=== PATIENT | male | born 1970 | race Caucasian/White ===

== ENCOUNTER 2017-06-22 08:59 | Outpatient (CLI) | payer OTHER ==
[2017-06-22 12:34] LABS: #Basophils 0.1 thou/uL (0.0-0.2); #Eosinphils 0.3 thou/uL (0.0-0.7); #Lymphocytes 1.6 thou/uL (1.20-3.40); #Monocytes 0.7 thou/uL (0.11-0.59); #Neutrophils 3.3 thou/uL (1.40-6.50); %Basophils 1.4 % (0.0-1.0); %Eosinophils 5.3 % (0.0-10.0); %Lymphocytes 26.8 % (21.0-51.0); %Monocytes 11.4 % (0.0-10.0); Hematocrit 47.1 % (42.0-52.0); Mean Platelet Volume 7.1 fL (7.4-10.4); Red Blood Cell (RBC) Count 4.67 mill/uL (4.70-6.10)
[2017-06-22 12:39] LABS: Hemoglobin A1c 5.2 % (4.0-6.0)
[2017-06-22 13:07] LABS: Anion Gap 16 mmol/L (10-20); BUN (Urea Nitrogen) 13 mg/dL (8.9-20.6); Calc. Creatinine Clearance 0 mL/min (70-130); Calcium 9.8 mg/dL (7.8-10.44); Carbon Dioxide 22 mmol/L (22-29); Chloride 103 mmol/L (98-107); Estimated GFR-MDRD 70
--- NOTE | 2017-06-23 09:06 | EKG ---
Test Reason : PREOP Blood Pressure : / mmHG Vent. Rate : 052 BPM Atrial Rate : 052 BPM P-R Int : 130 ms QRS Dur : 098 ms QT Int : 380 ms P-R-T Axes : 061 040 049 degrees QTc Int : 353 ms Sinus bradycardia Otherwise normal ECG When compared with ECG of 29-SEP-2016 12:19, QT has shortened Confirmed by MIMI IGLESIAS ([id number]) on 06/23/2017 9:05:55 AM Referred By: CARYN Confirmed By:MIMI IGLESIAS
== END 2017-06-22 09:00 | disposition home or self-care (01) ==
LOC: LABBT 08:59
PROVIDERS: ATTEND Surgery
DX: Z01.812 Encounter for preprocedural laboratory examination (principal); C18.9 Malignant neoplasm of colon, unspecified
CPT/HCPCS: 80048; 83036; 85025; 93005; 93010

== ENCOUNTER 2017-06-22 09:00 | Inpatient (IN) | payer OTHER, SELFPAY ==
[2017-06-22 09:25] VITALS: BMI 25.7
[2017-06-29] MEDS ORDERED: Sodium Chloride 0.9% 100 ML ONE (11:14)
[2017-06-29] MEDS ORDERED: Bupivacaine HCl 0.5%/Epinephrine 1:200,000/PF 30 ml Vial ONE (11:35)
[2017-06-29] MEDS ORDERED: Fentanyl 100 MCG/2 ML VIAL ONE (11:46)
[2017-07-04 14:36] LABS: Oxyhemoglobin 96.6 % (94.0-97.0); Sodium 136 mmol/L (135-148)
[2017-07-04 14:41] LABS: Vent YES
[2017-07-04 14:42] LABS: Mode OR ABG
== END 2017-06-29 13:00 | disposition home or self-care (01) | DRG 376 ==
LOC: SURG A 06-29 10:16
PROVIDERS: ADMIT Surgery; ATTEND Surgery
DX: C18.9 Malignant neoplasm of colon, unspecified (principal); I10 Essential (primary) hypertension; Z53.9 Procedure and treatment not carried out, unspecified reason
CPT/HCPCS: 82805; J0670; J0694; J3010; J7050

== ENCOUNTER 2017-07-13 11:21 | Outpatient (CLI) | payer OTHER ==
[2017-07-13 12:20] LABS: #Basophils 0.1 thou/uL (0.0-0.2); #Eosinphils 0.3 thou/uL (0.0-0.7); #Lymphocytes 2.1 thou/uL (1.20-3.40); #Monocytes 0.7 thou/uL (0.11-0.59); #Neutrophils 4.2 thou/uL (1.40-6.50); %Basophils 1.3 % (0.0-1.0); %Eosinophils 4.1 % (0.0-10.0); %Lymphocytes 27.9 % (21.0-51.0); %Monocytes 9.9 % (0.0-10.0); Hematocrit 45.7 % (42.0-52.0); Mean Platelet Volume 6.6 fL (7.4-10.4); Red Blood Cell (RBC) Count 4.56 mill/uL (4.70-6.10); White Blood Cell (WBC) Count 7.4 thou/uL (4.8-10.8)
[2017-07-13 12:40] LABS: Anion Gap 10 mmol/L (10-20); BUN (Urea Nitrogen) 13 mg/dL (8.9-20.6); Calc. Creatinine Clearance 0 mL/min (70-130); Carbon Dioxide 32 mmol/L (22-29); Chloride 103 mmol/L (98-107); Estimated GFR-MDRD 77
== END 2017-07-13 11:22 | disposition home or self-care (01) ==
LOC: LABBT 11:21
PROVIDERS: ATTEND Surgery
DX: Z01.812 Encounter for preprocedural laboratory examination (principal); C18.9 Malignant neoplasm of colon, unspecified
CPT/HCPCS: 80048; 83036; 85025

== ENCOUNTER 2017-07-14 08:36 | Inpatient (IN) | payer OTHER, SELFPAY ==
[2017-07-13 09:00] VITALS: BMI 25.7
[2017-07-14] MEDS ORDERED: Sodium Chloride 0.9% 100 ML ONE (09:32)
[2017-07-14] MEDS ORDERED: Fentanyl 250 MCG/5 ML VIAL ONE (09:41)
[2017-07-14] MEDS ORDERED: Fentanyl 100 MCG/2 ML VIAL ONE ×2 (09:41→14:09)
[2017-07-14] MEDS ORDERED: Midazolam HCl 2 mg/2 ml Vial ONE ×2 (09:41)
[2017-07-14] MEDS ORDERED: Dexamethasone 4 mg/ml Vial ONE (09:41)
[2017-07-14] MEDS ORDERED: Ketorolac Tromethamine 30 MG/ML VIAL ONE (10:22)
[2017-07-14] MEDS ORDERED: diphenhydrAMINE 50 MG/ML VIAL ONE (10:22)
[2017-07-14] MEDS ORDERED: PHENYLEPHRINE-NS 100 MCG/ML 10 ML SYRINGE ONE (10:22)
[2017-07-14] MEDS ORDERED: Labetalol HCl 100 MG/20 ML SYR ONE (10:22)
[2017-07-14] MEDS ORDERED: Lidocaine 1% PF 5 ML VIAL ONE (10:22)
[2017-07-14] MEDS ORDERED: Propofol 200 MG/20 ML VIAL ONE (10:22)
[2017-07-14] MEDS ORDERED: Glycopyrrolate 0.2 MG/ML 5 ML SYRINGE ONE (10:22)
[2017-07-14] MEDS ORDERED: Ondansetron HCl/PF 4 MG/2 ML Vial ONE (10:22)
[2017-07-14] MEDS ORDERED: Promethazine HCl 25 MG/ML VIAL SLOW IVP PRN (13:53)
[2017-07-14] MEDS ORDERED: HYDROmorphone 2 MG/ML VIAL SLOW IVP PRN (13:53)
[2017-07-14] MEDS ORDERED: Ondansetron HCl/PF 4 MG/2 ML Vial IVP PRN ×2 (13:53→14:34)
[2017-07-14] MEDS ORDERED: Promethazine HCl 25 MG/ML VIAL IM PRN ×2 (13:53→14:34)
[2017-07-14] MEDS ORDERED: Fentanyl 100 MCG/2 ML VIAL SLOW IVP PRN (14:34)
[2017-07-14] MEDS ORDERED: hydrALAZINE 20 MG/ML VIAL SLOW IVP PRN (14:34)
[2017-07-14] MEDS: Sodium Chloride 0.9% 1,000 ML IV SCH ×2 (16:11→21:22)
[2017-07-14] MEDS: Fentanyl 100 MCG/2 ML VIAL SLOW IVP PRN ×2 (16:15→21:14)
[2017-07-14] MEDS: Acetaminophen 1,000 MG in Premix Bag 1 BAG IVPB SCH (18:00)
[2017-07-14] MEDS: Enoxaparin Sodium 40 MG/0.4 ML SYRINGE SC SCH (21:13)
[2017-07-14] MEDS: Famotidine 20 MG TAB PO SCH (21:13)
[2017-07-14] MEDS: Famotidine/PF 20 mg/2ml Vial SLOW IVP SCH (21:14)
[2017-07-15] MEDS: Acetaminophen 1,000 MG in Premix Bag 1 BAG IVPB SCH ×3 (00:27→12:42)
[2017-07-15] MEDS: Fentanyl 100 MCG/2 ML VIAL SLOW IVP PRN ×3 (01:04→10:17)
[2017-07-15] MEDS: Ketorolac Tromethamine 30 MG/ML VIAL IVP PRN ×2 (02:30→09:32)
[2017-07-15 05:35] LABS: #Lymphocytes 0.7 thou/uL (1.20-3.40); #Monocytes 1.1 thou/uL (0.11-0.59); #Neutrophils 12.4 thou/uL (1.40-6.50); %Basophils 0.1 % (0.0-1.0); %Eosinophils 0.1 % (0.0-10.0); %Lymphocytes 4.9 % (21.0-51.0); %Monocytes 7.9 % (0.0-10.0); Hematocrit 38.5 % (42.0-52.0); Mean Platelet Volume 7.1 fL (7.4-10.4); Red Blood Cell (RBC) Count 3.86 mill/uL (4.70-6.10); White Blood Cell (WBC) Count 14.2 thou/uL (4.8-10.8)
[2017-07-15 05:47] LABS: Anion Gap 10 mmol/L (10-20); BUN (Urea Nitrogen) 17 mg/dL (8.9-20.6); Calc. Creatinine Clearance 87 mL/min (70-130); Calcium 9.1 mg/dL (7.8-10.44); Carbon Dioxide 26 mmol/L (22-29); Chloride 104 mmol/L (98-107); Estimated GFR-MDRD 62
[2017-07-15] MEDS: Sodium Chloride 0.9% 1,000 ML IV SCH ×2 (06:46→12:53)
[2017-07-15] MEDS: Famotidine 20 MG TAB PO SCH ×2 (10:17→22:12)
[2017-07-15] MEDS: Lisinopril 2.5 MG TAB PO SCH (10:17)
[2017-07-15] MEDS: Famotidine/PF 20 mg/2ml Vial SLOW IVP SCH ×2 (10:21→19:48)
[2017-07-15] MEDS ORDERED: HYDROcodone/Acetaminophen 10/325 mg Tablet PO PRN (12:32)
[2017-07-15] MEDS: HYDROcodone/Acetaminophen 10/325 mg Tablet PO PRN ×3 (13:10→21:05)
--- NOTE | 2017-07-15 14:35 | PRG ---
DATE OF SERVICE: 07/15/2017 SUBJECTIVE: Postop day 1 colostomy takedown and right partial colectomy. Mr. Goel is doing well today, tolerated the clear liquid diet. OBJECTIVE: VITAL SIGNS: He is afebrile. Vital signs are stable. ABDOMEN: Soft. He has already had some output into his bag. ASSESSMENT: Postop day #1 colostomy takedown and right colectomy with diverting loop ileostomy. PLAN: Full liquids and Almeida out tomorrow, start ostomy teaching, likely home Tuesday or Tuesday.
[2017-07-15] MEDS: Enoxaparin Sodium 40 MG/0.4 ML SYRINGE SC SCH (19:48)
[2017-07-16] MEDS: HYDROcodone/Acetaminophen 10/325 mg Tablet PO PRN ×6 (01:01→21:36)
[2017-07-16] MEDS: Sodium Chloride 0.9% 1,000 ML IV SCH ×2 (05:44→17:38)
[2017-07-16] MEDS: Famotidine 20 MG TAB PO SCH ×2 (09:09→21:36)
[2017-07-16] MEDS: Lisinopril 2.5 MG TAB PO SCH (09:09)
[2017-07-16] MEDS: Famotidine/PF 20 mg/2ml Vial SLOW IVP SCH ×2 (13:03→20:37)
--- NOTE | 2017-07-16 13:44 | PRG ---
DATE OF SERVICE: 07/16/2017 SUBJECTIVE: Mr. Goel is feeling good today. He has tolerated his clear liquid diet and is having liquid ileostomy output. He is not nauseated. His pain is controlled on oral medications. He has had some bloody drainage on his dressings somewhat this has not expanded since yesterday. OBJECTIVE: VITAL SIGNS: Afebrile with normal vital signs. ABDOMEN: Shows a healthy appearing loop ileostomy with liquid stool in the bag. His periumbilical incision is healing and clean. His old colostomy site has some bloody drainage on the gauze, which was changed. The [place] was left in place. ASSESSMENT AND PLAN: Status post ileocecectomy and low anterior resection and colostomy takedown wi th diverting ileostomy due to anastomosis and low rectal anastomosis. He has been advanced to full liquid diet and if he tolerates that, I will put him on a soft diet for dinner. He may be ready to discharge tomorrow.
[2017-07-16] MEDS: Enoxaparin Sodium 40 MG/0.4 ML SYRINGE SC SCH (21:36)
[2017-07-17] MEDS: HYDROcodone/Acetaminophen 10/325 mg Tablet PO PRN ×3 (01:56→10:47)
[2017-07-17] MEDS: Sodium Chloride 0.9% 1,000 ML IV SCH (03:13)
[2017-07-17] MEDS: Famotidine 20 MG TAB PO SCH (08:23)
[2017-07-17] MEDS: Lisinopril 2.5 MG TAB PO SCH (08:23)
[2017-07-17 08:25] VITALS: BP 147/83
[2017-07-17] MEDS: Famotidine/PF 20 mg/2ml Vial SLOW IVP SCH (09:55)
[2017-07-17 12:37] VITALS: TEMP 98.3
--- NOTE | 2017-07-18 13:38 | OP ---
DATE OF PROCEDURE: 07/14/2017 PREOPERATIVE DIAGNOSES: 1. History of neoplasm with uncertain behavior of right colon. 2. History of malignant sigmoid tumor, previously resected with Norris's procedure. POSTOPERATIVE DIAGNOSES: 1. History of neoplasm with uncertain behavior of right colon. 2. History of malignant sigmoid tumor, previously resected with Norris's procedure. PROCEDURES PERFORMED: 1. Colostomy takedown with low pelvic anastomosis. 2. Partial colectomy, right laparoscopic assisted. 3. Diverting loop ileostomy. SURGEON: Neeraj Mcknight M.D. ANESTHESIA: General. ESTIMATED BLOOD LOSS: 100 mL COMPLICATIONS: None. FINDINGS: The low pelvic colorectal anastomosis is in the mid rectum, so the decision was made to d ivert with loop ileostomy. The patient did require right colectomy as well. However, he had good m iddle colic blood vessel and so likely adequate blood supply to the residual colon. INDICATIONS: The patient is a 46-year-old male who previously presented with an obstructing rectosi gmoid junction colon cancer treated with resection and diversion. He has undergone chemotherapy on his screening. Preop colonoscopy was found to have unresectable mass in the right colon as well. R isks and benefits were discussed. He gave consent. He underwent mechanical and antibiotic bowel pr ep. TECHNIQUE: The patient was taken to the operating room and placed supine on the table. After gener al anesthetic was obtained, a Almeida was placed. He was placed in lithotomy position. Tap blocks we re done by Anesthesia in the preop holding area. Left subcostal 5-mm Optiview trocar was placed in the usual fashion and high-flow pneumoperitoneum was obtained. Two additional 5-mm ports were place d in the left abdomen in the suprapubic area. Hand-assist port was placed just around and above the umbilicus. The right colon was mobilized along the white line of Toldt. The ureter was found and excluded from the dissection. The blue area is in the cecum. The right colon was fully mobilized. The top of the hand-assist port was removed and was able to be brought up through the hand-assist p ort. A JUAN-75 stapler was fired across the terminal ileum. A reload was fired across the proximal transverse colon. The anastomosis was performed in an isoperistaltic fashion with a JUAN-75 stapler. The common enterotomy was closed in two layers using a 2-0 Vicryl. The mesenteric defect was clos ed using 2-0 Vicryl. There was no ischemia to the staple line. The specimen was opened on the back table to reveal the unresectable polyp to be in the specimen and sent to path for final diagnosis. The right anastomosis was dropped back into the abdomen. The patient did have a significant amount of colon left in terms of the transverse colon and the ascending colon. The hand-assist port was p laced back on top. The patient was then placed in Trendelenburg position. His rectal stump was lap aroscopically dissected out. Left ureter was found and excluded from the dissection. The previousl y mobilized splenic flexure was again, some of those adhesions were taken down. The colostomy mucos a was ellipsed out and dissected all the way down into the abdominal cavity. The small Abel wound retractor was placed in the opening and twisted in order to regain pneumoinsufflation. The top of the hand-assist port was removed and the proximal colostomy site was able to be brought up. The col otomy was made. The 31 EEA anvil was passed proximally in the colon through a distal colotomy. The end colostomy segment was then stapled off using a JUAN-75 stapler. The sharp pin of the anvil was then brought out through the end of the staple line and the sharp pin removed. The top of the hand- assist port was replaced. The Abel wound retractor was twisted to restore pneumoinsufflation. Th e patient was placed in Trendelenburg position. The base for the 31 EEA stapler was brought up thro ugh the anus and its sharp pin brought out on the antimesenteric surface of the mid rectum below. T his was connected to the anvil from above. The stapler was tightened down and fired. There were 2 good rings of tissue. The anastomosis was tested with air insufflation under saline without obvious leakage because the anastomosis is in the low rectum. The decision was made to divert with a proxi mal loop ileostomy. Ellipse of skin taken out in the right lower quadrant and a distal loop of inte mitch was brought out maintaining at some orientation. It is held in place with a red rubber cathet er to hold it up against the subcutaneous tissues. The abdomen was irrigated. All instrument count s, needle counts, and lap counts were correct. PDS was used to close the anterior and posterior fas sunshine at the former colostomy site. PDS was used to close the anterior and posterior fascia at the mi dline hand assist site. The wounds were irrigated and all closed using 3-0 Vicryl, 4-0 Monocryl, an d Dermabond. Next, the ostomy was matured in the typical fashion and a loop fashion using 3-0 Vicry l and ostomy devices placed. The patient was en route to recovery in stable condition. All instrum ent counts, needle counts, and lap counts were correct.
--- NOTE | 2017-07-18 13:38 | DIS ---
ADMISSION DIAGNOSES: 1. Right colon polyp. 2. History of sigmoid colon cancer, attention to colostomy. DISCHARGE DIAGNOSES: 1. Right colon polyp. 2. History of sigmoid colon cancer, attention to colostomy. PROCEDURES: Partial colectomy right and colostomy takedown left. CONDITION AT DISCHARGE: Improved. STAFF: Dr. Neeraj Mcknight. HOSPITAL COURSE: The patient had an uneventful postop course. His diet was slowly advanced. Drain was removed prior to discharge. Discharged home 07/17/2017 to follow up with me in my office in 2 weeks.
== END 2017-07-17 13:08 | disposition home or self-care (01) | DRG 331 ==
LOC: SURG A 08:36 → SURG B 14:27
PROVIDERS: ADMIT Surgery; ATTEND Surgery
PROC: 0DBP0ZZ Excision of Rectum, Open Approach (ICD-10-PCS; principal; 2017-07-14)
PROC: 0DBF0ZZ Excision of Right Large Intestine, Open Approach (ICD-10-PCS; 2017-07-14)
PROC: 0D1B0Z4 Bypass Ileum to Cutaneous, Open Approach (ICD-10-PCS; 2017-07-14)
PROC: 3E0T3BZ Introduction of Anesthetic Agent into Peripheral Nerves and Plexi, Percutaneous Approach (ICD-10-PCS; 2017-07-14)
DX: K63.5 Polyp of colon (principal); Z43.3 Encounter for attention to colostomy; I10 Essential (primary) hypertension; Z85.038 Personal history of other malignant neoplasm of large intestine
CPT/HCPCS: 36415; 36416; 80048; 85025; 88307; J0131; J0694; J1100; J1170; J1200; J1642; J1650; J1885; J2001; J2250; J2405; J2704; J3010; J7050; S0028

== ENCOUNTER 2017-08-22 08:57 | Outpatient (CLI) | payer SELFPAY | END 2017-08-22 08:58 | disposition home or self-care (01) | LOC: LABBT 08:57 | PROVIDERS: ATTEND Surgery | DX: Z01.818 Encounter for other preprocedural examination (principal); C18.9 Malignant neoplasm of colon, unspecified; K94.13 Enterostomy malfunction ==

== ENCOUNTER 2017-08-23 08:02 | Outpatient (CLI) | payer OTHER ==
[2017-08-23] MEDS ORDERED: MD-Gastroview 120 ML BOT ONE (08:04)
--- NOTE | 2017-08-23 09:49 | RAD ---
CONTRAST ENEMA: Date: 08-23-17 History: 46-year-old male status post partial colon resection and ileostomy. Evaluate for leakage at anastomos is site. Technique: Following placement of a rectal catheter, Gastrografin was introduced into the colon under fluoroscop y. FINDINGS: There is focal narrowing at the anastomotic site, which is at the rectum. During fluoroscopy, a small amount of extraluminal contrast, with a lace-like appearance, is visualized surrounding the anastomo sis, which is at the level of the tip of the catheter and balloon. However, this leaked contrast mate rial is not visible on the post evacuation overhead radiographic images. The rest of the contrast jamarcus ws through the shortened colon, into the ileostomy bag in the right lower quadrant. There is a single diverticulum at the site of the anastomosis. IMPRESSION: 1. Short segment of focal anastomotic stricture and minimal leakage at the anastomotic site. 2. Diverticulum at the anastomotic site. POS: [facility]
== END 2017-08-23 08:03 | disposition home or self-care (01) ==
LOC: RAD 08:02
PROVIDERS: ATTEND Surgery
DX: Z43.2 Encounter for attention to ileostomy (principal); C18.9 Malignant neoplasm of colon, unspecified; K57.30 Diverticulosis of large intestine without perforation or abscess without bleeding
CPT/HCPCS: 74280

== ENCOUNTER 2017-08-24 09:00 | Inpatient (IN) | payer OTHER, SELFPAY ==
[2017-08-22 09:20] VITALS: BMI 25.1
[2017-08-24] MEDS ORDERED: cefOXitin Sodium 2 GM, Syringe 1 ML in Sterile Water 10 ML SLOW IVP ONE (13:15)
[2017-08-24] MEDS ORDERED: Fentanyl 100 MCG/2 ML VIAL ONE ×4 (13:35→15:23)
[2017-08-24] MEDS ORDERED: Midazolam HCl 2 mg/2 ml Vial ONE (13:35)
[2017-08-24] MEDS ORDERED: Fentanyl 250 MCG/5 ML VIAL ONE (13:37)
[2017-08-24] MEDS ORDERED: Meperidine HCl/PF 25 MG/ML VIAL SLOW IVP PRN (14:51)
[2017-08-24] MEDS ORDERED: Promethazine HCl 25 MG/ML VIAL SLOW IVP PRN (14:51)
[2017-08-24] MEDS ORDERED: Esmolol 100 MG/10 ML VIAL ONE (15:12)
[2017-08-24] MEDS ORDERED: Lidocaine 1% PF 5 ML VIAL ONE (15:12)
[2017-08-24] MEDS ORDERED: Glycopyrrolate 0.2 MG/ML 5 ML SYRINGE ONE (15:12)
[2017-08-24] MEDS ORDERED: Succinylcholine Chloride 20 MG/ML 10 ml SYRINGE FS ONE (15:12)
[2017-08-24] MEDS ORDERED: Propofol 200 MG/20 ML VIAL ONE (15:12)
[2017-08-24] MEDS ORDERED: Ondansetron HCl/PF 4 MG/2 ML Vial ONE (15:19)
[2017-08-24] MEDS ORDERED: Fentanyl 5000 MCG/250 ML CADD IVPB PRN (15:26)
[2017-08-24] MEDS ORDERED: Naloxone HCl 0.4 mg/ml Vial IV PRN (15:26)
[2017-08-24] MEDS ORDERED: Zolpidem Tartrate 5 MG TAB PO PRN (15:26)
[2017-08-24] MEDS ORDERED: diphenhydrAMINE 25 MG CAP PO PRN (15:26)
[2017-08-24] MEDS ORDERED: Promethazine HCl 25 MG/ML VIAL IM PRN ×2 (15:26→17:36)
[2017-08-24] MEDS ORDERED: Ketorolac Tromethamine 30 MG/ML VIAL IVP PRN (15:26)
[2017-08-24] MEDS ORDERED: diphenhydrAMINE 50 MG/ML VIAL IM PRN (15:26)
[2017-08-24] MEDS ORDERED: diphenhydrAMINE 50 MG/ML VIAL IVP PRN (15:26)
[2017-08-24] MEDS ORDERED: Communication Order-Pharmacy FS SCH (15:30)
[2017-08-24] MEDS ORDERED: Ondansetron HCl/PF 4 MG/2 ML Vial IVP SCH (15:30)
[2017-08-24] MEDS ORDERED: Labetalol HCl 100 MG/20 ML VIAL ONE (15:33)
[2017-08-24] MEDS ORDERED: Fentanyl 20 MCG/ML 250 ML ONE (15:42)
[2017-08-24] MEDS ORDERED: hydrALAZINE 20 MG/ML VIAL ONE (15:58)
[2017-08-24] MEDS ORDERED: Ondansetron HCl/PF 4 MG/2 ML Vial IVP PRN (17:36)
[2017-08-24] MEDS ORDERED: hydrALAZINE 20 MG/ML VIAL SLOW IVP PRN (17:36)
[2017-08-24] MEDS: Acetaminophen 1,000 MG in Premix Bag 1 BAG IVPB SCH ×2 (18:07→23:51)
[2017-08-24] MEDS: D5 1/2 NS w/20 mEq KCL 1,000 ML IV SCH (19:28)
[2017-08-24] MEDS: Ondansetron HCl/PF 4 MG/2 ML Vial IVP PRN (21:52)
[2017-08-24] MEDS: Famotidine/PF 20 mg/2ml Vial SLOW IVP SCH (21:53)
[2017-08-24] MEDS: cefOXitin Sodium 2 GM, Syringe 1 ML in Sterile Water 10 ML SLOW IVP SCH (21:53)
[2017-08-24] MEDS: Famotidine 20 MG TAB PO SCH (21:54)
[2017-08-24] MEDS: Enoxaparin Sodium 40 MG/0.4 ML SYRINGE SC SCH (21:54)
[2017-08-25 05:24] LABS: #Eosinphils 0.1 thou/uL (0.0-0.7); #Lymphocytes 1.4 thou/uL (1.20-3.40); #Neutrophils 7.2 thou/uL (1.40-6.50); %Basophils 0.3 % (0.0-1.0); %Lymphocytes 14.7 % (21.0-51.0); %Monocytes 10.4 % (0.0-10.0); Hematocrit 42.6 % (42.0-52.0); Mean Platelet Volume 6.9 fL (7.4-10.4); Red Blood Cell (RBC) Count 4.23 mill/uL (4.70-6.10); White Blood Cell (WBC) Count 9.7 thou/uL (4.8-10.8)
[2017-08-25] MEDS: Acetaminophen 1,000 MG in Premix Bag 1 BAG IVPB SCH (05:29)
[2017-08-25] MEDS: cefOXitin Sodium 2 GM, Syringe 1 ML in Sterile Water 10 ML SLOW IVP SCH (05:30)
[2017-08-25 05:37] LABS: Anion Gap 10 mmol/L (10-20); BUN (Urea Nitrogen) 10 mg/dL (8.9-20.6); Calc. Creatinine Clearance 108 mL/min (70-130); Calcium 9.5 mg/dL (7.8-10.44); Carbon Dioxide 29 mmol/L (22-29); Chloride 101 mmol/L (98-107); Estimated GFR-MDRD 85
[2017-08-25] MEDS: Ondansetron HCl/PF 4 MG/2 ML Vial IVP PRN (05:39)
[2017-08-25] MEDS: Lisinopril 2.5 MG TAB PO SCH (08:37)
[2017-08-25] MEDS: Famotidine/PF 20 mg/2ml Vial SLOW IVP SCH ×2 (08:38→20:58)
[2017-08-25] MEDS: Famotidine 20 MG TAB PO SCH ×2 (08:38→20:57)
[2017-08-25] MEDS ORDERED: HYDROcodone/Acetaminophen 10/325 mg Tablet PO PRN (11:53)
--- NOTE | 2017-08-25 12:23 | PRG ---
DATE OF SERVICE: 08/25/2017 Postop day #1. Mr. Goel is doing well, tolerating the clear liquids without difficulty. He is ambulatory. PHYSICAL EXAMINATION: VITAL SIGNS: He is afebrile. Vital signs are stable. His wounds are dressed and clear. His abdomen is soft and nontender. ASSESSMENT: Postoperative day #1, ileostomy takedown. PLAN: Full liquid diet, switch to oral pain control. Likely home tomorrow if tolerates the liquids.
[2017-08-25] MEDS: HYDROcodone/Acetaminophen 10/325 mg Tablet PO PRN ×3 (13:43→20:56)
[2017-08-25] MEDS: D5 1/2 NS w/20 mEq KCL 1,000 ML IV SCH (14:25)
[2017-08-25] MEDS: Enoxaparin Sodium 40 MG/0.4 ML SYRINGE SC SCH (20:57)
[2017-08-26] MEDS: HYDROcodone/Acetaminophen 10/325 mg Tablet PO PRN ×3 (04:00→12:25)
[2017-08-26] MEDS: Ondansetron HCl/PF 4 MG/2 ML Vial IVP PRN (04:56)
[2017-08-26 08:31] VITALS: BP 123/85; TEMP 98.2
[2017-08-26] MEDS: Famotidine 20 MG TAB PO SCH (08:44)
[2017-08-26] MEDS: Lisinopril 2.5 MG TAB PO SCH (08:44)
[2017-08-26] MEDS: Famotidine/PF 20 mg/2ml Vial SLOW IVP SCH (08:47)
--- NOTE | 2017-08-26 14:06 | DIS ---
DATE OF ADMISSION: 08/24/2017 DATE OF DISCHARGE: 08/26/2017 ADMITTING DIAGNOSIS: History of left colon cancer, status post left colectomy with diverting ileosto my. POSTOPERATIVE DIAGNOSIS: History of left colon cancer, status post left colectomy with diverting ile ostomy. PROCEDURE: Ileostomy takedown by Dr. Mcknight without complication. CONDITION AT DISCHARGE: Improved. STAFF: Dr. Mcknight. HOSPITAL COURSE: On postop day 2, the patient is doing well. He is tolerating full liquids. His wo und is healing well. His Prerna was removed and the dressings were placed. He is discharged to [facility] on [place] and [place]. He will advance his diet slowly over the next few days. ACTIVITY: Activities as tolerated. FOLLOWUP: He will follow up with me in 2 weeks.
--- NOTE | 2017-08-29 13:56 | OP ---
DATE OF PROCEDURE: 08/24/2017 PREOPERATIVE DIAGNOSIS: History of left colon cancer, diverted with loop ileostomy on colostomy take down. POSTOPERATIVE DIAGNOSIS: History of left colon cancer, diverted with loop ileostomy on colostomy gia richards. PROCEDURE: Ileostomy takedown with smaller resection and anastomosis. SURGEON: Neeraj Mcknight M.D. ANESTHESIA: General. ESTIMATED BLOOD LOSS: Minimal. COMPLICATIONS: None. SPECIMEN: None. TECHNIQUE: The patient was taken to the operating room and placed supine on the table. After genera l anesthetic was obtained, the abdomen was shaved, prepped and draped in a sterile fashion. The osto my had been sewn shut using silk suture. An elliptical incision was used to ellipse out the mucosa o f the ostomy. Dissection was taken down the subcutaneous fat. Dissection was taken down on the ileo stomy all the way down to the fascia. The abdominal cavity was entered and there were no posterior w all adhesions. This allowed the loop ileostomy segment to be brought up further into the wound. JUAN -75 was fired proximal and distal to the area that was sewn to the skin and an enterotomy is made on the antimesenteric surface of the residual bowel and a [id number] anastomosis was obtained using GI A-75 stapler. The common enterotomy was closed using TA-60. The ileostomy skin segment mesentery wa s removed using the LigaSure. The anastomosis was oversewn at the crotches and in the corners using silk sutures, it was placed back into the abdominal cavity. Posterior and anterior fascia was closed using PDS. The wound was irrigated and the skin was closed using pursestring of Prolene, Prerna wa s left in the middle of the wound. The patient was en route to recovery in stable condition. All in strument counts, needle counts, and lap counts were correct.
== END 2017-08-26 12:32 | disposition home or self-care (01) | DRG 331 ==
LOC: SURG A 11:48 → SJJU 17:32
PROVIDERS: ADMIT Surgery; ATTEND Surgery
PROC: 0DBB0ZZ Excision of Ileum, Open Approach (ICD-10-PCS; principal; 2017-08-24)
DX: Z43.2 Encounter for attention to ileostomy (principal); Z85.038 Personal history of other malignant neoplasm of large intestine; Z90.49 Acquired absence of other specified parts of digestive tract
CPT/HCPCS: 36416; 80048; 85025; A4216; J0131; J0360; J0694; J1650; J1885; J2001; J2250; J2405; J2550; J2704; J3010; S0028

== ENCOUNTER 2017-11-18 18:17 | Inpatient (IN) | payer OTHER, SELFPAY ==
[~2017-11-18 18:17] MED LIST: ISOVUE-370 76%-LOCM 1 ML ONE
[2017-11-18] MEDS ORDERED: Fentanyl 100 MCG/2 ML VIAL ONE ×2 (18:34→20:12)
[2017-11-18] MEDS ORDERED: Ondansetron HCl/PF 4 MG/2 ML Vial ONE (18:34)
[2017-11-18 18:45] LABS: #Eosinphils 0.2 thou/uL (0.0-0.7); #Lymphocytes 2.2 thou/uL (1.20-3.40); #Monocytes 0.8 thou/uL (0.11-0.59); #Neutrophils 11.6 thou/uL (1.40-6.50); %Basophils 0.3 % (0.0-1.0); %Eosinophils 1.4 % (0.0-10.0); %Lymphocytes 14.7 % (21.0-51.0); %Monocytes 5.4 % (0.0-10.0); %Neutrophils 78.2 % (42.0-75.0); Hemoglobin 17.4 g/dL (14.0-18.0); Mean Corpuscular HGB CONC 31.8 g/dL (32.0-36.0); Mean Corpuscular Hemoglobin 29.7 pg (27.0-31.0); Mean Corpuscular Volume 93.4 fl (80.0-94.0); Mean Platelet Volume 6.6 fL (7.4-10.4); Platelet Count 349 thou/uL (130-400); RBC Distribution Width 14.6 % (11.5-14.5); Red Blood Cell (RBC) Count 5.87 mill/uL (4.70-6.10); White Blood Cell (WBC) Count 14.8 thou/uL (4.8-10.8)
[2017-11-18] MEDS ORDERED: Pantoprazole 40 MG VIAL ONE (18:54)
[2017-11-18 19:06] LABS: ALT (SGPT) 7 U/L (8-55); AST (SGOT) 13 U/L (5-34); Albumin 4.3 g/dL (3.5-5.0); Alkaline Phosphatase 99 U/L (40-150); Anion Gap 15 mmol/L (10-20); BUN (Urea Nitrogen) 15 mg/dL (8.9-20.6); Bilirubin, Total 1.7 mg/dL (0.2-1.2); Calc. Creatinine Clearance 0 mL/min (70-130); Calcium 10.9 mg/dL (7.8-10.44); Carbon Dioxide 30 mmol/L (22-29); Chloride 96 mmol/L (98-107); Estimated GFR-MDRD 65; Glucose 137 mg/dL (70-105); Lipase 20 U/L (8-78); Magnesium 2.2 mg/dL (1.6-2.6); Potassium 3.9 mmol/L (3.5-5.1); Protein, Total 8.3 g/dL (6.0-8.3); Sodium 137 mmol/L (136-145)
[2017-11-18 19:10] LABS: CKMB 1.3 ng/mL (0-6.6); Troponin I Less than 0.010 ng/mL (< 0.028)
--- NOTE | 2017-11-18 19:37 | RAD ---
PORTABLE CHEST: 11/18/17 HISTORY: Shortness of breath. History of colon cancer. Abdominal pain. The lungs are clear. No infiltrate seen. Heart and mediastinum unremarkable. IMPRESSION: No acute abnormality. POS: [facility]
--- NOTE | 2017-11-18 19:46 | CT ---
CT ABDOMEN AND PELVIS WITH IV CONTRAST 11/18/17 Multiple axial tomograms obtained through the abdomen and pelvis with IV enhancement. HISTORY: Abdominal pain. History of colon cancer. Partial colectomy three months ago. FINDINGS: The lung bases are clear. There is a tiny nodule in the right lung base measuring approximately 3 mm which appears calcified on the coronal projection. The liver, spleen and pancreas are unremarkable. Stomach and duodenum unremarkable. Adrenal glands unremarkable. There is left hydronephrosis. There is a 4.5 to 5.0 cm cystic mass which involves the anterior aspect of the left psoas muscle. This mass appears to be compressing the proximal left ureter and it appear s to be responsible for the left hydronephrosis. Right kidney is unremarkable. There are fluid filled dilated loops of small bowel. Patient is post partial colectomy. Ileocolonic anastomosis in the righ t upper abdomen appears patent. There is fluid filled dilatation of the colon down to the upper rectu m where there is an apparent anastomosis. There is wall thickening and luminal narrowing at this site and this appears to be producing obstruction. Aorta is normal caliber. No free fluid in the abdomen or pelvis. IMPRESSION: 1. Fluid filled dilated loops of small bowel and remaining colon to the level of the upper rectu m at an anastomotic site which demonstrates luminal narrowing and mural thickening. This appears to b e the site of obstruction. 2. There is left hydronephrosis. There is a fluid dense mass involving the anterior left psoas m uscle which appears to be the etiology of the left hydronephrosis. This could represent a left psoas hematoma although it is fluid dense on CT with Hounsfield units measured at 5. Other considerations i nclude lymphocele and seroma. POS: [facility]
[2017-11-18] MEDS ORDERED: Lidocaine 2% Jelly 5 ML TUBE ONE (20:07)
[2017-11-18] MEDS ORDERED: Benzocaine 20% Spray 60 ML CAN ONE (20:07)
[2017-11-18 20:23] LABS: Bilirubin Small (Negative); Blood, Urine Negative (Negative); Clarity CLEAR (Clear); Glucose, Urine (Dipstick) Negative (Negative); Leukocyte Negative (Negative); Nitrite Negative (Negative); Protein, Urine (Dipstick) Trace mg/dL (Neg-Trace)
[2017-11-18 20:26] LABS: Specific Gravity, Urine 1.058 (1.002-1.036)
[2017-11-18] MEDS ORDERED: hydrALAZINE 20 MG/ML VIAL SLOW IVP PRN (20:45)
[2017-11-18] MEDS ORDERED: Morphine 4 MG/ML Carpuject IVP PRN (20:45)
[2017-11-18] MEDS ORDERED: Dextrose 50% Abboject 50 ML SYRINGE SLOW IVP PRN (20:45)
[2017-11-18] MEDS ORDERED: Dextrose 5% in Water 1,000 ML IV PRN (20:45)
[2017-11-18] MEDS ORDERED: Piperacillin/Tazobactam 3.375 GM in Sodium Chloride 0.9% 100 ML IVPB SCH (20:45)
[2017-11-18] MEDS ORDERED: Ondansetron HCl/PF 4 MG/2 ML Vial IVP PRN (20:45)
[2017-11-18] MEDS ORDERED: Lactated Ringer's 1,000 ML IV SCH (21:00)
--- NOTE | 2017-11-18 21:01 | RAD ---
SUPINE ABDOMEN: 11/18/17 HISTORY: Assess NG tube placement. FINDINGS/IMPRESSION: Tip of NG tube overlies the epigastric region and appears adequately position. Gas filled dilated loo ps of small bowel. Contrast is seen in the right urinary tract collecting structures. There is delaye d function on the left consistent with hydronephrosis described on this CT performed earlier. Contras t filled bladder is noted. POS: [facility]
[2017-11-18] MEDS: Famotidine/PF 20 mg/2ml Vial SLOW IVP SCH (22:08)
[2017-11-18] MEDS: Enoxaparin Sodium 40 MG/0.4 ML SYRINGE SC SCH (22:09)
--- NOTE | 2017-11-18 22:26 | HP ---
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 This is a patient of Dr. Mcknight's on 08/11/2016, underwent l aparoscopic rectosigmoid resection for obstructing tumor with formation of a colostomy. He had a Med iPort placed on 09/07/2016 and on 07/26/2017, he underwent a colostomy takedown low pelvic anastomosi s, right laparoscopic assisted colectomy, and diverting loop ileostomy. On 09/08/2017, ileostomy was takedown with small bowel anastomosis. The patient last saw Dr. Mcknight a month ago. He has had lo ose stools and takes Lomotil 1-2 a day, last dose 2 days ago. He has been having problems with abdom inal bloating. This became excessive and has been experienced nausea and vomiting, presents to the e mergency room. In the emergency room, he was evaluated and CAT scan of abdomen and pelvis reveal christy nges consistent with colonic distention and possible colorectal anastomotic stricture. Small bowel w as also dilated. I was called from the emergency room Dr. Ellis at 2015 p.m. NG tube is in place and he has been admitted. White count 14, hemoglobin 17. Basic metabolic profile was unremarkable. Glucose 137. ALLERGIES: TRAMADOL. TOBACCO: None. ALCOHOL: Rarely. HOME MEDICATIONS: Lisinopril 2.5 a day. PAST SURGICAL HISTORY: As outlined above. PAST MEDICAL HISTORY: Hypertension. 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 He is accompanied by his mother. PHYSICAL EXAMINATION: VITAL SIGNS: 72 kilograms, 116/75, 90, 24, 98 degrees. HEAD, EYES, EARS, NOSE, AND THROAT: Unremarkable. LUNGS: Clear to auscultation. CARDIAC: Regular rate and rhythm without murmur or gallop. ABDOMEN: Soft, mildly distended, loud tympany. His surgical incisions well healed. EXTREMITIES: Unremarkable. ASSESSMENT AND PLAN: Nausea, vomiting, and abdominal distention. In CAT scans, he has a colorectal anastomotic stricture. We will place an NG tube to suction and check abdominal x-rays in the morning and will consult Gastroenterology for endoscopy to look at the anastomosis. The patient has been ta king Yamileth, which may be a compounding factor, have advised him not to do that.
[2017-11-18] MEDS: Acetaminophen 1,000 MG in Premix Bag 1 BAG IVPB PRN (22:37)
[2017-11-18] MEDS: Ketorolac Tromethamine 30 MG/ML VIAL IVP PRN (22:47)
[2017-11-18 22:49] LABS: Lactic Acid 0.9 mmol/L (0.5-2.2)
[2017-11-18 23:22] VITALS: BMI 24.5
[2017-11-19] MEDS: Lactated Ringer's 1,000 ML IV SCH ×5 (00:23→23:30)
[2017-11-19 05:02] LABS: #Eosinphils 0.2 thou/uL (0.0-0.7); #Lymphocytes 2.1 thou/uL (1.20-3.40); #Monocytes 0.7 thou/uL (0.11-0.59); #Neutrophils 5.1 thou/uL (1.40-6.50); %Basophils 0.3 % (0.0-1.0); %Lymphocytes 25.5 % (21.0-51.0); %Monocytes 8.3 % (0.0-10.0); %Neutrophils 63.8 % (42.0-75.0); Mean Corpuscular HGB CONC 32.5 g/dL (32.0-36.0); Mean Corpuscular Hemoglobin 30.6 pg (27.0-31.0); Mean Corpuscular Volume 94.2 fl (80.0-94.0); Mean Platelet Volume 6.7 fL (7.4-10.4); Platelet Count 247 thou/uL (130-400); RBC Distribution Width 14.3 % (11.5-14.5); Red Blood Cell (RBC) Count 4.24 mill/uL (4.70-6.10)
[2017-11-19 05:03] LABS: Anion Gap 10 mmol/L (10-20); BUN (Urea Nitrogen) 16 mg/dL (8.9-20.6); Calc. Creatinine Clearance 99 mL/min (70-130); Calcium 8.8 mg/dL (7.8-10.44); Carbon Dioxide 28 mmol/L (22-29); Chloride 104 mmol/L (98-107); Estimated GFR-MDRD 80; Glucose 100 mg/dL (70-105); Potassium 4.4 mmol/L (3.5-5.1); Sodium 138 mmol/L (136-145)
[2017-11-19] MEDS: Acetaminophen 1,000 MG in Premix Bag 1 BAG IVPB PRN ×2 (07:32→20:11)
[2017-11-19] MEDS: Ketorolac Tromethamine 30 MG/ML VIAL IVP PRN ×2 (07:32→20:09)
[2017-11-19] MEDS ORDERED: MD-Gastroview 120 ML BOT ONE (07:33)
[2017-11-19] MEDS: Famotidine/PF 20 mg/2ml Vial SLOW IVP SCH ×2 (08:44→20:22)
--- NOTE | 2017-11-19 11:30 | RAD ---
CHEST 1 VIEW AND ABDOMEN 2 VIEWS: Date: 11/19/17 HISTORY: Colon reconstruction/colorectal anastomotic stricture. FINDINGS: The heart size is normal. The lungs are well expanded without focal areas of consolidation, pneumotho rax, or pleural effusions. A nasogastric tube is present with tip in the projection of the GE junctio n. No free air or differential fluid levels are seen. There is air in loops of small and large bowel. Th ere is dilatation of small bowel loops. Contrast is seen in the urinary bladder. IMPRESSION: 1. Partial small bowel obstruction versus ileus. 2. Nasogastric tube in the projection of the GE junction. Advancement of the tube is recommended. CODE T. POS: [facility]
[2017-11-19] MEDS ORDERED: Lorazepam 2 MG/ML VIAL SLOW IVP PRN (14:47)
--- NOTE | 2017-11-19 16:09 | PRG ---
DATE OF SERVICE: 11/19/2017 SUBJECTIVE: Tomás Goel had probably a 12 [place] NG tube placed in the ER despite my recommendatio n that he have an 18 [place]ian. NG tube was placed to about 50 cm despite my orders to place it at 65 c m. Subsequently, x-rays this morning revealed NG tube tip to be at the GE junction. His output of h is NG tube has not been much, mostly saliva and ice chips it appears. I have asked his nurse to adva nce the tube to 65-70 cm. The patient has had bowel movements. His abdomen feels better. He has no t passed flatus because he states he is afraid that he will have a bowel movement. He has had liquid stools; however. OBJECTIVE: VITAL SIGNS: 98 degrees, 70, 14, 126/82. LUNGS: Clear to auscultation. CARDIAC: Regular rate and rhythm without murmur or gallop. ABDOMEN: Good bowel sounds, soft, nontender. EXTREMITIES: Unremarkable. LABORATORY DATA: White count 8, hemoglobin 13. Basic metabolic profile normal. CA level 1.57. ASSESSMENT AND PLAN: 1. History of T3N2 rectosigmoid colon cancer, status post resection. 2. History of right colectomy for nonresectable TVA. 3. History of ileostomy reversal. 4. History of chronic diarrhea. He has been taking Lomotil because of this. The patient's x-rays this morning demonstrate suggestion of possible radiologically ileus versus bowel obstruction, but more clinically probably resolv ing ileus, possible partial bowel obstruction as he has had bowel movements. With the suggestion of colorectal anastomotic stricture on his CAT scan on presentation. We are awaiting Gastroenterology i nput and proctoscopy to evaluate the colorectal status. Also with the patient having had a sigmoid a nd a right colon resection loose stools are not unexpected and may take a while to improve. I have t old him not to take Lomotil anymore. Once this episode resolves. Pending endoscopic findings, he pr obably should avoid Lomotil and take fiber and avoid stool softeners. At this point, we will await G astroenterology input. We will advance his NG tube. Check abdominal x-rays tomorrow and await Gastr oenterology input intake.
[2017-11-19] MEDS: Enoxaparin Sodium 40 MG/0.4 ML SYRINGE SC SCH (20:22)
--- NOTE | 2017-11-19 20:27 | RAD ---
SMALL BOWEL EXAM: 11/19/17 Patient was given gastrografin by NG tube. HISTORY: Small bowel obstruction. The immediate film shows contrast in stomach and duodenum. There are gas filled dilated loops of smal l bowel in the mid abdomen. 30 minute film shows No significant progression of contrast. At 2.5 hours, contrast does flow into proximal small bowel loops which are dilated. A 4.5 hour film shows no significant progression of contrast. There is contrast opacification of prox imal small bowel loops which are dilated. The patient is complaining of severe nausea and the exam was terminated in order for NG suction to be resumed. IMPRESSION: Evidence of high grade obstruction in the mid small bowel. POS: [facility]
--- NOTE | 2017-11-20 00:14 | CON ---
DATE OF CONSULTATION: 11/19/2017 REASON FOR CONSULTATION: Abnormal GI imaging, possible rectal stricture. CONSULTING PHYSICIAN: Dr. Tyrone Garcia. 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 Per review of his past surgical history, the patient unde rwent laparoscopic rectosigmoid resection for an obstructing tumor with the formation of colostomy an d MediPort placement in late 2015. Since then, he has had multiple other surgeries, but more recentl y had a colostomy takedown, low pelvic anastomosis with right laparoscopic-assisted colectomy and div erting loop ileostomy. On 09/08/2017, the ileostomy was taken down with a small bowel anastomosis. However, over the last 2-3 weeks, he has been having worsening abdominal distention and abdominal babar n characterized as a twisting type sensation, 8/10 in severity, generalized to the entire abdomen and worse with eating and better with the taking of ibuprofen as needed. Also, with associated loose/wa denise stools during this time period as well. He does admit that he is able to pass gas and he is sti ll passing these liquid/loose stools. However, he denies any nausea, vomiting, fevers, chills or GI bleeding. On admission to the ER, he was evaluated and had a CAT scan consistent with colonic distention and po ssible colorectal anastomotic stricture along with diffuse dilation of multiple loops of small bowel concerning for possible small bowel obstruction as well. He was ultimately admitted to the surgical service with an NG tube placed at that time. REVIEW OF SYSTEMS: Ten-category review of systems was obtained with all responses negative except fo r the pertinent positives as listed in the HPI. PAST MEDICAL HISTORY: As per HPI. PAST SURGICAL HISTORY: As per HPI. FAMILY HISTORY: No GI malignancies. SOCIAL HISTORY: Denies any tobacco, alcohol or illicit drug use. OUTPATIENT MEDICATIONS: Lisinopril 2.5 mg daily. ALLERGIES: TRAMADOL. PHYSICAL EXAMINATION: VITAL SIGNS: Temperature of 98.9, pulse 83, blood pressure 152/98, respiratory rate 20, satting 95% on room air. GENERAL: Patient is lying in bed comfortably in no acute distress, alert and oriented x4. NECK: Supple. No JVD noted. CARDIOVASCULAR: Regular rate and rhythm with no discernible murmurs, gallops or rubs. RESPIRATORY: Clear to auscultation bilaterally with no discernible wheezes or rales. ABDOMEN: Hypoactive bowel sounds with some high pitched tinkling sounds, soft, mildly distended. Te nderness to palpation in all abdominal quadrants. EXTREMITIES: No cyanosis, clubbing or edema. LABORATORY DATA: CBC with a white blood cell count of 8.0, hemoglobin 13, hematocrit 39.9, platelets 247. Chemistry with a sodium 138, potassium 4.4, chloride 104, CO2 is 28, BUN 16, creatinine 1.0, g lucose 100, AST 13, ALT 7, alkaline phosphatase 99, total bilirubin 1.7. CEA 1.57. IMAGING DATA: CT scan obtained on 11/18/2017 showed fluid-filled dilated loops of small bowel and re maining colon to the level of the upper rectum, had an anastomotic site which demonstrates luminal na rrowing and mural thickening which appeared to be the site of obstruction. However, he also had a all bowel follow-through obtained on 11/19/2017 which showed the lack of contrast opacification in th e proximal small bowel loops at 4.5 hours after the administration of oral contrast concerning for a high-grade obstruction within the mid small bowel. ASSESSMENT AND PLAN: The patient is a 47-year-old male with past medical history of hypertension and sigmoid adenocarcinoma status post resection, both ileostomy and colostomy placement as well as take downs for these particular procedures presenting with increased abdominal bloating and imaging concer brian for both small bowel and colonic obstruction. Intestinal obstruction: The patient is presenting with the progressive onset of increased nausea, vo miting, and abdominal bloating that has been progressively worsening over the last 2-3 weeks. Per re view of his labs today, they do not show any clear abnormalities, but his imaging shows findings that are consistent with both a high-grade obstruction within the mid small bowel as well as an obstructi on within the distal rectum concerning for anastomotic strictures in both sides. Currently, he does have an NG tube placed to low intermittent wall suction and his part of measure is to decompress the GI tract; however, if the sites of obstruction are not adequately treated, this will continue to gene rate symptoms. Given the site of the rectal anastomosis, endoscopic evaluation is indicated for eval uation of a possible stricture and dilation of the possible stricture to relieve colonic contents. RECOMMENDATIONS: 1. Please make patient n.p.o. at midnight in anticipation for procedure. 2. We will plan for a flexible sigmoidoscopy tomorrow morning with Fleet's enemas given prior to the procedure. 3. We would refrain from any oral bowel prep at this time given both a small bowel and colonic obstr uction/stricture. 4. We would continue to obtain serial imaging of the abdomen for evaluation of both colonic and smal l bowel distention. We will continue to follow. Please call with any questions.
[2017-11-20] MEDS: Lactated Ringer's 1,000 ML IV SCH ×4 (06:06→23:47)
[2017-11-20] MEDS: Famotidine/PF 20 mg/2ml Vial SLOW IVP SCH ×2 (08:03→20:08)
[2017-11-20] MEDS ORDERED: Fleet Enema 133 ML BOT PR SCH (08:30)
[2017-11-20] MEDS: Ketorolac Tromethamine 30 MG/ML VIAL IVP PRN ×2 (08:38→20:06)
--- NOTE | 2017-11-20 10:27 | RAD ---
UPRIGHT AND SUPINE FRONTAL IMAGING OF ABDOMEN: Date: 11/20/17 COMPARISON: 11/19/17. HISTORY: Reevaluate small bowel obstruction. FINDINGS: There is a nasogastric tube extending into the left upper quadrant, its side port near the gastroesop hageal junction. The location of the nasogastric tube is similar when compared to the prior exam. Rec ommend advancing the nasogastric tube. No free intraperitoneal air is noted. There are numerous gas-filled loops of small bowel with air fluid levels on upright imaging. The bernadette ent underwent a small bowel follow-through on 11/19/17. There is still significant residual contrast media within dilated loops of small bowel suggesting a high grade small bowel obstruction. There is a suture line in the pelvis inferiorly with associated postoperative clips. IMPRESSION: Distended small bowel seen throughout the abdomen/pelvis with air fluid levels and residual contrast medial from Gastrografin small bowel follow-through which was performed on 11/19/17. Findings are con sistent with a high grade small bowel obstruction. POS: [facility]
[2017-11-20] MEDS ORDERED: Midazolam HCl 2 mg/2 ml Vial ONE (10:37)
[2017-11-20] MEDS ORDERED: Famotidine/PF 20 mg/2ml Vial ONE (10:39)
[2017-11-20] MEDS ORDERED: Ondansetron HCl/PF 4 MG/2 ML Vial ONE ×2 (10:39→15:51)
[2017-11-20] MEDS ORDERED: Promethazine HCl 25 MG/ML VIAL IM PRN (10:56)
[2017-11-20] MEDS ORDERED: HYDROmorphone 2 MG/ML VIAL SLOW IVP PRN (10:56)
[2017-11-20] MEDS ORDERED: Promethazine HCl 25 MG/ML VIAL SLOW IVP PRN (10:56)
[2017-11-20] MEDS ORDERED: Ondansetron HCl/PF 4 MG/2 ML Vial IVP PRN (10:56)
[2017-11-20] MEDS ORDERED: Meperidine HCl/PF 25 MG/ML VIAL SLOW IVP PRN (10:56)
--- NOTE | 2017-11-20 11:52 | OP ---
DATE OF PROCEDURE: 11/20/2017 PROCEDURE: Flexible sigmoidoscopy. INDICATION FOR PROCEDURE: Rectal stricture noted on recent CT. DESCRIPTION OF PROCEDURE: After the risks and benefits of the procedure were explained to the patien t including risks of bleeding, infection, perforation, reaction to anesthesia and/or pain, informed c onsent was obtained. The patient was then taken to the endoscopy suite where deep sedation was admin istered via propofol and anesthesia support. The standard colonoscope was then introduced into the r ectum and advanced to approximately 8-10 cm past the anal verge with further progress limited due to a high grade rectal stricture. Initially, the colonoscope was not able to be passed, so the scope wa s changed over to a gastroscope. With the gastroscope, we were able to advance to approximately 10 c m past the anal verge, but then again accounted another high grade stricture preventing any further p rogress. The patient tolerated the procedure well with no immediate perioperative complications. FINDINGS: There was a high grade rectal anastomotic stricture noted at approximately 8 cm past the a nal verge. There was initially not amenable to being traversed by the standard colonoscope. Therefo re, a gastroscope was then swapped in with evaluation with the gastroscope. Also noted within the re ctal vault where retained sutures as well as retained clips emanating into the middle of the lumen. The gastroscope was then able to be traversed past the initial stricture with some difficulty and enc ountered a pouch beyond that stricture that was significantly erythematous, friable to passage of the scope and also had a pinhole stricture located along the 4 o'clock position of the lumen that was no t able to be traversed by the gastroscope. The area was flushed out as best as it could for adequate visualization of the pouch beyond the stricture with careful examination for any other sources of kitty men, but there were none. There is also a significant amount of scar tissue throughout this area as well as ulceration with the inability to pass the gastroscope through a pinhole stricture (approximat deborah 2-3 mm in diameter). All equipment was removed with the procedure terminated. IMPRESSION: Two high grade rectal strictures noted within the rectal vault at 8 cm and 10 cm past th e anal verge. The initial stricture was able to be traversed with the gastroscope, but the second st ricture was unable to be traversed due to its significantly small size. Two retained suture material and clips noted within the rectal vault itself. RECOMMENDATIONS: 1. Follow up with inpatient General Surgery Service for recommendations regarding high grade strictu re that is not amenable to endoscopic dilation. 2. Would continue the patient n.p.o. with NG tube placement to low intermittent wall suction for dec ompression of the upper gastrointestinal tract. 3. Would refrain from adding any laxatives or bowel prep to facilitate having a bowel movement due t o the presence of a high grade stricture.
--- NOTE | 2017-11-20 12:36 | RAD ---
KUB: Date: 11/20/17 Time: 1139 hours COMPARISON: 11/20/17 at 0951 hours. HISTORY: Evaluate nasogastric tube location. FINDINGS: Nasogastric tube is in a stable position, side port near the gastroesophageal junction and distal tip overlying the expected location of the gastric air bubble medially. Numerous dilated loops of small bowel are again seen, many of which continue to contain Gastrografin administered on 11/19/17, eviden ce of high grade small bowel obstruction. Supine imaging limits assessment for free intraperitoneal air. IMPRESSION: Evidence of high grade small bowel obstruction. Stable location of nasogastric tube. POS: [facility]
[2017-11-20] MEDS ORDERED: Lidocaine 1% PF 5 ML VIAL ONE (15:51)
[2017-11-20] MEDS ORDERED: PROPOFOL 200 MG/20 ML VIAL ONE (15:51)
--- NOTE | 2017-11-20 16:11 | PRG ---
DATE OF SERVICE: 11/20/2017 SUBJECTIVE: Tomás Goel had a small bowel follow-through yesterday. This revealed, after 4 hours, a high-grade obstruction, small bowel. NG tube output has been 1025 out of his 12-Telugu NG tube, p laced at 50 cm with the tip just beyond the GE junction. The patient has had some liquid stool, but no flatus. He still feels distended. Today, Dr. Russell performed a proctoscopy and he has a colorect al stricture at about 10-12 cm. The EGD scope could not be passed beyond this. Plain radiographs, t his morning, are consistent with small-bowel obstruction and colorectal stricture. OBJECTIVE: VITAL SIGNS: Temperature 98.2, pulse 74, blood pressure 125/80. LUNGS: Clear to auscultation. CARDIAC: Regular rate and rhythm without murmur, rub, or gallop. ABDOMEN: Soft, slightly distended, and tympanitic. EXTREMITIES: Unremarkable. LABORATORY DATA: Laboratories none this morning. ASSESSMENT AND PLAN: 1. 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 2. Small-bowel obstruction, probably secondary to adhesions from prior surgery. I have spent quite a bit of time explaining to the family and explained it on 3-4 different times, answering their quest ions and still they are having a hard time understanding. I believe after a thorough explanation the y understand the 2 different problems that he has. The patient's ET tube was replaced under during h is endoscopic procedure today and x-rays revealed the tip to be in the upper stomach and it was advan yoni 10 more cm and repeat x-ray obtained for placement revealing it to be in good position. Patient has 2 separate problems, colorectal stricture, anastomotic, 10-12 cm from the anal verge. Th is could be managed operatively, but operation will be difficult with a very low anterior resection a nd a reoperative field versus interventional Gastroenterology attempt at recannulating this and dilat ing this. Dr. Russell, local Gastroenterology, was not successful in doing this today and consideratio n could be given to referring him to an outside interventional Gastroenterology for an attempt. Second problem is a small-bowel obstruction. This could be addressed separately or simultaneously de pending Dr. Mcknight's decision. We will await his return tomorrow and guide the family for this prob radhames.
--- NOTE | 2017-11-20 16:45 | RAD ---
ABDOMEN 1 VIEW: Date: 11/20/17 HISTORY: Nasogastric tube repositioning. FINDINGS/IMPRESSION: Comparison made with earlier exam at 1139 hours. There has been interval advancement of a nasogastric tube in the stomach with tip to the right of mid line. Small bowel loops are abnormally dilated. There is contrast in the right colon. POS: [facility]
[2017-11-20] MEDS: Enoxaparin Sodium 40 MG/0.4 ML SYRINGE SC SCH (20:08)
[2017-11-21 05:46] LABS: #Eosinphils 0.2 thou/uL (0.0-0.7); #Lymphocytes 1.3 thou/uL (1.20-3.40); #Monocytes 0.6 thou/uL (0.11-0.59); #Neutrophils 4.2 thou/uL (1.40-6.50); %Basophils 0.8 % (0.0-1.0); %Eosinophils 2.5 % (0.0-10.0); %Lymphocytes 20.8 % (21.0-51.0); %Neutrophils 65.9 % (42.0-75.0); Hemoglobin 12.8 g/dL (14.0-18.0); Mean Corpuscular HGB CONC 32.8 g/dL (32.0-36.0); Mean Corpuscular Hemoglobin 30.6 pg (27.0-31.0); Mean Corpuscular Volume 93.5 fl (80.0-94.0); Mean Platelet Volume 6.4 fL (7.4-10.4); Platelet Count 208 thou/uL (130-400); RBC Distribution Width 14.3 % (11.5-14.5); Red Blood Cell (RBC) Count 4.18 mill/uL (4.70-6.10); White Blood Cell (WBC) Count 6.3 thou/uL (4.8-10.8)
[2017-11-21 06:03] LABS: Anion Gap 11 mmol/L (10-20); BUN (Urea Nitrogen) 10 mg/dL (8.9-20.6); Calc. Creatinine Clearance 114 mL/min (70-130); Carbon Dioxide 30 mmol/L (22-29); Chloride 102 mmol/L (98-107); Estimated GFR-MDRD Greater than 90; Glucose 81 mg/dL (70-105); Potassium 4.2 mmol/L (3.5-5.1); Sodium 139 mmol/L (136-145)
[2017-11-21] MEDS: Famotidine/PF 20 mg/2ml Vial SLOW IVP SCH ×2 (07:50→20:29)
[2017-11-21] MEDS: Ketorolac Tromethamine 30 MG/ML VIAL IVP PRN ×2 (07:53→18:44)
[2017-11-21] MEDS: Lactated Ringer's 1,000 ML IV SCH ×3 (10:34→20:28)
--- NOTE | 2017-11-21 10:42 | RAD ---
TWO VIEWS OF THE ABDOMEN: DATE: 11/21/17. HISTORY: Followup small bowel obstruction. COMPARISON: 11/20/17. FINDINGS: Nasogastric tube is again noted in place with the tip overlying the expected location of the body of the stomach. Multiple dilated loops of small bowel are again present and overall similar to the stud y on 11/20/17. There is contrast seen in loops of small bowel as well as the ascending colon. There is a paucity of bowel gas in the region of the rectum. Radiopaque suture material and surgical clips overlie the pelvis. Visualized lung bases are clear. No other interval change. IMPRESSION: Persistent dilated loops of small bowel with postsurgical changes of the abdomen with radiopaque sutu re material in the right lower quadrant and in the pelvis. The findings may be related to partial sm all bowel obstruction. POS: [facility]
--- NOTE | 2017-11-21 12:42 | PDOC.GSPN ---
Surgery Progress Note: Subj - Subjective Narrative: Findings on colonoscopy noted. He feels better and is having liquid stools Surgery Progress Note: Obj - Vital signs Vital signs: Vital Signs - Most Recent Temp Pulse Resp BP Pulse Ox 98.1 F 77 20 136/87 98 11/21/17 07:39 11/21/17 07:39 11/21/17 07:39 11/21/17 07:39 11/21/17 07:39 - Physical Exam General: no distress Cardiovascular: regular rate and rhythm Respiratory: clear to auscultation Abdomen: soft, nondistended, decreased bowel sounds Surgery Progress Note: Results - Labs Result Diagrams: 11/21/17 05:19 11/21/17 05:19 Lab results: Laboratory Results - last 24 hr 11/21/17 11/21/17 05:19 05:19 WBC 6.3 RBC 4.18 L Hgb 12.8 L Hct 39.1 L MCV 93.5 MCH 30.6 MCHC 32.8 RDW 14.3 Plt Count 208 MPV 6.4 L Neutrophils % 65.9 Lymphocytes % 20.8 L Monocytes % 10.0 Eosinophils % 2.5 Basophils % 0.8 Neutrophils # 4.2 Lymphocytes # 1.3 Monocytes # 0.6 H Eosinophils # 0.2 Basophils # 0.0 Sodium 139 Potassium 4.2 Chloride 102 Carbon Dioxide 30 H Anion Gap 11 BUN 10 Creatinine 0.87 Estimated GFR (MDRD) Greater than 90 Glucose 81 Calcium 9.0 Surgery Progress Note: A/P - Problem (1) Colon stricture Current Visit: Yes Code(s): K56.699 - OTHER INTESTNL OBST UNSP TO PARTIAL VERSUS COMPLETE OBST Status: Acute Assessment and Plan: Plan diverting colostomy tomorrow. He is not candidate for redo LAR given extent of scarring in his pelvis. (2) Small bowel obstruction Current Visit: Yes Code(s): K56.609 - UNSP INTESTNL OBST, UNSP TO PARTIAL VERSUS COMPLETE OBST Status: Acute Assessment and Plan: SURINDER at time of colostomy tomorrow
[2017-11-21] MEDS: Enoxaparin Sodium 40 MG/0.4 ML SYRINGE SC SCH (20:29)
[2017-11-22] MEDS: Lactated Ringer's 1,000 ML IV SCH ×2 (04:55→12:00)
[2017-11-22] MEDS: Ketorolac Tromethamine 30 MG/ML VIAL IVP PRN ×2 (04:55→17:17)
[2017-11-22] MEDS: Famotidine/PF 20 mg/2ml Vial SLOW IVP SCH ×2 (09:00→19:25)
[2017-11-22] MEDS ORDERED: Dexamethasone 4 mg/ml Vial ONE (09:17)
[2017-11-22] MEDS ORDERED: Morphine 10 MG/ML VIAL ONE (09:18)
[2017-11-22] MEDS ORDERED: Fentanyl 100 MCG/2 ML VIAL ONE ×4 (09:18→11:58)
[2017-11-22] MEDS ORDERED: Midazolam HCl 2 mg/2 ml Vial ONE ×2 (09:18)
[2017-11-22] MEDS ORDERED: D5 1/2 NS w/20 mEq KCL 1,000 ML ONE (11:54)
[2017-11-22] MEDS ORDERED: Promethazine HCl 25 MG/ML VIAL IM PRN (12:14)
[2017-11-22] MEDS ORDERED: Ondansetron HCl/PF 4 MG/2 ML Vial IVP PRN (12:14)
[2017-11-22] MEDS ORDERED: Promethazine HCl 25 MG/ML VIAL SLOW IVP PRN (12:14)
[2017-11-22] MEDS ORDERED: Bupivacaine HCl 0.5%/Epinephrine 1:200,000/PF 30 ml Vial ONE (15:28)
[2017-11-22] MEDS ORDERED: Ondansetron HCl/PF 4 MG/2 ML Vial ONE (15:39)
[2017-11-22] MEDS ORDERED: diphenhydrAMINE 50 MG/ML VIAL ONE (15:39)
[2017-11-22] MEDS ORDERED: Dexamethasone 20 MG/5 ML VIAL ONE (15:39)
[2017-11-22] MEDS ORDERED: Glycopyrrolate 0.2 MG/ML 5 ML SYRINGE ONE (15:39)
[2017-11-22] MEDS ORDERED: Ketorolac Tromethamine 30 MG/ML VIAL ONE (15:39)
[2017-11-22] MEDS ORDERED: PROPOFOL 200 MG/20 ML VIAL ONE (15:39)
[2017-11-22] MEDS ORDERED: Naloxone HCl 0.4 mg/ml Vial ONE (15:39)
[2017-11-22] MEDS ORDERED: Lidocaine 1% PF 5 ML VIAL ONE (15:39)
[2017-11-22] MEDS: D5 1/2 NS w/20 mEq KCL 1,000 ML IV SCH ×2 (17:21→21:07)
[2017-11-22] MEDS: Enoxaparin Sodium 40 MG/0.4 ML SYRINGE SC SCH (19:24)
[2017-11-22] MEDS: Acetaminophen 1,000 MG in Premix Bag 1 BAG IVPB PRN (21:53)
[2017-11-23] MEDS: D5 1/2 NS w/20 mEq KCL 1,000 ML IV SCH ×2 (02:18→22:57)
[2017-11-23] MEDS: Ketorolac Tromethamine 30 MG/ML VIAL IVP PRN (05:39)
[2017-11-23] MEDS: Acetaminophen 1,000 MG in Premix Bag 1 BAG IVPB PRN (07:12)
[2017-11-23] MEDS ORDERED: Ondansetron ORAL SOLN. 4 MG/5 ML UDCUP PO PRN (11:33)
[2017-11-23] MEDS ORDERED: HYDROcodone/Acetaminophen 10/325 mg Tablet PO PRN (11:33)
--- NOTE | 2017-11-23 11:35 | PDOC.GSPN ---
Surgery Progress Note: Subj - Subjective Patient reports: no new complaints, tolerating liquids well, voiding w/o difficulty Surgery Progress Note: Obj - Vital signs Vital signs: Vital Signs - Most Recent Temp Pulse Resp BP Pulse Ox 97.8 F 56 L 14 139/85 96 11/23/17 08:00 11/23/17 08:00 11/23/17 08:00 11/23/17 07:05 11/23/17 07:05 - Physical Exam General: no distress Respiratory: clear to auscultation Abdomen: soft, non tender, nondistended, other (colostomy with stool in bag) Wound: healing well Surgery Progress Note: Results - Labs Result Diagrams: 11/21/17 05:19 11/21/17 05:19 Surgery Progress Note: A/P - Problem (1) Colon stricture Current Visit: Yes Code(s): K56.699 - OTHER INTESTNL OBST UNSP TO PARTIAL VERSUS COMPLETE OBST Status: Acute Assessment and Plan: pod 1 doing well, diverting colostomy. likely home tomorrow, advance to fulls (2) Small bowel obstruction Current Visit: Yes Code(s): K56.609 - UNSP INTESTNL OBST, UNSP TO PARTIAL VERSUS COMPLETE OBST Status: Acute
[2017-11-23] MEDS: HYDROcodone/Acetaminophen 10/325 mg Tablet PO PRN ×3 (13:16→21:54)
[2017-11-23] MEDS: Famotidine/PF 20 mg/2ml Vial SLOW IVP SCH ×2 (13:24→20:22)
--- NOTE | 2017-11-23 14:15 | OP ---
DATE OF PROCEDURE: 11/22/2017 PREOPERATIVE DIAGNOSES: 1. Anastomotic stenosis and stricture from prior low anterior resection. 2. History of T3 N1 colon cancer, necessitating diverting colostomy and subsequent colostomy takedow n. 3. Small-bowel obstruction. POSTOPERATIVE DIAGNOSES: 1. Anastomotic stenosis and stricture from prior low anterior resection. 2. History of T3 N1 colon cancer, necessitating diverting colostomy and subsequent colostomy takedow n. 3. Small-bowel obstruction. PROCEDURES: 1. Exploratory laparotomy, lysis of small bowel adhesions. 2. Diverting loop colostomy. SURGEON: Neeraj Mcknight M.D. ANESTHESIA: General. ESTIMATED BLOOD LOSS: Minimal. COMPLICATIONS: None. TECHNIQUE: The patient was taken to the operating room and placed supine on the table. After genera l anesthetic is obtained, Almeida was placed. The abdomen was shaved, prepped and draped in a sterile fashion. Midline incision is made. Cautery used was dissected down into the abdomen. The small bow el is very dilated, it is ran distally to the terminal ileum, with her multiple adhesions causing a c omplete small-bowel obstruction. These adhesions were released, releasing the obstruction. Small carlos wel was run proximally to the ligament of Treitz and distally to the ileocecal valve without any furt her pathology. The colon is markedly distended going down into the pelvis in the area of previous an astomosis. Dissection in this area shows there to be a lot of scar tissue deep down in the pelvis an d prior anastomosis seems to be very deep and very difficult to get to it. Decision is made not to d issect this out and instead just perform diverting loop colostomy. Above the area of previous mesent shun takeoff in the left upper quadrant and the distal transverse colon, a place was found for the co lostomy. Ellipse of skin taken out in the left upper quadrant. Cruciate incision was made in the fa scia and muscle splitting incision is made and a loop of the distal transverse colon is brought up th rough this and held in place using the retention bar. All instrument counts, needle counts, lap coun ts were correct. PDS used to close the fascial defect from the top and the bottom and tied in the mi ddle. Subcutaneous tissues were irrigated using sterile solution. Skin was closed with 3-0 Vicryl, 4-0 Monocryl, and Dermabond. Loop colostomy is then performed. A red rubber is used as a retention bar, 3-0 Vicryl was used to mature the colostomy. Colostomy devices placed. The patient entered rec overy in stable condition. All instrument counts, needle counts, lap counts were correct.
[2017-11-23] MEDS: Enoxaparin Sodium 40 MG/0.4 ML SYRINGE SC SCH (20:21)
[2017-11-24 00:49] VITALS: TEMP 97.7
[2017-11-24 04:27] VITALS: BP 134/86
[2017-11-24] MEDS: HYDROcodone/Acetaminophen 10/325 mg Tablet PO PRN ×2 (04:36→09:08)
[2017-11-24] MEDS ORDERED: Lisinopril 2.5 MG TAB PO SCH (09:00)
[2017-11-24] MEDS: Famotidine/PF 20 mg/2ml Vial SLOW IVP SCH (09:04)
--- NOTE | 2017-11-24 13:16 | DIS ---
DATE OF ADMISSION: 11/18/2017 DATE OF DISCHARGE: 11/24/2017 ADMIT DIAGNOSES: 1. Anastomotic stenosis. 2. High grade small-bowel obstruction. 3. History of a locally invasive colon cancer. DISCHARGE DIAGNOSES: 1. Anastomotic stenosis. 2. High grade small-bowel obstruction. 3. History of a locally invasive colon cancer. PROCEDURES: Exploratory laparotomy, lysis of adhesions, diverting loop colostomy by Dr. Mcknight with out complication. CONDITION AT DISCHARGE: Improved. STAFF: Dr. Neeraj Mcknight. HOSPITAL COURSE: The patient was admitted by Dr. Garcia in my absence, Dr. Russell saw him for dilated colon. Flex sig showed almost complete obstruction at his previous anastomosis in the pelvis. A CE A level is normal. He also had a high grade small-bowel obstruction and high output on NG that was n ot getting better with nonoperative therapy. He underwent exploratory laparotomy, lysis of adhesions , release of the obstruction as well as diverting loop colostomy. Postoperative course uneventful. The NG tube without postop, he was immediately able to tolerate liquids. On postop day #2, he is vernon erating regular diet. He is discharged to home. Prescriptions of [place] and Zofran and Diflucan sent to his pharmacy. He will follow up with me in 2 weeks.
--- NOTE | 2017-12-03 15:13 | EKG ---
Test Reason : Blood Pressure : / mmHG Vent. Rate : 083 BPM Atrial Rate : 083 BPM P-R Int : 118 ms QRS Dur : 086 ms QT Int : 368 ms P-R-T Axes : 030 007 048 degrees QTc Int : 432 ms Normal sinus rhythm Normal ECG Confirmed by GUNJAN HALEY ([id number]), story editor JASON TREVINO ([id number]) on 12/03/2017 3:12:41 PM Referred By: Confirmed By:GUNJAN HALEY
== END 2017-11-24 11:02 | disposition home or self-care (01) | DRG 330 ==
LOC: ERS 18:17 → SJJU 21:56
PROVIDERS: ADMIT Specialist; ATTEND Specialist
PROC: 0DJD8ZZ Inspection of Lower Intestinal Tract, Via Natural or Artificial Opening Endoscopic (ICD-10-PCS; 2017-11-20)
PROC: 0DN80ZZ Release Small Intestine, Open Approach (ICD-10-PCS; principal; 2017-11-22)
PROC: 0D1L0Z4 Bypass Transverse Colon to Cutaneous, Open Approach (ICD-10-PCS; 2017-11-22)
DX: K91.89 Other postprocedural complications and disorders of digestive system (principal); K91.30 Postprocedural intestinal obstruction, unspecified as to partial versus complete; N13.30 Unspecified hydronephrosis; I10 Essential (primary) hypertension; Y83.2 Surgical operation with anastomosis, bypass or graft as the cause of abnormal reaction of the patient, or of later complication, without mention of misadventure at the time of the procedure; Y73.3 Surgical instruments, materials and gastroenterology and urology devices (including sutures) associated with adverse incidents; F17.220 Nicotine dependence, chewing tobacco, uncomplicated
CPT/HCPCS: 36415; 71045; 74018; 74019; 74022; 74177; 74250; 80048; 80053; 81003; 82274; 82378; 82553; 83605; 83690; 83735; 84484; 85025; 86850; 86900; 86901; 93005; 96361; 96374; 96375; 96376; C9113; J0131; J0670; J1100; J1200; J1650; J1885; J2001; J2060; J2250; J2270; J2310; J2405; J2543; J2704; J3010; J7050; S0028

== ENCOUNTER 2019-01-11 00:03 | Outpatient (CLI) | payer SELFPAY ==
[2019-01-11 11:29] LABS: #Basophils 0.1 thou/uL (0.0-0.2); #Eosinphils 0.4 thou/uL (0.0-0.7); #Lymphocytes 1.8 thou/uL (1.20-3.40); #Monocytes 0.5 thou/uL (0.11-0.59); %Basophils 1.1 % (0.0-1.0); %Eosinophils 7.7 % (0.0-10.0); %Lymphocytes 31.2 % (21.0-51.0); %Monocytes 8.7 % (0.0-10.0); %Neutrophils 51.3 % (42.0-75.0); Hemoglobin 16.2 g/dL (14.0-18.0); Mean Corpuscular HGB CONC 34.4 g/dL (32.0-36.0); Mean Corpuscular Hemoglobin 33.2 pg (27.0-31.0); Mean Corpuscular Volume 96.6 fL (78.0-98.0); Mean Platelet Volume 7.5 fL (7.4-10.4); Platelet Count 167 thou/uL (130-400); Red Blood Cell (RBC) Count 4.87 mill/uL (4.70-6.10); White Blood Cell (WBC) Count 5.7 thou/uL (4.8-10.8)
[2019-01-11 11:43] LABS: Anion Gap 14 mmol/L (10-20); BUN (Urea Nitrogen) 10 mg/dL (8.9-20.6); Calc. Creatinine Clearance 0 mL/min (70-130); Calcium 10.2 mg/dL (7.8-10.44); Carbon Dioxide 25 mmol/L (22-29); Chloride 105 mmol/L (98-107); Estimated GFR-MDRD 66; Glucose 83 mg/dL (70-105); Potassium 4.5 mmol/L (3.5-5.1); Sodium 139 mmol/L (136-145)
== END 2019-01-11 00:04 | disposition home or self-care (01) ==
LOC: LABBT 00:03
PROVIDERS: ATTEND Surgery
DX: Z01.818 Encounter for other preprocedural examination (principal); K94.19 Other complications of enterostomy
CPT/HCPCS: 80048; 85025; 93005; 93010

== ENCOUNTER 2019-01-15 09:46 | Day surgery (SDC) | payer OTHER, SELFPAY ==
[2019-01-11 10:05] VITALS: BMI 27.1
== END 2019-01-15 10:00 | disposition home or self-care (01) ==
LOC: SDC/OP 09:46 → SURG A 09:46 → UNDOADMIN 09:46 → UNDODISIN 10:00 → SDC/OP 10:00
PROVIDERS: ATTEND Surgery
DX: K94.19 Other complications of enterostomy (principal); Z79.899 Other long term (current) drug therapy; Z88.5 Allergy status to narcotic agent; Z53.9 Procedure and treatment not carried out, unspecified reason

== ENCOUNTER 2019-01-18 08:28 | Inpatient (IN) | payer SELFPAY ==
[2019-01-18] MEDS ORDERED: cefOXitin 2 GM VIAL ONE (09:00)
[2019-01-18] MEDS ORDERED: Sodium Chloride 0.9% 100 ML ONE (09:00)
[2019-01-18] MEDS ORDERED: Bupivacaine/Epinephrine 0.25% 30 ML VIAL ONE (10:14)
[2019-01-18] MEDS ORDERED: Midazolam HCl 2 mg/2 ml Vial ONE (10:18)
[2019-01-18] MEDS ORDERED: Fentanyl 250 MCG/5 ML VIAL ONE (10:18)
[2019-01-18] MEDS ORDERED: Fentanyl 100 MCG/2 ML VIAL ONE ×3 (11:58→12:43)
--- NOTE | 2019-01-18 21:02 | OP ---
DATE OF PROCEDURE: 01/18/2019 PREOPERATIVE DIAGNOSIS: Prolapse of colostomy. POSTOPERATIVE DIAGNOSIS: Prolapse of colostomy. PROCEDURE PERFORMED: Revision of colostomy with resection of colon. ANESTHESIA: General. ESTIMATED BLOOD LOSS: Minimal. COMPLICATIONS: None. SPECIMEN: Colon. TECHNIQUE: The patient was taken to the operating room and laid supine on the operating room table. After general anesthetic was obtained, the colostomy device was removed and the abdomen was shaved, prepped, and draped in a sterile fashion. The colostomy was ellipsed out from the surrounding skin. Dissection was performed into the subcutaneous tissues. There were minimal adhesions. The colostomy was able to be dissected all the way back into the abdomen. The loop colostomy was pulled up into the wound until the location for transection is found about 2 cm above the fascial edge. Here, a JUAN 75 was fired across the colon proximal. The distal segment was pulled up and all redundancy taken out and the stapler was fired across it as well. Resultant mesentery was taken using the Impact LigaSure. There was no significant colostomy site hernia. The colostomy was then matured in usual fashion using 3-0 Vicryl on the proximal side. This was then converted into an end colostomy. The distal segment staple line was reopened and it was sewn to the edge of the colostomy site as a mucous fistula and colostomy device was placed. The patient was sent to Recovery in stable condition. Job ID: [id number]
== END 2019-01-18 13:50 | disposition home or self-care (01) | DRG 331 ==
LOC: SURG A 08:40 → EDSTATUS 14:05
PROVIDERS: ADMIT Surgery; ATTEND Surgery
PROC: 0DBE0ZZ Excision of Large Intestine, Open Approach (ICD-10-PCS; principal; 2019-01-18)
DX: K94.09 Other complications of colostomy (principal); Z88.8 Allergy status to other drugs, medicaments and biological substances
CPT/HCPCS: 88304; J0694; J2250; J3010; J3490

== ENCOUNTER 2019-03-05 05:15 | Outpatient (CLI) | payer SELFPAY ==
[2019-03-05 09:56] LABS: #Basophils 0.1 thou/uL (0.0-0.2); #Eosinphils 0.5 thou/uL (0.0-0.7); #Lymphocytes 1.7 thou/uL (1.20-3.40); #Monocytes 0.6 thou/uL (0.11-0.59); #Neutrophils 3.7 thou/uL (1.40-6.50); %Basophils 0.9 % (0.0-1.0); %Eosinophils 7.9 % (0.0-10.0); %Lymphocytes 25.6 % (21.0-51.0); %Monocytes 8.6 % (0.0-10.0); %Neutrophils 57.1 % (42.0-75.0); Hemoglobin 15.5 g/dL (14.0-18.0); Mean Corpuscular HGB CONC 33.7 g/dL (32.0-36.0); Mean Corpuscular Volume 97.7 fL (78.0-98.0); Mean Platelet Volume 7.2 fL (7.4-10.4); Platelet Count 191 thou/uL (130-400); RBC Distribution Width 12.5 % (11.5-14.5); Red Blood Cell (RBC) Count 4.71 mill/uL (4.70-6.10); White Blood Cell (WBC) Count 6.5 thou/uL (4.8-10.8)
[2019-03-05 10:03] LABS: Hemoglobin A1c 5.2 % (4.0-6.0)
[2019-03-05 10:15] LABS: Anion Gap 12 mmol/L (10-20); BUN (Urea Nitrogen) 15 mg/dL (8.9-20.6); Calc. Creatinine Clearance 0 mL/min (70-130); Calcium 9.9 mg/dL (7.8-10.44); Carbon Dioxide 28 mmol/L (22-29); Chloride 104 mmol/L (98-107); Estimated GFR-MDRD 61; Glucose 101 mg/dL (70-105); Potassium 4.7 mmol/L (3.5-5.1); Sodium 139 mmol/L (136-145)
== END 2019-03-05 05:16 | disposition home or self-care (01) ==
LOC: LABBT 05:15
PROVIDERS: ATTEND Surgery
DX: Z01.812 Encounter for preprocedural laboratory examination (principal); K94.03 Colostomy malfunction
CPT/HCPCS: 80048; 83036; 85025

== ENCOUNTER 2019-03-08 08:22 | Inpatient (IN) | payer SELFPAY ==
[2019-03-05 08:56] VITALS: BMI 26.0
[2019-03-08] MEDS ORDERED: Fentanyl 100 MCG/2 ML VIAL ONE ×4 (12:29→16:19)
[2019-03-08] MEDS ORDERED: Midazolam HCl 2 mg/2 ml Vial ONE ×3 (12:29→13:16)
[2019-03-08] MEDS ORDERED: Dexamethasone 4 mg/ml Vial ONE (12:30)
[2019-03-08] MEDS ORDERED: cefOXitin 2 GM VIAL ONE (12:34)
[2019-03-08] MEDS ORDERED: Sodium Chloride 0.9% 100 ML ONE (12:34)
[2019-03-08] MEDS ORDERED: Promethazine HCl 25 MG/ML VIAL IM PRN ×2 (14:51→17:14)
[2019-03-08] MEDS ORDERED: Promethazine HCl 25 MG/ML VIAL SLOW IVP PRN (14:51)
[2019-03-08] MEDS ORDERED: Morphine Sulfate 2 MG/ML SYRINGE SLOW IVP PRN (14:51)
[2019-03-08] MEDS ORDERED: Ondansetron HCl/PF 4 MG/2 ML Vial IVP PRN (14:51)
[2019-03-08] MEDS ORDERED: Bupivacaine HCl 0.5%/Epinephrine 1:200,000/PF 30 ml Vial ONE (16:09)
[2019-03-08] MEDS ORDERED: Labetalol HCl 100 MG/20 ML VIAL ONE (16:29)
[2019-03-08] MEDS ORDERED: Ketorolac Tromethamine 30 MG/ML VIAL ONE (16:38)
[2019-03-08] MEDS ORDERED: Glycopyrrolate 0.2 MG/ML 5 ML SYRINGE ONE (16:38)
[2019-03-08] MEDS ORDERED: Dexamethasone 20 MG/5 ML VIAL ONE (16:38)
[2019-03-08] MEDS ORDERED: PROPOFOL 200 MG/20 ML VIAL ONE (16:38)
[2019-03-08] MEDS ORDERED: Rocuronium Bromide 10 MG/ML (10ML VIAL) ONE (16:38)
[2019-03-08] MEDS ORDERED: Lidocaine 1% PF 5 ML VIAL ONE (16:38)
[2019-03-08] MEDS ORDERED: Ondansetron PF 4 MG/2 ML Vial ONE (16:38)
[2019-03-08] MEDS ORDERED: hydrALAZINE 20 MG/ML VIAL SLOW IVP PRN (17:14)
[2019-03-08] MEDS ORDERED: Ketorolac Tromethamine 30 MG/ML VIAL IVP PRN (17:14)
[2019-03-08] MEDS ORDERED: Fentanyl 100 MCG/2 ML VIAL SLOW IVP PRN (17:14)
[2019-03-08] MEDS ORDERED: Ondansetron PF 4 MG/2 ML Vial IVP PRN (17:14)
[2019-03-08] MEDS ORDERED: Acetaminophen 1,000 MG in Premix Bag 1 BAG IVPB SCH (18:00)
[2019-03-08] MEDS: Fentanyl 100 MCG/2 ML VIAL SLOW IVP PRN ×2 (18:25→20:36)
[2019-03-08] MEDS: D5 1/2 NS w/20 mEq KCL 1,000 ML IV SCH ×2 (18:31→19:42)
[2019-03-08] MEDS: Famotidine/PF 20 mg/2ml Vial SLOW IVP SCH (19:43)
[2019-03-08] MEDS: cefOXitin Sodium/Dextrose,Iso 2 GM in Premix Bag 1 BAG IVPB SCH (19:43)
[2019-03-08] MEDS: Famotidine 20 MG TAB PO SCH (19:50)
[2019-03-08] MEDS ORDERED: Enoxaparin Sodium 40 MG/0.4 ML SYRINGE SC SCH (21:00)
[2019-03-08] MEDS ORDERED: HYDROcodone/Acetaminophen 7.5/325 mg Tablet PO PRN (21:11)
[2019-03-08] MEDS: HYDROcodone/Acetaminophen 7.5/325 mg Tablet PO PRN (21:50)
[2019-03-09] MEDS: cefOXitin Sodium/Dextrose,Iso 2 GM in Premix Bag 1 BAG IVPB SCH (04:04)
[2019-03-09] MEDS: HYDROcodone/Acetaminophen 7.5/325 mg Tablet PO PRN ×2 (04:04→10:05)
[2019-03-09 04:11] VITALS: TEMP 98.1
[2019-03-09 05:46] LABS: #Lymphocytes 0.8 thou/uL (1.20-3.40); #Monocytes 0.7 thou/uL (0.11-0.59); #Neutrophils 15.6 thou/uL (1.40-6.50); %Basophils 0.1 % (0.0-1.0); %Eosinophils 0.1 % (0.0-10.0); %Lymphocytes 4.5 % (21.0-51.0); %Monocytes 3.9 % (0.0-10.0); %Neutrophils 91.5 % (42.0-75.0); Hemoglobin 14.1 g/dL (14.0-18.0); Mean Corpuscular HGB CONC 33.2 g/dL (32.0-36.0); Mean Corpuscular Hemoglobin 32.8 pg (27.0-31.0); Mean Corpuscular Volume 98.7 fL (78.0-98.0); Mean Platelet Volume 7.8 fL (7.4-10.4); Platelet Count 164 thou/uL (130-400); RBC Distribution Width 12.8 % (11.5-14.5); Red Blood Cell (RBC) Count 4.31 mill/uL (4.70-6.10); White Blood Cell (WBC) Count 17.1 thou/uL (4.8-10.8)
[2019-03-09 06:00] LABS: Anion Gap 17 mmol/L (10-20); BUN (Urea Nitrogen) 14 mg/dL (8.9-20.6); Calc. Creatinine Clearance 58 mL/min (70-130); Calcium 9.1 mg/dL (7.8-10.44); Carbon Dioxide 19 mmol/L (22-29); Chloride 102 mmol/L (98-107); Estimated GFR-MDRD 39; Glucose 166 mg/dL (70-105); Potassium 4.9 mmol/L (3.5-5.1); Sodium 133 mmol/L (136-145)
[2019-03-09] MEDS: Famotidine/PF 20 mg/2ml Vial SLOW IVP SCH (08:01)
[2019-03-09] MEDS: Famotidine 20 MG TAB PO SCH (08:01)
[2019-03-09 08:10] VITALS: BP 147/90
[2019-03-09] MEDS ORDERED: Lisinopril 2.5 MG TAB PO SCH (09:00)
--- NOTE | 2019-03-10 03:02 | DIS ---
DATE OF ADMISSION: 03/08/2019 DATE OF DISCHARGE: 03/09/2019 ADMIT DIAGNOSIS: Colostomy dysfunction. DISCHARGE DIAGNOSIS: Colostomy dysfunction. PROCEDURE: Colostomy revision with conversion of loop colostomy to end colostomy mucous fistula by Dr. Mcknight without complication. CONDITION ON DISCHARGE: Improved. HOSPITAL COURSE: On postop day 1, the patient is doing well. He is tolerating the clear liquid diet. He is ambulatory. He is voiding without difficulty and his pain is well controlled. He will be discharged home. He is going to remove the Prerna from his left upper quadrant wound tomorrow. He is going to keep that wound and his mucous fistula covered and he is already very well educated in colostomy care. He will follow up with me in 2 weeks. Prescriptions for [place] and Zofran sent over to [facility] [place]. Job ID: [id number]
--- NOTE | 2019-03-12 08:47 | OP ---
DATE OF PROCEDURE: 03/08/2019 PREOPERATIVE DIAGNOSES: Severe colostomy prolapse recurrence and history of loop colostomy. POSTOPERATIVE DIAGNOSES: Severe colostomy prolapse recurrence and history of loop colostomy. PROCEDURE PERFORMED: Exploratory laparotomy with conversion of loop colostomy to end right-sided colostomy (new site) and mucous fistula (new site). ANESTHESIA: General. ESTIMATED BLOOD LOSS: Minimal. COMPLICATIONS: None. SPECIMEN: None. TECHNIQUE: The patient was taken to the operating room and laid supine on the operating room table. After general anesthetic was obtained, his previous midline incision was opened after the abdomen was prepped and draped in a sterile fashion. A Almeida catheter had been placed. There were a few adhesions in the abdomen that were taken down. The loop colostomy was taken down from the skin and all intraabdominal adhesions brought back into the abdominal cavity. Just proximal to the loop colostomy, the proximal limb was stapled across using JUAN 75. Stapler was fired distal to the colostomy segment as well. The colostomy segment was sent to [facility] for final diagnosis. Ellipse of skin was taken down the left lower quadrant and a small incision was made and a muscle-splitting incision was made to bring up the distal end as a mucous fistula. The ellipse of skin was taken down in the right abdomen in a location previously chosen before surgery and this would be the location for the end colostomy. The posterior colostomy defect is closed using PDS suture. Midline fascia was closed using PDS suture from the top and the bottom and tied in the middle. The anterior fascia was closed at the colostomy site as well. The wounds were irrigated and closed using 3-0 Vicryl, 4-0 Monocryl, and Dermabond. The colostomy and mucous fistula were both matured in the usual fashion using 3-0 Vicryl. Dressing was placed over the mucous fistula and a colostomy bag was placed over the new end colostomy site. The patient was sent to Recovery in stable condition. All instrument counts, needle counts and lap counts are correct. Job ID: [id number]
== END 2019-03-09 10:25 | disposition home or self-care (01) | DRG 331 ==
LOC: SURG A 11:52
PROVIDERS: ADMIT Surgery; ATTEND Surgery
PROC: 0DBE0ZZ Excision of Large Intestine, Open Approach (ICD-10-PCS; principal; 2019-03-08)
DX: K94.09 Other complications of colostomy (principal); I10 Essential (primary) hypertension; I25.10 Atherosclerotic heart disease of native coronary artery without angina pectoris; E11.9 Type 2 diabetes mellitus without complications; Z79.899 Other long term (current) drug therapy
CPT/HCPCS: 36415; 80048; 85025; J0131; J0670; J0694; J1100; J1650; J1885; J2001; J2250; J2405; J2704; J3010; J3490; S0028

== ENCOUNTER 2020-02-03 09:53 | Inpatient (IN) | payer SELFPAY ==
[2020-02-03] MEDS ORDERED: Fentanyl 100 MCG/2 ML VIAL ONE ×2 (10:08→10:23)
[2020-02-03] MEDS ORDERED: Ondansetron PF 4 MG/2 ML Vial ONE (10:08)
[2020-02-03 10:30] LABS: #Basophils 0.1 thou/uL (0.0-0.2); #Eosinphils 0.6 thou/uL (0.0-0.7); #Lymphocytes 4.1 thou/uL (1.20-3.40); #Monocytes 0.8 thou/uL (0.11-0.59); #Neutrophils 4.1 thou/uL (1.40-6.50); %Basophils 1.3 % (0.0-1.0); %Eosinophils 5.7 % (0.0-10.0); %Lymphocytes 42.8 % (21.0-51.0); %Monocytes 7.8 % (0.0-10.0); %Neutrophils 42.4 % (42.0-75.0); Hemoglobin 17.5 g/dL (14.0-18.0); Mean Corpuscular HGB CONC 33.8 g/dL (32.0-36.0); Mean Corpuscular Hemoglobin 33.4 pg (27.0-31.0); Mean Corpuscular Volume 98.9 fL (78.0-98.0); Mean Platelet Volume 7.7 fL (7.4-10.4); Platelet Count 253 thou/uL (130-400); RBC Distribution Width 12.3 % (11.5-14.5); Red Blood Cell (RBC) Count 5.23 mill/uL (4.70-6.10); White Blood Cell (WBC) Count 9.7 thou/uL (4.8-10.8)
[2020-02-03 10:44] LABS: ALT (SGPT) 91 U/L (8-55); AST (SGOT) 68 U/L (5-34); Albumin 4.7 g/dL (3.5-5.0); Alkaline Phosphatase 78 U/L (40-110); Anion Gap 18 mmol/L (10-20); BUN (Urea Nitrogen) 8 mg/dL (8.9-20.6); Bilirubin, Total 0.7 mg/dL (0.2-1.2); Calc. Creatinine Clearance 0 mL/min (70-130); Calcium 10.2 mg/dL (7.8-10.44); Carbon Dioxide 21 mmol/L (22-29); Chloride 105 mmol/L (98-107); Estimated GFR-MDRD 60; Globulin 3.2 g/dL (2.4-3.5); Glucose 119 mg/dL (70-105); Potassium 3.8 mmol/L (3.5-5.1); Protein, Total 7.9 g/dL (6.0-8.3); Sodium 140 mmol/L (136-145)
--- NOTE | 2020-02-03 11:10 | CT ---
CT ANGIOGRAM CHEST AND ABDOMEN: DATE: 02/03/2020. PROVIDED CLINICAL HISTORY: Vomiting and severe epigastric pain. FINDINGS: Comparison is made with the CT examination of the abdomen and pelvis dated 11/18/2017. The heart, pericardium, and great vessels demonstrate an unremarkable CT appearance with the exceptio n of vascular calcification including coronary calcium. There is no evidence for thoracic lymph node enlargement. There is no evidence for thoracic aortic aneurysm or dissection. No large central pul monary embolus is evident. The airway appears patent and of normal caliber. There is a 1.2 cm lingu lar pulmonary nodule which is noncalcified. No prior chest CT is available for evaluation for [facility]. Lungs appear otherwise free of significant opacity. There is no pleural fluid or pneumothorax apparent. There is conspicuous peripancreatic inflammatory fat stranding and noncircumscribed fluid density. T here is no evidence for pancreatic necrosis or a focal rim-enhancing peripancreatic fluid collection. There is a stable fluid collection anterior to the left psoas muscle and stable severe left hydrone phrosis with left renal parenchymal volume loss redemonstrated. There is a right anterior abdominal wall colostomy with associated parastomal hernia of the colon. There is a left anterior abdominal wa ll musculature and fascial defect with herniation of small bowel. This may also represent an ostomy site, though this is not completely certain. There are loops of small bowel within the hernia/stoma. There is no evidence for bowel obstruction. Diffuse fatty infiltration of the liver is seen. The sp teresa, right kidney, and adrenal glands appear unremarkable. The abdominal aorta and its branches demonstrate a nonaneurysmal appearance, without high-grade focal stenosis or dissection. The osseous structures demonstrate no concerning lytic or blastic lesions. IMPRESSION: 1. Findings compatible with acute pancreatitis, without evidence for pancreatic necrosis. 2. 1.2 cm lingular pulmonary nodule, which could reflect neoplasm such as metastatic disease. 3. Abdominal wall findings as described above. 4. Other chronic findings as described above. 5. No evidence for aortic dissection. POS: ZULEYMA
[2020-02-03 11:20] LABS: Lipase Greater than 16000 U/L (8-78)
[2020-02-03] MEDS ORDERED: Morphine 4 MG/ML VIAL ONE ×2 (11:51→12:55)
--- NOTE | 2020-02-03 12:19 | ULT ---
EXAM: Right upper quadrant ultrasound PROVIDED CLINICAL HISTORY: Abdominal pain COMPARISON: CT performed earlier same date FINDINGS: There is an inhomogeneous and enlarged appearance to the pancreas compatible with changes of pancreat itis seen on recent CT. Liver demonstrates no mass or intrahepatic biliary ductal dilatation. Fatty liver is noted. Trace flu id adjacent to the right hepatic margin. Common duct is nondilated. Gallbladder demonstrates no stones, wall thickening or pericholecystic flu id. Right kidney demonstrates no hydronephrosis or mass. IMPRESSION: Changes of pancreatitis are redemonstrated.
[2020-02-03 13:19] LABS: Lactic Acid 2.8 mmol/L (0.5-2.2)
[2020-02-03] MEDS ORDERED: Ondansetron ODT 4 MG TAB SL PRN (14:34)
[2020-02-03] MEDS ORDERED: Acetaminophen 325 MG TAB PO PRN (14:34)
[2020-02-03] MEDS ORDERED: Ondansetron PF 4 MG/2 ML Vial IVP PRN (14:34)
[2020-02-03] MEDS ORDERED: Morphine 4 MG/ML VIAL SLOW IVP PRN (15:44)
[2020-02-03] MEDS: Sodium Chloride 0.9% 1,000 ML IV SCH ×2 (15:45→23:02)
[2020-02-03] MEDS ORDERED: Ondansetron ODT 4 MG TAB PO PRN (17:03)
[2020-02-03] MEDS ORDERED: Acetaminophen 500 MG TAB PO PRN (17:03)
[2020-02-03] MEDS ORDERED: hydrALAZINE 20 MG/ML VIAL SLOW IVP PRN (17:03)
[2020-02-03] MEDS: Morphine 10 MG/ML VIAL SLOW IVP PRN ×3 (17:59→23:00)
[2020-02-03] MEDS: Lorazepam 2 MG/ML VIAL SLOW IVP PRN (18:04)
[2020-02-03] MEDS: Famotidine/PF 20 mg/2ml Vial SLOW IVP SCH (20:12)
--- NOTE | 2020-02-03 20:31 | HP ---
PRIMARY CARE PROVIDER: Dr. Mix. CHIEF COMPLAINT: Abdominal pain. HISTORY OF PRESENT ILLNESS: This is a 49-year-old male, who presents to [facility] Emergency Department complaining of less than 1-day history of severe epigastric abdominal pain with associated shortness of breath, nausea, and vomiting. 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 The patient denied any direct trauma or injury, recent travel history or family members with similar symptoms. The patient with a significant history of colon adenocarcinoma, status post resection and chronic colostomy. States his output has been appropriate without evidence of blood or diarrhea. The patient did not take any alleviating medications and was unable to hold down any water or food. The patient does admit to drinking up to 8 to 10 beers daily and chews tobacco products. The patient denied any change to his chronic medication regimen, recent surgical intervention, hematuria or dysuria or documented fever. In the emergency room, the patient underwent general evaluation including metabolic screening with lipase noted greater than 16,000. CT of the abdomen showed evidence of peripancreatic inflammatory process without evidence of pancreatic necrosis, but confirming acute pancreatitis. Abdominal ultrasound also performed in the emergency room showed no evidence for common bile duct obstruction. The patient received intravenous normal saline in addition to morphine sulfate, fentanyl, and Zofran. PAST MEDICAL HISTORY: 1. Colon adenocarcinoma, status post resection. 2. Prolapse of the ileostomy with subsequent revision. 3. Hypertension. 4. Alcohol abuse. 5. Smokeless tobacco use. PAST SURGICAL HISTORY: 1. Status post left colectomy with colostomy for obstruction due to colon carcinoma. 2. Status post laparoscopic cholecystectomy. 3. Status post colostomy revision. CURRENT MEDICATIONS: Lisinopril 20 mg p.o. daily. ALLERGIES: TRAMADOL. FAMILY HISTORY: Father after diagnosis of coronary artery disease. SOCIAL HISTORY: Resides in [place], [place]. Unemployed. Uses smokeless tobacco products daily. Drinks 8 to 10 beers daily. No illicit drug use. REVIEW OF SYSTEMS: CONSTITUTIONAL: Negative for weight loss or gain, ability to conduct usual activities. SKIN: Negative for rash, itching. EYES: Negative for double vision, pain. ENT/MOUTH: Negative for nose bleeding, neck stiffness, pain, tenderness. CARDIOVASCULAR: Negative for palpitations, dyspnea on exertion, orthopnea. RESPIRATORY: Negative for shortness of breath, wheezing, cough, hemoptysis, fever or night sweats. GASTROINTESTINAL: Negative for poor appetite, abdominal pain, heartburn, nausea , vomiting, constipation, or diarrhea. GENITOURINARY: Negative for urgency, frequency, dysuria, nocturia. MUSCULOSKELETAL: Negative for pain, swelling. NEUROLOGIC/PSYCHIATRIC: Negative for anxiety, depression. ALLERGY/IMMUNOLOGIC: Negative for skin rash, bleeding tendency. Otherwise negative except as stated per HPI. PHYSICAL EXAMINATION: VITAL SIGNS: On admission, blood pressure 148/96, pulse 77, respiratory rate 20 , temperature 97.8 degrees Fahrenheit, and O2 saturation 96% on room air. GENERAL APPEARANCE: This is a 49-year-old male, alert and oriented x3 , agitated, in moderate distress. HEENT: Pupils are equal, round, reactive to light and accommodation. Extraocular muscles are intact. Bilateral conjunctival injection noted. Nares patent. OP is clear. Oral mucosa dry. NECK: Supple. No cervical adenopathy. No thyromegaly. No carotid bruits. No JVD appreciated. Cervical spine with full active and passive range of motion. No meningeal signs noted. CHEST: Lungs are clear to auscultation bilaterally. CARDIOVASCULAR EXAM: S1, S2 without noted murmur, rub, or gallop. ABDOMEN: Rounded. Bowel sounds diminished in all 4 quadrants. Right lower quadrant colostomy without stool noted in bag. Left lower quadrant with small mucosal defect from previous ostomy. Tenderness to palpation in the mid epigastric and right upper quadrant. Positive guarding. EXTREMITIES: Warm and dry with fair turgor. No clubbing, cyanosis, or asymmetric edema appreciated. Pulses palpable distally at the dorsalis pedis, posterior tibial, and popliteal arteries bilaterally. Capillary refill less than 2 seconds. NEUROLOGIC: Cranial nerves 2 through 12 are grossly intact. No focal or lateralizing signs appreciated. PERTINENT LABORATORY AND X-RAY FINDINGS: Sodium 140, potassium 3.8, chloride 105, CO2 of 21, BUN 8, creatinine 1.27, estimated GFR 60, glucose 119. Lactic acid level ranged between 2.8 to 4.1, calcium 10.2, total bilirubin 0.7, AST 68, ALT of 91, alkaline phosphatase 78. Troponin I of 0.010. Lipase greater than 16,000. CBC showed a white blood cell count of 9.7, hemoglobin 17.5, hematocrit 52, MCV 99, platelet count 253 with 42% neutrophils. CT of the abdomen with dissection protocol showed no evidence for aortic dissection. Acute pancreatitis noted without evidence for pancreatic necrosis. 1.2 cm lingular pulmonary nodule. Abdominal ultrasound dated 02/03/2020, showed acute pancreatitis. Fatty liver noted. Common bile duct nondilated. Gallbladder demonstrates no evidence for stone, wall thickening or pericholecystic fluid. EKG dated 02/03/2020 by my interpretation shows sinus mechanism with heart rates in the 70s. Attenuated R-waves noted in the precordial leads. Normal axis. No acute ST-T wave changes appreciated. ASSESSMENT AND PLAN: 1. Acute pancreatitis. Suspect alcohol induced given patient's alcohol history. We will continue n.p.o. status except ice chips and sips of water. Morphine sulfate 6 mg IV q.2 hours p.r.n. pain. Serial lipase monitoring. Consult GI Service for any further recommendations. Check lipid profile in the a.m. Continue intravenous normal saline at 125 mL/h. 2. Mid epigastric abdominal pain secondarily to #1. See #1 above. Pain control with morphine sulfate 6 mg IV q.2 hours p.r.n. 3. Lactic acidosis secondarily to #1. Continue management as outlined in #1. No focal infectious process identified. 4. Alcohol abuse. We will initiate ASE protocol. Ativan 1 mg IV q.4 hours p.r.n. withdrawal symptoms. Check B12 and folate level in the a.m. 5. Hypertension. Confirm home blood pressure regimen and monitor clinical response p.r.n. hydralazine. 6. History of colon carcinoma, status post colostomy. Continue routine colostomy care. Consult Wound Care Service for evaluation and dressing changes. 7. Prophylaxis. SCDs while in bed. Pepcid 20 mg IV q.12 hours. 8. Code status is full. Surrogate medical decision maker is the patient's spouse. Job ID: [id number] MTDD
[2020-02-03] MEDS: Ondansetron PF 4 MG/2 ML Vial IVP PRN (23:01)
[2020-02-04] MEDS: Morphine 10 MG/ML VIAL SLOW IVP PRN ×5 (02:03→14:36)
[2020-02-04] MEDS: Sodium Chloride 0.9% 1,000 ML IV SCH ×3 (05:31→21:14)
[2020-02-04 06:52] LABS: Hemoglobin A1c 5.1 % (4.0-6.0)
[2020-02-04 07:11] LABS: Hemoglobin 16.9 g/dL (14.0-18.0); Mean Corpuscular HGB CONC 31.9 g/dL (32.0-36.0); Mean Corpuscular Hemoglobin 32.5 pg (27.0-31.0); Mean Platelet Volume 8.2 fL (7.4-10.4); Platelet Count 153 thou/uL (130-400); RBC Distribution Width 12.6 % (11.5-14.5); White Blood Cell (WBC) Count 13.3 thou/uL (4.8-10.8)
[2020-02-04 07:18] LABS: Lipase 3268 U/L (8-78)
[2020-02-04 07:29] LABS: ALT (SGPT) 53 U/L (8-55); AST (SGOT) 51 U/L (5-34); Albumin 3.7 g/dL (3.5-5.0); Alkaline Phosphatase 39 U/L (40-110); Anion Gap 17 mmol/L (10-20); BUN (Urea Nitrogen) 17 mg/dL (8.9-20.6); Bilirubin, Total 1.8 mg/dL (0.2-1.2); Calc. Creatinine Clearance 0 mL/min (70-130); Calcium 7.4 mg/dL (7.8-10.44); Carbon Dioxide 18 mmol/L (22-29); Cardiac Risk 2.6 (Less than 4.5); Chloride 109 mmol/L (98-107); Cholesterol 153 mg/dl (< 200 Desired); Estimated GFR-MDRD 50; Globulin 2.7 g/dL (2.4-3.5); Glucose 229 mg/dL (70-105); HDL Cholesterol 58 mg/dL (>60 Neg Risk); LDL Cholesterol, Calculated 78 mg/dL; Potassium 5.4 mmol/L (3.5-5.1); Protein, Total 6.4 g/dL (6.0-8.3); Sodium 139 mmol/L (136-145); Triglycerides 84 mg/dL (Less than 150)
[2020-02-04 07:38] LABS: Band 30 % (5-11); Lymphocytes 3 % (21-51); MDiff Complete? YES; Macrocytosis SLIGHT = 6-15 cells (100X) (0-5/hpf); Monocytes 1 % (0-10); Neutrophil 62 % (42-75); Reactive Lymphocytes 4 % (0-10)
[2020-02-04] MEDS: Famotidine/PF 20 mg/2ml Vial SLOW IVP SCH ×2 (08:25→21:14)
[2020-02-04] MEDS ORDERED: Diabetic Tussin 200 MG/10 ML UDCUP PO PRN (08:37)
[2020-02-04] MEDS ORDERED: Loperamide HCl 2 MG CAP PO PRN (08:37)
[2020-02-04] MEDS ORDERED: Cepastat Lozenges 1 LOZ PO PRN (08:37)
[2020-02-04] MEDS ORDERED: Loratadine 10 MG TAB PO PRN (08:37)
[2020-02-04] MEDS ORDERED: Artificial Tears 18 DROP/0.9 ML EA EYE PRN (08:37)
[2020-02-04] MEDS ORDERED: Calcium Carbonate 500 MG ChewTAB PO PRN (08:37)
[2020-02-04] MEDS ORDERED: Senokot S 8.6-50 MG TAB PO PRN (08:37)
[2020-02-04] MEDS ORDERED: Bisacodyl 5 MG TAB PO PRN (08:37)
[2020-02-04] MEDS ORDERED: Sodium Chloride 0.65% Nasal 44 ML BOT EA NARE PRN (08:37)
[2020-02-04] MEDS ORDERED: Multivit, Adult Inj 10 ML VIAL IV SCH (08:45)
[2020-02-04] MEDS ORDERED: Multivitamins, Adult 10 ML in Sodium Chloride 0.9% 500 ML IV SCH (09:00)
--- NOTE | 2020-02-04 10:59 | PDOC.HOSPP ---
- Subjective Encounter Date: 02/04/20 Encounter Time: 07:30 Subjective: Patient seen and examined. No overnight events, pt has abdominal pain - Objective Vital Signs & Weight: Vital Signs (12 hours) Temp Pulse Resp BP BP Pulse Ox 02/04/20 08:30 118 H 02/04/20 08:16 119/89 95 02/04/20 08:00 98.2 F 119 H 20 119/89 95 02/04/20 03:40 99.0 F 115 H 20 130/83 96 02/04/20 00:26 98.2 F 110 H 18 136/98 H 96 Weight Weight 7.266 oz I&O: 02/03/20 02/04/20 02/05/20 06:59 06:59 06:59 Intake Total 1857 Output Total 550 Balance 1307 Result Diagrams: 02/04/20 06:06 02/04/20 06:06 Radiology Reviewed by me: Yes EKG Reviewed by me: Yes Hospitalist ROS - Review of Systems Eyes: denies: pain, vision change, conjunctivae inflammation, eyelid inflammation, redness, other ENT: denies: ear pain, ear discharge, nose pain, nose discharge, nose congestion , mouth pain, mouth swelling, throat pain, throat swelling, other Respiratory: denies: cough, dry, shortness of breath, hemoptysis, SOB with excertion, pleuritic pain, sputum, wheezing, other Cardiovascular: denies: chest pain, palpitations, orthopnea, paroxysmal noc. dyspnea, edema, light headedness, other Gastrointestinal: reports: abdominal pain. denies: nausea, vomiting, diarrhea, constipation, melena, hematochezia, other Genitourinary: denies: dysuria, frequency, incontinence, hematuria, retention, other Musculoskeletal: denies: neck pain, shoulder pain, arm pain, back pain, hand pain, leg pain, foot pain, other Skin: denies: rash, lesions, guido, bruising, other - Medication Medications: Active Medications Generic Name Dose Route Start Last Admin Trade Name Freq PRN Reason Stop Dose Admin Famotidine 20 mg 02/03/20 21:00 02/04/20 08:25 Pepcid SLOW IVP 20 mg Q12HR ARMANDO Administration Hydralazine HCl 10 mg 02/03/20 17:03 02/03/20 20:18 Apresoline SLOW IVP 10 mg Q4H PRN Administration SBP > 180 and HR < 70 Sodium Chloride 1,000 mls @ 125 mls/hr 02/03/20 17:03 02/04/20 05:31 Normal Saline 0.9% IV 1,000 mls .Q8H ARMANDO Administration Multivitamins 10 ml/ Sodium 510 mls @ 85 mls/hr 02/04/20 09:00 02/04/20 10:46 Chloride IV 02/04/20 14:59 510 mls 0900 ARMANDO Administration Lorazepam 1 mg 02/03/20 17:12 02/03/20 18:04 Ativan SLOW IVP 1 mg Q4H PRN Administration Anxiety/Agitation Morphine Sulfate 6 mg 02/03/20 17:11 02/04/20 08:21 Morphine SLOW IVP 6 mg Q2H PRN Administration Pain>3 Ondansetron HCl 4 mg 02/03/20 17:03 02/03/20 23:01 Zofran IVP 4 mg Q6H PRN Administration Nausea/Vomiting - Exam General Appearance: NAD, awake alert Eye: PERRL, anicteric sclera ENT: normocephalic atraumatic, no oropharyngeal lesions Neck: supple, symmetric, no JVD, no thyromegaly Heart: RRR, no murmur, no gallops, no rubs Respiratory: CTAB, no wheezes, no rales, no ronchi Gastrointestinal: soft, normal bowel sounds, tender to palpation Gastrointestinal - other findings: colostomy on right side Extremities: no cyanosis, no clubbing Skin: normal turgor, no lesions Neurological: no focal deficits Musculoskeletal: normal tone, normal strength Hosp A/P (1) Acute alcoholic pancreatitis Code(s): K85.20 - ALCOHOL INDUCED ACUTE PANCREATITIS WITHOUT NECROSIS OR INFCT Status: Acute Qualifiers: Acute pancreatitis complication: unspecified Qualified Code(s): K85.20 - Alcohol induced acute pancreatitis without necrosis or infection (2) Lactic acidosis Code(s): E87.2 - ACIDOSIS Status: Acute (3) SIRS due to non-infectious process without acute organ dysfunction Code(s): R65.10 - SIRS OF NON-INFECTIOUS ORIGIN W/O ACUTE ORGAN DYSFUNCTION Status: Acute (4) HARRY (acute kidney injury) Code(s): N17.9 - ACUTE KIDNEY FAILURE, UNSPECIFIED Status: Acute (5) H/O malignant neoplasm of colon Code(s): Z85.038 - PERSONAL HISTORY OF MALIGNANT NEOPLASM OF LARGE INTESTINE Status: Chronic (6) Colostomy in place Code(s): Z93.3 - COLOSTOMY STATUS Status: Chronic (7) HTN (hypertension) Code(s): I10 - ESSENTIAL (PRIMARY) HYPERTENSION Status: Chronic Qualifiers: (8) Alcohol abuse Code(s): F10.10 - ALCOHOL ABUSE, UNCOMPLICATED Status: Chronic - Plan old records reviewed/req continue IVF ( increased amount) continue pain control NPO GI consulted will repeat labs medication reviewed and continue symptomatic treatment incentive spirometer advised add multivitamin
[2020-02-04] MEDS: Ondansetron PF 4 MG/2 ML Vial IVP PRN (14:43)
[2020-02-04] MEDS: Lorazepam 2 MG/ML VIAL SLOW IVP PRN (18:18)
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
[2020-02-05] MEDS: Morphine 10 MG/ML VIAL SLOW IVP PRN ×3 (05:16→17:00)
[2020-02-05] MEDS: Sodium Chloride 0.9% 1,000 ML IV SCH (06:18)
[2020-02-05 06:30] LABS: ALT (SGPT) 38 U/L (8-55); AST (SGOT) 100 U/L (5-34); Albumin 3.1 g/dL (3.5-5.0); Alkaline Phosphatase 34 U/L (40-110); Anion Gap 16 mmol/L (10-20); BUN (Urea Nitrogen) 38 mg/dL (8.9-20.6); Bilirubin, Total 3.2 mg/dL (0.2-1.2); Calc. Creatinine Clearance 0 mL/min (70-130); Carbon Dioxide 19 mmol/L (22-29); Chloride 109 mmol/L (98-107); Estimated GFR-MDRD 34; Globulin 2.5 g/dL (2.4-3.5); Glucose 334 mg/dL (70-105); Potassium 5.5 mmol/L (3.5-5.1); Protein, Total 5.6 g/dL (6.0-8.3); Sodium 138 mmol/L (136-145)
[2020-02-05 06:38] LABS: Lipase 3501 U/L (8-78)
[2020-02-05] MEDS ORDERED: Sodium Chloride 0.9% (PF) 10 ML VIAL FS PRN (07:57)
[2020-02-05 08:16] LABS: Band 42 % (5-11); Hemoglobin 13.2 g/dL (14.0-18.0); Lymphocytes 5 % (21-51); MDiff Complete? YES; Macrocytosis SLIGHT = 6-15 cells (100X) (0-5/hpf); Mean Corpuscular Hemoglobin 33.1 pg (27.0-31.0); Mean Platelet Volume 8.6 fL (7.4-10.4); Monocytes 9 % (0-10); Neutrophil 44 % (42-75); Platelet Count 95 thou/uL (130-400); Platelet Morphology Comment Appears Decreased; Polychromasia SLIGHT = 2-3 cells (100X) (0-2/hpf); RBC Distribution Width 12.6 % (11.5-14.5); Red Blood Cell (RBC) Count 3.99 mill/uL (4.70-6.10)
[2020-02-05] MEDS: Pantoprazole 40 MG VIAL IVP SCH (08:51)
--- NOTE | 2020-02-05 10:04 | PDOC.HOSPP ---
- Subjective Encounter Date: 02/05/20 Encounter Time: 09:15 Subjective: Patient seen and examined. No new complaints. No overnight events, pt feels thirsty, pain is controlled with meds - Objective Vital Signs & Weight: Vital Signs (12 hours) Temp Pulse Resp BP BP BP Pulse Ox 02/05/20 07:57 98.4 F 106 H 95 H 148/106 H 18 L 02/05/20 04:00 98.1 F 105 H 20 173/82 H 173/83 H 95 02/05/20 00:30 98.6 F 113 H 20 148/96 H 94 L 02/05/20 00:00 148/96 H Weight Weight 7.266 oz I&O: 02/04/20 02/05/20 02/06/20 06:59 06:59 06:59 Intake Total 1857 1455 Output Total 550 900 Balance 1307 555 Result Diagrams: 02/05/20 05:52 02/05/20 05:52 Hospitalist ROS - Review of Systems Constitutional: denies: fever, chills, sweats, weakness, malaise, other Eyes: denies: pain, vision change, conjunctivae inflammation, eyelid inflammation, redness, other ENT: denies: ear pain, ear discharge, nose pain, nose discharge, nose congestion , mouth pain, mouth swelling, throat pain, throat swelling, other Respiratory: denies: cough, dry, shortness of breath, hemoptysis, SOB with excertion, pleuritic pain, sputum, wheezing, other Cardiovascular: denies: chest pain, palpitations, orthopnea, paroxysmal noc. dyspnea, edema, light headedness, other Gastrointestinal: reports: abdominal pain. denies: nausea, vomiting, diarrhea, constipation, melena, hematochezia, other Genitourinary: denies: dysuria, frequency, incontinence, hematuria, retention, other Musculoskeletal: denies: neck pain, shoulder pain, arm pain, back pain, hand pain, leg pain, foot pain, other Skin: denies: rash, lesions, guido, bruising, other - Medication Medications: Active Medications Generic Name Dose Route Start Last Admin Trade Name Freq PRN Reason Stop Dose Admin Hydralazine HCl 10 mg 02/03/20 17:03 02/03/20 20:18 Apresoline SLOW IVP 10 mg Q4H PRN Administration SBP > 180 and HR < 70 Lorazepam 1 mg 02/03/20 17:12 02/04/20 18:18 Ativan SLOW IVP 1 mg Q4H PRN Administration Anxiety/Agitation Morphine Sulfate 6 mg 02/03/20 17:11 02/05/20 08:50 Morphine SLOW IVP 6 mg Q2H PRN Administration Pain>3 Ondansetron HCl 4 mg 02/03/20 17:03 02/04/20 14:43 Zofran IVP 4 mg Q6H PRN Administration Nausea/Vomiting Pantoprazole Sodium 40 mg 02/05/20 09:00 02/05/20 08:51 Protonix IVP 40 mg DAILY ARMANDO Administration - Exam General Appearance: NAD, awake alert Eye: PERRL, anicteric sclera ENT: normocephalic atraumatic, no oropharyngeal lesions Neck: supple, symmetric, no JVD, no thyromegaly Heart: RRR, no murmur, no gallops, no rubs Respiratory: CTAB, no wheezes, no rales, no ronchi Gastrointestinal: tender to palpation, distended Gastrointestinal - other findings: colostomy in place Extremities: no cyanosis, no clubbing Skin: normal turgor, no lesions Neurological: no focal deficits Musculoskeletal: normal tone, normal strength Psychiatric: normal affect, normal behavior Hosp A/P (1) Acute alcoholic pancreatitis Code(s): K85.20 - ALCOHOL INDUCED ACUTE PANCREATITIS WITHOUT NECROSIS OR INFCT Status: Acute Qualifiers: Acute pancreatitis complication: unspecified Qualified Code(s): K85.20 - Alcohol induced acute pancreatitis without necrosis or infection (2) Lactic acidosis Code(s): E87.2 - ACIDOSIS Status: Acute (3) SIRS due to non-infectious process without acute organ dysfunction Code(s): R65.10 - SIRS OF NON-INFECTIOUS ORIGIN W/O ACUTE ORGAN DYSFUNCTION Status: Acute (4) HARRY (acute kidney injury) Code(s): N17.9 - ACUTE KIDNEY FAILURE, UNSPECIFIED Status: Acute (5) H/O malignant neoplasm of colon Code(s): Z85.038 - PERSONAL HISTORY OF MALIGNANT NEOPLASM OF LARGE INTESTINE Status: Chronic (6) Colostomy in place Code(s): Z93.3 - COLOSTOMY STATUS Status: Chronic (7) HTN (hypertension) Code(s): I10 - ESSENTIAL (PRIMARY) HYPERTENSION Status: Chronic Qualifiers: (8) Alcohol abuse Code(s): F10.10 - ALCOHOL ABUSE, UNCOMPLICATED Status: Chronic - Plan old records reviewed/req continue IVF ( increased amount) continue pain control NPO GI consulted will repeat labs medication reviewed and continue symptomatic treatment incentive spirometer advised add multivitamin 02/05/20 renal function is getting worse, likely due to contrast, will consult nephro check urine sodium and creatinine change IVF dext water 1/2 NS with sodium bicarbonate diet will defer to GI, he has bandemia worse pain control repeat labs tomorrow
--- NOTE | 2020-02-05 12:45 | PRG ---
DATE OF SERVICE: 02/05/2020 SUBJECTIVE: Mr. Goel has had improvement in his nausea, no further vomiting. He had a loose bowel movement earlier today. His abdominal pain persists and is significant still in the epigastric area. He continues to have a mild tachycardia. OBJECTIVE: VITAL SIGNS: Temperature 98.2, pulse 116, blood pressure 139/97, 94% oxygen saturation on room air. GENERAL: No acute distress, sitting up in the chair. HEART: Regular tachycardia. LUNGS: Clear to auscultation bilaterally. ABDOMEN: Mild distention, tympanitic. Bowel sounds are hypoactive. Soft. Tender to palpation in the epigastrium. No guarding or rebound tenderness. His colostomy site has some mild prolapse. EXTREMITIES: No peripheral edema. LABORATORY STUDIES: WBC 10.0, hemoglobin 13.2, platelets 95. Sodium 138, potassium 5.5, BUN 38, and creatinine jumped up to 2.09, from 1.48 yesterday, and 1.27 on admission. Glucose is 334. Lactic acid 3.0, calcium 6.0. Total bilirubin up to 3.2 from 1.8 yesterday and 0.7 on admission. Alkaline phosphatase remains low at 34, AST 100, ALT 38. CRP is elevated to 29.56, albumin 3.1. Lipase is down to 3501, from greater than 16,000 on admission. CEA is normal at 3.78. Vitamin B12 is 551. Hemoglobin A1c is 5.1. IMAGING STUDIES: Abdominal ultrasound from admission demonstrated normal gallbladder. No gallbladder wall thickening. No cholelithiasis. No biliary dilation. CT from admission showed conspicuous peripancreatic inflammatory fat stranding. No evidence for necrosis or fluid collection in the peripancreatic area. He has diffuse fatty liver and some herniation of the small bowel through left anterior abdominal wall musculature and fascial defect representing his ostomy site. There is a 1.2 cm lingular pulmonary nodule. ASSESSMENT/PLAN: 1. Acute alcoholic pancreatitis, with some mild clinical improvement. 2. Hyperbilirubinemia, worsening since admission. Note that his biliary imaging was normal with no cholelithiasis, normal common bile duct. This may represent a component of acute alcoholic hepatitis versus reactive changes due to the severity of the pancreatitis. Continue to trend LFTs daily. If the LFTs were to continue to significantly increase, consideration could be given to MRCP imaging for further evaluation of the bile duct. 3. Acute kidney injury. Creatinine is worsening despite aggressive and appropriate fluid resuscitation. Agree this maybe secondary not only the pancreatitis, but also possibly contrast nephropathy. Nephrology has been consulted. Overall, presentation does seem consistent with acute alcoholic pancreatitis. The worsening renal function and continued elevation in CRP is somewhat of a poor prognostic sign, but the patient has remained hemodynamically stable and has clinically improved a bit. I would continue him on n.p.o. status for now. Continue analgesics and antiemetics as needed. Follow up Nephrology opinion. I advised the patient that he needs to completely quit all alcohol going forward. 4. History of sigmoid colon cancer. History well outlined by Dr. Ambriz in his note from yesterday. Following resolution of this episode, the patient may benefit from genetic testing for Duke syndrome. Job ID: [id number]
[2020-02-05 14:45] LABS: Bacteria/HPF None Seen HPF (None Seen); Bilirubin Negative (Negative); Blood, Urine 2+ (Negative); Clarity Clear (Clear); Glucose, Urine (Dipstick) Greater than 1000 mg/dL (Negative); Leukocyte Negative Leu/uL (Negative); Nitrite Negative (Negative); Protein, Urine (Dipstick) 50 mg/dL (Neg-Trace); RBC/HPF 0-3 HPF (0-3); Squamous Epithelial None Seen HPF (0-3); Urobilinogen Normal mg/dL (Less than 2); WBC/HPF 0-3 HPF (0-3)
[2020-02-05 15:03] LABS: Creatinine, Urine 86.78 mg/dL (63-166); Sodium, Urine Less than 20 mmol/L (Not Available)
[2020-02-05 18:44] LABS: Anion Gap 14 mmol/L (10-20); BUN (Urea Nitrogen) 33 mg/dL (8.9-20.6); Calc. Creatinine Clearance 0 mL/min (70-130); Carbon Dioxide 24 mmol/L (22-29); Chloride 104 mmol/L (98-107); Estimated GFR-MDRD 44; Glucose 411 mg/dL (70-105); Potassium 4.6 mmol/L (3.5-5.1); Sodium 137 mmol/L (136-145)
[2020-02-05 18:54] LABS: Calcium 5.5 mg/dL (7.8-10.44)
[2020-02-05] MEDS ORDERED: Calcium Gluconate 4.6 MEQ in Sodium Chloride 0.9% 100 ML IVPB SCH (19:15)
--- NOTE | 2020-02-05 19:34 | CON ---
DATE OF CONSULTATION: 02/05/2020 CONSULTING PHYSICIAN: Dr. Ambriz. REASON FOR CONSULTATION: Acute kidney injury. REASON FOR ADMISSION: Abdominal pain. HISTORY OF PRESENT ILLNESS: A 49-year-old male with history of colon cancer and hypertension, came to the hospital with abdominal pain and found elevated creatinine. Nephrology is consulted. The patient has been not eating well and is on n.p.o. too as well as pancreatitis. No chest pain or palpitations. PAST MEDICAL HISTORY: Positive for colon cancer, hypertension, alcohol abuse, and tobacco use. PAST SURGICAL HISTORY: Left colectomy, cholecystectomy, and colostomy reversal. HOME MEDICATIONS: Reviewed. ALLERGIES: TO TRAMADOL. SOCIAL HISTORY: History of smoking and alcohol use present. No illicit drug. FAMILY HISTORY: Positive for heart disease. REVIEW OF SYSTEMS: CONSTITUTIONAL: Negative for weight loss or gain, ability to conduct usual activities. SKIN: Negative for rash, itching. EYES: Negative for double vision, pain. ENT/MOUTH: Negative for nose bleeding, neck stiffness, pain, tenderness. CARDIOVASCULAR: Negative for palpitations, dyspnea on exertion, orthopnea. RESPIRATORY: Negative for shortness of breath, wheezing, cough, hemoptysis, fever or night sweats. GASTROINTESTINAL: Negative for poor appetite, abdominal pain, heartburn, nausea, vomiting, constipation, or diarrhea. GENITOURINARY: Negative for urgency, frequency, dysuria, nocturia. MUSCULOSKELETAL: Negative for pain, swelling. NEUROLOGIC/PSYCHIATRIC: Negative for anxiety, depression. ALLERGY/IMMUNOLOGIC: Negative for skin rash, bleeding tendency. PHYSICAL EXAMINATION: GENERAL: This is a well-built male, in no apparent distress. VITAL SIGNS: Temperature 98.2, pulse 116, respiratory rate 18, blood pressure 139/97. HEENT: Atraumatic and normocephalic. Oral mucosa dry. NECK: Supple. CV: S1 and S2. Rate and rhythm regular. RESPIRATORY: Clear. GI: Soft. MUSCULOSKELETAL: 1+ edema. DERMATOLOGIC: No skin rash. NEUROLOGIC: Alert and awake. PSYCHIATRIC: Normal mood and affect LABORATORY DATA: Hemoglobin is 13.2. Potassium 5.5, BUN is 39, and creatinine is 2.1. ASSESSMENT AND PLAN: 1. Acute kidney injury on chronic kidney disease stage 3. Continue hydration and avoid nephrotoxins. 2. Hyperkalemia. Agree with bicarb. 3. Acidosis. We will have bicarb drip. 4. Elevated liver enzymes. 5. Hypoalbuminemia. We will continue on hydration. Avoid nephrotoxins and will monitor. Thank you for the consult. Job ID: [id number]
[2020-02-05] MEDS: Lorazepam 2 MG/ML VIAL SLOW IVP PRN (19:42)
[2020-02-06] MEDS: Morphine 10 MG/ML VIAL SLOW IVP PRN ×5 (00:39→22:05)
[2020-02-06 06:20] LABS: ALT (SGPT) 33 U/L (8-55); AST (SGOT) 82 U/L (5-34); Albumin 2.9 g/dL (3.5-5.0); Alkaline Phosphatase 33 U/L (40-110); Anion Gap 17 mmol/L (10-20); BUN (Urea Nitrogen) 29 mg/dL (8.9-20.6); Bilirubin, Total 3.3 mg/dL (0.2-1.2); Calc. Creatinine Clearance 0 mL/min (70-130); Carbon Dioxide 22 mmol/L (22-29); Chloride 101 mmol/L (98-107); Estimated GFR-MDRD 50; Globulin 2.7 g/dL (2.4-3.5); Glucose 416 mg/dL (70-105); Potassium 3.7 mmol/L (3.5-5.1); Protein, Total 5.6 g/dL (6.0-8.3); Sodium 136 mmol/L (136-145)
[2020-02-06 06:28] LABS: Calcium 5.2 mg/dL (7.8-10.44)
[2020-02-06 06:33] LABS: Lipase 1602 U/L (8-78)
[2020-02-06] MEDS ORDERED: Calcium Gluconate 4.6 MEQ in Sodium Chloride 0.9% 100 ML IVPB SCH (07:00)
[2020-02-06] MEDS: Pantoprazole 40 MG VIAL IVP SCH (07:44)
--- NOTE | 2020-02-06 10:59 | PRG ---
DATE OF SERVICE: 02/06/2020 SUBJECTIVE: Patient was seen and examined at bedside and overnight events noted. Patient denies any shortness of breath or chest pain or palpitation. No history of nausea or vomiting or diarrhea or fever or chills or cramps. OBJECTIVE: General: This is a well-built male, in no apparent distress. Vital Signs: Temperature 97.8. Heart Rate 108. Respiratory rate 18. Blood pressure 147/95. HEENT: Atraumatic, normocephalic. Oral mucosa is moist. Neck: Supple. Cardiovascular: S1, S2 heard. Rate and rhythm regular. Respiratory: Clear to auscultation. Gastrointestinal: Abdomen is soft. Musculoskeletal: No tenderness. No edema. Dermatologic: No skin rash. Neurologic: Alert and awake and oriented x3. No focal neurologic deficits. Moving all the extremities. Psychiatric: Mood and affect normal. LABORATORY DATA: Potassium is , BUN is 29, and creatinine is 1.4. Calcium is 5.2. ASSESSMENT AND PLAN: 1. Acute kidney injury on chronic kidney disease stage 3, much better. Continue hydration. 2. Hyperkalemia. 3. Acidosis. 4. Hypocalcemia. Continue calcium supplements. Recommend cautions given pancreatitis. We will follow. Job ID: [id number]
--- NOTE | 2020-02-06 14:51 | PDOC.HOSPP ---
- Subjective Subjective: Seen and examined on the medical unit. Patient appears tremulous, states he has had problems with alcohol withdrawal in the past. I'm starting an alcohol withdrawal protocol, IV Ativan added. He is NPO for pancreatitis, on IV fluids. His ostomy has output. Time was given for questions, all answered in detail. - Objective Vital Signs & Weight: Vital Signs (12 hours) Temp Pulse Resp BP BP Pulse Ox 02/06/20 11:45 98.5 F 102 H 18 161/105 H 93 L 02/06/20 08:00 94 L 02/06/20 07:33 97.8 F 108 H 17 147/95 H 94 L 02/06/20 04:00 99.0 F 106 H 20 135/92 H 93 L Weight Weight 7.266 oz I&O: 02/05/20 02/06/20 02/07/20 06:59 06:59 06:59 Intake Total 1455 Output Total 900 Balance 555 Result Diagrams: 02/05/20 05:52 02/06/20 05:48 Radiology Reviewed by me: Yes Hospitalist ROS - Review of Systems All other systems reviewed; all pertinent +/- noted in HPI/Subj - Medication Medications: Active Medications Generic Name Dose Route Start Last Admin Trade Name Freq PRN Reason Stop Dose Admin Hydralazine HCl 10 mg 02/03/20 17:03 02/03/20 20:18 Apresoline SLOW IVP 10 mg Q4H PRN Administration SBP > 180 and HR < 70 Sodium Bicarbonate 100 meq/ 1,100 mls @ 125 mls/hr 02/05/20 09:30 02/06/20 05 :54 Dextrose/Sodium Chloride IV 1,100 mls .Q8H48M ARMANDO Administration Lorazepam 1 mg 02/03/20 17:12 02/05/20 19:42 Ativan SLOW IVP 1 mg Q4H PRN Administration Anxiety/Agitation Morphine Sulfate 6 mg 02/03/20 17:11 02/06/20 07:52 Morphine SLOW IVP 6 mg Q2H PRN Administration Pain>3 Ondansetron HCl 4 mg 02/03/20 17:03 02/04/20 14:43 Zofran IVP 4 mg Q6H PRN Administration Nausea/Vomiting Pantoprazole Sodium 40 mg 02/05/20 09:00 02/06/20 07:44 Protonix IVP 40 mg DAILY ARMANDO Administration - Exam General Appearance: awake alert General - other findings: tremulous Eye: PERRL ENT: normocephalic atraumatic, moist mucosa Neck: supple, symmetric Heart: no murmur, no gallops, no rubs Respiratory: CTAB, no wheezes, no rales, no ronchi, normal chest expansion, no tachypnea Gastrointestinal: soft, non-tender, no guarding, no rigidity Gastrointestinal - other findings: Ostomy Extremities: 1+ LE edema Skin: no lesions, no rashes Neurological: cranial nerve grossly intact, no focal deficits Musculoskeletal: no muscle wasting Psychiatric: A&O x 3 Hosp A/P (1) HARRY (acute kidney injury) Code(s): N17.9 - ACUTE KIDNEY FAILURE, UNSPECIFIED Status: Acute (2) Acute alcoholic pancreatitis Code(s): K85.20 - ALCOHOL INDUCED ACUTE PANCREATITIS WITHOUT NECROSIS OR INFCT Status: Acute Qualifiers: Acute pancreatitis complication: unspecified Qualified Code(s): K85.20 - Alcohol induced acute pancreatitis without necrosis or infection (3) Lactic acidosis Code(s): E87.2 - ACIDOSIS Status: Acute (4) Alcohol abuse Code(s): F10.10 - ALCOHOL ABUSE, UNCOMPLICATED Status: Chronic (5) Colostomy in place Code(s): Z93.3 - COLOSTOMY STATUS Status: Chronic (6) H/O malignant neoplasm of colon Code(s): Z85.038 - PERSONAL HISTORY OF MALIGNANT NEOPLASM OF LARGE INTESTINE Status: Chronic (7) Adenocarcinoma, colon Code(s): C18.9 - MALIGNANT NEOPLASM OF COLON, UNSPECIFIED Status: Acute (8) HTN (hypertension) Code(s): I10 - ESSENTIAL (PRIMARY) HYPERTENSION Status: Chronic Qualifiers: - Plan Plan: medical unit gastroenterology consultation, recommendations appreciated nephrology consultation, recommendations appreciated NPO IV fluid replacement kidney injury has improved mildly elevated liver function tests consistent with alcohol abuse, no signs of biliary obstruction alcohol withdrawal protocol Ativan IV as needed for alcohol withdrawal symptoms patient will need alcohol abstinence to avoid future complications blood pressure control blood sugar control G.I. prophylaxis DVT prophylaxis ostomy in place and functioning
[2020-02-06] MEDS ORDERED: Diazepam 5 MG TAB PO PRN (15:10)
[2020-02-06] MEDS ORDERED: Thiamine HCl 200 MG/2 ML VIAL IM SCH (15:15)
[2020-02-06] MEDS ORDERED: Diazepam 5 MG TAB PO SCH (15:15)
[2020-02-06] MEDS: Ondansetron PF 4 MG/2 ML Vial IVP PRN (19:52)
--- NOTE | 2020-02-06 21:45 | PRG ---
DATE OF SERVICE: 02/06/2020 REASON FOR CONSULTATION: Acute alcoholic pancreatitis. SUBJECTIVE: Today, the patient states that his abdominal pain continues to improve, although he does continue to have mild generalized abdominal tenderness as well as mildly increased abdominal distention since being admitted to the hospital. He denies any further episodes of nausea or vomiting and denies any episodes of hematemesis, melena, hematochezia, dysphagia, or odynophagia. OBJECTIVE: VITAL SIGNS: Temperature 98.5, pulse 108, blood pressure 144/93, respiratory rate 18, saturating 92% on room air. GENERAL: The patient was lying in bed, in no acute distress. Alert and oriented x4. CARDIOVASCULAR: Tachycardic rate, but regular rhythm. RESPIRATORY: Clear to auscultation bilaterally. ABDOMEN: Normoactive bowel sounds, soft. Mild abdominal distention with tenderness to palpation in all abdominal quadrants, but no rebound or guarding. EXTREMITIES: No cyanosis, clubbing, or edema. LABORATORY DATA: Chemistry with a sodium of 136, potassium 3.7, chloride 101, CO2 of 22, BUN 29, creatinine 1.48, glucose 416, calcium 5.2. Lipase 1602, AST 82, ALT 33, alkaline phosphatase 33, total bilirubin 3.3. IMAGING DATA: No current GI imaging is available for review. ASSESSMENT AND PLAN: 1. Acute alcoholic pancreatitis. The patient is showing improved clinical improvement while on IV fluids and n.p.o. status. Pain is currently moderately controlled per the current regimen, but would defer to primary team for pain medication management. 2. Hyperbilirubinemia. The patient continues to have significant hyperbilirubinemia, but it has stabilized during the course of this hospitalization. Imaging during the course of hospitalization did not reveal any evidence of cholelithiasis or evidence of choledocholithiasis. At this time, it may be related to inflammatory changes to the liver in relation to the severity of the pancreatitis. Would continue to trend his LFTs daily. 3. Acute kidney injury, improving. With increased fluid resuscitation, the patient's renal function seems to be improving. Per Nephrology consultation, it seems to be acute kidney injury on top of chronic kidney disease stage 3 with recommendations to continue hydration and add bicarbonate drip for his acidosis. 4. Chronic alcohol abuse. Would strongly encourage cessation of all alcohol given the pancreatitis observed during this admission. I agree with placing the patient on withdrawal protocol. 5. History of sigmoid colon cancer. The patient is now status post colon resection in 2016 in addition to right hemicolectomy due to a high-grade polyp with dysplasia on recent colonoscopy. Would continue to maintain his ostomy at this time and would benefit from genetic testing as an outpatient. We will continue to follow. Please call with any questions. Job ID: [id number]
[2020-02-07] MEDS: Magnesium Oxide 400 MG TAB PO SCH (08:34)
[2020-02-07] MEDS: Thiamine 100 MG TAB PO SCH (08:34)
[2020-02-07] MEDS: Pantoprazole 40 MG VIAL IVP SCH (08:34)
[2020-02-07] MEDS: Folic Acid 1 MG TAB PO SCH (08:34)
[2020-02-07] MEDS: Multivitamin W/ Minerals 1 TAB PO SCH (08:34)
[2020-02-07] MEDS: Lorazepam 2 MG/ML VIAL SLOW IVP PRN (10:30)
--- NOTE | 2020-02-07 10:33 | PRG ---
DATE OF SERVICE: 02/07/2020 SUBJECTIVE: Patient was seen and examined at bedside and overnight events noted. Patient denies any shortness of breath or chest pain or palpitation. No history of nausea or vomiting or diarrhea or fever or chills or cramps. OBJECTIVE: GENERAL: This is a well-built male, in no apparent distress. VITAL SIGNS: Temperature 99.4. Heart Rate 106. Respiratory rate 20. Blood pressure 144/92. HEENT: Atraumatic, normocephalic. Oral mucosa is moist. NECK: Supple. CARDIOVASCULAR: S1, S2 heard. Rate and rhythm regular. RESPIRATORY: Clear to auscultation. GASTROINTESTINAL: Abdomen is soft. MUSCULOSKELETAL: No tenderness. No edema. DERMATOLOGIC: No skin rash. NEUROLOGIC: Alert and awake and oriented x3. No focal neurologic deficits. Moving all the extremities. PSYCHIATRIC: Mood and affect normal. LABORATORY DATA: Initial labs; potassium 3.7, BUN is 29, and creatinine is 1.4. No labs done today. ASSESSMENT AND PLAN: 1. Acute kidney injury. Recheck labs. 2. Hyperkalemia. 3. Acidosis. 4. Hypocalcemia. Monitor labs. Job ID: [id number]
[2020-02-07] MEDS: Morphine 10 MG/ML VIAL SLOW IVP PRN ×2 (13:29→20:35)
--- NOTE | 2020-02-07 13:49 | PDOC.HOSPP ---
- Subjective Encounter Date: 02/07/20 Encounter Time: 08:30 Subjective: no abd pain or nausea, wants to have oral diet is ambulating in room - Objective Vital Signs & Weight: Vital Signs (12 hours) Temp Pulse Resp BP BP Pulse Ox 02/07/20 13:30 98.3 F 103 H 20 140/82 94 L 02/07/20 13:00 140/82 02/07/20 12:00 99.0 F 101 H 20 151/83 H 91 L 02/07/20 08:58 92 L 02/07/20 08:00 144/92 H 93 L 02/07/20 07:45 99.4 F 106 H 20 144/92 H 91 L Weight Weight 7.266 oz Result Diagrams: 02/05/20 05:52 02/06/20 05:48 Hospitalist ROS - Medication Medications: Active Medications Generic Name Dose Route Start Last Admin Trade Name Freq PRN Reason Stop Dose Admin Folic Acid 1 mg 02/07/20 09:00 02/07/20 08:34 Folvite PO 1 mg DAILY ARMANDO Administration Hydralazine HCl 10 mg 02/03/20 17:03 02/03/20 20:18 Apresoline SLOW IVP 10 mg Q4H PRN Administration SBP > 180 and HR < 70 Sodium Bicarbonate 100 meq/ 1,100 mls @ 125 mls/hr 02/05/20 09:30 02/07/20 10 :52 Dextrose/Sodium Chloride IV 1,100 mls .Q8H48M ARMANDO Administration Iron/Minerals/Multivitamins 1 tab 02/07/20 09:00 02/07/20 08:34 Theragran M PO 1 tab DAILY ARMANDO Administration Lorazepam 1 mg 02/03/20 17:12 02/07/20 10:30 Ativan SLOW IVP 1 mg Q4H PRN Administration Anxiety/Agitation Magnesium Oxide 400 mg 02/07/20 09:00 02/07/20 08:34 Magnesium Oxide PO 400 mg DAILY ARMANDO Administration Morphine Sulfate 6 mg 02/03/20 17:11 02/07/20 13:29 Morphine SLOW IVP 6 mg Q2H PRN Administration Pain>3 Ondansetron HCl 4 mg 02/03/20 17:03 02/06/20 19:52 Zofran IVP 4 mg Q6H PRN Administration Nausea/Vomiting Thiamine HCl 100 mg 02/07/20 09:00 02/07/20 08:34 Thiamine PO 100 mg DAILY ARMANDO Administration - Exam General Appearance: awake alert Eye: PERRL, anicteric sclera ENT: no oropharyngeal lesions, dry oral mucosa Neck: supple, no JVD Heart: RRR, no murmur Respiratory: no wheezes, no rales Gastrointestinal: soft, non-distended, normal bowel sounds Gastrointestinal - other findings: colostomy+ Extremities: no cyanosis, no edema Neurological: cranial nerve grossly intact, no focal deficits Psychiatric: normal affect, A&O x 3 Hosp A/P (1) Acute alcoholic pancreatitis Code(s): K85.20 - ALCOHOL INDUCED ACUTE PANCREATITIS WITHOUT NECROSIS OR INFCT Status: Acute Qualifiers: Acute pancreatitis complication: no infection or necrosis Qualified Code(s) : K85.20 - Alcohol induced acute pancreatitis without necrosis or infection (2) Metabolic acidosis Code(s): E87.2 - ACIDOSIS Status: Acute (3) HARRY (acute kidney injury) Code(s): N17.9 - ACUTE KIDNEY FAILURE, UNSPECIFIED Status: Acute (4) Alcohol abuse Code(s): F10.10 - ALCOHOL ABUSE, UNCOMPLICATED Status: Chronic (5) Adenocarcinoma, colon Code(s): C18.9 - MALIGNANT NEOPLASM OF COLON, UNSPECIFIED Status: Chronic (6) HTN (hypertension) Code(s): I10 - ESSENTIAL (PRIMARY) HYPERTENSION Status: Chronic Qualifiers: (7) Alcoholic hepatitis Code(s): K70.10 - ALCOHOLIC HEPATITIS WITHOUT ASCITES Status: Acute Qualifiers: Ascites presence: without ascites Qualified Code(s): K70.10 - Alcoholic hepatitis without ascites - Plan is on iv fluids, morphine prn renal function is slowing trending towards baseline continue ASE protocol for alc abuse, drinks around 8 beers/day hemostable start full liq diet and will advance as tolerated
[2020-02-07 14:58] VITALS: BMI 27.6
--- NOTE | 2020-02-07 17:25 | PRG ---
DATE OF SERVICE: 02/07/2020 SUBJECTIVE: Mr. Goel feels much better today. He has tolerated clear liquids without any problem for lunch. No nausea or vomiting. He did have some pain medicine earlier today, but is feeling much better overall now. PHYSICAL EXAMINATION: VITAL SIGNS: Temperature 98.4, pulse 107, blood pressure 148/83. GENERAL: He is in no acute distress. Alert and oriented x3. LUNGS: Clear to auscultation bilaterally. HEART: Regular rate and rhythm without murmur. ABDOMEN: Soft, nontender, and nondistended. Bowel sounds are present. He has a colostomy in place. EXTREMITIES: No lower extremity edema. LABORATORY DATA: White blood cell count 10.0, hemoglobin 13.2, platelets 95. Calcium 5.2, creatinine 1.48, glucose 416, bilirubin 3.3, AST 82, ALT 33, alkaline phosphatase 33. IMPRESSION: 1. Alcoholic pancreatitis. 2. Alcoholic hepatitis. 3. Acute renal failure, improving. 4. Alcohol abuse. 5. While the acute renal failure and hypocalcemia could be signs of more severe pancreatitis, he is clinically improving and tolerating clear liquids well. There is no obvious necrosis based on the admitting CT scan. RECOMMENDATIONS: 1. Advance to a low-fat diet tomorrow morning. 2. He should be ready to discharge home once he is tolerating a low-fat diet well. Job ID: [id number]
[2020-02-07] MEDS: Zolpidem Tartrate 5 MG TAB PO PRN (20:31)
[2020-02-08] MEDS: Morphine 10 MG/ML VIAL SLOW IVP PRN ×3 (03:23→15:01)
[2020-02-08 05:59] LABS: ALT (SGPT) 23 U/L (8-55); AST (SGOT) 37 U/L (5-34); Albumin 2.7 g/dL (3.5-5.0); Alkaline Phosphatase 53 U/L (40-110); Anion Gap 17 mmol/L (10-20); BUN (Urea Nitrogen) 18 mg/dL (8.9-20.6); Bilirubin, Total 3.6 mg/dL (0.2-1.2); Calc. Creatinine Clearance 118 mL/min (70-130); Carbon Dioxide 28 mmol/L (22-29); Chloride 89 mmol/L (98-107); Estimated GFR-MDRD 84; Globulin 2.6 g/dL (2.4-3.5); Glucose 374 mg/dL (70-105); Lipase 177 U/L (8-78); Protein, Total 5.3 g/dL (6.0-8.3); Sodium 131 mmol/L (136-145)
[2020-02-08 06:02] LABS: Calcium 5.1 mg/dL (7.8-10.44)
[2020-02-08 06:13] LABS: Band 15 % (5-11); Hemoglobin 11.4 g/dL (14.0-18.0); Hypochromia SLIGHT = 6-15 cells (100X) (0-5/hpf); Lymphocytes 6 % (21-51); MDiff Complete? YES; Mean Corpuscular HGB CONC 33.9 g/dL (32.0-36.0); Mean Corpuscular Hemoglobin 34.4 pg (27.0-31.0); Mean Platelet Volume 8.7 fL (7.4-10.4); Metamyelocyte 1 % (0-0); Monocytes 12 % (0-10); Neutrophil 66 % (42-75); Platelet Count 110 thou/uL (130-400); Platelet Morphology Comment Appears Adequate; RBC Distribution Width 12.3 % (11.5-14.5); Red Blood Cell (RBC) Count 3.31 mill/uL (4.70-6.10); White Blood Cell (WBC) Count 9.2 thou/uL (4.8-10.8)
[2020-02-08] MEDS ORDERED: Calcium Gluconate 9.2 MEQ in Sodium Chloride 0.9% 100 ML IVPB ONE (06:34)
[2020-02-08] MEDS: Magnesium Oxide 400 MG TAB PO SCH (08:39)
[2020-02-08] MEDS: Calcium Carbonate 500 MG ChewTAB PO SCH ×3 (08:39→20:19)
[2020-02-08] MEDS: Folic Acid 1 MG TAB PO SCH (08:40)
[2020-02-08] MEDS: Multivitamin W/ Minerals 1 TAB PO SCH (08:40)
[2020-02-08] MEDS: Acetaminophen 500 MG TAB PO PRN ×2 (08:41→20:19)
[2020-02-08] MEDS: Thiamine 100 MG TAB PO SCH (08:41)
[2020-02-08] MEDS ORDERED: Potassium Chloride 20 MEQ TAB PO SCH (09:45)
--- NOTE | 2020-02-08 10:49 | PRG ---
DATE OF SERVICE: 02/08/2020 SUBJECTIVE: Patient was seen and examined at bedside and overnight events noted. Patient denies any shortness of breath or chest pain or palpitation. No history of nausea or vomiting or diarrhea or fever or chills or cramps. OBJECTIVE: General: This is a well-built male, in no apparent distress. Vital Signs: Temperature 98.0. Heart rate 103. Respiratory rate 18. Blood pressure 138/89. HEENT: Atraumatic, normocephalic. Oral mucosa is moist. NECK: Supple. CARDIOVASCULAR: S1, S2 heard. Rate and rhythm regular. RESPIRATORY: Clear to auscultation. GASTROINTESTINAL: Abdomen is soft. MUSCULOSKELETAL: No tenderness. No edema. DERMATOLOGIC: No skin rash. NEUROLOGIC: Alert and awake and oriented x3. No focal neurologic deficits. Moving all the extremities. PSYCHIATRIC: Mood and affect normal. LABORATORY DATA: Potassium is 3.0, BUN is 18, and creatinine is 0.9. ASSESSMENT AND PLAN: 1. Acute kidney injury - resolved 2. Hypokalemia, replace. 3. Acidosis. 4. Hypocalcemia. Follow with GI. 5. Acute pancreatitis. Renal function is much better. Job ID: [id number] MTDD
--- NOTE | 2020-02-08 15:50 | PDOC.HOSPP ---
- Subjective Encounter Date: 02/08/20 Encounter Time: 08:30 Subjective: no abd pain, wants reg diet not fat restricted has ambulated in room - Objective Vital Signs & Weight: Vital Signs (12 hours) Temp Pulse Resp BP BP Pulse Ox 02/08/20 11:16 98.2 F 104 H 18 130/75 92 L 02/08/20 08:00 99.0 F 103 H 17 152/76 H 138/89 94 L Weight Admit Weight 198 lb Weight 198 lb I&O: 02/07/20 02/08/20 02/09/20 06:59 06:59 06:59 Intake Total 3500 240 Output Total 500 Balance 3000 240 Result Diagrams: 02/08/20 05:07 02/08/20 05:07 Hospitalist ROS - Medication Medications: Active Medications Generic Name Dose Route Start Last Admin Trade Name Freq PRN Reason Stop Dose Admin Acetaminophen 500 mg 02/04/20 08:38 02/08/20 08:41 Tylenol PO 500 mg Q6H PRN Administration Mild Pain (1-3) Calcium Carbonate 1,000 mg 02/08/20 09:00 02/08/20 15:03 Tums PO 1,000 mg TID ARMANDO Administration Folic Acid 1 mg 02/07/20 09:00 02/08/20 08:40 Folvite PO 1 mg DAILY ARMANDO Administration Hydralazine HCl 10 mg 02/03/20 17:03 02/03/20 20:18 Apresoline SLOW IVP 10 mg Q4H PRN Administration SBP > 180 and HR < 70 Iron/Minerals/Multivitamins 1 tab 02/07/20 09:00 02/08/20 08:40 Theragran M PO 1 tab DAILY ARMANDO Administration Lorazepam 1 mg 02/03/20 17:12 02/07/20 10:30 Ativan SLOW IVP 1 mg Q4H PRN Administration Anxiety/Agitation Magnesium Oxide 400 mg 02/07/20 09:00 02/08/20 08:39 Magnesium Oxide PO 400 mg DAILY ARMANDO Administration Morphine Sulfate 6 mg 02/03/20 17:11 02/08/20 15:01 Morphine SLOW IVP 6 mg Q2H PRN Administration Pain>3 Ondansetron HCl 4 mg 02/03/20 17:03 02/06/20 19:52 Zofran IVP 4 mg Q6H PRN Administration Nausea/Vomiting Pantoprazole Sodium 40 mg 02/08/20 09:00 02/08/20 08:40 Protonix PO 40 mg DAILY ARMANDO Administration Thiamine HCl 100 mg 02/07/20 09:00 02/08/20 08:41 Thiamine PO 100 mg DAILY ARMANDO Administration Zolpidem Tartrate 5 mg 02/04/20 08:37 02/07/20 20:31 Ambien PO 5 mg HSPRN PRN Administration Insomnia - Exam General Appearance: awake alert Eye: PERRL, anicteric sclera ENT: no oropharyngeal lesions, moist mucosa Neck: supple, no JVD Heart: RRR, no murmur Respiratory: no wheezes, no rales Gastrointestinal: soft, non-tender, non-distended, normal bowel sounds Gastrointestinal - other findings: colostomy has stool and gas Extremities: no cyanosis, no edema Neurological: cranial nerve grossly intact, no focal deficits Psychiatric: normal affect, A&O x 3 Hosp A/P (1) Acute alcoholic pancreatitis Code(s): K85.20 - ALCOHOL INDUCED ACUTE PANCREATITIS WITHOUT NECROSIS OR INFCT Status: Acute Qualifiers: Acute pancreatitis complication: no infection or necrosis Qualified Code(s) : K85.20 - Alcohol induced acute pancreatitis without necrosis or infection (2) Metabolic acidosis Code(s): E87.2 - ACIDOSIS Status: Acute (3) HARRY (acute kidney injury) Code(s): N17.9 - ACUTE KIDNEY FAILURE, UNSPECIFIED Status: Resolved (4) Alcohol abuse Code(s): F10.10 - ALCOHOL ABUSE, UNCOMPLICATED Status: Chronic (5) Adenocarcinoma, colon Code(s): C18.9 - MALIGNANT NEOPLASM OF COLON, UNSPECIFIED Status: Chronic (6) HTN (hypertension) Code(s): I10 - ESSENTIAL (PRIMARY) HYPERTENSION Status: Chronic Qualifiers: (7) Alcoholic hepatitis Code(s): K70.10 - ALCOHOLIC HEPATITIS WITHOUT ASCITES Status: Acute Qualifiers: Ascites presence: without ascites Qualified Code(s): K70.10 - Alcoholic hepatitis without ascites - Plan dc iv fluids, on morphine prn renal function is at baseline, corrected audelia around 6.1, low potassium will correct electrolytes, vandana bid, kdur continue ASE protocol for alc abuse, drinks around 8 beers/day hemostable tolerating solid diet dc plan in am
--- NOTE | 2020-02-08 17:42 | PRG ---
DATE OF SERVICE: 02/08/2020 SUBJECTIVE: Mr. Goel tolerated a low-fat solid diet today without problems. He has been up and ambulating. Still, he has been asking for morphine every couple of hours. He states that he had no abdominal pain. OBJECTIVE: VITAL SIGNS: Temperature is 98.2, pulse 104, and blood pressure 130/75. GENERAL: He is in no acute distress. Awake and alert. LUNGS: Clear to auscultation bilaterally. HEART: Regular rate and rhythm without murmur. ABDOMEN: Soft, minimal tenderness. Bowel sounds are present. EXTREMITIES: No lower extremity edema. LABORATORY DATA: White blood cell count 9.2, hemoglobin 11.4, and platelets 110. Creatinine 0.95, calcium 5.1, bilirubin 3.6, AST 37, ALT 23, alkaline phosphatase 53, albumin 2.7, and lipase 177. IMPRESSION: 1. Pancreatitis, complicated by acute renal failure. His kidney function has improved. His blood sugars have been elevated. The hypocalcemia can be a sign of more severe pancreatitis and negative prognostic sign, however, otherwise he seems to be doing fine. He is actually tolerating a low-fat diet well. 2. Acute renal failure, improved. 3. Hypocalcemia. 4. Alcoholic hepatitis. RECOMMENDATIONS: 1. Alcohol cessation. 2. Calcium supplementation per primary service. 3. Cut down the morphine, it sounds like he is taking this more because it is available than due to actual pain. 4. Possible discharge tomorrow. Job ID: [id number]
[2020-02-08] MEDS: Zolpidem Tartrate 5 MG TAB PO PRN (22:02)
[2020-02-09] MEDS: Morphine 10 MG/ML VIAL SLOW IVP PRN ×3 (04:11→21:48)
[2020-02-09 06:03] LABS: #Lymphocytes 0.6 thou/uL (1.20-3.40); #Monocytes 1.2 thou/uL (0.11-0.59); #Neutrophils 8.8 thou/uL (1.40-6.50); %Basophils 0.1 % (0.0-1.0); %Eosinophils 0.2 % (0.0-10.0); %Lymphocytes 5.4 % (21.0-51.0); %Monocytes 11.4 % (0.0-10.0); %Neutrophils 82.9 % (42.0-75.0); Hemoglobin 11.6 g/dL (14.0-18.0); Mean Corpuscular HGB CONC 31.5 g/dL (32.0-36.0); Mean Corpuscular Hemoglobin 32.3 pg (27.0-31.0); Mean Platelet Volume 9.4 fL (7.4-10.4); Platelet Count 163 thou/uL (130-400); RBC Distribution Width 12.5 % (11.5-14.5); Red Blood Cell (RBC) Count 3.59 mill/uL (4.70-6.10); White Blood Cell (WBC) Count 10.5 thou/uL (4.8-10.8)
[2020-02-09 06:27] LABS: ALT (SGPT) 23 U/L (8-55); AST (SGOT) 24 U/L (5-34); Albumin 2.7 g/dL (3.5-5.0); Alkaline Phosphatase 62 U/L (40-110); Anion Gap 16 mmol/L (10-20); BUN (Urea Nitrogen) 15 mg/dL (8.9-20.6); Bilirubin, Total 5.2 mg/dL (0.2-1.2); Calc. Creatinine Clearance 112 mL/min (70-130); Calcium 7.3 mg/dL (7.8-10.44); Carbon Dioxide 26 mmol/L (22-29); Chloride 90 mmol/L (98-107); Estimated GFR-MDRD 79; Globulin 2.7 g/dL (2.4-3.5); Glucose 540 mg/dL (70-105); Lipase 75 U/L (8-78); Potassium 3.3 mmol/L (3.5-5.1); Protein, Total 5.4 g/dL (6.0-8.3); Sodium 129 mmol/L (136-145)
[2020-02-09] MEDS ORDERED: Dextrose 5% in Water 1,000 ML IV PRN (07:35)
[2020-02-09] MEDS ORDERED: Dextrose 50% Abboject 50 ML SYRINGE SLOW IVP PRN (07:35)
[2020-02-09 08:03] LABS: Hemoglobin A1c 6.1 % (4.0-6.0)
[2020-02-09] MEDS: Insulin Glargine 25 UNITS in Pre-Filled Syringe 1 EACH SC SCH ×2 (08:04→20:30)
[2020-02-09] MEDS: Calcium Carbonate 500 MG ChewTAB PO SCH ×3 (08:04→20:30)
[2020-02-09] MEDS: Folic Acid 1 MG TAB PO SCH (08:07)
[2020-02-09] MEDS: Magnesium Oxide 400 MG TAB PO SCH (08:07)
[2020-02-09] MEDS: Thiamine 100 MG TAB PO SCH (08:07)
[2020-02-09] MEDS: Multivitamin W/ Minerals 1 TAB PO SCH (08:07)
[2020-02-09] MEDS: Lorazepam 2 MG/ML VIAL SLOW IVP PRN (10:12)
[2020-02-09] MEDS: HumaLOG 300 UNITS/3 ML VIAL SC PRN ×2 (10:59→16:18)
[2020-02-09] MEDS ORDERED: Potassium Chloride 20 MEQ TAB PO SCH (12:00)
[2020-02-09] MEDS ORDERED: Sodium Chloride 0.9% 1,000 ML IV SCH (12:00)
--- NOTE | 2020-02-09 12:09 | PDOC.HOSPP ---
- Subjective Encounter Date: 02/09/20 Encounter Time: 10:30 Subjective: no abd pain or sob tolerating oral diet - Objective Vital Signs & Weight: Vital Signs (12 hours) Temp Pulse Resp BP BP BP Pulse Ox 02/09/20 10:48 100.7 F H 110 H 18 160/89 H 92 L 02/09/20 08:00 163/102 H 02/09/20 07:42 98.8 F 114 H 20 163/102 H 94 L Weight Admit Weight 198 lb Weight 198 lb I&O: 02/08/20 02/09/20 02/10/20 06:59 06:59 06:59 Intake Total 3500 1080 Output Total 500 Balance 3000 1080 Result Diagrams: 02/09/20 05:42 02/09/20 05:42 Additional Labs: Accuchecks 02/09/20 10:55 POC Glucose 426 H Hospitalist ROS - Medication Medications: Active Medications Generic Name Dose Route Start Last Admin Trade Name Freq PRN Reason Stop Dose Admin Acetaminophen 500 mg 02/04/20 08:38 02/08/20 20:19 Tylenol PO 500 mg Q6H PRN Administration Mild Pain (1-3) Calcium Carbonate 1,000 mg 02/08/20 09:00 02/09/20 08:04 Tums PO 1,000 mg TID ARMANDO Administration Folic Acid 1 mg 02/07/20 09:00 02/09/20 08:07 Folvite PO 1 mg DAILY ARMANDO Administration Hydralazine HCl 10 mg 02/03/20 17:03 02/03/20 20:18 Apresoline SLOW IVP 10 mg Q4H PRN Administration SBP > 180 and HR < 70 Insulin Glargine 25 units/ 0.25 mls @ 0 mls/hr 02/09/20 09:00 02/09/20 08:04 Miscellaneous Medication SC 0.25 mls BID ARMANDO Administration Insulin Human Lispro 0 units 02/09/20 07:35 02/09/20 10:59 Humalog SC 13 unit .AGGRESSIVE SLIDING PRN Administration Aggressive [employer] Scale Iron/Minerals/Multivitamins 1 tab 02/07/20 09:00 02/09/20 08:07 Theragran M PO 1 tab DAILY ARMANDO Administration Lorazepam 1 mg 02/03/20 17:12 02/09/20 10:12 Ativan SLOW IVP 1 mg Q4H PRN Administration Anxiety/Agitation Magnesium Oxide 400 mg 02/07/20 09:00 02/09/20 08:07 Magnesium Oxide PO 400 mg DAILY ARMANDO Administration Morphine Sulfate 6 mg 02/08/20 16:44 02/09/20 04:11 Morphine SLOW IVP 6 mg Q8H PRN Administration Pain>3 Ondansetron HCl 4 mg 02/03/20 17:03 02/06/20 19:52 Zofran IVP 4 mg Q6H PRN Administration Nausea/Vomiting Pantoprazole Sodium 40 mg 02/08/20 09:00 02/09/20 08:05 Protonix PO 40 mg DAILY ARMANDO Administration Thiamine HCl 100 mg 02/07/20 09:00 02/09/20 08:07 Thiamine PO 100 mg DAILY ARMANDO Administration Zolpidem Tartrate 5 mg 02/04/20 08:37 02/08/20 22:02 Ambien PO 5 mg HSPRN PRN Administration Insomnia - Exam General Appearance: awake alert Eye: PERRL, anicteric sclera ENT: no oropharyngeal lesions, moist mucosa Neck: supple, no JVD Heart: RRR, no murmur Respiratory: no wheezes, no rales Gastrointestinal: soft, non-tender, non-distended, normal bowel sounds Extremities: no cyanosis, no edema Neurological: cranial nerve grossly intact, no focal deficits Hosp A/P (1) Acute alcoholic pancreatitis Code(s): K85.20 - ALCOHOL INDUCED ACUTE PANCREATITIS WITHOUT NECROSIS OR INFCT Status: Acute Qualifiers: Acute pancreatitis complication: no infection or necrosis Qualified Code(s) : K85.20 - Alcohol induced acute pancreatitis without necrosis or infection (2) Metabolic acidosis Code(s): E87.2 - ACIDOSIS Status: Acute (3) HARRY (acute kidney injury) Code(s): N17.9 - ACUTE KIDNEY FAILURE, UNSPECIFIED Status: Resolved (4) Alcohol abuse Code(s): F10.10 - ALCOHOL ABUSE, UNCOMPLICATED Status: Chronic (5) Adenocarcinoma, colon Code(s): C18.9 - MALIGNANT NEOPLASM OF COLON, UNSPECIFIED Status: Chronic (6) HTN (hypertension) Code(s): I10 - ESSENTIAL (PRIMARY) HYPERTENSION Status: Chronic Qualifiers: (7) Alcoholic hepatitis Code(s): K70.10 - ALCOHOLIC HEPATITIS WITHOUT ASCITES Status: Acute Qualifiers: Ascites presence: without ascites Qualified Code(s): K70.10 - Alcoholic hepatitis without ascites (8) Diabetes Code(s): E11.9 - TYPE 2 DIABETES MELLITUS WITHOUT COMPLICATIONS Status: Acute Qualifiers: Diabetes mellitus type: due to underlying condition Diabetes mellitus [facility] insulin use: without exterminator helper use Diabetes mellitus complication status : with hyperglycemia Qualified Code(s): E08.65 - Diabetes mellitus due to underlying condition with hyperglycemia - Plan dc iv fluids, start lantus bid, has uncontrolled dm due to pancreatitis, on morphine prn renal function is at baseline, has low calcium will correct electrolytes, vandana bid, kdur continue ASE protocol for alc abuse, drinks around 8 beers/day hemostable tolerating solid diet dc plan when dm is slightly better controlled dm is new onset likely from pancreatitis, diabetic and dietary education
--- NOTE | 2020-02-09 12:46 | PRG ---
DATE OF SERVICE: 02/09/2020 SUBJECTIVE: The patient was seen and examined at bedside and overnight events noted. The patient denies any shortness of breath or chest pain or palpitation. No history of nausea or vomiting or diarrhea or fever or chills or cramps. OBJECTIVE: GENERAL: This is a well-built male, in no apparent distress. VITAL SIGNS: Temperature 98.8. Heart rate 114. Respiratory rate 20. Blood pressure 163/102. HEENT: Atraumatic, normocephalic. Oral mucosa is moist. NECK: Supple. CARDIOVASCULAR: S1, S2 heard. Rate and rhythm regular. RESPIRATORY: Clear to auscultation. GASTROINTESTINAL: Abdomen is soft. MUSCULOSKELETAL: No tenderness. No edema. DERMATOLOGIC: No skin rash. NEUROLOGIC: Alert and awake and oriented x3. No focal neurologic deficits. Moving all the extremities. PSYCHIATRIC: Mood and affect normal. LABORATORY DATA: Potassium 3.3, BUN is 15, creatinine is 1.0. ASSESSMENT AND PLAN: 1. Acute kidney injury, better. 2. Hypokalemia, replaced. 3. Hyponatremia. Start IV fluids. 4. Hypocalcemia. 5. Acute pancreatitis. We will continue to follow. Start NS. Job ID: [id number]
[2020-02-09] MEDS: Acetaminophen 500 MG TAB PO PRN (16:17)
--- NOTE | 2020-02-09 17:06 | PRG ---
DATE OF SERVICE: 02/09/2020 SUBJECTIVE: Mr. Goel was tolerating a solid diet, but not taking full amounts. He did spike a fever this afternoon. He has had some pain in his back. OBJECTIVE: VITAL SIGNS: Temperature is 102.3, pulse 115, blood pressure 138/ 81. GENERAL: He is in no acute distress. Awake and alert. LUNGS: Clear to auscultation bilaterally. HEART: Tachycardic. S1, S2. ABDOMEN: Soft, nontender, and nondistended. Bowel sounds are present. EXTREMITIES: No lower extremity edema. LABORATORY DATA: Sodium 129, creatinine 1.0, hemoglobin A1c 6.1, bilirubin 5.2, albumin 2.7, lipase 75. White blood cell count 10.5, hemoglobin 11.6, platelets 163. IMPRESSION: 1. Acute alcoholic pancreatitis. No pancreatic necrosis by contrast-enhanced CT. On presentation, however, the hypocalcemia and acute renal failure indicate a more severe pancreatitis. He is having back pain today and seems a less comfortable , but he has been tolerating a solid diet. 2. Alcoholic hepatitis. 3. Hypocalcemia, improving. 4. Acute renal failure, improving. 5. Fever and tachycardia this afternoon. This could be related to his pancreatitis or atelectasis or secondary infectious process. RECOMMENDATIONS: 1. IV fluids. 2. Blood cultures. 3. Urinalysis. 4. Chest x-ray. Job ID: [id number] MTDD
--- NOTE | 2020-02-09 17:17 | RAD ---
TWO VIEWS CHEST: 02/09/20 HISTORY: Fever, back pain, pancreatitis. COMPARISON: 11/19/17. FINDINGS: There is a small left pleural effusion and associated atelectasis. Atelectasis is also present at the right lung base. Left cardiac border is obscured due to left pleural effusion and volume loss. Pulmo nary vasculature is within normal limits. Osseous structures have a normal appearance. IMPRESSION: 1. Small left pleural effusion and associated atelectasis. 2. Atelectasis right lung base. Questionable tiny right pleural effusion. POS: CRYS
[2020-02-09] MEDS: cefTRIAXone\\ROCEPHIN 2 GM in Sodium Chloride 0.9% 100 ML IVPB SCH (17:38)
[2020-02-09] MEDS: Zolpidem Tartrate 5 MG TAB PO PRN (21:48)
[2020-02-10 01:54] LABS: Bacteria/HPF None Seen HPF (None Seen); Bilirubin Negative (Negative); Blood, Urine Trace (Negative); Clarity Clear (Clear); Glucose, Urine (Dipstick) 500 mg/dL (Negative); Leukocyte Negative Leu/uL (Negative); Nitrite Negative (Negative); Protein, Urine (Dipstick) 20 mg/dL (Neg-Trace); RBC/HPF 0-3 HPF (0-3); Squamous Epithelial None Seen HPF (0-3); Urobilinogen Normal mg/dL (Less than 2); WBC/HPF 0-3 HPF (0-3)
[2020-02-10 01:55] LABS: Urine Culture Reflex No No
[2020-02-10] MEDS: Diazepam 5 MG TAB PO PRN (04:26)
[2020-02-10] MEDS: Acetaminophen 500 MG TAB PO PRN ×2 (04:26→22:36)
[2020-02-10] MEDS: Morphine 10 MG/ML VIAL SLOW IVP PRN ×3 (06:18→22:35)
[2020-02-10 06:54] LABS: Band 22 % (5-11); Eosinophils 1 % (0-10); Hemoglobin 11.6 g/dL (14.0-18.0); Hypochromia SLIGHT = 6-15 cells (100X) (0-5/hpf); Lymphocytes 5 % (21-51); MDiff Complete? YES; Mean Corpuscular HGB CONC 32.8 g/dL (32.0-36.0); Mean Corpuscular Hemoglobin 33.4 pg (27.0-31.0); Mean Platelet Volume 9.3 fL (7.4-10.4); Monocytes 5 % (0-10); Neutrophil 67 % (42-75); Platelet Count 205 thou/uL (130-400); Platelet Morphology Comment Appears Adequate; RBC Distribution Width 12.5 % (11.5-14.5); Red Blood Cell (RBC) Count 3.48 mill/uL (4.70-6.10); White Blood Cell (WBC) Count 20.6 thou/uL (4.8-10.8)
[2020-02-10 07:03] LABS: ALT (SGPT) 21 U/L (8-55); AST (SGOT) 30 U/L (5-34); Albumin 2.7 g/dL (3.5-5.0); Alkaline Phosphatase 86 U/L (40-110); Anion Gap 14 mmol/L (10-20); BUN (Urea Nitrogen) 12 mg/dL (8.9-20.6); Bilirubin, Total 5.5 mg/dL (0.2-1.2); Calc. Creatinine Clearance 122 mL/min (70-130); Calcium 7.7 mg/dL (7.8-10.44); Carbon Dioxide 26 mmol/L (22-29); Chloride 91 mmol/L (98-107); Estimated GFR-MDRD 87; Globulin 2.7 g/dL (2.4-3.5); Glucose 320 mg/dL (70-105); Potassium 3.5 mmol/L (3.5-5.1); Protein, Total 5.4 g/dL (6.0-8.3); Sodium 127 mmol/L (136-145)
[2020-02-10] MEDS: Calcium Carbonate 500 MG ChewTAB PO SCH ×3 (07:57→19:48)
[2020-02-10] MEDS: Thiamine 100 MG TAB PO SCH (07:57)
[2020-02-10] MEDS: Magnesium Oxide 400 MG TAB PO SCH (07:57)
[2020-02-10] MEDS: Insulin Glargine 25 UNITS in Pre-Filled Syringe 1 EACH SC SCH ×2 (07:57→19:49)
[2020-02-10] MEDS: Folic Acid 1 MG TAB PO SCH (07:57)
[2020-02-10] MEDS: Multivitamin W/ Minerals 1 TAB PO SCH (07:58)
[2020-02-10] MEDS: HumaLOG 300 UNITS/3 ML VIAL SC PRN ×2 (12:11→19:50)
[2020-02-10] MEDS: Lorazepam 2 MG/ML VIAL SLOW IVP PRN ×2 (12:19→20:49)
--- NOTE | 2020-02-10 14:18 | PRG ---
DATE OF SERVICE: 02/10/2020 SUBJECTIVE: Mr. Goel is tolerating a solid diet, but his appetite is not great. He has no abdominal pain today. No nausea or vomiting. OBJECTIVE: VITAL SIGNS: Temperature 98.1, pulse 116, oxygen saturation 94%, and blood pressure 138/83. GENERAL: He is in no acute distress. He is awake and alert. LUNGS: Clear to auscultation bilaterally. HEART: Tachycardic. S1 and S2. ABDOMEN: Soft, nontender, and nondistended. Bowel sounds are present. EXTREMITIES: No lower extremity edema. LABORATORY DATA: White blood cell count 20.6, hemoglobin 11.6, and platelets 205. Creatinine 0.92, bilirubin 5.5, AST 30, ALT 21, alkaline phosphatase 86, and albumin 2.7. IMPRESSION: 1. Acute alcoholic pancreatitis. It was not necrosis by contrast-enhanced CT on presentation; however, the hypocalcemia and acute renal failure may indicate a more severe pancreatitis. His calcium has since improved, and his renal function has returned to normal. 2. Elevated white blood cell count and tachycardia. He did have fever last night. Chest x-ray shows atelectasis. Blood cultures are negative. Urinalysis is negative. 3. New onset diabetes mellitus secondary to pancreatitis. 4. Alcoholic hepatitis. RECOMMENDATIONS: 1. He has been started on ceftriaxone empirically. 2. Encourage incentive spirometer. 3. He is being treated for diabetes with insulin. Job ID: [id number]
[2020-02-10] MEDS: cefTRIAXone\\ROCEPHIN 2 GM in Sodium Chloride 0.9% 100 ML IVPB SCH (17:02)
--- NOTE | 2020-02-10 17:08 | PRG ---
DATE OF SERVICE: 02/10/2020 SUBJECTIVE: Patient was seen and examined at bedside and overnight events noted. Patient denies any shortness of breath or chest pain or palpitation. No history of nausea or vomiting or diarrhea or fever or chills or cramps. OBJECTIVE: GENERAL: This is a well-built male, in no apparent distress. VITAL SIGNS: Temperature 98.1. Pulse 116. Respiratory rate 20. Blood pressure 138/83. HEENT: Atraumatic, normocephalic. Oral mucosa is moist NECK: Supple. CARDIOVASCULAR: S1, S2 heard. Rate and rhythm regular. RESPIRATORY: Clear to auscultation. GASTROINTESTINAL: Abdomen is soft. MUSCULOSKELETAL: No tenderness. No edema. DERMATOLOGIC: No skin rash. NEUROLOGIC: Alert and awake and oriented X3. No focal neurologic deficits. Moving all the extremities. PSYCHIATRIC: Mood and affect normal. LABORATORY DATA: Potassium is 3.5, BUN is 12, creatinine is 0.9, and sodium is . ASSESSMENT AND PLAN: 1. Acute kidney injury, stable. 2. Hypokalemia, better. 3. . 4. Hypocalcemia. 5. Acute pancreatitis. Renal function is stable. Job ID: [id number]
[2020-02-11 05:13] LABS: #Basophils 0.1 thou/uL (0.0-0.2); #Eosinphils 0.2 thou/uL (0.0-0.7); #Monocytes 1.4 thou/uL (0.11-0.59); #Neutrophils 16.2 thou/uL (1.40-6.50); %Basophils 0.6 % (0.0-1.0); %Eosinophils 1.2 % (0.0-10.0); %Lymphocytes 5.1 % (21.0-51.0); %Monocytes 7.4 % (0.0-10.0); %Neutrophils 85.7 % (42.0-75.0); Hemoglobin 11.5 g/dL (14.0-18.0); Mean Corpuscular HGB CONC 30.7 g/dL (32.0-36.0); Mean Corpuscular Hemoglobin 32.9 pg (27.0-31.0); Mean Platelet Volume 8.6 fL (7.4-10.4); Platelet Count 207 thou/uL (130-400); RBC Distribution Width 12.9 % (11.5-14.5); White Blood Cell (WBC) Count 18.9 thou/uL (4.8-10.8)
[2020-02-11 05:32] LABS: ALT (SGPT) 21 U/L (8-55); AST (SGOT) 29 U/L (5-34); Albumin 2.4 g/dL (3.5-5.0); Alkaline Phosphatase 88 U/L (40-110); Anion Gap 14 mmol/L (10-20); BUN (Urea Nitrogen) 12 mg/dL (8.9-20.6); Bilirubin, Total 4.2 mg/dL (0.2-1.2); Calc. Creatinine Clearance 129 mL/min (70-130); Calcium 7.7 mg/dL (7.8-10.44); Carbon Dioxide 25 mmol/L (22-29); Chloride 95 mmol/L (98-107); Estimated GFR-MDRD Greater than 90; Globulin 2.8 g/dL (2.4-3.5); Glucose 186 mg/dL (70-105); Potassium 3.1 mmol/L (3.5-5.1); Protein, Total 5.2 g/dL (6.0-8.3); Sodium 131 mmol/L (136-145)
[2020-02-11] MEDS: Morphine 10 MG/ML VIAL SLOW IVP PRN ×3 (06:22→18:18)
[2020-02-11] MEDS: HumaLOG 300 UNITS/3 ML VIAL SC PRN ×3 (06:30→20:44)
[2020-02-11] MEDS: Thiamine 100 MG TAB PO SCH (08:22)
[2020-02-11] MEDS: Multivitamin W/ Minerals 1 TAB PO SCH (08:22)
[2020-02-11] MEDS: Calcium Carbonate 500 MG ChewTAB PO SCH ×3 (08:22→20:40)
[2020-02-11] MEDS: Folic Acid 1 MG TAB PO SCH (08:23)
[2020-02-11] MEDS: Insulin Glargine 25 UNITS in Pre-Filled Syringe 1 EACH SC SCH ×2 (08:23→20:41)
[2020-02-11] MEDS: Magnesium Oxide 400 MG TAB PO SCH (08:23)
[2020-02-11] MEDS ORDERED: Iopamidol-370 76% 500 ML 1 ML ONE (10:02)
[2020-02-11] MEDS ORDERED: Iopamidol 370 76% 50 ML VIAL FS ONE (10:02)
[2020-02-11] MEDS: Acetaminophen 500 MG TAB PO PRN ×2 (12:21→20:40)
--- NOTE | 2020-02-11 13:54 | PRG ---
DATE OF SERVICE: 02/11/2020 SUBJECTIVE: Mr. Goel is tolerating a solid diet. He is sitting up in a wheelchair, but does not walking around yet. He has upper abdominal tightness, but no pain. No nausea or vomiting. OBJECTIVE: VITAL SIGNS: Temperature 99.8, pulse 105, blood pressure 150/91. GENERAL: He is in no acute distress. Alert and oriented x3. LUNGS: Clear to auscultation bilaterally, however, decreased breath sounds in the bases. HEART: Tachycardic. S1 and S2. ABDOMEN: Soft, nontender, and nondistended. Bowel sounds are present. EXTREMITIES: No lower extremity edema. LABORATORY DATA: White blood cell count 18.9, hemoglobin 11.5, platelets 207. Creatinine 0.87, bilirubin 4.2, AST 29, ALT 21, alkaline phosphatase 88. IMPRESSION AND PLAN: 1. Acute alcoholic pancreatitis. Contrasted CT did not show pancreatic necrosis; however, he does have signs of severe pancreatitis given the hypocalcemia and acute renal failure on admission. His hypocalcemia has improved. His renal function has returned to normal. He did have an extremely elevated lipase on presentation, which has returned to normal. 2. New onset diabetes mellitus, likely secondary to the acute pancreatitis. 3. Alcoholic hepatitis. His bilirubin is persistently elevated, but has peaked and appears to be trending down. 4. Elevated white blood cell count and fever to 101.8 last night and tachycardia. He still is taking shallow breaths and has atelectasis noted by x-ray and some pleural effusions around that. His oxygen saturation remains in the low 90s. These findings might be related to his pancreatitis or atelectasis or there could be a secondary infectious process; however, chest x-ray, blood cultures, and urine culture have been negative so far. If he fails to progress over the next few days, then followup CT with contrast of the pancreas and abdomen can be considered. Job ID: [id number]
--- NOTE | 2020-02-11 14:46 | PRG ---
DATE OF SERVICE: 02/11/2020 SUBJECTIVE: A 49-year-old gentleman being seen for hyponatremia. The patient denied nausea, vomiting, or chest pain. OBJECTIVE: GENERAL: On exam, the patient is awake and alert. VITAL SIGNS: Afebrile, pulse 75, breathing 16, and blood pressure 150/91. HEENT: Head normocephalic and atraumatic. Eyes intact, no ulcers. Nose intact, no ulcers. Ears intact, no ulcers. NECK: Supple. No JVD. CHEST: Symmetrical and clear. CARDIOVASCULAR: Shows S1 and S2, no rub, no murmur. GASTROINTESTINAL: Abdomen is soft, bowel sounds positive. EXTREMITIES: Show no edema or ulcers. SKIN: Shows no rash or petechiae. MUSCULOSKELETAL: Shows no joint swelling or stiffness. GENITOURINARY: Shows no [place] or CVA tenderness. NEUROLOGIC: Motor intact. Cranial nerves intact. LABORATORY DATA: Reviewed. ASSESSMENT AND PLAN: Hyponatremia, improves. Syndrome of inappropriate antidiuretic hormone secretion, stable. Recommend fluid restriction. I will sign off. Please reconsult as needed. Job ID: [id number]
[2020-02-11] MEDS: cefTRIAXone\\ROCEPHIN 2 GM in Sodium Chloride 0.9% 100 ML IVPB SCH (18:19)
--- NOTE | 2020-02-11 18:49 | PDOC.HOSPP ---
- Subjective Encounter Date: 02/11/20 - Objective Vital Signs & Weight: Vital Signs (12 hours) Temp Pulse Resp BP BP BP Pulse Ox 02/11/20 16:00 98.0 F 98 17 152/92 H 152/92 H 94 L 02/11/20 12:00 150/91 H 02/11/20 11:00 99.8 F H 105 H 17 150/91 H 93 L 02/11/20 08:00 137/93 H 02/11/20 07:33 98.5 F 105 H 18 137/93 H 92 L Weight Admit Weight 198 lb Weight 198 lb I&O: 02/10/20 02/11/20 02/12/20 06:59 06:59 06:59 Intake Total 2350 2150 900 Output Total 500 Balance 2350 1650 900 Result Diagrams: 02/11/20 05:00 02/11/20 05:00 Additional Labs: Accuchecks 02/11/20 02/11/20 02/11/20 16:22 11:53 04:29 POC Glucose 161 H 231 H 233 H 02/10/20 19:31 POC Glucose 243 H Hospitalist ROS - Medication Medications: Active Medications Generic Name Dose Route Start Last Admin Trade Name Freq PRN Reason Stop Dose Admin Acetaminophen 500 mg 02/04/20 08:38 02/11/20 12:21 Tylenol PO 500 mg Q6H PRN Administration Mild Pain (1-3) Calcium Carbonate 1,000 mg 02/08/20 09:00 02/11/20 15:53 Tums PO 1,000 mg TID ARMANDO Administration Diazepam 5 mg 02/07/20 04:00 02/10/20 04:26 Valium PO 5 mg Q4H PRN Administration FOR ASE 10 OR GREATER Folic Acid 1 mg 02/07/20 09:00 02/11/20 08:23 Folvite PO 1 mg DAILY ARMANDO Administration Hydralazine HCl 10 mg 02/03/20 17:03 02/03/20 20:18 Apresoline SLOW IVP 10 mg Q4H PRN Administration SBP > 180 and HR < 70 Insulin Glargine 25 units/ 0.25 mls @ 0 mls/hr 02/09/20 09:00 02/11/20 08:23 Miscellaneous Medication SC 0.25 mls BID ARMANDO Administration Ceftriaxone Sodium 2 gm/ 100 mls @ 200 mls/hr 02/09/20 18:00 02/11/20 18:19 Sodium Chloride IVPB 100 mls Q24HR ARMANDO Administration Insulin Human Lispro 0 units 02/09/20 07:35 02/11/20 12:21 Humalog SC 6 unit .AGGRESSIVE SLIDING PRN Administration Aggressive Correctional Scale Insulin Human Lispro 0 units 02/09/20 07:35 02/10/20 19:50 Humalog SC 2 unit/kg .BEDTIME SLIDING SC PRN Administration Bedtime Correctional Scale Iron/Minerals/Multivitamins 1 tab 02/07/20 09:00 02/11/20 08:22 Theragran M PO 1 tab DAILY ARMANDO Administration Lorazepam 1 mg 02/03/20 17:12 02/10/20 20:49 Ativan SLOW IVP 1 mg Q4H PRN Administration Anxiety/Agitation Magnesium Oxide 400 mg 02/07/20 09:00 02/11/20 08:23 Magnesium Oxide PO 400 mg DAILY ARMANDO Administration Morphine Sulfate 6 mg 02/08/20 16:44 02/11/20 18:18 Morphine SLOW IVP 6 mg Q8H PRN Administration Pain>3 Ondansetron HCl 4 mg 02/03/20 17:03 02/06/20 19:52 Zofran IVP 4 mg Q6H PRN Administration Nausea/Vomiting Pantoprazole Sodium 40 mg 02/08/20 09:00 02/11/20 08:22 Protonix PO 40 mg DAILY ARMANDO Administration Thiamine HCl 100 mg 02/07/20 09:00 02/11/20 08:22 Thiamine PO 100 mg DAILY ARMANDO Administration Zolpidem Tartrate 5 mg 02/04/20 08:37 02/09/20 21:48 Ambien PO 5 mg HSPRN PRN Administration Insomnia - Exam General Appearance: awake alert ENT: normocephalic atraumatic Neck: supple Respiratory: normal chest expansion, no tachypnea Gastrointestinal: soft, tender to palpation Extremities: no cyanosis, no clubbing Neurological: cranial nerve grossly intact Hosp A/P - Plan Hosp A/P (1) Acute alcoholic pancreatitis Code(s): K85.20 - ALCOHOL INDUCED ACUTE PANCREATITIS WITHOUT NECROSIS OR INFCT Status: Acute Qualifiers: Acute pancreatitis complication: no infection or necrosis Qualified Code(s) : K85.20 - Alcohol induced acute pancreatitis without necrosis or infection (2) Metabolic acidosis Code(s): E87.2 - ACIDOSIS Status: Acute (3) HARRY (acute kidney injury) Code(s): N17.9 - ACUTE KIDNEY FAILURE, UNSPECIFIED Status: Resolved (4) Alcohol abuse Code(s): F10.10 - ALCOHOL ABUSE, UNCOMPLICATED Status: Chronic (5) Adenocarcinoma, colon Code(s): C18.9 - MALIGNANT NEOPLASM OF COLON, UNSPECIFIED Status: Chronic (6) HTN (hypertension) Code(s): I10 - ESSENTIAL (PRIMARY) HYPERTENSION Status: Chronic Qualifiers: (7) Alcoholic hepatitis Code(s): K70.10 - ALCOHOLIC HEPATITIS WITHOUT ASCITES Status: Acute Qualifiers: Ascites presence: without ascites Qualified Code(s): K70.10 - Alcoholic hepatitis without ascites (8) Diabetes Code(s): E11.9 - TYPE 2 DIABETES MELLITUS WITHOUT COMPLICATIONS Status: Acute Qualifiers: Diabetes mellitus type: due to underlying condition Diabetes mellitus snf insulin use: without snf use Diabetes mellitus complication status : with hyperglycemia Qualified Code(s): E08.65 - Diabetes mellitus due to underlying condition with hyperglycemia - Plan dc iv fluids, start lantus bid, has uncontrolled dm due to pancreatitis, on morphine prn renal function is at baseline, has low calcium will correct electrolytes, vandana bid, kdur continue ASE protocol for alc abuse, drinks around 8 beers/day hemostable tolerating solid diet dc plan when dm is slightly better controlled dm is new onset likely from pancreatitis, diabetic and dietary education 02/09: The patient developed fevers and increased leukocytosis over the past 24 hours. IV ceftriaxone has been initiated. We will monitor his progress over the next 24 hours. If his symptoms do not improve, will we will consider CT scan of the abdomen. 02/10: Fever reported yesterday. Leukocytosis slightly improved with antibiotics. Continue IV hydration. I will go ahead with a CT scan of the abdomen and pelvis with IV contrast since his creatinine has improved and the patient still exhibiting signs of sepsis with no clear source.
--- NOTE | 2020-02-11 18:50 | PDOC.HOSPP ---
- Subjective Encounter Date: 02/10/20 - Objective Vital Signs & Weight: Vital Signs (12 hours) Temp Pulse Resp BP BP BP Pulse Ox 02/11/20 16:00 98.0 F 98 17 152/92 H 152/92 H 94 L 02/11/20 12:00 150/91 H 02/11/20 11:00 99.8 F H 105 H 17 150/91 H 93 L 02/11/20 08:00 137/93 H 02/11/20 07:33 98.5 F 105 H 18 137/93 H 92 L Weight Admit Weight 198 lb Weight 198 lb I&O: 02/10/20 02/11/20 02/12/20 06:59 06:59 06:59 Intake Total 2350 2150 900 Output Total 500 Balance 2350 1650 900 Result Diagrams: 02/11/20 05:00 02/11/20 05:00 Additional Labs: Accuchecks 02/11/20 02/11/20 02/11/20 16:22 11:53 04:29 POC Glucose 161 H 231 H 233 H 02/10/20 19:31 POC Glucose 243 H Hospitalist ROS - Medication Medications: Active Medications Generic Name Dose Route Start Last Admin Trade Name Freq PRN Reason Stop Dose Admin Acetaminophen 500 mg 02/04/20 08:38 02/11/20 12:21 Tylenol PO 500 mg Q6H PRN Administration Mild Pain (1-3) Calcium Carbonate 1,000 mg 02/08/20 09:00 02/11/20 15:53 Tums PO 1,000 mg TID ARMANDO Administration Diazepam 5 mg 02/07/20 04:00 02/10/20 04:26 Valium PO 5 mg Q4H PRN Administration FOR ASE 10 OR GREATER Folic Acid 1 mg 02/07/20 09:00 02/11/20 08:23 Folvite PO 1 mg DAILY ARMANDO Administration Hydralazine HCl 10 mg 02/03/20 17:03 02/03/20 20:18 Apresoline SLOW IVP 10 mg Q4H PRN Administration SBP > 180 and HR < 70 Insulin Glargine 25 units/ 0.25 mls @ 0 mls/hr 02/09/20 09:00 02/11/20 08:23 Miscellaneous Medication SC 0.25 mls BID ARMANDO Administration Ceftriaxone Sodium 2 gm/ 100 mls @ 200 mls/hr 02/09/20 18:00 02/11/20 18:19 Sodium Chloride IVPB 100 mls Q24HR ARMANDO Administration Insulin Human Lispro 0 units 02/09/20 07:35 02/11/20 12:21 Humalog SC 6 unit .AGGRESSIVE SLIDING PRN Administration Aggressive Correctional Scale Insulin Human Lispro 0 units 02/09/20 07:35 02/10/20 19:50 Humalog SC 2 unit/kg .BEDTIME SLIDING SC PRN Administration Bedtime Correctional Scale Iron/Minerals/Multivitamins 1 tab 02/07/20 09:00 02/11/20 08:22 Theragran M PO 1 tab DAILY ARMANDO Administration Lorazepam 1 mg 02/03/20 17:12 02/10/20 20:49 Ativan SLOW IVP 1 mg Q4H PRN Administration Anxiety/Agitation Magnesium Oxide 400 mg 02/07/20 09:00 02/11/20 08:23 Magnesium Oxide PO 400 mg DAILY ARMANDO Administration Morphine Sulfate 6 mg 02/08/20 16:44 02/11/20 18:18 Morphine SLOW IVP 6 mg Q8H PRN Administration Pain>3 Ondansetron HCl 4 mg 02/03/20 17:03 02/06/20 19:52 Zofran IVP 4 mg Q6H PRN Administration Nausea/Vomiting Pantoprazole Sodium 40 mg 02/08/20 09:00 02/11/20 08:22 Protonix PO 40 mg DAILY ARMANDO Administration Thiamine HCl 100 mg 02/07/20 09:00 02/11/20 08:22 Thiamine PO 100 mg DAILY ARMANDO Administration Zolpidem Tartrate 5 mg 02/04/20 08:37 02/09/20 21:48 Ambien PO 5 mg HSPRN PRN Administration Insomnia - Exam General Appearance: awake alert ENT: normocephalic atraumatic Neck: supple, no JVD Heart: RRR Respiratory: normal chest expansion, no tachypnea Gastrointestinal: soft, tender to palpation Extremities: no cyanosis Neurological: cranial nerve grossly intact Hosp A/P - Plan Hosp A/P (1) Acute alcoholic pancreatitis Code(s): K85.20 - ALCOHOL INDUCED ACUTE PANCREATITIS WITHOUT NECROSIS OR INFCT Status: Acute Qualifiers: Acute pancreatitis complication: no infection or necrosis Qualified Code(s) : K85.20 - Alcohol induced acute pancreatitis without necrosis or infection (2) Metabolic acidosis Code(s): E87.2 - ACIDOSIS Status: Acute (3) HARRY (acute kidney injury) Code(s): N17.9 - ACUTE KIDNEY FAILURE, UNSPECIFIED Status: Resolved (4) Alcohol abuse Code(s): F10.10 - ALCOHOL ABUSE, UNCOMPLICATED Status: Chronic (5) Adenocarcinoma, colon Code(s): C18.9 - MALIGNANT NEOPLASM OF COLON, UNSPECIFIED Status: Chronic (6) HTN (hypertension) Code(s): I10 - ESSENTIAL (PRIMARY) HYPERTENSION Status: Chronic Qualifiers: (7) Alcoholic hepatitis Code(s): K70.10 - ALCOHOLIC HEPATITIS WITHOUT ASCITES Status: Acute Qualifiers: Ascites presence: without ascites Qualified Code(s): K70.10 - Alcoholic hepatitis without ascites (8) Diabetes Code(s): E11.9 - TYPE 2 DIABETES MELLITUS WITHOUT COMPLICATIONS Status: Acute Qualifiers: Diabetes mellitus type: due to underlying condition Diabetes mellitus skilled nursing insulin use: without salvage determiner use Diabetes mellitus complication status : with hyperglycemia Qualified Code(s): E08.65 - Diabetes mellitus due to underlying condition with hyperglycemia - Plan dc iv fluids, start lantus bid, has uncontrolled dm due to pancreatitis, on morphine prn renal function is at baseline, has low calcium will correct electrolytes, vandana bid, kdur continue ASE protocol for alc abuse, drinks around 8 beers/day hemostable tolerating solid diet dc plan when dm is slightly better controlled dm is new onset likely from pancreatitis, diabetic and dietary education 02/09: The patient developed fevers and increased leukocytosis over the past 24 hours. IV ceftriaxone has been initiated. We will monitor his progress over the next 24 hours. If his symptoms do not improve, will we will consider CT scan of the abdomen.
--- NOTE | 2020-02-11 21:13 | CT ---
EXAM: CT ABDOMEN AND PELVIS HISTORY: Sepsis. Abdominal pain. COMPARISON: 11/18/2017 Correlation: Dissection protocol CT 02/03/2020 Procedure: Multiple contiguous axial images were obtained and a CT of the abdomen and pelvis with IV contrast. C oronal reformats were performed. FINDINGS: Lower Chest: Interval development of a small right-sided and moderate left-sided pleural effusion. Bi basilar consolidation may represent atelectasis, pneumonia or aspiration Vessels: Normal caliber aorta. Heart: Normal heart size. Abdomen: Portal vein:Patent Gallbladder: No calcified gallstones. Normal caliber wall. Liver: within normal limits. Pancreas: Extensive edematous change and fluid in the expected region of the pancreas. Normal appeari ng pancreatic parenchyma is difficult to appreciate. There is evidence of progression of pancreatitis with resultant pancreatic necrosis. Spleen: within normal limits. Adrenals: within normal limits. Kidneys: Stable dilatation of the left intrarenal and extrarenal collecting system with a stable cyst ic type collection superior to the left psoas muscle. No evidence of right-sided obstructive uropathy. Peritoneum: Interval development of extensive complex free fluid in the abdomen. Bowel: Gastric mucosa is grossly unremarkable. There is edematous change and mucosal thickening invol ving the second, third and fourth portion of the duodenum. There small pockets of air which appear to be in the lumen of the duodenum and are presumed to be due to inflammatory change in the adjacent pancreas and mesentery. Definite extraluminal air is not appreciated. Multiple contrast filled loops of bowel are identified. There is multifocal bowel wall thickening, likely reactive. Redemonstr ation of a left abdominal hernia containing mesenteric fat and bowel loops. No evidence of associated incarceration or obstruction. Right lower quadrant ileostomy is identified. The majority t he colon is removed. Small Polanco's pouch is identified. Mesentery and Retroperitoneum: No enlarged mesenteric or retroperitoneal lymph nodes. Abdominal Wall: Postsurgical changes and hernia as described above Pelvis: Reproductive Organs: Reproductive organs are unremarkable. Pelvis: No mass, lymphadenopathy or free air. There is free fluid in the pelvis. Bladder: within normal limits. Bones: within normal limits. IMPRESSION: 1. Worsening pancreatitis. Extensive necrosis, edema and inflammatory change involving the pancreas. Small amount of residual pancreatic parenchyma is noted at the uncinate process of the pancreas. 2. Interval ascites and bilateral pleural effusions. Bibasilar consolidation may represent atelectasi s, pneumonia or aspiration. 3. Pneumatosis involving the third and fourth portion of the duodenum, likely reactive to adjacent in flammatory change. No evidence of portal venous gas at this time.
[2020-02-11] MEDS: Ondansetron PF 4 MG/2 ML Vial IVP PRN (23:04)
[2020-02-11] MEDS ORDERED: Morphine 2 MG/ML SYRINGE SLOW IVP SCH (23:30)
[2020-02-12] MEDS: Lorazepam 2 MG/ML VIAL SLOW IVP PRN (03:50)
[2020-02-12 07:15] LABS: Hemoglobin 11.4 g/dL (14.0-18.0); Mean Corpuscular HGB CONC 33.1 g/dL (32.0-36.0); Mean Corpuscular Hemoglobin 33.7 pg (27.0-31.0); Mean Platelet Volume 8.8 fL (7.4-10.4); Platelet Count 271 thou/uL (130-400); RBC Distribution Width 12.9 % (11.5-14.5); Red Blood Cell (RBC) Count 3.39 mill/uL (4.70-6.10); White Blood Cell (WBC) Count 20.6 thou/uL (4.8-10.8)
[2020-02-12 07:32] LABS: ALT (SGPT) 21 U/L (8-55); AST (SGOT) 30 U/L (5-34); Albumin 2.7 g/dL (3.5-5.0); Alkaline Phosphatase 106 U/L (40-110); Anion Gap 15 mmol/L (10-20); BUN (Urea Nitrogen) 8 mg/dL (8.9-20.6); Bilirubin, Total 3.6 mg/dL (0.2-1.2); Calc. Creatinine Clearance 131 mL/min (70-130); Carbon Dioxide 29 mmol/L (22-29); Chloride 91 mmol/L (98-107); Estimated GFR-MDRD Greater than 90; Globulin 3.1 g/dL (2.4-3.5); Glucose 125 mg/dL (70-105); Potassium 3.2 mmol/L (3.5-5.1); Protein, Total 5.8 g/dL (6.0-8.3); Sodium 132 mmol/L (136-145)
--- NOTE | 2020-02-12 07:44 | PDOC.HOSPP ---
- Subjective Encounter Date: 02/12/20 Subjective: Abdomial pain - Objective Vital Signs & Weight: Vital Signs (12 hours) Temp Pulse Resp BP BP BP Pulse Ox 02/12/20 07:17 99 F 105 H 20 151/91 H 92 L 02/12/20 04:20 99.2 F 89 17 123/74 90 L 02/12/20 04:00 123/74 02/12/20 00:14 98.9 F 106 H 18 124/79 02/12/20 00:00 124/79 02/11/20 23:18 99.7 F H 02/11/20 20:00 92 L Weight Admit Weight 198 lb Weight 198 lb I&O: 02/11/20 02/12/20 02/13/20 06:59 06:59 06:59 Intake Total 2149 1939 Output Total 500 Balance 1649 1939 Result Diagrams: 02/12/20 06:32 02/12/20 06:32 Additional Labs: Accuchecks 02/12/20 02/11/20 02/11/20 04:23 19:21 16:22 POC Glucose 123 H 212 H 161 H 02/11/20 11:53 POC Glucose 231 H Hospitalist ROS - Medication Medications: Active Medications Generic Name Dose Route Start Last Admin Trade Name Freq PRN Reason Stop Dose Admin Acetaminophen 500 mg 02/04/20 08:38 02/11/20 20:40 Tylenol PO 500 mg Q6H PRN Administration Mild Pain (1-3) Calcium Carbonate 1,000 mg 02/08/20 09:00 02/11/20 20:40 Tums PO 1,000 mg TID ARMANDO Administration Diazepam 5 mg 02/07/20 04:00 02/10/20 04:26 Valium PO 5 mg Q4H PRN Administration FOR ASE 10 OR GREATER Folic Acid 1 mg 02/07/20 09:00 02/11/20 08:23 Folvite PO 1 mg DAILY ARMANDO Administration Hydralazine HCl 10 mg 02/03/20 17:03 02/03/20 20:18 Apresoline SLOW IVP 10 mg Q4H PRN Administration SBP > 180 and HR < 70 Insulin Glargine 25 units/ 0.25 mls @ 0 mls/hr 02/09/20 09:00 02/11/20 20:41 Miscellaneous Medication SC 0.25 mls BID ARMANDO Administration Insulin Human Lispro 0 units 02/09/20 07:35 02/11/20 12:21 Humalog SC 6 unit .AGGRESSIVE SLIDING PRN Administration Aggressive Correctional Scale Insulin Human Lispro 0 units 02/09/20 07:35 02/11/20 20:44 Humalog SC 2 unit .BEDTIME SLIDING SC PRN Administration Bedtime Correctional Scale Iron/Minerals/Multivitamins 1 tab 02/07/20 09:00 02/11/20 08:22 Theragran M PO 1 tab DAILY ARMANDO Administration Lorazepam 1 mg 02/03/20 17:12 02/12/20 03:50 Ativan SLOW IVP 1 mg Q4H PRN Administration Anxiety/Agitation Magnesium Oxide 400 mg 02/07/20 09:00 02/11/20 08:23 Magnesium Oxide PO 400 mg DAILY ARMANDO Administration Morphine Sulfate 6 mg 02/08/20 16:44 02/11/20 18:18 Morphine SLOW IVP 6 mg Q8H PRN Administration Pain>3 Ondansetron HCl 4 mg 02/03/20 17:03 02/11/20 23:04 Zofran IVP 4 mg Q6H PRN Administration Nausea/Vomiting Pantoprazole Sodium 40 mg 02/08/20 09:00 02/11/20 08:22 Protonix PO 40 mg DAILY ARMANDO Administration Thiamine HCl 100 mg 02/07/20 09:00 02/11/20 08:22 Thiamine PO 100 mg DAILY ARMANDO Administration Zolpidem Tartrate 5 mg 02/04/20 08:37 02/09/20 21:48 Ambien PO 5 mg HSPRN PRN Administration Insomnia - Exam General Appearance: awake alert ENT: normocephalic atraumatic Neck: supple Respiratory: normal chest expansion, no tachypnea, rhonchi Gastrointestinal: soft, normal bowel sounds, tender to palpation Neurological: cranial nerve grossly intact Hosp A/P - Plan Hosp A/P (1) Acute alcoholic pancreatitis Code(s): K85.20 - ALCOHOL INDUCED ACUTE PANCREATITIS WITHOUT NECROSIS OR INFCT Status: Acute Qualifiers: Acute pancreatitis complication: no infection or necrosis Qualified Code(s) : K85.20 - Alcohol induced acute pancreatitis without necrosis or infection (2) Metabolic acidosis Code(s): E87.2 - ACIDOSIS Status: Acute (3) HARRY (acute kidney injury) Code(s): N17.9 - ACUTE KIDNEY FAILURE, UNSPECIFIED Status: Resolved (4) Alcohol abuse Code(s): F10.10 - ALCOHOL ABUSE, UNCOMPLICATED Status: Chronic (5) Adenocarcinoma, colon Code(s): C18.9 - MALIGNANT NEOPLASM OF COLON, UNSPECIFIED Status: Chronic (6) HTN (hypertension) Code(s): I10 - ESSENTIAL (PRIMARY) HYPERTENSION Status: Chronic Qualifiers: (7) Alcoholic hepatitis Code(s): K70.10 - ALCOHOLIC HEPATITIS WITHOUT ASCITES Status: Acute Qualifiers: Ascites presence: without ascites Qualified Code(s): K70.10 - Alcoholic hepatitis without ascites (8) Diabetes Code(s): E11.9 - TYPE 2 DIABETES MELLITUS WITHOUT COMPLICATIONS Status: Acute Qualifiers: Diabetes mellitus type: due to underlying condition Diabetes mellitus usp insulin use: without termite control servicer use Diabetes mellitus complication status : with hyperglycemia Qualified Code(s): E08.65 - Diabetes mellitus due to underlying condition with hyperglycemia - Plan dc iv fluids, start lantus bid, has uncontrolled dm due to pancreatitis, on morphine prn renal function is at baseline, has low calcium will correct electrolytes, vandana bid, kdur continue ASE protocol for alc abuse, drinks around 8 beers/day hemostable tolerating solid diet dc plan when dm is slightly better controlled dm is new onset likely from pancreatitis, diabetic and dietary education 02/09: The patient developed fevers and increased leukocytosis over the past 24 hours. IV ceftriaxone has been initiated. We will monitor his progress over the next 24 hours. If his symptoms do not improve, will we will consider CT scan of the abdomen. 02/10: Fever reported yesterday. Leukocytosis slightly improved with antibiotics. Continue IV hydration. I will go ahead with a CT scan of the abdomen and pelvis with IV contrast since his creatinine has improved and the patient still exhibiting signs of sepsis with no clear source. 02/11: Patient sepsis is worsening. CT scan of the abdomen pelvis with contrast revealed severe necrotizing pancreatitis with intra-abdominal ascites and pleural effusions with some infiltrates in the lung bases suggestive of possible pneumonia. We will expand antibiotic coverage to vancomycin, cefepime, and metronidazole. Continue IV fluids. Appreciate further recommendations by GI.
[2020-02-12 08:08] LABS: Band 18 % (5-11); Eosinophils 1 % (0-10); Lymphocytes 3 % (21-51); MDiff Complete? YES; Macrocytosis SLIGHT = 6-15 cells (100X) (0-5/hpf); Monocytes 6 % (0-10); Neutrophil 71 % (42-75); Platelet Morphology Comment Appears Adequate; Promyelocytes 1 % (0-0)
[2020-02-12] MEDS: Morphine 10 MG/ML VIAL SLOW IVP PRN (08:28)
[2020-02-12] MEDS: Sodium Chloride 0.9% 1,000 ML IV SCH ×2 (08:35→21:03)
[2020-02-12] MEDS: Cefepime 1 GM in Sodium Chloride 0.9% 100 ML IVPB SCH ×2 (08:36→20:07)
[2020-02-12] MEDS: Magnesium Oxide 400 MG TAB PO SCH (08:44)
[2020-02-12] MEDS: Insulin Glargine 25 UNITS in Pre-Filled Syringe 1 EACH SC SCH ×2 (08:45→20:09)
[2020-02-12] MEDS: Calcium Carbonate 500 MG ChewTAB PO SCH ×3 (08:45→20:08)
[2020-02-12] MEDS: Multivitamin W/ Minerals 1 TAB PO SCH (08:45)
[2020-02-12] MEDS: Thiamine 100 MG TAB PO SCH (08:46)
[2020-02-12] MEDS: Folic Acid 1 MG TAB PO SCH (08:46)
[2020-02-12] MEDS: Vancomycin 1.5 GRAM/300 ML BAG 1.5 GM in Premix Bag 1 BAG IVPB SCH ×2 (10:44→20:09)
--- NOTE | 2020-02-12 12:55 | PRG ---
DATE OF SERVICE: 02/12/2020 SUBJECTIVE: Mr. Goel states his stomach feels bloated and his vented area of his chest on the left is bothering him some. He wants to eat, but the crackers he had been given are sharp and hurt his gums. The family member is at the bedside. He has had a CAT scan today and just come back from that. MEDICATIONS: Reviewed. Ceftriaxone was discontinued today. The patient is on: 1. Insulin sliding scale. 2. Flagyl. 3. Vancomycin. 4. Thiamine. 5. Normal saline at 120. 6. Folic acid. 7. Multivitamin. OBJECTIVE: VITAL SIGNS: Pulse 105, it is where he has been for last several days; temperature is 99; T-max of 101.2 on the ; O2 saturation 90%; respirations 17 to 20; blood pressure 151/91. GENERAL: He is sitting in bed. He looks chronically ill, mildly icteric. LUNGS: Clear. HEART: Regular. No murmurs. ABDOMEN: Soft, protuberant. There is no shifting dullness. There is slight fluid wave. EXTREMITIES: No clubbing, cyanosis, or edema. LABORATORY DATA: Sodium 132, potassium 3.2, BUN and creatinine are 8 and 0.8, glucose 125, calcium 8, bilirubin 3.6, AST 30, ALT 21, alkaline phosphatase 106, protein 5.8, albumin 2.7. White count 20,000, hemoglobin 11.4, platelet count 270, 18% bands. Blood cultures negative at 48 hours since 02/08. IMAGING: He had a chest x-ray on the , small left effusion, atelectasis of right lung base, otherwise normal. CAT scan yesterday, small right-sided and moderate left-sided pleural effusions. There is pancreatic necrosis seen on his CAT scan, complex free fluid in the abdomen. ASSESSMENT: 1. Necrotic pancreatitis, likely reason for leukocytosis. He will be at risk going forward of infected pancreatic necrosis and remains on Flagyl and vancomycin, probably reasonable to change him over to imipenem if we are going to treat for his pancreas. 2. Renal function, stable. 3. Alcoholic hepatitis, slightly better. 4. Imaging reveals several severe pockets of inflammation and fluid in the abdomen. He is high risk of developing cirrhosis over time. He is high risk of getting infected with pancreatic necrosis. If he runs fever again, he will need to be evaluated for possible aspiration of pancreatic necrosis or culture by Interventional Radiology. Job ID: [id number]
[2020-02-12] MEDS: metroNIDAZOLE 500 MG in Premix Bag 1 BAG IVPB SCH ×2 (15:08→21:00)
[2020-02-12] MEDS: Morphine 2 MG/ML SYRINGE SLOW IVP PRN ×2 (16:41→20:56)
[2020-02-12] MEDS: Acetaminophen 500 MG TAB PO PRN (18:08)
[2020-02-13] MEDS: Morphine 2 MG/ML SYRINGE SLOW IVP PRN ×4 (02:08→22:44)
[2020-02-13] MEDS: metroNIDAZOLE 500 MG in Premix Bag 1 BAG IVPB SCH ×3 (06:06→22:45)
[2020-02-13 06:50] LABS: Band 30 % (5-11); Lymphocytes 6 % (21-51); MDiff Complete? YES; Mean Corpuscular HGB CONC 31.8 g/dL (32.0-36.0); Mean Corpuscular Hemoglobin 32.8 pg (27.0-31.0); Mean Platelet Volume 8.8 fL (7.4-10.4); Monocytes 8 % (0-10); Neutrophil 56 % (42-75); Platelet Count 293 thou/uL (130-400); Platelet Morphology Comment Appears Adequate; RBC Distribution Width 12.9 % (11.5-14.5); Red Blood Cell (RBC) Count 3.35 mill/uL (4.70-6.10); White Blood Cell (WBC) Count 17.1 thou/uL (4.8-10.8)
[2020-02-13 06:53] LABS: Phosphorus 3.2 mg/dL (2.3-4.7)
[2020-02-13 07:01] LABS: ALT (SGPT) 17 U/L (8-55); AST (SGOT) 25 U/L (5-34); Albumin 2.6 g/dL (3.5-5.0); Alkaline Phosphatase 121 U/L (40-110); Anion Gap 14 mmol/L (10-20); BUN (Urea Nitrogen) 8 mg/dL (8.9-20.6); Bilirubin, Total 3.6 mg/dL (0.2-1.2); Calc. Creatinine Clearance 125 mL/min (70-130); Calcium 7.9 mg/dL (7.8-10.44); Carbon Dioxide 27 mmol/L (22-29); Chloride 94 mmol/L (98-107); Estimated GFR-MDRD 89; Globulin 3.1 g/dL (2.4-3.5); Glucose 195 mg/dL (70-105); Lipase 37 U/L (8-78); Potassium 3.1 mmol/L (3.5-5.1); Protein, Total 5.7 g/dL (6.0-8.3); Sodium 132 mmol/L (136-145)
[2020-02-13] MEDS: Thiamine 100 MG TAB PO SCH (07:47)
[2020-02-13] MEDS: Calcium Carbonate 500 MG ChewTAB PO SCH ×3 (07:47→20:24)
[2020-02-13] MEDS: Magnesium Oxide 400 MG TAB PO SCH (07:47)
[2020-02-13] MEDS: Folic Acid 1 MG TAB PO SCH (07:48)
[2020-02-13] MEDS: Multivitamin W/ Minerals 1 TAB PO SCH (07:48)
[2020-02-13] MEDS: Sodium Chloride 0.9% 1,000 ML IV SCH ×3 (07:51→23:11)
[2020-02-13] MEDS: Cefepime 1 GM in Sodium Chloride 0.9% 100 ML IVPB SCH ×2 (08:43→20:25)
[2020-02-13] MEDS: Vancomycin 1.5 GRAM/300 ML BAG 1.5 GM in Premix Bag 1 BAG IVPB SCH ×2 (08:50→20:59)
[2020-02-13] MEDS: Insulin Glargine 25 UNITS in Pre-Filled Syringe 1 EACH SC SCH ×2 (08:52→20:25)
[2020-02-13] MEDS ORDERED: Potassium Chloride 20 MEQ TAB PO SCH (13:15)
--- NOTE | 2020-02-13 13:25 | PDOC.HOSPP ---
- Subjective Encounter Date: 02/13/20 Subjective: The patient stated that his abdominal pain is better than yesterday. He is tolerating his diet. - Objective Vital Signs & Weight: Vital Signs (12 hours) Temp Pulse Resp BP Pulse Ox 02/13/20 07:13 99.2 F 104 H 20 133/83 92 L 02/13/20 03:47 99.3 F 98 18 145/80 H 90 L Weight Admit Weight 198 lb Weight 198 lb I&O: 02/12/20 02/13/20 02/14/20 06:59 06:59 06:59 Intake Total 1939 Balance 1939 Result Diagrams: 02/13/20 05:42 02/13/20 05:42 Additional Labs: Accuchecks 02/13/20 02/13/20 02/12/20 11:39 05:37 19:30 POC Glucose 209 H 241 H 143 H 02/12/20 16:35 POC Glucose 163 H Hospitalist ROS - Medication Medications: Active Medications Generic Name Dose Route Start Last Admin Trade Name Freq PRN Reason Stop Dose Admin Acetaminophen 500 mg 02/04/20 08:38 02/12/20 18:08 Tylenol PO 500 mg Q6H PRN Administration Mild Pain (1-3) Calcium Carbonate 1,000 mg 02/08/20 09:00 02/13/20 07:47 Tums PO 1,000 mg TID ARMANDO Administration Diazepam 5 mg 02/07/20 04:00 02/10/20 04:26 Valium PO 5 mg Q4H PRN Administration FOR ASE 10 OR GREATER Folic Acid 1 mg 02/07/20 09:00 02/13/20 07:48 Folvite PO 1 mg DAILY ARMANDO Administration Hydralazine HCl 10 mg 02/03/20 17:03 02/03/20 20:18 Apresoline SLOW IVP 10 mg Q4H PRN Administration SBP > 180 and HR < 70 Insulin Glargine 25 units/ 0.25 mls @ 0 mls/hr 02/09/20 09:00 02/13/20 08:52 Miscellaneous Medication SC 0.25 mls BID ARMANDO Administration Metronidazole 500 mg/ Device 100 mls @ 100 mls/hr 02/12/20 14:00 02/13/20 06: 06 IVPB 100 mls Q8HR ARMANDO Administration Cefepime HCl 1 gm/ Sodium 100 mls @ 200 mls/hr 02/12/20 09:00 02/13/20 08:43 Chloride IVPB 100 mls Q12HR ARMANDO Administration Vancomycin HCl 1.5 gm/ Device 300 mls @ 200 mls/hr 02/12/20 09:00 02/13/20 08 :50 IVPB 300 mls Q12HR ARMANDO Administration Sodium Chloride 1,000 mls @ 120 mls/hr 02/12/20 08:00 02/13/20 07:51 Normal Saline 0.9% IV Not Given .Q8H20M ARMANDO Insulin Human Lispro 0 units 02/09/20 07:35 02/11/20 12:21 Humalog SC 6 unit .AGGRESSIVE SLIDING PRN Administration Aggressive Correctional Scale Insulin Human Lispro 0 units 02/09/20 07:35 02/11/20 20:44 Humalog SC 2 unit .BEDTIME SLIDING SC PRN Administration Bedtime Correctional Scale Iron/Minerals/Multivitamins 1 tab 02/07/20 09:00 02/13/20 07:48 Theragran M PO 1 tab DAILY ARMANDO Administration Lorazepam 1 mg 02/03/20 17:12 02/12/20 03:50 Ativan SLOW IVP 1 mg Q4H PRN Administration Anxiety/Agitation Magnesium Oxide 400 mg 02/07/20 09:00 02/13/20 07:47 Magnesium Oxide PO 400 mg DAILY ARMANDO Administration Morphine Sulfate 2 mg 02/12/20 11:36 02/13/20 07:45 Morphine SLOW IVP 2 mg Q4H PRN Administration Pain Ondansetron HCl 4 mg 02/03/20 17:03 02/11/20 23:04 Zofran IVP 4 mg Q6H PRN Administration Nausea/Vomiting Pantoprazole Sodium 40 mg 02/08/20 09:00 02/13/20 07:48 Protonix PO 40 mg DAILY ARMANDO Administration Thiamine HCl 100 mg 02/07/20 09:00 02/13/20 07:47 Thiamine PO 100 mg DAILY ARMANDO Administration Zolpidem Tartrate 5 mg 02/04/20 08:37 02/09/20 21:48 Ambien PO 5 mg HSPRN PRN Administration Insomnia - Exam General Appearance: NAD, awake alert ENT: normocephalic atraumatic Neck: supple Respiratory: normal chest expansion, normal percussion Gastrointestinal: distended Gastrointestinal - other findings: His ostomy appears to be pink with greenish output. Neurological: cranial nerve grossly intact Hosp A/P - Plan Hosp A/P (1) Acute alcoholic pancreatitis Code(s): K85.20 - ALCOHOL INDUCED ACUTE PANCREATITIS WITHOUT NECROSIS OR INFCT Status: Acute Qualifiers: Acute pancreatitis complication: no infection or necrosis Qualified Code(s) : K85.20 - Alcohol induced acute pancreatitis without necrosis or infection (2) Metabolic acidosis Code(s): E87.2 - ACIDOSIS Status: Acute (3) HARRY (acute kidney injury) Code(s): N17.9 - ACUTE KIDNEY FAILURE, UNSPECIFIED Status: Resolved (4) Alcohol abuse Code(s): F10.10 - ALCOHOL ABUSE, UNCOMPLICATED Status: Chronic (5) Adenocarcinoma, colon Code(s): C18.9 - MALIGNANT NEOPLASM OF COLON, UNSPECIFIED Status: Chronic (6) HTN (hypertension) Code(s): I10 - ESSENTIAL (PRIMARY) HYPERTENSION Status: Chronic Qualifiers: (7) Alcoholic hepatitis Code(s): K70.10 - ALCOHOLIC HEPATITIS WITHOUT ASCITES Status: Acute Qualifiers: Ascites presence: without ascites Qualified Code(s): K70.10 - Alcoholic hepatitis without ascites (8) Diabetes Code(s): E11.9 - TYPE 2 DIABETES MELLITUS WITHOUT COMPLICATIONS Status: Acute Qualifiers: Diabetes mellitus type: due to underlying condition Diabetes mellitus lobsterman insulin use: without intermediate use Diabetes mellitus complication status : with hyperglycemia Qualified Code(s): E08.65 - Diabetes mellitus due to underlying condition with hyperglycemia - Plan dc iv fluids, start lantus bid, has uncontrolled dm due to pancreatitis, on morphine prn renal function is at baseline, has low calcium will correct electrolytes, vandana bid, kdur continue ASE protocol for alc abuse, drinks around 8 beers/day hemostable tolerating solid diet dc plan when dm is slightly better controlled dm is new onset likely from pancreatitis, diabetic and dietary education 02/09: The patient developed fevers and increased leukocytosis over the past 24 hours. IV ceftriaxone has been initiated. We will monitor his progress over the next 24 hours. If his symptoms do not improve, will we will consider CT scan of the abdomen. 02/10: Fever reported yesterday. Leukocytosis slightly improved with antibiotics. Continue IV hydration. I will go ahead with a CT scan of the abdomen and pelvis with IV contrast since his creatinine has improved and the patient still exhibiting signs of sepsis with no clear source. 02/11: Patient sepsis is worsening. CT scan of the abdomen pelvis with contrast revealed severe necrotizing pancreatitis with intra-abdominal ascites and pleural effusions with some infiltrates in the lung bases suggestive of possible pneumonia. We will expand antibiotic coverage to vancomycin, cefepime, and metronidazole. Continue IV fluids. Appreciate further recommendations by GI. 02/12: The patient sepsis is improving on broad-spectrum antibiotics as noted above. Continue IV hydration. Patient is tolerating his diet. We will continue to follow him closely. Appreciate GI.
--- NOTE | 2020-02-13 13:53 | PRG ---
DATE OF SERVICE: 02/13/2020 REASON FOR CONSULTATION: Severe alcoholic pancreatitis. SUBJECTIVE: Today, the patient states that his abdominal bloating has improved somewhat, but he continues to have generalized abdominal pain throughout the entire abdomen, especially upon increased movement/physical activity. He has been able to dump his ostomy multiple times over the last 24 hours, but has not noticed any blood within the ostomy output. Per nursing staff, the patient did have an elevated temperature of 100.1 overnight, but not necessarily meeting criteria for fever. He has been able to tolerate some liquid/soft diet, but has not been able to tolerate a full low-fat diet at this time. OBJECTIVE: VITAL SIGNS: Temperature 99.2, pulse 104, blood pressure 133/83, respiratory rate 20, and saturating 92% on room air. GENERAL: The patient was lying in bed, in no acute distress. Alert and oriented x4. CARDIOVASCULAR: Regular rate and rhythm with no discernible murmurs, gallops, or rubs. RESPIRATORY: Clear to auscultation bilaterally. ABDOMEN: Normoactive bowel sounds. Soft. Mild abdominal distention with tenderness to palpation in all abdominal quadrants. Upon inspection of his ostomy site, it does appear to be prolapsing into the ostomy bag. EXTREMITIES: No cyanosis, clubbing, or edema. LABORATORY DATA: CBC with a white blood cell count of 17.1, hemoglobin 11, hematocrit 34.6, platelets 293. Chemistry with a sodium of 132, potassium 3.1, chloride 94, CO2 of 27, BUN 8, creatinine 0.9, glucose 195, AST 25, ALT 17, alkaline phosphatase 121, and total bilirubin 3.6. IMAGING DATA: The patient underwent CT scan of the abdomen and pelvis on February 11, 2020, which showed interval development of a small right-sided and moderate left-sided pleural effusion. Bibasilar consolidation was seen, but could represent atelectasis, pneumonia, or aspiration. There was extensive edematous change and fluid in the expected region of the pancreas. Normal-appearing pancreatic parenchyma was difficult to appreciate with evidence of progression to resultant pancreatic necrosis. Interval development of an extensive complex free fluid was also seen in the abdomen. Edematous change and mucosal thickening were seen involving the second, third, and fourth portions of the duodenum with small pockets of air, which appeared to be in the lumen of the duodenum with no definite evidence of extraluminal air. Re-demonstration of the left abdominal hernia containing mesenteric fat and bowel loops was seen, but no evidence of incarceration or obstruction. Surgical change consistent with the majority of the colon resected was also seen, but there were no enlarged mesenteric or retroperitoneal lymph nodes. ASSESSMENT AND PLAN: 1. Acute alcoholic pancreatitis, resulting in necrotic pancreatitis. At this point, the patient has a CT scan showing progression to pancreatic necrosis with an indeterminate amount of the pancreas involved at this time. Given the higher likelihood of infection with his recent fevers, I would recommend continuation of antibiotics including meropenem as part of treatment for this condition. We will defer to Primary Team for pain management. 2. Hyperbilirubinemia. The patient does continue to have a hyperbilirubinemia as noted on labs, but has been downtrending during the course of this hospitalization. At this time, it seems to be related more to the inflammatory changes around the liver in relation to the severity of his pancreatitis. I would continue to trend his LFTs daily. 3. Acute kidney injury, improving/resolved. 4. Chronic alcohol abuse, again strongly encouraged alcohol cessation given the severity of the pancreatitis observed during this admission. 5. History of sigmoid colon cancer, status post resection. The patient recently underwent a right hemicolectomy due to a high-grade polyp with dysplasia seen on colonoscopy. However, at this time, his ostomy appears to be prolapsing into the ostomy bag itself. Upon conferring with the patient, this has happened in the past, that possibly required revision by General Surgery (Dr. Mcknight). We would consider bringing General Surgery on board for evaluation of his ostomy. We will continue to follow. Please call with any questions. Job ID: [id number]
[2020-02-13] MEDS: Acetaminophen 500 MG TAB PO PRN (17:23)
[2020-02-13 20:22] LABS: Vancomycin, Trough 15.2 ug/mL
[2020-02-14] MEDS: Morphine 2 MG/ML SYRINGE SLOW IVP PRN ×5 (04:56→23:43)
[2020-02-14] MEDS: metroNIDAZOLE 500 MG in Premix Bag 1 BAG IVPB SCH ×3 (05:00→22:50)
[2020-02-14] MEDS: Sodium Chloride 0.9% 1,000 ML IV SCH ×3 (05:00→21:22)
[2020-02-14] MEDS: HumaLOG 300 UNITS/3 ML VIAL SC PRN ×2 (06:10→17:14)
[2020-02-14 06:51] LABS: Band 9 % (5-11); Hemoglobin 10.3 g/dL (14.0-18.0); Hypochromia SLIGHT = 6-15 cells (100X) (0-5/hpf); Lymphocytes 6 % (21-51); MDiff Complete? YES; Macrocytosis SLIGHT = 6-15 cells (100X) (0-5/hpf); Mean Corpuscular HGB CONC 32.6 g/dL (32.0-36.0); Mean Corpuscular Hemoglobin 33.6 pg (27.0-31.0); Mean Platelet Volume 8.5 fL (7.4-10.4); Monocytes 5 % (0-10); Neutrophil 80 % (42-75); Platelet Count 339 thou/uL (130-400); Platelet Morphology Comment Appears Adequate; RBC Distribution Width 12.9 % (11.5-14.5); Red Blood Cell (RBC) Count 3.06 mill/uL (4.70-6.10)
[2020-02-14 07:03] LABS: ALT (SGPT) 12 U/L (8-55); AST (SGOT) 23 U/L (5-34); Albumin 2.4 g/dL (3.5-5.0); Alkaline Phosphatase 91 U/L (40-110); Anion Gap 12 mmol/L (10-20); BUN (Urea Nitrogen) 8 mg/dL (8.9-20.6); Bilirubin, Total 2.4 mg/dL (0.2-1.2); Calc. Creatinine Clearance 121 mL/min (70-130); Calcium 7.8 mg/dL (7.8-10.44); Carbon Dioxide 25 mmol/L (22-29); Chloride 97 mmol/L (98-107); Estimated GFR-MDRD 86; Glucose 201 mg/dL (70-105); Potassium 3.5 mmol/L (3.5-5.1); Protein, Total 5.4 g/dL (6.0-8.3); Sodium 130 mmol/L (136-145)
[2020-02-14] MEDS: Insulin Glargine 25 UNITS in Pre-Filled Syringe 1 EACH SC SCH ×2 (08:50→20:21)
[2020-02-14] MEDS: Magnesium Oxide 400 MG TAB PO SCH (08:52)
[2020-02-14] MEDS: Folic Acid 1 MG TAB PO SCH (08:52)
[2020-02-14] MEDS: Calcium Carbonate 500 MG ChewTAB PO SCH ×3 (08:52→20:18)
[2020-02-14] MEDS: Thiamine 100 MG TAB PO SCH (08:52)
[2020-02-14] MEDS: Cefepime 1 GM in Sodium Chloride 0.9% 100 ML IVPB SCH ×2 (08:52→20:23)
[2020-02-14] MEDS: Multivitamin W/ Minerals 1 TAB PO SCH (08:52)
--- NOTE | 2020-02-14 09:55 | PDOC.HOSPP ---
- Subjective Encounter Date: 02/14/20 Subjective: The patient stated that he is feeling better. Complains of abdominal distention that gets worse when he is eating. - Objective Vital Signs & Weight: Vital Signs (12 hours) Temp Pulse Resp BP BP Pulse Ox 02/14/20 07:43 99.0 F 100 18 118/74 94 L 02/14/20 04:00 98.1 F 97 20 118/74 95 02/14/20 00:22 98.8 F 86 17 136/84 91 L Weight Admit Weight 198 lb Weight 198 lb I&O: 02/13/20 02/14/20 02/15/20 06:59 06:59 06:59 Intake Total 2140 Output Total 1075 Balance 1065 Result Diagrams: 02/14/20 06:22 02/14/20 06:22 Additional Labs: Accuchecks 02/14/20 02/13/20 02/13/20 04:49 19:58 17:02 POC Glucose 196 H 150 H 178 H 02/13/20 11:39 POC Glucose 209 H Hospitalist ROS - Medication Medications: Active Medications Generic Name Dose Route Start Last Admin Trade Name Freq PRN Reason Stop Dose Admin Acetaminophen 500 mg 02/04/20 08:38 02/13/20 17:23 Tylenol PO 500 mg Q6H PRN Administration Mild Pain (1-3) Calcium Carbonate 1,000 mg 02/08/20 09:00 02/14/20 08:52 Tums PO 1,000 mg TID ARMANDO Administration Diazepam 5 mg 02/07/20 04:00 02/10/20 04:26 Valium PO 5 mg Q4H PRN Administration FOR ASE 10 OR GREATER Folic Acid 1 mg 02/07/20 09:00 02/14/20 08:52 Folvite PO 1 mg DAILY ARMANDO Administration Hydralazine HCl 10 mg 02/03/20 17:03 02/03/20 20:18 Apresoline SLOW IVP 10 mg Q4H PRN Administration SBP > 180 and HR < 70 Insulin Glargine 25 units/ 0.25 mls @ 0 mls/hr 02/09/20 09:00 02/14/20 08:50 Miscellaneous Medication SC 0.25 mls BID ARMANDO Administration Metronidazole 500 mg/ Device 100 mls @ 100 mls/hr 02/12/20 14:00 02/14/20 05: 00 IVPB 100 mls Q8HR ARMANDO Administration Cefepime HCl 1 gm/ Sodium 100 mls @ 200 mls/hr 02/12/20 09:00 02/14/20 08:52 Chloride IVPB 100 mls Q12HR ARMANDO Administration Vancomycin HCl 1.5 gm/ Device 300 mls @ 200 mls/hr 02/12/20 09:00 02/13/20 20 :59 IVPB 300 mls Q12HR ARMANDO Administration Insulin Human Lispro 0 units 02/09/20 07:35 02/14/20 06:10 Humalog SC 3 unit .AGGRESSIVE SLIDING PRN Administration Aggressive Correctional Scale Insulin Human Lispro 0 units 02/09/20 07:35 02/11/20 20:44 Humalog SC 2 unit .BEDTIME SLIDING SC PRN Administration Bedtime Correctional Scale Iron/Minerals/Multivitamins 1 tab 02/07/20 09:00 02/14/20 08:52 Theragran M PO 1 tab DAILY ARMANDO Administration Magnesium Oxide 400 mg 02/07/20 09:00 02/14/20 08:52 Magnesium Oxide PO 400 mg DAILY ARMANDO Administration Morphine Sulfate 2 mg 02/12/20 11:36 02/14/20 08:46 Morphine SLOW IVP 2 mg Q4H PRN Administration Pain Ondansetron HCl 4 mg 02/03/20 17:03 02/11/20 23:04 Zofran IVP 4 mg Q6H PRN Administration Nausea/Vomiting Pantoprazole Sodium 40 mg 02/08/20 09:00 02/14/20 08:52 Protonix PO 40 mg DAILY ARMANDO Administration Thiamine HCl 100 mg 02/07/20 09:00 02/14/20 08:52 Thiamine PO 100 mg DAILY ARMANDO Administration Zolpidem Tartrate 5 mg 02/04/20 08:37 02/09/20 21:48 Ambien PO 5 mg HSPRN PRN Administration Insomnia - Exam General Appearance: NAD, awake alert Neck: supple Respiratory: normal chest expansion, no tachypnea Gastrointestinal: distended Gastrointestinal - other findings: Ostomy prolapse Extremities: no cyanosis, no clubbing, no edema Neurological: cranial nerve grossly intact Hosp A/P - Plan Hosp A/P (1) Acute alcoholic pancreatitis Code(s): K85.20 - ALCOHOL INDUCED ACUTE PANCREATITIS WITHOUT NECROSIS OR INFCT Status: Acute Qualifiers: Acute pancreatitis complication: no infection or necrosis Qualified Code(s) : K85.20 - Alcohol induced acute pancreatitis without necrosis or infection (2) Metabolic acidosis Code(s): E87.2 - ACIDOSIS Status: Acute (3) HARRY (acute kidney injury) Code(s): N17.9 - ACUTE KIDNEY FAILURE, UNSPECIFIED Status: Resolved (4) Alcohol abuse Code(s): F10.10 - ALCOHOL ABUSE, UNCOMPLICATED Status: Chronic (5) Adenocarcinoma, colon Code(s): C18.9 - MALIGNANT NEOPLASM OF COLON, UNSPECIFIED Status: Chronic (6) HTN (hypertension) Code(s): I10 - ESSENTIAL (PRIMARY) HYPERTENSION Status: Chronic Qualifiers: (7) Alcoholic hepatitis Code(s): K70.10 - ALCOHOLIC HEPATITIS WITHOUT ASCITES Status: Acute Qualifiers: Ascites presence: without ascites Qualified Code(s): K70.10 - Alcoholic hepatitis without ascites (8) Diabetes Code(s): E11.9 - TYPE 2 DIABETES MELLITUS WITHOUT COMPLICATIONS Status: Acute Qualifiers: Diabetes mellitus type: due to underlying condition Diabetes mellitus detention insulin use: without detention use Diabetes mellitus complication status : with hyperglycemia Qualified Code(s): E08.65 - Diabetes mellitus due to underlying condition with hyperglycemia - Plan dc iv fluids, start lantus bid, has uncontrolled dm due to pancreatitis, on morphine prn renal function is at baseline, has low calcium will correct electrolytes, vandana bid, kdur continue ASE protocol for alc abuse, drinks around 8 beers/day hemostable tolerating solid diet dc plan when dm is slightly better controlled dm is new onset likely from pancreatitis, diabetic and dietary education 02/09: The patient developed fevers and increased leukocytosis over the past 24 hours. IV ceftriaxone has been initiated. We will monitor his progress over the next 24 hours. If his symptoms do not improve, will we will consider CT scan of the abdomen. 02/10: Fever reported yesterday. Leukocytosis slightly improved with antibiotics. Continue IV hydration. I will go ahead with a CT scan of the abdomen and pelvis with IV contrast since his creatinine has improved and the patient still exhibiting signs of sepsis with no clear source. 02/11: Patient sepsis is worsening. CT scan of the abdomen pelvis with contrast revealed severe necrotizing pancreatitis with intra-abdominal ascites and pleural effusions with some infiltrates in the lung bases suggestive of possible pneumonia. We will expand antibiotic coverage to vancomycin, cefepime, and metronidazole. Continue IV fluids. Appreciate further recommendations by GI. 02/12: The patient sepsis is improving on broad-spectrum antibiotics as noted above. Continue IV hydration. Patient is tolerating his diet. We will continue to follow him closely. Appreciate GI. 02/12: The patient sepsis is improving. Leukocytosis trending down. Decrease IV fluid rate to 75 cc/h. His lipase level is down to normal. We will continue broad-spectrum antibiotics for necrotizing pancreatitis. Consult general surgery for ostomy prolapse.
--- NOTE | 2020-02-14 10:54 | PRG ---
DATE OF SERVICE: 02/14/2020 SUBJECTIVE: Mr. Goel is overall feeling a little better. He continues to have abdominal bloating discomfort, particularly in the lower abdomen. He is tolerating his fat restricted diet okay. Ostomy output is liquid and frequent, nonbloody. White count is trending down the past couple of days. OBJECTIVE: VITAL SIGNS: Temperature 99, blood pressure 118/74, pulse is 100, and 94% oxygen saturation on room air. GENERAL: Lying in bed comfortably, in no acute distress. HEART: Regular rate and rhythm. LUNGS: Clear to auscultation bilaterally. ABDOMEN: Mild distention. Right lower quadrant ostomy has prolapsed several centimeters, not easily reducible. EXTREMITIES: No peripheral edema. LABORATORY STUDIES: WBC is down to 14.0, hemoglobin 10.3, and platelets 339. Sodium 130, potassium 3.5, BUN 8, creatinine 0.93, glucose 201, total bilirubin down to 2.4, alkaline phosphatase 91, AST 23, ALT 12, and albumin 2.4. Lipase is down to 37 yesterday. CEA normal at 3.78. ASSESSMENT AND PLAN: 1. Severe acute alcoholic pancreatitis, now resulting in necrotizing pancreatitis. 2. Acute kidney injury, improved. 3. Chronic alcohol abuse. 4. Hyperbilirubinemia, improving. 5. Leukocytosis, slowly improving. The patient has developed necrotizing pancreatitis unfortunately and will be at high risk for exocrine pancreatic insufficiency going forward as well as pseudocyst formation. Intermittent low-grade fever spikes could be secondary to just the pancreatic necrosis, but agree with current broad-spectrum antibiotic coverage due to risk of infected pancreatic necrosis. He is currently on vancomycin, cefepime, and Flagyl. If the patient's white count were to spike or if he were to redevelop high fevers, then we would need to consult Interventional Radiology for FNA aspiration of this peripancreatic fluid collections, with fluid cultures, and consider adjusting antibiotics, perhaps adding meropenem. For now, continue current antibiotics. 6. History of sigmoid colon cancer, status post resection. 7. Ostomy prolapse. His right lower quadrant ostomy is chronically prolapsed, but a bit worse recently, likely secondary to increased intraabdominal pressure with the severity of his pancreatitis. General Surgery has been consulted for evaluation. 8. GI will continue to follow. Please call anytime with questions or concerns. Job ID: [id number]
[2020-02-14] MEDS: Aluminum & Magnesium Hydroxide 60 ML, Lidocaine 2% Viscous Solution 30 ML, diphenhydrAM... SSW PRN (11:47)
[2020-02-14] MEDS: Vancomycin 1.5 GRAM/300 ML BAG 1.5 GM in Premix Bag 1 BAG IVPB SCH ×2 (11:47→21:20)
[2020-02-15] MEDS: Morphine 2 MG/ML SYRINGE SLOW IVP PRN ×3 (06:14→19:59)
[2020-02-15] MEDS: metroNIDAZOLE 500 MG in Premix Bag 1 BAG IVPB SCH ×3 (06:14→20:59)
[2020-02-15 06:40] LABS: ALT (SGPT) 13 U/L (8-55); AST (SGOT) 25 U/L (5-34); Albumin 2.8 g/dL (3.5-5.0); Alkaline Phosphatase 112 U/L (40-110); Anion Gap 15 mmol/L (10-20); BUN (Urea Nitrogen) 6 mg/dL (8.9-20.6); Bilirubin, Total 2.3 mg/dL (0.2-1.2); Calc. Creatinine Clearance 132 mL/min (70-130); Calcium 8.4 mg/dL (7.8-10.44); Carbon Dioxide 24 mmol/L (22-29); Chloride 98 mmol/L (98-107); Estimated GFR-MDRD Greater than 90; Globulin 3.6 g/dL (2.4-3.5); Glucose 105 mg/dL (70-105); Potassium 3.6 mmol/L (3.5-5.1); Protein, Total 6.4 g/dL (6.0-8.3); Sodium 133 mmol/L (136-145)
--- NOTE | 2020-02-15 07:14 | PDOC.GSPN ---
Surgery Progress Note: Subj - Subjective Narrative: Pt well known to me. Has history of previous loop colostomy revised to end colostomy and mucous fistula. Surgery Progress Note: Obj - Vital signs Vital signs: Vital Signs - Most Recent Temp Pulse Resp BP Pulse Ox 98.4 F 85 18 133/87 93 L 02/15/20 05:09 02/15/20 05:09 02/15/20 05:09 02/15/20 05:09 02/15/20 05:09 - Physical Exam General: no distress Respiratory: clear to auscultation Abdomen: soft, non tender, nondistended, other (There is mild ostomy prolapse without obvious obstruction) Surgery Progress Note: Results - Labs Result Diagrams: 02/14/20 06:22 02/15/20 06:05 Lab results: Laboratory Results - last 24 hr 02/14/20 02/15/20 02/15/20 19:45 05:04 06:05 Sodium 133 L Potassium 3.6 Chloride 98 Carbon Dioxide 24 Anion Gap 15 BUN 6 L Creatinine 0.85 Estimated GFR (MDRD) Greater than 90 Glucose 105 POC Glucose 88 116 H Calcium 8.4 Total Bilirubin 2.3 H AST 25 ALT 13 Alkaline Phosphatase 112 H Serum Total Protein 6.4 Albumin 2.8 L Globulin 3.6 H Albumin/Globulin Ratio 0.8 L Surgery Progress Note: A/P - Problem (1) Colostomy in place Current Visit: Yes Code(s): Z93.3 - COLOSTOMY STATUS Status: Chronic - Plan Plan: His prolapse is secondary to significant intra-abd fluid, inflammation and increased pressure. I suspect his prolapse will improve somewhat as the inflammation improves.
[2020-02-15 08:46] LABS: Vancomycin, Trough 16.1 ug/mL
[2020-02-15] MEDS: Calcium Carbonate 500 MG ChewTAB PO SCH ×3 (08:52→20:00)
[2020-02-15] MEDS: Multivitamin W/ Minerals 1 TAB PO SCH (08:52)
[2020-02-15] MEDS: Insulin Glargine 25 UNITS in Pre-Filled Syringe 1 EACH SC SCH ×2 (08:52→20:01)
[2020-02-15] MEDS: Thiamine 100 MG TAB PO SCH (08:52)
[2020-02-15] MEDS: Folic Acid 1 MG TAB PO SCH (08:52)
[2020-02-15] MEDS: Magnesium Oxide 400 MG TAB PO SCH (08:52)
[2020-02-15] MEDS: Cefepime 1 GM in Sodium Chloride 0.9% 100 ML IVPB SCH ×2 (08:53→20:01)
[2020-02-15] MEDS: Vancomycin 1.5 GRAM/300 ML BAG 1.5 GM in Premix Bag 1 BAG IVPB SCH ×2 (08:54→20:04)
[2020-02-15] MEDS: Diazepam 5 MG TAB PO PRN (08:56)
[2020-02-15 09:01] LABS: Band 19 % (5-11); Eosinophils 1 % (0-10); Hypochromia SLIGHT = 6-15 cells (100X) (0-5/hpf); Lymphocytes 5 % (21-51); MDiff Complete? YES; Macrocytosis SLIGHT = 6-15 cells (100X) (0-5/hpf); Mean Corpuscular HGB CONC 30.9 g/dL (32.0-36.0); Mean Corpuscular Hemoglobin 32.1 pg (27.0-31.0); Metamyelocyte 1 % (0-0); Monocytes 6 % (0-10); Neutrophil 68 % (42-75); Platelet Count 425 thou/uL (130-400); Platelet Morphology Comment Appears Increased; RBC Distribution Width 13.1 % (11.5-14.5); Red Blood Cell (RBC) Count 3.11 mill/uL (4.70-6.10); White Blood Cell (WBC) Count 13.6 thou/uL (4.8-10.8)
[2020-02-15] MEDS: Lorazepam 2 MG/ML VIAL SLOW IVP PRN ×2 (10:39→20:57)
[2020-02-15] MEDS: Sodium Chloride 0.9% 1,000 ML IV SCH (14:56)
--- NOTE | 2020-02-15 16:42 | PRG ---
DATE OF SERVICE: 02/15/2020 SUBJECTIVE: Mr. Goel is doing okay today. He has been tired and sleeping a lot. He has been afebrile now for almost hours. He is tolerating his diet, but appetite remains poor. Ostomy output remains liquidy, nonbloody. Abdominal discomfort is minimal. He is not nauseated. PHYSICAL EXAMINATION: VITAL SIGNS: Temperature 98.6, pulse 94, blood pressure 147/89, and 94% oxygen saturation on room air. GENERAL: No acute distress. HEART: Regular rate and rhythm. LUNGS: Clear to auscultation bilaterally. ABDOMEN: Mild distention. Bowel sounds are present. Soft. Some diffuse tenderness to palpation. No guarding or rebound tenderness. Right lower quadrant ostomy has prolapsed with liquid stool in the bag. EXTREMITIES: No peripheral edema. LABORATORY STUDIES: WBC is down to 13.6, hemoglobin 10.0, and platelets 425. Sodium 133, potassium 3.6, BUN 6, and creatinine 0.85. Total bilirubin is 2.3, alkaline phosphatase 112, AST 25, ALT 13, and lipase down to 37. ASSESSMENT AND PLAN: 1. Severe acute alcoholic pancreatitis, now resulting in necrotizing pancreatitis. 2. Acute kidney injury, improved. 3. Chronic alcohol abuse. 4. Hyperbilirubinemia, improving. 5. Leukocytosis, slowly improving. The patient has now been afebrile for almost hours. He continues on broad-spectrum antibiotics, which is appropriate. He is going to be at high risk of infection of his pancreatic necrosis. If he were to start spiking fevers again or have a spike in his leukocytosis, we would need to consult Interventional Radiology for FNA aspiration of the peripancreatic fluid collection with fluid culture. Continue advancing diet. Discussed that a major goal will be his ability to meet his nutritional needs orally adequately going forward. Job ID: [id number]
--- NOTE | 2020-02-15 18:04 | PDOC.HOSPP ---
- Subjective Encounter Date: 02/15/20 Subjective: The patient is reporting improvement in his abdominal pain. - Objective Vital Signs & Weight: Vital Signs (12 hours) Temp Pulse Resp BP Pulse Ox 02/15/20 16:19 98.3 F 95 18 136/85 94 L 02/15/20 11:38 98.6 F 94 18 147/89 H 94 L 02/15/20 08:00 93 L 02/15/20 07:37 98.5 F 88 16 130/79 93 L Weight Admit Weight 198 lb Weight 198 lb I&O: 02/14/20 02/15/20 02/16/20 06:59 06:59 06:59 Intake Total 2140 1460 800 Output Total 1075 2200 Balance 1065 -740 800 Result Diagrams: 02/15/20 08:04 02/15/20 06:05 Additional Labs: Accuchecks 02/15/20 02/15/20 02/14/20 16:53 05:04 19:45 POC Glucose 167 H 116 H 88 Hospitalist ROS - Medication Medications: Active Medications Generic Name Dose Route Start Last Admin Trade Name Freq PRN Reason Stop Dose Admin Acetaminophen 500 mg 02/04/20 08:38 02/13/20 17:23 Tylenol PO 500 mg Q6H PRN Administration Mild Pain (1-3) Calcium Carbonate 1,000 mg 02/08/20 09:00 02/15/20 14:56 Tums PO 1,000 mg TID ARMANDO Administration Al Hydroxide/Mg Hydroxide 60 0 ml 02/13/20 13:21 02/14/20 11:47 ml/ Lidocaine HCl 30 ml/ SSW 10 ml Diphenhydramine HCl 75 mg PRN PRN Administration Mouth Irritation Diazepam 5 mg 02/07/20 04:00 02/15/20 08:56 Valium PO 5 mg Q4H PRN Administration FOR ASE 10 OR GREATER Folic Acid 1 mg 02/07/20 09:00 02/15/20 08:52 Folvite PO 1 mg DAILY ARMANDO Administration Hydralazine HCl 10 mg 02/03/20 17:03 02/03/20 20:18 Apresoline SLOW IVP 10 mg Q4H PRN Administration SBP > 180 and HR < 70 Insulin Glargine 25 units/ 0.25 mls @ 0 mls/hr 02/09/20 09:00 02/15/20 08:52 Miscellaneous Medication SC 0.25 mls BID ARMANDO Administration Metronidazole 500 mg/ Device 100 mls @ 100 mls/hr 02/12/20 14:00 02/15/20 14: 55 IVPB 100 mls Q8HR ARMANDO Administration Cefepime HCl 1 gm/ Sodium 100 mls @ 200 mls/hr 02/12/20 09:00 02/15/20 08:53 Chloride IVPB 100 mls Q12HR ARMANDO Administration Vancomycin HCl 1.5 gm/ Device 300 mls @ 200 mls/hr 02/12/20 09:00 02/15/20 08 :54 IVPB 300 mls Q12HR ARMANDO Administration Sodium Chloride 1,000 mls @ 75 mls/hr 02/14/20 09:52 02/15/20 14:56 Normal Saline 0.9% IV 1,000 mls .[id number] ARMANDO Administration Insulin Human Lispro 0 units 02/09/20 07:35 02/14/20 17:14 Humalog SC 6 unit .AGGRESSIVE SLIDING PRN Administration Aggressive Correctional Scale Insulin Human Lispro 0 units 02/09/20 07:35 02/11/20 20:44 Humalog SC 2 unit .BEDTIME SLIDING SC PRN Administration Bedtime Correctional Scale Iron/Minerals/Multivitamins 1 tab 02/07/20 09:00 02/15/20 08:52 Theragran M PO 1 tab DAILY ARMANDO Administration Lorazepam 0.5 mg 02/06/20 12:54 02/15/20 10:39 Ativan SLOW IVP 0.5 mg Q4H PRN Administration Alcohol Withdrawal Magnesium Oxide 400 mg 02/07/20 09:00 02/15/20 08:52 Magnesium Oxide PO 400 mg DAILY ARMANDO Administration Morphine Sulfate 2 mg 02/12/20 11:36 02/15/20 10:39 Morphine SLOW IVP 2 mg Q4H PRN Administration Pain Ondansetron HCl 4 mg 02/03/20 17:03 02/11/20 23:04 Zofran IVP 4 mg Q6H PRN Administration Nausea/Vomiting Pantoprazole Sodium 40 mg 02/08/20 09:00 02/15/20 08:52 Protonix PO 40 mg DAILY ARMANDO Administration Thiamine HCl 100 mg 02/07/20 09:00 02/15/20 08:52 Thiamine PO 100 mg DAILY ARMANDO Administration Zolpidem Tartrate 5 mg 02/04/20 08:37 02/09/20 21:48 Ambien PO 5 mg HSPRN PRN Administration Insomnia - Exam General Appearance: awake alert ENT: normocephalic atraumatic Neck: supple, no JVD Heart: RRR Respiratory: normal chest expansion, no tachypnea Gastrointestinal: soft, distended Gastrointestinal - other findings: Slightly prolapsed ostomy site. Neurological: cranial nerve grossly intact Hosp A/P - Plan Hosp A/P (1) Acute alcoholic pancreatitis Code(s): K85.20 - ALCOHOL INDUCED ACUTE PANCREATITIS WITHOUT NECROSIS OR INFCT Status: Acute Qualifiers: Acute pancreatitis complication: no infection or necrosis Qualified Code(s) : K85.20 - Alcohol induced acute pancreatitis without necrosis or infection (2) Metabolic acidosis Code(s): E87.2 - ACIDOSIS Status: Acute (3) HARRY (acute kidney injury) Code(s): N17.9 - ACUTE KIDNEY FAILURE, UNSPECIFIED Status: Resolved (4) Alcohol abuse Code(s): F10.10 - ALCOHOL ABUSE, UNCOMPLICATED Status: Chronic (5) Adenocarcinoma, colon Code(s): C18.9 - MALIGNANT NEOPLASM OF COLON, UNSPECIFIED Status: Chronic (6) HTN (hypertension) Code(s): I10 - ESSENTIAL (PRIMARY) HYPERTENSION Status: Chronic Qualifiers: (7) Alcoholic hepatitis Code(s): K70.10 - ALCOHOLIC HEPATITIS WITHOUT ASCITES Status: Acute Qualifiers: Ascites presence: without ascites Qualified Code(s): K70.10 - Alcoholic hepatitis without ascites (8) Diabetes Code(s): E11.9 - TYPE 2 DIABETES MELLITUS WITHOUT COMPLICATIONS Status: Acute Qualifiers: Diabetes mellitus type: due to underlying condition Diabetes mellitus jail insulin use: without long chain quiller tender use Diabetes mellitus complication status : with hyperglycemia Qualified Code(s): E08.65 - Diabetes mellitus due to underlying condition with hyperglycemia - Plan dc iv fluids, start lantus bid, has uncontrolled dm due to pancreatitis, on morphine prn renal function is at baseline, has low calcium will correct electrolytes, vandana bid, kdur continue ASE protocol for alc abuse, drinks around 8 beers/day hemostable tolerating solid diet dc plan when dm is slightly better controlled dm is new onset likely from pancreatitis, diabetic and dietary education 02/09: The patient developed fevers and increased leukocytosis over the past 24 hours. IV ceftriaxone has been initiated. We will monitor his progress over the next 24 hours. If his symptoms do not improve, will we will consider CT scan of the abdomen. 02/10: Fever reported yesterday. Leukocytosis slightly improved with antibiotics. Continue IV hydration. I will go ahead with a CT scan of the abdomen and pelvis with IV contrast since his creatinine has improved and the patient still exhibiting signs of sepsis with no clear source. 02/11: Patient sepsis is worsening. CT scan of the abdomen pelvis with contrast revealed severe necrotizing pancreatitis with intra-abdominal ascites and pleural effusions with some infiltrates in the lung bases suggestive of possible pneumonia. We will expand antibiotic coverage to vancomycin, cefepime, and metronidazole. Continue IV fluids. Appreciate further recommendations by GI. 02/12: The patient sepsis is improving on broad-spectrum antibiotics as noted above. Continue IV hydration. Patient is tolerating his diet. We will continue to follow him closely. Appreciate GI. 02/13: The patient sepsis is improving. Leukocytosis trending down. Decrease IV fluid rate to 75 cc/h. His lipase level is down to normal. We will continue broad-spectrum antibiotics for necrotizing pancreatitis. Consult general surgery for ostomy prolapse. 02/14: Sepsis complicating severe necrotizing pancreatitis continues to improve. We will continue broad coverage with antibiotics until his sepsis has resolved. The patient is tolerating oral intake. No indication for surgical intervention for the prolapsed ostomy per surgical team.
[2020-02-15] MEDS: HumaLOG 300 UNITS/3 ML VIAL SC PRN (20:02)
[2020-02-15] MEDS: Aluminum & Magnesium Hydroxide 60 ML, Lidocaine 2% Viscous Solution 30 ML, diphenhydrAM... SSW PRN (22:30)
[2020-02-16] MEDS: Sodium Chloride 0.9% 1,000 ML IV SCH ×2 (01:10→05:28)
[2020-02-16] MEDS: Morphine 2 MG/ML SYRINGE SLOW IVP PRN ×2 (02:13→06:50)
[2020-02-16] MEDS: Lorazepam 2 MG/ML VIAL SLOW IVP PRN (02:34)
[2020-02-16] MEDS: metroNIDAZOLE 500 MG in Premix Bag 1 BAG IVPB SCH (05:28)
[2020-02-16 06:30] LABS: ALT (SGPT) 12 U/L (8-55); AST (SGOT) 24 U/L (5-34); Albumin 2.6 g/dL (3.5-5.0); Alkaline Phosphatase 105 U/L (40-110); Anion Gap 15 mmol/L (10-20); BUN (Urea Nitrogen) 7 mg/dL (8.9-20.6); Bilirubin, Total 1.8 mg/dL (0.2-1.2); Calc. Creatinine Clearance 137 mL/min (70-130); Calcium 8.4 mg/dL (7.8-10.44); Carbon Dioxide 23 mmol/L (22-29); Chloride 101 mmol/L (98-107); Estimated GFR-MDRD Greater than 90; Globulin 3.3 g/dL (2.4-3.5); Glucose 187 mg/dL (70-105); Protein, Total 5.9 g/dL (6.0-8.3); Sodium 135 mmol/L (136-145)
[2020-02-16] MEDS: Calcium Carbonate 500 MG ChewTAB PO SCH (08:23)
[2020-02-16] MEDS: Cefepime 1 GM in Sodium Chloride 0.9% 100 ML IVPB SCH (08:23)
[2020-02-16] MEDS: Multivitamin W/ Minerals 1 TAB PO SCH (08:27)
[2020-02-16] MEDS: Thiamine 100 MG TAB PO SCH (08:28)
[2020-02-16] MEDS: Folic Acid 1 MG TAB PO SCH (08:28)
[2020-02-16] MEDS: Magnesium Oxide 400 MG TAB PO SCH (08:28)
[2020-02-16] MEDS: Insulin Glargine 25 UNITS in Pre-Filled Syringe 1 EACH SC SCH (08:28)
[2020-02-16] MEDS: Vancomycin 1.5 GRAM/300 ML BAG 1.5 GM in Premix Bag 1 BAG IVPB SCH (08:29)
[2020-02-16 09:29] LABS: Band 10 % (5-11); Eosinophils 2 % (0-10); Hemoglobin 10.5 g/dL (14.0-18.0); Lymphocytes 11 % (21-51); MDiff Complete? YES; Mean Corpuscular HGB CONC 30.1 g/dL (32.0-36.0); Mean Corpuscular Hemoglobin 31.4 pg (27.0-31.0); Monocytes 5 % (0-10); Neutrophil 71 % (42-75); Platelet Count 517 thou/uL (130-400); RBC Distribution Width 13.2 % (11.5-14.5); Red Blood Cell (RBC) Count 3.35 mill/uL (4.70-6.10); White Blood Cell (WBC) Count 13.2 thou/uL (4.8-10.8)
--- NOTE | 2020-02-16 12:24 | PDOC.HOSPP ---
- Subjective Encounter Date: 02/16/20 Encounter Time: 12:20 Subjective: f/u for severe necrotizing pancreatitis conservatively managed on Vancomycin/ Flagyl. No surgical intervention currently but potential IR-guided FNA. - Objective Vital Signs & Weight: Vital Signs (12 hours) Temp Pulse Resp BP Pulse Ox 02/16/20 08:00 98.4 F 94 L 02/16/20 07:23 98.4 F 97 20 135/89 94 L 02/16/20 04:05 98.7 F Weight Admit Weight 198 lb Weight 198 lb I&O: 02/15/20 02/16/20 02/17/20 06:59 06:59 06:59 Intake Total 1460 1040 240 Output Total 2200 Balance -740 1040 240 Result Diagrams: 02/16/20 05:37 02/16/20 05:37 Additional Labs: Accuchecks 02/16/20 02/16/20 02/15/20 11:30 05:08 19:07 POC Glucose 172 H 164 H 236 H 02/15/20 16:53 POC Glucose 167 H Hospitalist ROS - Medication Medications: Active Medications Generic Name Dose Route Start Last Admin Trade Name Freq PRN Reason Stop Dose Admin Acetaminophen 500 mg 02/04/20 08:38 02/13/20 17:23 Tylenol PO 500 mg Q6H PRN Administration Mild Pain (1-3) Calcium Carbonate 1,000 mg 02/08/20 09:00 02/16/20 08:23 Tums PO 1,000 mg TID ARMANDO Administration Al Hydroxide/Mg Hydroxide 60 0 ml 02/13/20 13:21 02/15/20 22:30 ml/ Lidocaine HCl 30 ml/ SSW 10 ml Diphenhydramine HCl 75 mg PRN PRN Administration Mouth Irritation Diazepam 5 mg 02/07/20 04:00 02/15/20 08:56 Valium PO 5 mg Q4H PRN Administration FOR ASE 10 OR GREATER Folic Acid 1 mg 02/07/20 09:00 02/16/20 08:28 Folvite PO 1 mg DAILY ARMANDO Administration Hydralazine HCl 10 mg 02/03/20 17:03 02/03/20 20:18 Apresoline SLOW IVP 10 mg Q4H PRN Administration SBP > 180 and HR < 70 Insulin Glargine 25 units/ 0.25 mls @ 0 mls/hr 02/09/20 09:00 02/16/20 08:28 Miscellaneous Medication SC 0.25 mls BID ARMANDO Administration Metronidazole 500 mg/ Device 100 mls @ 100 mls/hr 02/12/20 14:00 02/16/20 05: 28 IVPB 100 mls Q8HR ARMANDO Administration Cefepime HCl 1 gm/ Sodium 100 mls @ 200 mls/hr 02/12/20 09:00 02/16/20 08:23 Chloride IVPB 100 mls Q12HR ARMANDO Administration Vancomycin HCl 1.5 gm/ Device 300 mls @ 200 mls/hr 02/12/20 09:00 02/16/20 08 :29 IVPB 300 mls Q12HR ARMANDO Administration Sodium Chloride 1,000 mls @ 75 mls/hr 02/14/20 09:52 02/16/20 05:28 Normal Saline 0.9% IV 1,000 mls .[id number] ARMANDO Administration Insulin Human Lispro 0 units 02/09/20 07:35 02/14/20 17:14 Humalog SC 6 unit .AGGRESSIVE SLIDING PRN Administration Aggressive Correctional Scale Insulin Human Lispro 0 units 02/09/20 07:35 02/15/20 20:02 Humalog SC 2 unit .BEDTIME SLIDING SC PRN Administration Bedtime Correctional Scale Iron/Minerals/Multivitamins 1 tab 02/07/20 09:00 02/16/20 08:27 Theragran M PO 1 tab DAILY ARMANDO Administration Lorazepam 0.5 mg 02/06/20 12:54 02/16/20 02:34 Ativan SLOW IVP 0.5 mg Q4H PRN Administration Alcohol Withdrawal Magnesium Oxide 400 mg 02/07/20 09:00 02/16/20 08:28 Magnesium Oxide PO 400 mg DAILY ARMANDO Administration Morphine Sulfate 2 mg 02/12/20 11:36 02/16/20 06:50 Morphine SLOW IVP 2 mg Q4H PRN Administration Pain Ondansetron HCl 4 mg 02/03/20 17:03 02/11/20 23:04 Zofran IVP 4 mg Q6H PRN Administration Nausea/Vomiting Pantoprazole Sodium 40 mg 02/08/20 09:00 02/16/20 08:27 Protonix PO 40 mg DAILY ARMANDO Administration Thiamine HCl 100 mg 02/07/20 09:00 02/16/20 08:28 Thiamine PO 100 mg DAILY ARMANDO Administration Zolpidem Tartrate 5 mg 02/04/20 08:37 02/09/20 21:48 Ambien PO 5 mg HSPRN PRN Administration Insomnia
[2020-02-16 16:31] VITALS: BP 150/90; TEMP 99.7
--- NOTE | 2020-02-16 21:37 | DIS ---
DATE OF ADMISSION: 02/03/2020 DATE OF DISCHARGE: 02/16/2020 DISCHARGE DIAGNOSES: 1. Acute alcoholic induced pancreatitis. 2. Necrotizing pancreatitis. 3. Acute kidney injury, resolved. 4. Chronic alcohol abuse. 5. Colon adenocarcinoma, status post colostomy. 6. Diabetes mellitus, type 2, secondary to pancreatitis. CONSULTATIONS: Dr. Castorena, Dr. Ambriz, Dr. Russell, and Dr. Meneses with GI Service, Dr. Mcknight with General Surgery Service, Dr. Alvarez with Nephrology Service. PERTINENT LABORATORY AND X-RAY FINDINGS: Sodium ranged between 127 to 140, creatinine ranged between 0.82 to 2.09. Estimated GFR ranged between 34 to greater than 90. Hemoglobin A1c ranged between 5.1 to 6.1. Total bilirubin ranged between 0.7 to 5.5, AST ranged between 24 to 100, ALT ranged between 12 to 91, triglycerides 84. B12 level 551. Folate level 10.8. CBC showed a white blood cell count ranging between 9.2 to 20.6. Blood cultures x2 dated 02/03/2020, showed no growth at 5 days. Blood cultures x2 dated 02/09/2020, showed no growth at [address] angiogram of the chest and abdomen with aortic dissection protocol showed no evidence for dissection. Findings compatible with acute pancreatitis without pancreatic necrosis. CT of the abdomen and pelvis dated 02/11/2020, showed worsening pancreatitis with extensive necrosis and edema. HOSPITAL COURSE: The patient was initially admitted after presenting with increasing abdominal pain with associated nausea and vomiting. The patient underwent general evaluation in the context of chronic alcohol abuse, showing evidence of pancreatitis with a lipase greater than 16,000 on presentation. The patient was treated for acute pancreatitis and placed on n.p.o. status and given IV fluids with IV morphine sulfate for pain control. The patient was evaluated by the General Surgery and Gastroenterology Service with recommendations for conservative management given the patient's presentation. The patient received ongoing proton pump inhibitors in addition to morphine sulfate with repeat CT imaging showing evidence of pancreatic necrosis. The patient was initiated on broad-spectrum IV antibiotic therapy to include cefepime, Flagyl, and vancomycin. The patient was not recommended for any acute surgical intervention and was evaluated due to mild ostomy prolapse by the General Surgery Service. No specific intervention was recommended, and the patient was monitored with serial abdominal exams and monitored for appropriateness of ostomy output. The patient was slow to clinically improve and had a prolonged hospital course up to 13 days. The patient was also noted with hyperglycemia in the context of acute pancreatitis, likely due to insufficient insulin production. The patient was initiated on Lantus, however, we will transition to metformin and glipizide for oral administration after discharge. The patient was given diabetic education and teaching regarding the glucometer use, and likely will need additional titration and monitoring on an ongoing basis after discharge. The patient was slowly advanced from clear liquids, tolerating a current fat restricted diet without difficulty. I have examined the patient at the time of discharge and discussed followup instructions. The patient verbalizes understanding and agreement and ready for discharge on 02/16/2020. DISCHARGE MEDICATIONS: 1. Glipizide XL 2.5 mg p.o. daily. 2. Metformin 500 mg p.o. b.i.d. FOLLOWUP: The patient may follow up with Dr. Yolanda Mix within 7 days of discharge. The patient may follow up with Dr. Ramo Russell with GI Service and to call his office for appointment time and date. CONDITION ON DISCHARGE: Fair. ACTIVITY: Ad-lulu. DIET: ADA and fat restricted. SPECIAL INSTRUCTIONS: Avoid all alcohol. CODE STATUS: Full. DISPOSITION: Home on 02/16/2020. TIME SPENT: Total time preparing and coordinating discharge is 38 minutes. Job ID: [id number]
--- NOTE | 2020-02-19 06:14 | PQF ---
Tomás Goel CHARLES DO [id number] CLINICAL DOCUMENTATION CLARIFICATION FORM: POST DISCHARGE Addendum to original discharge summary date: ____ Late entry note date: __ DATE: 02/19/2020 ATTN: Kendall Benito Please exercise your independent, professional judgment in responding to the clarification form. Clinical indicators are provided on the bottom of this form for your review Please check appropriate box(es): [ ] Sepsis due to Alcohol induced acute pancreatitis with infected necrosis [ ] Sepsis due to Alcohol induced acute pancreatitis with uninfected necrosis [ x ] Other diagnosis _Acute pancreatitis [ ] Unable to determine In addition, please specify: Present on Admission (POA): [ x ] Yes [ ] No [ ] Unable to determine For continuity of documentation, please document condition throughout progress notes and discharge summary. Thank You. CLINICAL INDICATORS - SIGNS / SYMPTOMS / LABS Laboratory 02/03 WBC 9.7, Plt count 253, Band 30, Neutrophils 62, Lactic acid 4.1 Laboratory 02/09 WBC 20.6, Plt count 205, Band 22, Neutrophils 67 Vital signs 02/02 BP 113/53, ppulse 86, Resp 30, temp 97.8 Vital signs 02/09- BP 138/83, temp 98.1, [id number], Resp 24 Blood culture 02/02 No growth in 5 days ED notes p2 02/02 - SIRS scoring: Yes pt did meet at least 1 criteria H&P p3 02/02 Acute Pancteatitis suspect alchol induced given pt history Hospitalist PN p4 02/03 SIRS due to non-infectious without acute organ dysfunction Hospitalist PN p4 02/03 Acute kidney injury Hospitalist Pn p6 02/10 02/09 pt developed fevers and increased leukocytoses over the past 24hrs Hospitalist Pn p7 02/10 Pt still exhibiting signs of sepsis with no clear source Pn p1 02/13 Pt develop necrotizing pancreatitis and risk for infected pancreatic necrosis Hospitalist PN p9 02/14 Sepsis complicating severe necrotizing pancreatitis H&P p3 02/02 Lactic acidosis RISK FACTORS H&P p1 02/02 49 year-ols Male H&P p1 02/02 Hx of Colon adenocarcinoma s/p resection H&P p1 02/02 Hypertension H&P p1 02/02 Alcohol abuse H&P p1 02/02 Smokeless tob use H&P 02/02 Acute Pancreatitis Consult p2 02/04 CKD3 DS 02/15 DM TREATMENTS: NOV 28 IVF NS 1L NOV 28 IV Zofran 4mg NOV 28 IV Morphine 4mg NOV 28 IV Cefepime 1gm NOV 28 IV Vancomycin 1.5gm Blood culture 02/02 Abdomen ultrasound 02/02 (This form is maintained as a part of the permanent medical record) 2014 [employer]. All Rights Reserved [email or web address]
--- NOTE | 2020-02-19 06:15 | PQF ---
Tomás Goel CHARLES DO [id number] CLINICAL DOCUMENTATION CLARIFICATION FORM: POST DISCHARGE Addendum to original discharge summary date: ____ Late entry note date: __ DATE: 02/19/2020 ATTN: Kendall Benito Please exercise your independent, professional judgment in responding to the clarification form. Clinical indicators are provided on the bottom of this form for your review Please check appropriate box(s) to clarify if the following diagnosis has been ruled in or ruled out: Pneumonia [ ] Ruled in diagnosis [ ] Continue to treat [ ] Resolved [ xx ] Ruled out diagnosis [ ] Cannot rule out diagnosis [ ] Other diagnosis [ ] Unable to determine In addition, please specify: Present on Admission (POA): [ ] Yes [ x ] No [ ] Unable to determine For continuity of documentation, please document condition throughout progress notes and discharge summary. Thank You. CLINICAL INDICATORS - SIGNS / SYMPTOMS / LABS Vital signs 02/09- BP 138/83, temp 98.1, [id number], Resp 24 Chest X-ray 02/08 Small left pleural effusion and associated atelectases CT Abdomen and Pelvis 02/10 Interval ascites and bilateral effusions. Basilar consolidation may represent atelectasis, pneumonia or aspiration Hospitalist Pn p6 18 02/09 pt developed fevers and increased leukocytoses over the past 24hrs Hospitalist Pn p8 02/12 Some infiltrates in lung bases suggestive of possible pneumonia RISK FACTORS H&P p1 02/02 49 year-ols Male H&P p1 02/02 Hx of Colon adenocarcinoma s/p resection H&P p1 02/02 Hypertension H&P p1 02/02 Alcohol abuse H&P p1 02/02 Smokeless tob use H&P p3 02/02 Acute Pancreatitis Consult p2 02/04 HARRY with CKD3 DS p1 02/15 - DM PN p9 02/14 - Sepsis TREATMENTS: MAR 5/10 IVF NS 1L NOV 28 IV Zofran 4mg NOV 28 IV Morphine 4mg NOV 28 IV Cefepime 1gm NOV 28 IV Vancomycin 1.5gm Chest X-ray 02/08 CT Abdomen and Pelvis 02/10 (This form is maintained as a part of the permanent medical record) 2014 [employer]. All Rights Reserved [email or web address]
--- NOTE | 2020-02-20 07:21 | PQF ---
Tomás Goel CHARLES DO [id number] CLINICAL DOCUMENTATION CLARIFICATION FORM: POST DISCHARGE Addendum to original discharge summary date: ____ Late entry note date: __ DATE: 02/20/2020 ATTN: Kendall Benito Please exercise your independent, professional judgment in responding to the clarification form. Clinical indicators are provided on the bottom of this form for your review Please check appropriate box(s) to clarify if the following diagnosis has been ruled in or ruled out: Sepsis [ ] Ruled in diagnosis [ ] Continue to treat [ ] Resolved [ x ] Ruled out diagnosis [ ] Cannot rule out diagnosis [ ] Other diagnosis [ ] Unable to determine In addition, please specify: Present on Admission (POA): [ ] Yes [ x ] No [ ] Unable to determine For continuity of documentation, please document condition throughout progress notes and discharge summary. Thank You. CLINICAL INDICATORS - SIGNS / SYMPTOMS / LABS Laboratory 02/03 WBC 9.7, Plt count 253, Band 30, Neutrophils 62, Lactic acid 4.1 Laboratory 02/09 WBC 20.6, Plt count 205, Band 22, Neutrophils 67 Vital signs 02/02 BP 113/53, ppulse 86, Resp 30, temp 97.8 Vital signs 02/09- BP 138/83, temp 98.1, [id number], Resp 24 Blood culture 02/02 No growth in 5 days ED notes p2 02/02 - SIRS scoring: Yes pt did meet at least 1 criteria H&P p3 02/02 Acute Pancteatitis suspect alchol induced given pt history Hospitalist PN p4 02/03 SIRS due to non-infectious without acute organ dysfunction Hospitalist PN p4 02/03 Acute kidney injury Hospitalist Pn p6 02/10 02/09 pt developed fevers and increased leukocytoses over the past 24hrs Hospitalist Pn p7 02/10 Pt still exhibing signs of sepsis with no clear source Pn p1 02/13 Pt develop necrotizing pancreatitis and risk for infected pancreatic necrosis Hospitalist PN p9 02/14 Sepsis complicating severe necrotizing pancreatitis H&P p3 02/02 Lactic acidosis RISK FACTORS H&P p1 02/02 49 year-ols Male H&P p1 02/02 Hx of Colon adenocarcinoma s/p resection H&P p1 02/02 Hypertension H&P p1 02/02 Alcohol abuse H&P p1 02/02 Smokeless tob use H&P p3 02/02 Acute Panceatitis Consult p2 02/04 CKD3 DS 02/15 DM TREATMENTS: NOV 28 IVF NS 1L NOV 28 IV Zofran 4mg NOV 28 IV Morphine 4mg NOV 28 IV Cefepime 1gm NOV 28 IV Vancomycin 1.5gm Blood culture 02/02 Abdomen ultrasound 02/02 CLINICAL INDICATORS - SIGNS / SYMPTOMS / LABS To support the diagnosis To support resolution of diagnosis (This form is maintained as a part of the permanent medical record) 2014 [employer], [employer]. All Rights Reserved [email or web address]
== END 2020-02-16 14:04 | disposition home or self-care (01) | DRG 439 ==
LOC: ERS 09:53 → T4-A 14:52
PROVIDERS: ADMIT Family Medicine; ATTEND Internal Medicine
DX: K85.21 Alcohol induced acute pancreatitis with uninfected necrosis (principal); N17.9 Acute kidney failure, unspecified; E87.2 Acidosis; J98.11 Atelectasis; E22.2 Syndrome of inappropriate secretion of antidiuretic hormone; K94.09 Other complications of colostomy; F10.10 Alcohol abuse, uncomplicated; E08.65 Diabetes mellitus due to underlying condition with hyperglycemia; F17.290 Nicotine dependence, other tobacco product, uncomplicated; N18.3 Chronic kidney disease, stage 3 (moderate); E88.09 Other disorders of plasma-protein metabolism, not elsewhere classified; Y83.3 Surgical operation with formation of external stoma as the cause of abnormal reaction of the patient, or of later complication, without mention of misadventure at the time of the procedure; I12.9 Hypertensive chronic kidney disease with stage 1 through stage 4 chronic kidney disease, or unspecified chronic kidney disease; E86.0 Dehydration; K70.11 Alcoholic hepatitis with ascites; E87.5 Hyperkalemia; E83.51 Hypocalcemia; Z86.010 Personal history of colon polyps; Z90.49 Acquired absence of other specified parts of digestive tract; Z85.828 Personal history of other malignant neoplasm of skin; Z79.899 Other long term (current) drug therapy; Z88.8 Allergy status to other drugs, medicaments and biological substances; Z85.038 Personal history of other malignant neoplasm of large intestine
CPT/HCPCS: 36415; 36416; 71046; 71275; 72191; 74175; 74177; 76705; 80053; 80061; 80202; 81001; 81003; 81015; 82378; 82570; 82607; 82746; 83036; 83605; 83690; 83735; 84100; 84300; 84484; 85007; 85025; 85027; 86140; 86850; 86900; 86901; 87040; 93005; 93010; 94760; 96361; 96374; 96375; 96376; C9113; J0360; J0692; J0696; J1815; J2060; J2270; J2405; J3010; J3370; J3411; J3475; J3490; J7030; J7042; Q0163; Q9967; S0028

== ENCOUNTER 2020-02-18 21:45 | Inpatient (IN) | payer SELFPAY ==
[~2020-02-18 21:45] MED LIST changes: -ISOVUE-370 76%-LOCM 1 ML ONE; +Iopamidol-370 76% 500 ML 1 ML ONE
[2020-02-18] MEDS ORDERED: Ondansetron PF 4 MG/2 ML Vial ONE (22:20)
[2020-02-18] MEDS ORDERED: Morphine 4 MG/ML VIAL ONE (22:20)
[2020-02-18 22:29] LABS: #Basophils 0.1 thou/uL (0.0-0.2); #Eosinphils 0.2 thou/uL (0.0-0.7); #Lymphocytes 1.7 thou/uL (1.20-3.40); #Neutrophils 12.5 thou/uL (1.40-6.50); %Basophils 0.5 % (0.0-1.0); %Eosinophils 1.2 % (0.0-10.0); %Lymphocytes 11.1 % (21.0-51.0); %Monocytes 6.4 % (0.0-10.0); %Neutrophils 80.8 % (42.0-75.0); Hemoglobin 11.6 g/dL (14.0-18.0); Mean Corpuscular Hemoglobin 32.8 pg (27.0-31.0); Mean Platelet Volume 7.3 fL (7.4-10.4); Platelet Count 668 thou/uL (130-400); RBC Distribution Width 13.1 % (11.5-14.5); Red Blood Cell (RBC) Count 3.53 mill/uL (4.70-6.10); White Blood Cell (WBC) Count 15.5 thou/uL (4.8-10.8)
[2020-02-18 22:50] LABS: ALT (SGPT) 21 U/L (8-55); AST (SGOT) 30 U/L (5-34); Albumin 3.1 g/dL (3.5-5.0); Alkaline Phosphatase 129 U/L (40-110); Anion Gap 17 mmol/L (10-20); BUN (Urea Nitrogen) 11 mg/dL (8.9-20.6); Bilirubin, Total 1.7 mg/dL (0.2-1.2); Calc. Creatinine Clearance 0 mL/min (70-130); Calcium 9.1 mg/dL (7.8-10.44); Carbon Dioxide 24 mmol/L (22-29); Chloride 91 mmol/L (98-107); Estimated GFR-MDRD 82; Glucose 370 mg/dL (70-105); Lipase 74 U/L (8-78); Potassium 4.7 mmol/L (3.5-5.1); Protein, Total 7.1 g/dL (6.0-8.3); Sodium 127 mmol/L (136-145)
[2020-02-18] MEDS ORDERED: metroNIDAZOLE 500 MG/100 ML BAG ONE (23:50)
[2020-02-18] MEDS ORDERED: Cefepime 2 GM VIAL ONE (23:50)
[2020-02-19] MEDS ORDERED: Morphine 4 MG/ML VIAL ONE (00:06)
[2020-02-19 00:22] LABS: Bilirubin Negative (Negative); Blood, Urine Negative (Negative); Clarity Clear (Clear); Glucose, Urine (Dipstick) Greater than 1000 mg/dL (Negative); Leukocyte Negative Leu/uL (Negative); Nitrite Negative (Negative); Protein, Urine (Dipstick) Negative (Neg-Trace); Urobilinogen Normal mg/dL (Less than 2)
[2020-02-19] MEDS ORDERED: Acetaminophen 325 MG TAB PO PRN (00:35)
[2020-02-19] MEDS ORDERED: Dextrose 5% in Water 1,000 ML IV PRN (00:52)
[2020-02-19] MEDS ORDERED: Dextrose 50% Abboject 50 ML SYRINGE SLOW IVP PRN (00:52)
[2020-02-19 02:40] VITALS: BMI 25.4
[2020-02-19] MEDS ORDERED: Morphine 2 MG/ML SYRINGE SLOW IVP SCH (03:00)
[2020-02-19] MEDS: Sodium Chloride 0.9% 1,000 ML IV SCH ×2 (03:16→16:00)
[2020-02-19] MEDS: Piperacillin/Tazobactam 3.375 GM in Sodium Chloride 0.9% 100 ML IVPB SCH ×4 (03:16→20:51)
--- NOTE | 2020-02-19 03:46 | HP ---
CHIEF COMPLAINT: Elevated blood glucose and abdominal pain. HISTORY OF PRESENT ILLNESS: The patient is a 49-year-old male, who was just recently discharged from the hospital on the with after having necrotizing pancreatitis and new onset diabetes. The patient states that for the past few days he has noticed his blood sugars were steadily increasing. Today, his blood sugars were around 400s. The patient states that yesterday late in the afternoon to evening, he started having lower abdominal pain, which has continued until today, so he came into the ER for further evaluation. He denies any fevers; however, stated that he felt cold at times. Denies any diarrhea. Has a good appetite. No nausea or vomiting. PAST MEDICAL HISTORY: As of the following; 1. Recent diagnosis of necrotizing pancreatitis. 2. He has a history of recent diagnosis of acute alcohol-induced pancreatitis. 3. Chronic alcohol abuse. 4. Adenocarcinoma status post colostomy. 5. Diabetes secondary to pancreatitis. 6. Hypertension. 7. 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 PAST SURGICAL HISTORY: He has had a laparoscopic cholecystectomy, status post colostomy reversion from the left to the right, status post left colectomy with colostomy for obstruction due to colon cancer. MEDICATIONS: As of the following; 1. He is on Glucotrol XL 2.5 q.a.m. 2. Lisinopril 20 mg daily. 3. Metformin 500 mg twice a day. ALLERGIES: HE IS ALLERGIC TO TRAMADOL. REVIEW OF SYSTEMS: All negative except for the ones mentioned above in the HPI. FAMILY HISTORY: Father with a diagnosis of CAD. SOCIAL HISTORY: The patient uses smokeless tobacco products daily. Initially, he used to drink 8 to 10 beers a day. He denies drinking any alcohol. No drug use. He is a full code. PHYSICAL EXAMINATION: VITAL SIGNS: As of the following; temperature of 98.4, pulse 88, respiration 16, 98% on room air, and blood pressure of 126/86. GENERAL: He is awake, alert, and oriented x3. He does not appear in any distress. CV: S1, S2 present. No murmurs, rubs, or gallops. ABDOMEN: Soft. Bowel sounds present x2. Mild pain upon palpation to the right lower quadrant and left lower quadrant. He does have a colostomy to his right lower quadrant. He does have a previous site to his left lower quadrant. He has a mid abdominal incision also. NEUROVASCULAR: No focal deficits noted. SKIN: No cuts, lesions, or bruises noted. LABORATORY RESULTS: As of the following; WBCs of 15.5, hemoglobin of 11.6, hematocrit of 36.2, platelets of 668. Chemistry; sodium of 127, potassium of 4.7, BUN of 11, creatinine of 0.97, sugar of 370, bilirubin of 1.7. Troponin x1 is negative. His lipase was 74. The patient did have a repeat CT of abdomen and pelvis and I did speak with the ER physician, who stated that it appeared to be more worse on his current CAT scan compared to his prior; however, he did also have inflammatory changes in his prior CAT scan. ASSESSMENT AND PLAN: The patient is a 49-year-old male, who presents to the hospital with elevated sugars and abdominal pain. 1. Abdominal pain. The CAT scan appeared to have significant inflammatory changes. At this time, given his extensive history, Surgical Services was consulted for possible intervention. We will start him on some broad-spectrum antibiotics. This could be possibly secondary to complication of his recent necrotizing pancreatitis. We will continue to monitor. 2. A pseudocyst, which appears to be hemorrhagic. Again, we will check his H and H. The patient has no fever. His white count appears to be just mildly elevated; however, given his prior history, I will start him on Zosyn and we will continue the vancomycin; however, there is a low suspicion for possible infection. We will continue to monitor. 3. Elevated blood sugar, new diagnosis of diabetes. We will start him on insulin. I believe this patient will require insulin for better diabetic control. I do not think metformin and glyburide is going to be enough for this patient given the extensive pancreatitis that he recently has. 4. Hyponatremia. This is most likely secondary to his elevated sugars. We will continue to monitor. We will also start him on some gentle hydration. 5. Deep venous thrombosis prophylaxis. We will put the patient on sequential compression devices and subcu Lovenox. Job ID: [id number]
[2020-02-19 06:00] LABS: #Basophils 0.1 thou/uL (0.0-0.2); #Eosinphils 0.4 thou/uL (0.0-0.7); #Lymphocytes 1.3 thou/uL (1.20-3.40); #Neutrophils 10.5 thou/uL (1.40-6.50); %Basophils 0.5 % (0.0-1.0); %Eosinophils 2.7 % (0.0-10.0); %Lymphocytes 10.1 % (21.0-51.0); %Monocytes 7.4 % (0.0-10.0); %Neutrophils 79.3 % (42.0-75.0); Hemoglobin 10.5 g/dL (14.0-18.0); Mean Corpuscular HGB CONC 32.3 g/dL (32.0-36.0); Mean Corpuscular Hemoglobin 33.1 pg (27.0-31.0); Mean Platelet Volume 7.2 fL (7.4-10.4); Platelet Count 549 thou/uL (130-400); Red Blood Cell (RBC) Count 3.16 mill/uL (4.70-6.10); White Blood Cell (WBC) Count 13.2 thou/uL (4.8-10.8)
[2020-02-19 06:14] LABS: Anion Gap 11 mmol/L (10-20); BUN (Urea Nitrogen) 9 mg/dL (8.9-20.6); Calc. Creatinine Clearance 123 mL/min (70-130); Calcium 8.5 mg/dL (7.8-10.44); Carbon Dioxide 27 mmol/L (22-29); Chloride 98 mmol/L (98-107); Estimated GFR-MDRD Greater than 90; Glucose 261 mg/dL (70-105); Potassium 4.4 mmol/L (3.5-5.1); Sodium 132 mmol/L (136-145)
--- NOTE | 2020-02-19 08:04 | RAD ---
CHEST 1 VIEW: HISTORY: Nausea and vomiting. COMPARISON: Radiograph of 02/09/2020. FINDINGS: Small to moderate left pleural effusion. No confluent airspace consolidation, pneumothorax, or effus ion. IMPRESSION: Moderate left-sided layering pleural effusion. POS: HOME
[2020-02-19] MEDS: Enoxaparin Sodium 40 MG/0.4 ML SYRINGE SC SCH (08:11)
[2020-02-19] MEDS: Insulin Glargine 6 UNITS in Pre-Filled Syringe 1 EACH SC SCH (08:11)
--- NOTE | 2020-02-19 08:16 | CT ---
CT ABDOMEN AND PELVIS WITH CONTRAST: HISTORY: Abdominal pain. COMPARISON: CT abdomen and pelvis 02/11/2020. FINDINGS: There are moderate bilateral layering pleural effusions with compressive atelectasis in the lung base s. No significant pericardial fluid. There is a very large acute peripancreatic fluid collection. This collection measures a transverse d imension of 18.5 cm and AP dimension of 7.5 cm with a craniocaudal dimension of at least 20 cm. Ther e is peripheral enhancement of this collection. There is extensive necrosis with minimal pancreatic parenchyma remaining. The splenic artery is patent. The splenic vein is likely occluded as there is no contrast nor splenic vein appreciated. In the gastric duodenal artery just after the takeoff of the superduodenal artery, there is what appears to be a blush of contrast versus retained parenchyma within the pancreatic head/uncinate process. It is very hard to ascertain if this is a pseudoaneurys m or retained piece of internal parenchyma. There appears to be hemorrhage within the pancreatic fluid collection. There is slight interval size decrease of the free intraperitoneal fluid. Continued severe left-side d hydroureteral nephrosis. There is abnormal wall thickening of the small bowel likely from peritonitis. The portal vein is pat ent. IMPRESSION: 1. Peripheral enhancement of the enlarging acute necrotic collection in the pancreas with necrosis o f the majority of the body and the pancreatic tail. There is an internal hemorrhage and either a pse udoaneurysm versus a retained piece of parenchyma within the pancreatic head/uncinate process of the gastroduodenal artery just after the takeoff of the supraduodenal artery axial image 45. Recommend c orrelation with patient's hemoglobin and hematocrit levels. 2. Absent contrast in the splenic vein indicating thrombosis. 3. 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 4. Peritonitis with inflamed loops of small bowel. 5. Right lower quadrant ileostomy with small parastomal fat hernia. 6. Similar appearance of the fluid-containing left-sided paracentral supraumbilical hernia through t he semilunar line. 7. Similar appearance of the small bowel containing left lower quadrant ostomy. POS: HOME
[2020-02-19] MEDS: HumaLOG 300 UNITS/3 ML VIAL SC PRN ×3 (12:29→20:57)
--- NOTE | 2020-02-19 15:16 | PRG ---
DATE OF SERVICE: 02/19/2020 SUBJECTIVE: Mr. Goel is complaining of diffuse bloating. No significant pain. He states that he came back in because his sugar was so high. OBJECTIVE: VITAL SIGNS: He is afebrile and his vital signs are stable. He has voided multiple times. ABDOMEN: Distended. It is diffuse mildly tender without guarding or rebound. He has a small parastomal hernia that is easily reducible. ASSESSMENT: 1. Necrotizing pancreatitis, now with developing pseudocyst (not mature). 2. Parastomal hernia, stable. PLAN: Certainly, I do not think this is an infectious sepsis. I think he has significant systemic inflammatory response syndrome with persistent severe retroperitoneal edema on a CT scan. In cases of severe pancreatitis like this, if not able to tolerate a full diet, he may need to have PICC line and TPN. There is no need for any sort of operative procedure as pseudocyst is not amenable to operative internal drainage yet. We will follow along with you. We will allow clear liquids and see how he does. May want to get GI involved again for their opinion on this acute on chronic pancreatitis. Job ID: [id number]
[2020-02-19] MEDS: Fentanyl 100 MCG/2 ML VIAL SLOW IVP PRN ×4 (15:53→23:54)
[2020-02-20] MEDS ORDERED: Morphine 2 MG/ML SYRINGE SLOW IVP SCH (01:00)
[2020-02-20] MEDS: Piperacillin/Tazobactam 3.375 GM in Sodium Chloride 0.9% 100 ML IVPB SCH ×4 (02:16→19:53)
[2020-02-20] MEDS: Fentanyl 100 MCG/2 ML VIAL SLOW IVP PRN (06:23)
[2020-02-20] MEDS: Sodium Chloride 0.9% 1,000 ML IV SCH ×2 (06:47→17:05)
[2020-02-20] MEDS: HumaLOG 300 UNITS/3 ML VIAL SC PRN ×4 (07:04→20:00)
[2020-02-20] MEDS: Enoxaparin Sodium 40 MG/0.4 ML SYRINGE SC SCH (08:27)
[2020-02-20] MEDS: Insulin Glargine 6 UNITS in Pre-Filled Syringe 1 EACH SC SCH (08:28)
[2020-02-20] MEDS: HYDROcodone/Acetaminophen 5/325 mg Tablet PO PRN ×4 (09:41→21:21)
--- NOTE | 2020-02-20 16:19 | PDOC.HOSPP ---
- Subjective Encounter Date: 02/20/20 Encounter Time: 09:40 Subjective: Pt seen for followup re: necrotizing pancreatitis. c/o abdo discomfort - Objective Vital Signs & Weight: Vital Signs (12 hours) Temp Pulse Resp BP Pulse Ox 02/20/20 15:47 98.7 F 86 16 137/88 94 L 02/20/20 11:27 98.6 F 84 16 135/76 95 02/20/20 07:35 98.3 F 93 18 146/92 H 95 Weight Admit Weight 182 lb Weight 182 lb 9.6 oz I&O: 02/19/20 02/20/20 02/21/20 06:59 06:59 06:59 Intake Total 250 500 925 Output Total 590 Balance 250 500 335 Result Diagrams: 02/19/20 05:30 02/19/20 05:30 Additional Labs: Accuchecks 02/20/20 02/20/20 02/19/20 11:35 04:49 20:22 POC Glucose 289 H 262 H 255 H 02/19/20 17:13 POC Glucose 213 H labs and MARs reviewed by ut Hospitalist ROS - Review of Systems Constitutional: denies: fever, chills, sweats, weakness, malaise Cardiovascular: denies: chest pain, palpitations, orthopnea, paroxysmal noc. dyspnea, edema, light headedness Gastrointestinal: reports: nausea, abdominal pain. denies: vomiting, diarrhea, constipation, melena, hematochezia Genitourinary: denies: dysuria, frequency, incontinence, hematuria, retention Skin: denies: rash, lesions, guido, bruising - Medication Medications: Active Medications Generic Name Dose Route Start Last Admin Trade Name Freq PRN Reason Stop Dose Admin Acetaminophen 650 mg 02/19/20 00:35 02/20/20 08:31 Tylenol PO 650 mg Q4H PRN Administration Headache/Fever/Mild Pain (1-3) Hydrocodone Bitart/Acetaminophen 1 tab 02/20/20 08:55 02/20/20 13:17 [place] 5/325 PO 1 tab Q4H PRN Administration Moderate Pain (4-6) Enoxaparin Sodium 40 mg 02/19/20 09:00 02/20/20 08:27 Lovenox SC 40 mg 0900 ARMANDO Administration Fentanyl 25 mcg 02/19/20 15:02 02/20/20 06:23 Sublimaze SLOW IVP 25 mcg Q2H PRN Administration Mild Pain (1-3) Sodium Chloride 1,000 mls @ 75 mls/hr 02/19/20 00:45 02/20/20 06:47 Normal Saline 0.9% IV Not Given .[id number] ARMANDO Piperacillin Sod/Tazobactam 100 mls @ 200 mls/hr 02/19/20 02:00 02/20/20 13: 16 Sod 3.375 gm/ Sodium Chloride IVPB 100 mls 0200,0800,1400,2000 ARMANDO Administration Insulin Glargine 6 units/ 0.06 mls @ 0 mls/hr 02/19/20 09:00 02/20/20 08:28 Miscellaneous Medication SC 0.06 mls QAM ARMANDO Administration Insulin Human Lispro 0 units 02/19/20 00:52 02/20/20 12:00 Humalog SC 4 unit .MILD SLIDING SCALE PRN Administration Mild Correctional Scale - Exam General Appearance: awake alert Eye: anicteric sclera ENT: normocephalic atraumatic Neck: supple, symmetric, no thyromegaly, no lymphadenopathy Heart: RRR, no gallops, no rubs, normal peripheral pulses Respiratory: CTAB, no wheezes, no ronchi, normal chest expansion Gastrointestinal: soft, no guarding, no rigidity, tender to palpation Psychiatric: normal affect, normal behavior, oriented to person, oriented to place Hosp A/P (1) Abdominal pain Code(s): R10.9 - UNSPECIFIED ABDOMINAL PAIN Status: Acute Qualifiers: Abdominal location: generalized Qualified Code(s): R10.84 - Generalized abdominal pain (2) Splenic vein thrombosis Code(s): I82.890 - ACUTE EMBOLISM AND THROMBOSIS OF OTHER SPECIFIED VEINS Status: Acute (3) H/O malignant neoplasm of colon Code(s): Z85.038 - PERSONAL HISTORY OF MALIGNANT NEOPLASM OF LARGE INTESTINE Status: Chronic (4) HTN (hypertension) Code(s): I10 - ESSENTIAL (PRIMARY) HYPERTENSION Status: Chronic Qualifiers: - Plan continue antibiotics, out of bed/ambulate Continue pain medications. Continue IV NS. Continue IV Zosyn. HbA1c 6.0 Preliminary blood cultures negative.
--- NOTE | 2020-02-20 23:48 | CON ---
DATE OF CONSULTATION: CHIEF COMPLAINT: Blood sugar is high. HISTORY OF PRESENT ILLNESS: Mr. Goel is a 49-year-old man, who was recently admitted with necrotizing pancreatitis secondary to alcohol use and complicated by new onset diabetes mellitus. His blood sugar was noted to be over 400 yesterday, so he came onto the emergency room to get that checked out. He has had still aching, vague abdominal pain across his anterior abdomen and epigastric region pretty constantly since hospital discharge over the last week. He feels tightness throughout his abdomen after oral intake and he feels full after that, but he has not had nausea or vomiting. He has had no diarrhea, constipation, or blood in the stool. Had a CT scan when he was admitted on 02/18/2020, which showed an enlarging peripancreatic fluid collection measuring 18.5 cm in transverse dimension and 7.5 cm anterior-posterior dimension with craniocaudal dimension of 20 cm. This is not yet organized and not appropriate for drainage. He has also had some inflammatory changes around the pancreas and peritoneum associated with the recent pancreatitis. PAST MEDICAL HISTORY: 1. Alcoholic pancreatitis, severe necrotizing. 2. Hypertension. 3. Alcohol abuse. 4. Adenocarcinoma of the sigmoid colon, status post resection, followed by a right colon resection due to a polyp in the right colon with high-grade dysplasia. He received chemotherapy following his original colon cancer. PAST SURGICAL HISTORY: Sigmoid resection, followed by right colon resection later with colostomy takedown and then complications of a stricture at the sigmoid-rectal colonic anastomosis, followed by a couple of surgeries for prolapse of the colostomy and now with end right-sided colostomy and mucous fistula and rectal stump. FAMILY HISTORY: His mother had colon cancer. uncle had colon cancer. Given his personal history of colon cancer at young age, multiple generations with colon cancer, and three members of the family with colon cancer, he fits criteria for Duke syndrome. Genetic testing can be considered in the future as an outpatient. SOCIAL HISTORY: He had been drinking 12-pack a day prior to his hospitalization earlier this month with acute severe pancreatitis. He uses smokeless tobacco. No drugs. ALLERGIES: TRAMADOL. CURRENT INPATIENT MEDICATIONS: Include, 1. Enoxaparin. 2. Zosyn. 3. Insulin. REVIEW OF SYSTEMS: Negative x10 systems reviewed except as stated in the history of present illness. PHYSICAL EXAMINATION: VITAL SIGNS: Temperature is 98.8, pulse 89, and blood pressure 153/89. GENERAL: He is in no acute distress. Alert and oriented x3. HEENT: Eyes have no scleral icterus. Oropharynx is clear without lesions. NECK: No cervical or supraclavicular lymphadenopathy. LUNGS: Clear to auscultation bilaterally. HEART: Regular rate and rhythm without murmur. ABDOMEN: Soft, not distended. His bowel sounds are present. EXTREMITIES: No lower extremity edema. LABORATORY DATA: White blood cell count 13.2, hemoglobin 10.5, and platelets 549. Creatinine 0.84, albumin 3.1, alkaline phosphatase 129, ALT 21, AST 30, and bilirubin 1.7. IMAGING DATA: 1. Large peripancreatic fluid collection as described above. This is not yet organized. 2. Splenic vein thrombosis. 3. Inflammatory changes around the pancreas and areas of the small bowel. IMPRESSION: 1. Severe necrotizing pancreatitis secondary to alcohol and complicated by new onset diabetes mellitus. It is also now complicated by a large peripancreatic fluid collection, which is not yet organized and will not be drainable for sometime. This certainly could cause mechanical compression of the stomach and intestines, which might worsen his abdominal tightness and interfere with advancing his diet. We will just have to try to advance his diet and see if he tolerates this and if not, then next step would either be Dobhoff tube to see if more distal placement will get to an area that is not as compressed by the fluid collection versus TPN. 2. Large peripancreatic fluid collection. 3. Splenic vein thrombosis. This has been asymptomatic, but does put him at risk to develop gastric varices. There is also a question of a pseudoaneurysm noted on the CT scan from 02/17. There is no evidence of bleeding from this. 4. New onset diabetes mellitus secondary to acute on chronic pancreatitis. 5. Alcohol abuse. 6. The SMA and portal veins appear to be patent. He is on prophylactic Lovenox dose now, which he is tolerating. RECOMMENDATIONS: 1. We will try to advance to full liquid diet. He might not tolerate this well simply due to mechanical compression from the large peripancreatic fluid collection; however, the pancreatic inflammation itself might also be contributing to his symptoms. If he ultimately is unable to advance his diet orally, then options include placement of a Dobhoff tube more distally to see if he could tolerate feeding in this way, and if not, then TPN. 2. We will continue the prophylactic dose enoxaparin for now. Endoscopy to evaluate for varices could be considered, followed by anticoagulation; however, this will have to be weighed with question of a pseudoaneurysm and possible varices. 3. He is on insulin as recommended by the primary service. His primary complaint when he came to the hospital was the elevated blood sugar. Job ID: [id number]
[2020-02-21] MEDS: HYDROcodone/Acetaminophen 5/325 mg Tablet PO PRN ×6 (01:29→22:24)
[2020-02-21] MEDS: Piperacillin/Tazobactam 3.375 GM in Sodium Chloride 0.9% 100 ML IVPB SCH ×4 (01:30→19:47)
[2020-02-21] MEDS: HumaLOG 300 UNITS/3 ML VIAL SC PRN ×3 (05:26→16:20)
[2020-02-21] MEDS: Sodium Chloride 0.9% 1,000 ML IV SCH ×2 (05:32→16:21)
[2020-02-21 05:56] LABS: #Basophils 0.1 thou/uL (0.0-0.2); #Eosinphils 0.2 thou/uL (0.0-0.7); #Monocytes 0.9 thou/uL (0.11-0.59); #Neutrophils 10.5 thou/uL (1.40-6.50); %Basophils 0.4 % (0.0-1.0); %Eosinophils 1.4 % (0.0-10.0); %Lymphocytes 7.8 % (21.0-51.0); %Monocytes 7.1 % (0.0-10.0); %Neutrophils 83.4 % (42.0-75.0); Hemoglobin 10.8 g/dL (14.0-18.0); Mean Corpuscular HGB CONC 30.1 g/dL (32.0-36.0); Mean Corpuscular Hemoglobin 31.7 pg (27.0-31.0); Mean Platelet Volume 7.1 fL (7.4-10.4); Platelet Count 479 thou/uL (130-400); RBC Distribution Width 12.9 % (11.5-14.5); Red Blood Cell (RBC) Count 3.39 mill/uL (4.70-6.10); White Blood Cell (WBC) Count 12.6 thou/uL (4.8-10.8)
[2020-02-21 06:15] LABS: ALT (SGPT) 26 U/L (8-55); AST (SGOT) 44 U/L (5-34); Albumin 2.6 g/dL (3.5-5.0); Alkaline Phosphatase 170 U/L (40-110); Anion Gap 12 mmol/L (10-20); BUN (Urea Nitrogen) 5 mg/dL (8.9-20.6); Bilirubin, Total 2.2 mg/dL (0.2-1.2); Calc. Creatinine Clearance 129 mL/min (70-130); Calcium 8.5 mg/dL (7.8-10.44); Carbon Dioxide 24 mmol/L (22-29); Chloride 96 mmol/L (98-107); Estimated GFR-MDRD Greater than 90; Globulin 3.5 g/dL (2.4-3.5); Glucose 231 mg/dL (70-105); Potassium 4.1 mmol/L (3.5-5.1); Protein, Total 6.1 g/dL (6.0-8.3); Sodium 128 mmol/L (136-145)
[2020-02-21] MEDS: Enoxaparin Sodium 40 MG/0.4 ML SYRINGE SC SCH (08:25)
[2020-02-21] MEDS: Insulin Glargine 6 UNITS in Pre-Filled Syringe 1 EACH SC SCH (08:25)
--- NOTE | 2020-02-21 15:07 | PRG ---
DATE OF SERVICE: 02/21/2020 REASON FOR CONSULTATION: Necrotizing pancreatitis, midepigastric abdominal pain, hyperglycemia. SUBJECTIVE: The patient states that his abdominal pain continues, albeit in a much milder form when compared to his previous hospitalization. He also states that he has been having some increased abdominal bloating associated with ingestion of any foods including the full liquid diet that he was placed on here during this admission. Otherwise, he states that he has been doing well with no acute events or problems overnight. He currently denies any nausea, vomiting, fevers, chills, hematemesis, melena, or hematochezia. OBJECTIVE: VITAL SIGNS: Temperature 97.9, pulse 97, blood pressure 162/97, respiratory rate 20, and saturating 96% on room air. GENERAL: The patient was lying in bed, in no acute distress. Alert and oriented x4. CARDIOVASCULAR: Regular rate and rhythm. RESPIRATORY: Clear to auscultation bilaterally. ABDOMEN: Normoactive bowel sounds. Soft. Mild abdominal distention. Tenderness to palpation in the midepigastric and periumbilical regions. EXTREMITIES: No cyanosis, clubbing, or edema. LABORATORY DATA: CBC with a white blood cell count of 12.6, hemoglobin 10.8, hematocrit 35.8, and platelets 479. Chemistry with a sodium of 128, potassium 4.1, chloride 96, CO2 of 24, BUN 5, creatinine 0.8, glucose 231. AST 44, ALT 26, alkaline phosphatase 170, total bilirubin 2.2. IMAGING DATA: No current GI imaging is available for review. However, during his last CT of the abdomen and pelvis on February 17, there was a large peripancreatic fluid collection, measuring approximately 18.5 x 20 cm. There were also residual inflammatory changes around the pancreas and peritoneum, associated with recent pancreatitis. ASSESSMENT AND PLAN: The patient is a 49-year-old male with past medical history of hypertension, alcohol abuse, adenocarcinoma of the sigmoid colon status post resection as well as a right-sided colonic polyp with high-grade dysplasia, status post resection as well, presenting with recent alcoholic necrotizing pancreatitis with abdominal pain and now with hyperglycemia. Acute necrotizing pancreatitis: The patient was recently admitted to the hospital for multiple weeks for increased abdominal pain associated with acute pancreatitis. During the course of the last admission, he had multiple CT scans that showed progression of pancreatic necrosis and possible infected pancreatic necrosis, for which the patient was placed on appropriate antibiotic therapy and he responded well. However, since being discharged to home, the patient continued to have increased midepigastric/periumbilical abdominal pain, but also noticed that his blood sugars were certainly much much higher than usual, prompting readmission and re-evaluation. With the institution of meals both inside and outside the hospital, he has been experiencing increased abdominal bloating and discomfort, and while he has been able to ambulate effectively around the mayo, he will only be able to walk approximately 100 yards before he needs to sit down due to shortness of breath and/or increased abdominal pain. He continues to have primarily liquid output from his ileostomy, which is relatively unchanged from previous. However, when coupled with the significant hyperglycemia and acute necrotizing pancreatitis, it is strongly concerning for pancreatic exocrine insufficiency. Recommendations: 1. We would place the patient on pancreatic enzymes due to probable pancreatic insufficiency to assist with breakdown of associated food stuffs. 2. If the pancreas is associated with significant dysfunction, he may not be able to produce enough as much insulin, in which case oral antihyperglycemics may not be as efficacious as subcutaneous insulin. I agree with placing the patient on an insulin regimen while inpatient and may need to be continued as an outpatient. 3. Pain control per primary team. 4. We will continue the patient on a full liquid diet for now and reassess with the introduction of pancreatic enzymes with advancing the patient's diet as tolerated. Splenic vein thrombosis: The patient is also presenting back to the hospital with recent CT imaging showing likely splenic vein occlusion as indicated because there was no contrast nor splenic vein appreciated. There was also a blush of contrast seen in the gastroduodenal artery just after the takeoff of the supraduodenal artery, concerning for pseudoaneurysm. With the orthodoxy of his severe acute necrotizing pancreatitis, this can be associated with thrombosis of the splenic vein related to the amount of inflammation in the surrounding regions. On review of the literature, the patient had been placed on anticoagulation in the past, which shows resolution of the clot itself, but places the patient at an increased risk of bleeding and an increased risk of 90-day mortality (15% of patients being anticoagulated versus 5% of non-anticoagulated patients). At this time, the risks of anticoagulating this patient seem to outweigh the benefits, given the increased risk of bleeding (especially in light of a possible pseudoaneurysm) as well as increase in mortality. Recommendations: 1. We would hold any anticoagulation for now, given the increased risk of bleeding and/or mortality. 2. We would continue to monitor the patient for signs of active GI bleeding or indicative of possible gastric varix formation. 3. We would continue to trend his hemoglobin and hematocrit and transfuse as necessary to maintain hemoglobin and hematocrit of 7/21. 4. Continue to monitor clinically for signs of active GI bleeding. We will continue to follow. Please call with any questions. Job ID: [id number]
[2020-02-21] MEDS: Pancrelipase DR 12000 1 CAP PO SCH (16:20)
--- NOTE | 2020-02-21 17:48 | PDOC.HOSPP ---
- Subjective Encounter Date: 02/21/20 Encounter Time: 10:00 Subjective: Pt seen for followup re: abdominal pain. c/o ongoing abdo discomfort. - Objective Vital Signs & Weight: Vital Signs (12 hours) Temp Pulse Resp BP Pulse Ox 02/21/20 08:00 97.9 F 97 20 162/97 H 96 Weight Admit Weight 182 lb Weight 182 lb 9.6 oz I&O: 02/20/20 02/21/20 02/22/20 06:59 06:59 06:59 Intake Total 500 925 Output Total 590 Balance 500 335 Result Diagrams: 02/21/20 05:37 02/21/20 05:37 Additional Labs: Accuchecks 02/21/20 02/21/20 02/21/20 16:05 11:00 04:17 POC Glucose 245 H 266 H 241 H 02/20/20 19:41 POC Glucose 275 H Labs and MARs reviewed by vt Hospitalist ROS - Review of Systems Constitutional: denies: fever, chills, sweats, weakness, malaise Respiratory: denies: cough, shortness of breath, SOB with excertion, pleuritic pain, wheezing Cardiovascular: denies: chest pain, palpitations, orthopnea, paroxysmal noc. dyspnea, edema, light headedness Gastrointestinal: reports: nausea, abdominal pain. denies: vomiting, diarrhea, constipation, melena, hematochezia Genitourinary: denies: dysuria, frequency, incontinence, hematuria, retention Musculoskeletal: denies: neck pain, shoulder pain, arm pain, back pain, hand pain, leg pain, foot pain - Medication Medications: Active Medications Generic Name Dose Route Start Last Admin Trade Name [place] PRN Reason Stop Dose Admin Acetaminophen 650 mg 02/19/20 00:35 02/20/20 08:31 Tylenol PO 650 mg Q4H PRN Administration Headache/Fever/Mild Pain (1-3) Hydrocodone Bitart/Acetaminophen 1 tab 02/20/20 08:55 02/21/20 13:20 [place] 5/325 PO 1 tab Q4H PRN Administration Moderate Pain (4-6) Lipase/Protease/Amylase 2 cap 02/21/20 17:00 02/21/20 16:[address] [id number] PO 2 cap TID-WM ARMANDO Administration Enoxaparin Sodium 40 mg 02/19/20 09:00 02/21/20 08:25 Lovenox SC 40 mg 0900 ARMANDO Administration Fentanyl 25 mcg 02/19/20 15:02 02/20/20 06:23 Sublimaze SLOW IVP 25 mcg Q2H PRN Administration Mild Pain (1-3) Sodium Chloride 1,000 mls @ 75 mls/hr 02/19/20 00:45 02/21/20 16:21 Normal Saline 0.9% IV 1,000 mls .[id number] ARMANDO Administration Piperacillin Sod/Tazobactam 100 mls @ 200 mls/hr 02/19/20 02:00 02/21/20 13: 19 Sod 3.375 gm/ Sodium Chloride IVPB 100 mls 0200,0800,1400,2000 ARMANDO Administration Insulin Glargine 6 units/ 0.06 mls @ 0 mls/hr 02/19/20 09:00 02/21/20 08:25 Miscellaneous Medication SC 0.06 mls QAM ARMANDO Administration Insulin Human Lispro 0 units 02/19/20 00:52 02/21/20 16:20 Humalog SC 3 unit .MILD SLIDING SCALE PRN Administration Mild Correctional Scale - Exam General Appearance: awake alert Eye: anicteric sclera ENT: moist mucosa Neck: supple, symmetric, no thyromegaly, no lymphadenopathy, no carotid bruit Heart: RRR, no gallops, no rubs, normal peripheral pulses Gastrointestinal: soft, normal bowel sounds, no bruit, no guarding, tender to palpation Psychiatric: normal affect, normal behavior, oriented to person, oriented to place Hosp A/P (1) Abdominal pain Code(s): R10.9 - UNSPECIFIED ABDOMINAL PAIN Status: Acute Qualifiers: Abdominal location: generalized Qualified Code(s): R10.84 - Generalized abdominal pain (2) Splenic vein thrombosis Code(s): I82.890 - ACUTE EMBOLISM AND THROMBOSIS OF OTHER SPECIFIED VEINS Status: Acute (3) H/O malignant neoplasm of colon Code(s): Z85.038 - PERSONAL HISTORY OF MALIGNANT NEOPLASM OF LARGE INTESTINE Status: Chronic (4) HTN (hypertension) Code(s): I10 - ESSENTIAL (PRIMARY) HYPERTENSION Status: Chronic Qualifiers: - Plan continue antibiotics, out of bed/ambulate Risks of anticoagulation outweigh benefits, per GI service. Will hold off on full anticoagulation. DVT prophylaxis with LMWH. Continue pain medications. Continue IV NS. Will continue IV Zosyn. HbA1c 6.0 Preliminary blood cultures negative, follow cultures
[2020-02-22] MEDS: Piperacillin/Tazobactam 3.375 GM in Sodium Chloride 0.9% 100 ML IVPB SCH ×4 (02:17→19:57)
[2020-02-22] MEDS: HYDROcodone/Acetaminophen 5/325 mg Tablet PO PRN ×4 (02:18→20:50)
[2020-02-22] MEDS: HumaLOG 300 UNITS/3 ML VIAL SC PRN ×3 (05:20→16:52)
[2020-02-22 05:49] LABS: #Eosinphils 0.2 thou/uL (0.0-0.7); #Lymphocytes 1.1 thou/uL (1.20-3.40); #Monocytes 0.9 thou/uL (0.11-0.59); #Neutrophils 10.1 thou/uL (1.40-6.50); %Basophils 0.4 % (0.0-1.0); %Eosinophils 1.6 % (0.0-10.0); %Monocytes 7.2 % (0.0-10.0); %Neutrophils 81.8 % (42.0-75.0); Hemoglobin 10.9 g/dL (14.0-18.0); Mean Corpuscular HGB CONC 30.8 g/dL (32.0-36.0); Mean Corpuscular Hemoglobin 31.9 pg (27.0-31.0); Mean Platelet Volume 7.2 fL (7.4-10.4); Platelet Count 475 thou/uL (130-400); RBC Distribution Width 12.8 % (11.5-14.5); Red Blood Cell (RBC) Count 3.41 mill/uL (4.70-6.10); White Blood Cell (WBC) Count 12.4 thou/uL (4.8-10.8)
[2020-02-22 06:10] LABS: ALT (SGPT) 43 U/L (8-55); AST (SGOT) 55 U/L (5-34); Albumin 2.8 g/dL (3.5-5.0); Alkaline Phosphatase 213 U/L (40-110); Anion Gap 11 mmol/L (10-20); BUN (Urea Nitrogen) 4 mg/dL (8.9-20.6); Bilirubin, Total 2.7 mg/dL (0.2-1.2); Calc. Creatinine Clearance 128 mL/min (70-130); Calcium 8.9 mg/dL (7.8-10.44); Carbon Dioxide 29 mmol/L (22-29); Chloride 96 mmol/L (98-107); Estimated GFR-MDRD Greater than 90; Globulin 3.6 g/dL (2.4-3.5); Glucose 200 mg/dL (70-105); Protein, Total 6.4 g/dL (6.0-8.3); Sodium 132 mmol/L (136-145)
[2020-02-22] MEDS: Pancrelipase DR 12000 1 CAP PO SCH ×3 (08:15→16:52)
[2020-02-22] MEDS: Simethicone Chewable 80 MG TAB PO PRN ×2 (08:16→20:50)
[2020-02-22] MEDS: Enoxaparin Sodium 40 MG/0.4 ML SYRINGE SC SCH (08:16)
[2020-02-22] MEDS: Insulin Glargine 6 UNITS in Pre-Filled Syringe 1 EACH SC SCH (08:16)
[2020-02-22] MEDS: Sodium Chloride 0.9% 1,000 ML IV SCH ×2 (08:16→20:13)
--- NOTE | 2020-02-22 11:58 | PRG ---
DATE OF SERVICE: 02/22/2020 REASON FOR CONSULTATION: Necrotizing pancreatitis, midepigastric abdominal pain, hyperglycemia, and possible pancreatic exocrine insufficiency. SUBJECTIVE: The patient states that he continues to have abdominal tightness and bloating this morning despite receiving only one dose of the pancreatic enzymes last night. Currently, he has been able to tolerate the full liquid diet without any difficulty and is actually asking for more substantial today. Otherwise, he has been able to ambulate around the unit without difficulty, however, this morning he did experience some acid reflux type symptoms after consuming tomato bisque and then lying down flat afterwards. Otherwise, he denies any nausea, vomiting, fevers, chills, or GI bleeding. OBJECTIVE: VITAL SIGNS: Temperature 98.6, pulse 94, blood pressure 159/97, respiratory rate 18, saturating 96% on room air. GENERAL: The patient was lying in bed, in no acute distress. Alert and oriented x4. CARDIOVASCULAR: Regular rate and rhythm. RESPIRATORY: Clear to auscultation bilaterally. ABDOMEN: Normoactive bowel sounds. Soft. Mild abdominal distention. Mild tenderness to palpation in the midepigastric and periumbilical regions. EXTREMITIES: No cyanosis, clubbing, or edema. LABORATORY DATA: CBC with a white blood cell count of 12.4, hemoglobin 10.9, hematocrit 35.3, platelets 475. Chemistry with a sodium of 132, potassium 4, chloride 96, CO2 of 29, BUN 4, creatinine 0.81, glucose 200. AST 55, ALT 43, alkaline phosphatase 213, total bilirubin 2.7. IMAGING DATA: No current GI imaging is available for review. ASSESSMENT AND PLAN: The patient is a 49-year-old male with past medical history of hypertension, alcohol abuse, adenocarcinoma of the sigmoid colon, status post resection, as well as a right-sided colonic poly with high-grade dysplasia, also status post resection. Presenting with recent alcoholic necrotizing pancreatitis, now with hyperglycemia and continued liquid output from his ostomy concerning for pancreatic insufficiency. Acute necrotizing pancreatitis: The patient was admitted to the hospital in January of 2020, for multiple weeks secondary to increased abdominal pain associated with acute pancreatitis. However, during the course of the hospital admission, multiple CT scans were performed and showed progression to pancreatic necrosis and with fevers exhibited during that time. It was strongly concerning for infected pancreatic necrosis. Per most recent imaging, the patient has an approximate 18 x 20 cm fluid collection in the peripancreatic region without any rind or features consistent with walled off necrosis. After the last hospitalization, he was ultimately sent home, and as an outpatient began having increased abdominal discomfort and bloating as well as hyperglycemia that brought him back into the hospital for further evaluation. At the current point in time, his blood sugars are under much better control, but he continues to have mild abdominal bloating and gas formation that is associated with mild abdominal discomfort/pain. At this time, his symptoms seem more consistent with pancreatic exocrine insufficiency as well as consumption of foods that may generate increased intraluminal gas. Recommendations: 1. We will continue the patient on pancreatic enzyme supplementation due to probable pancreatic insufficiency. 2. Agree with insulin regimen and stricter control of blood sugars. 3. Pain control per primary team. 4. Would advance the patient's diet, given minimal abdominal pain and to assess for efficacy with pancreatic enzyme supplements. 5. The patient is not currently a candidate for drainage of the large fluid collection due to lack of walled off necrosis. Splenic vein thrombosis: During the course of this hospitalization, the patient had a CT scan showing likely splenic vein occlusion as well as a blush of contrast in the gastroduodenal artery concerning for pseudoaneurysm. At this time, the more likely explanation for splenic vein thrombosis would be the increased inflammation from the pancreas/necrotizing pancreatitis generating a thrombotic event within the splenic vein that usually runs along the dorsal side of the pancreas. On review of the available literature with patients who had been placed on anticoagulation for splenic vein and/or portal vein thrombosis in light of severe acute pancreatitis, they are at increased risk of bleeding and an increased risk of 90-day mortality. At this time, the risks of anticoagulation seem to outweigh the benefits and would hold on this for now. Recommendations: 1. Would continue to hold any anticoagulation other than prophylactic doses for DVT. 2. Would continue to monitor the patient for signs of active GI bleeding that may be indicative of gastric varix formation and/or rupture. We will continue to follow. Please call with any questions. Job ID: [id number]
--- NOTE | 2020-02-22 18:13 | PDOC.HOSPP ---
- Subjective Encounter Date: 02/22/20 Encounter Time: 10:00 Subjective: Pt seen for followup re: abdo pain. Has ongoing pain. Did not sleep well. - Objective Vital Signs & Weight: Vital Signs (12 hours) Temp Pulse Resp BP Pulse Ox 02/22/20 08:00 98.6 F 94 18 159/97 H 96 Weight Admit Weight 182 lb Weight 182 lb 9.6 oz I&O: 02/21/20 02/22/20 02/23/20 06:59 06:59 06:59 Intake Total 925 850 Output Total 590 Balance 335 850 Result Diagrams: 02/22/20 05:22 02/22/20 05:22 Additional Labs: Accuchecks 02/22/20 02/22/20 02/22/20 16:18 10:57 04:53 POC Glucose 253 H 235 H 208 H 02/21/20 19:49 POC Glucose 221 H Labs and MARs reviewed by me Hospitalist ROS - Review of Systems Constitutional: reports: other (insomnia). denies: fever, chills, sweats, weakness, malaise Cardiovascular: denies: chest pain, palpitations, orthopnea, paroxysmal noc. dyspnea, edema, light headedness Gastrointestinal: reports: abdominal pain. denies: nausea, vomiting, diarrhea, constipation, melena, hematochezia Skin: denies: rash, lesions, guido, bruising Neurological: denies: weakness, numbness, incoordination, change in speech, confusion, seizures - Medication Medications: Active Medications Generic Name Dose Route Start Last Admin Trade Name Freq PRN Reason Stop Dose Admin Acetaminophen 650 mg 02/19/20 00:35 02/20/20 08:31 Tylenol PO 650 mg Q4H PRN Administration Headache/Fever/Mild Pain (1-3) Hydrocodone Bitart/Acetaminophen 1 tab 02/20/20 08:55 02/22/20 16:56 [place] 5/325 PO 1 tab Q4H PRN Administration Moderate Pain (4-6) Lipase/Protease/Amylase 2 cap 02/21/20 17:00 02/22/20 16:[address] [id number] PO 2 cap TID-WM ARMANDO Administration Enoxaparin Sodium 40 mg 02/19/20 09:00 02/22/20 08:16 Lovenox SC 40 mg 0900 ARMANDO Administration Fentanyl 25 mcg 02/19/20 15:02 02/20/20 06:23 Sublimaze SLOW IVP 25 mcg Q2H PRN Administration Mild Pain (1-3) Sodium Chloride 1,000 mls @ 75 mls/hr 02/19/20 00:45 02/22/20 08:16 Normal Saline 0.9% IV 1,000 mls .[id number] ARMANDO Administration Piperacillin Sod/Tazobactam 100 mls @ 200 mls/hr 02/19/20 02:00 02/22/20 16: 52 Sod 3.375 gm/ Sodium Chloride IVPB 100 mls 0200,0800,1400,2000 ARMANDO Administration Insulin Glargine 6 units/ 0.06 mls @ 0 mls/hr 02/19/20 09:00 02/22/20 08:16 Miscellaneous Medication SC 0.06 mls QAM ARMANDO Administration Insulin Human Lispro 0 units 02/19/20 00:52 02/22/20 16:52 Humalog SC 3 unit .MILD SLIDING SCALE PRN Administration Mild Correctional Scale Simethicone 80 mg 02/22/20 06:12 02/22/20 08:16 Mylicon Chewable PO 80 mg Q6H PRN Administration Gas Pain Sodium Chloride 10 ml 02/22/20 09:00 02/22/20 08:16 Flush - Normal Saline IVF 10 ml Q12HR ARMANDO Administration - Exam General Appearance: awake alert Eye: scleral icterus ENT: moist mucosa Neck: supple, no thyromegaly Heart: RRR Respiratory: CTAB Gastrointestinal: soft, normal bowel sounds, no guarding, no rigidity, tender to palpation Psychiatric: normal affect, normal behavior Hosp A/P (1) Necrotizing pancreatitis Code(s): K85.91 - ACUTE PANCREATITIS WITH UNINFECTED NECROSIS, UNSPECIFIED Status: Acute (2) Splenic vein thrombosis Code(s): I82.890 - ACUTE EMBOLISM AND THROMBOSIS OF OTHER SPECIFIED VEINS Status: Acute (3) H/O malignant neoplasm of colon Code(s): Z85.038 - PERSONAL HISTORY OF MALIGNANT NEOPLASM OF LARGE INTESTINE Status: Chronic (4) HTN (hypertension) Code(s): I10 - ESSENTIAL (PRIMARY) HYPERTENSION Status: Chronic Qualifiers: - Plan continue antibiotics, out of bed/ambulate Continue Pancrelipase. Trial melatonin. DVT prophylaxis with LMWH. Continue pain medications. Continue IV NS. Continue IV Zosyn. Increase Lantus to 10 units qAM. Resume glipizide and metformin. Preliminary blood cultures negative, follow cultures HbA1c 6.0
[2020-02-22] MEDS ORDERED: Insulin Glargine 4 UNITS in Pre-Filled Syringe SC SCH (18:30)
[2020-02-22] MEDS: Melatonin 3 MG TAB PO PRN (20:50)
[2020-02-23] MEDS: HYDROcodone/Acetaminophen 5/325 mg Tablet PO PRN ×5 (01:28→21:07)
[2020-02-23] MEDS: Piperacillin/Tazobactam 3.375 GM in Sodium Chloride 0.9% 100 ML IVPB SCH ×4 (01:29→21:08)
[2020-02-23] MEDS: HumaLOG 300 UNITS/3 ML VIAL SC PRN ×3 (05:32→17:07)
[2020-02-23 06:35] LABS: #Basophils 0.1 thou/uL (0.0-0.2); #Eosinphils 0.1 thou/uL (0.0-0.7); #Lymphocytes 0.9 thou/uL (1.20-3.40); #Monocytes 0.7 thou/uL (0.11-0.59); #Neutrophils 8.1 thou/uL (1.40-6.50); %Basophils 0.5 % (0.0-1.0); %Eosinophils 1.4 % (0.0-10.0); %Lymphocytes 9.4 % (21.0-51.0); %Monocytes 7.2 % (0.0-10.0); %Neutrophils 81.5 % (42.0-75.0); Hemoglobin 11.1 g/dL (14.0-18.0); Mean Corpuscular HGB CONC 32.7 g/dL (32.0-36.0); Mean Corpuscular Hemoglobin 33.7 pg (27.0-31.0); Mean Platelet Volume 7.1 fL (7.4-10.4); Platelet Count 436 thou/uL (130-400); RBC Distribution Width 12.9 % (11.5-14.5); Red Blood Cell (RBC) Count 3.31 mill/uL (4.70-6.10); White Blood Cell (WBC) Count 9.9 thou/uL (4.8-10.8)
[2020-02-23 06:55] LABS: ALT (SGPT) 42 U/L (8-55); AST (SGOT) 46 U/L (5-34); Albumin 2.7 g/dL (3.5-5.0); Alkaline Phosphatase 238 U/L (40-110); Anion Gap 11 mmol/L (10-20); BUN (Urea Nitrogen) 4 mg/dL (8.9-20.6); Bilirubin, Total 2.3 mg/dL (0.2-1.2); Calc. Creatinine Clearance 122 mL/min (70-130); Calcium 8.8 mg/dL (7.8-10.44); Carbon Dioxide 30 mmol/L (22-29); Chloride 96 mmol/L (98-107); Estimated GFR-MDRD Greater than 90; Globulin 3.6 g/dL (2.4-3.5); Glucose 206 mg/dL (70-105); Potassium 4.1 mmol/L (3.5-5.1); Protein, Total 6.3 g/dL (6.0-8.3); Sodium 133 mmol/L (136-145)
[2020-02-23] MEDS: metFORMIN 500 MG TAB PO SCH ×2 (09:05→17:06)
[2020-02-23] MEDS: Enoxaparin Sodium 40 MG/0.4 ML SYRINGE SC SCH (09:05)
[2020-02-23] MEDS: Insulin Glargine 10 UNITS in Pre-Filled Syringe SC SCH (09:05)
[2020-02-23] MEDS: Lisinopril 20 MG TAB PO SCH (09:05)
[2020-02-23] MEDS: Pancrelipase DR 12000 1 CAP PO SCH ×3 (09:06→17:07)
[2020-02-23] MEDS: Sodium Chloride 0.9% 1,000 ML IV SCH (09:59)
--- NOTE | 2020-02-23 10:46 | PRG ---
DATE OF SERVICE: 02/23/2020 SUBJECTIVE: Mr. Goel has no complaints. He notes that he feels full fast when he eats, but he is eating more regular type foods now. No significant abdominal pain. PHYSICAL EXAMINATION: VITAL SIGNS: He is afebrile. Vital signs are stable. ABDOMEN: Distended, but soft and minimally tender diffusely. Mild parastomal hernia. Mild ostomy prolapse, but air and stool in the bag. ASSESSMENT: Necrotizing pancreatitis with persistent significant intraabdominal edema associated with splenic vein thrombosis. PLAN: He seems to be tolerating diet, likely can be transitioned back to outpatient in a few more days if continues to do well. We will need followup scan at some point to further evaluate whether he will develop a mature pseudocyst. Job ID: [id number]
[2020-02-23] MEDS: Simethicone Chewable 80 MG TAB PO PRN ×2 (10:48→21:13)
--- NOTE | 2020-02-23 17:05 | PRG ---
DATE OF SERVICE: 02/23/2020 REASON FOR CONSULTATION: Necrotizing pancreatitis, midepigastric abdominal pain, hyperglycemia, and possible pancreatic exocrine insufficiency. SUBJECTIVE: The patient states that with the addition of the pancreatic enzymes, he has had some improvement in his abdominal bloating, but continues to experience this symptom despite this measure. He did state that this morning he "cleared his plate" and did experience increased bloating and mild abdominal pain afterwards, but otherwise has been able to tolerate a more solid diet without difficulty. He adds that he has been able to ambulate around the unit without difficulty as well. However, he does experience some increased abdominal pain with extended bouts of walking. Otherwise, he is doing well without any episodes of nausea, vomiting, fevers, chills, or GI bleeding. OBJECTIVE: VITAL SIGNS: Temperature 98.3, pulse rate 87, blood pressure 139/90, respiratory rate 18, and saturating 96% on room air. GENERAL: The patient was sitting in a chair at bedside, in no acute distress. Alert and oriented x4. CARDIOVASCULAR: Regular rate and rhythm. RESPIRATORY: Clear to auscultation bilaterally. ABDOMEN: Normoactive bowel sounds. Soft. Mild abdominal distention. Mild tenderness to palpation in the midepigastric and periumbilical regions. Ileostomy noted in the right lower quadrant with dark brown stool. EXTREMITIES: No cyanosis, clubbing, or edema. LABORATORY DATA: CBC with a white blood cell count of 9.9, hemoglobin 11.1, hematocrit 34, and platelets are 436. Chemistry with a sodium of 133, potassium 4.1, chloride 96, CO2 of 30, BUN 4, creatinine 0.85, glucose 206. AST 46, ALT 42, alkaline phosphatase 238, and total bilirubin 2.3. IMAGING DATA: No current GI imaging is available for review. ASSESSMENT AND PLAN: The patient is a 49-year-old male with past medical history of hypertension, alcohol abuse; adenocarcinoma of the sigmoid colon, status post resection as well as a right-sided dysplastic polyp, now also status post resection; now presenting with alcoholic necrotizing pancreatitis with fluid collections, hyperglycemia, and liquid output from his ostomy concerning for pancreatic insufficiency secondary to his pancreatic necrosis. Acute necrotizing pancreatitis. The patient was initially admitted to the hospital in January 2020 due to increased abdominal pain after consuming an increased amount of alcohol. He was subsequently diagnosed with acute pancreatitis and over the course of the hospitalization, imaging showed progression of his pancreatitis to necrotic pancreatitis as well as infected necrosis given the fevers exhibited at that time. Per most recent imaging, the patient has had the interval development of large fluid collections within the abdomen, but have not matured enough to be considered for drainage. He now has increased symptoms of abdominal discomfort and bloating, but it is unclear if this is related to the enlargement of these fluid collections or is it related to possible pancreatic insufficiency (as evidenced by hyperglycemia when before he had been well controlled with oral medications). Recommendations: 1. I would increase the pancreatic enzymes to 36,000 lipase units three times daily with meals. 2. Continue with insulin regimen and stricter control of blood sugars, likely he will need to be placed on insulin as an outpatient if his pancreatic function is significantly compromised. 3. Pain control per primary team, but would attempt to minimize any narcotics as it can potentially create constipation and abdominal bloating. 4. Continue patient on a low-fat diet. 5. The patient will ultimately need a repeat CT scan of the abdomen for re-evaluation of these fluid collections and if exhibiting walled-off necrosis could be considered for percutaneous drainage at that time. Splenic vein thrombosis. During the course of this hospitalization, the patient has had a CT scan showing likely splenic vein occlusion in light of recent severe pancreatitis. This is a known complication of pancreatitis, but given the patient's presence of a possible pseudoaneurysm of the gastric duodenal artery, the increased risk of bleeding on anticoagulation, and an increased risk of 90-day mortality, anticoagulation in this patient is ill-advised. Recommendations: 1. Continue to hold anticoagulation other than prophylactic doses for deep vein thrombosis. 2. Continue to monitor patient for signs of active GI bleeding. We will continue to follow. Please call with any questions. Job ID: [id number]
--- NOTE | 2020-02-23 18:55 | PDOC.HOSPP ---
- Subjective Encounter Date: 02/23/20 Encounter Time: 10:00 Subjective: Pt seen for followup re: necrotizing pancreatitis. Feels slightly better today. - Objective Vital Signs & Weight: Vital Signs (12 hours) Temp Pulse Resp BP BP Pulse Ox 02/23/20 09:05 139/90 02/23/20 08:00 96 02/23/20 07:20 98.3 F 87 18 139/90 96 Weight Admit Weight 182 lb Weight 182 lb 9.6 oz I&O: 02/22/20 02/23/20 02/24/20 06:59 06:59 06:59 Intake Total 850 3555 Output Total 600 Balance 850 2955 Result Diagrams: 02/23/20 06:08 02/23/20 06:08 Additional Labs: Accuchecks 02/23/20 02/23/20 02/23/20 17:10 11:51 04:19 POC Glucose 198 H 228 H 194 H 02/22/20 19:16 POC Glucose 224 H Labs and MARs reviewed by ia Hospitalist ROS - Review of Systems Cardiovascular: denies: chest pain, palpitations, orthopnea, paroxysmal noc. dyspnea, edema, light headedness Gastrointestinal: reports: abdominal pain. denies: nausea, vomiting, diarrhea, constipation, melena, hematochezia - Medication Medications: Active Medications Generic Name Dose Route Start Last Admin Trade Name Freq PRN Reason Stop Dose Admin Acetaminophen 650 mg 02/19/20 00:35 02/20/20 08:31 Tylenol PO 650 mg Q4H PRN Administration Headache/Fever/Mild Pain (1-3) Hydrocodone Bitart/Acetaminophen 1 tab 02/20/20 08:55 02/23/20 17:06 [place] 5/325 PO 1 tab Q4H PRN Administration Moderate Pain (4-6) Lipase/Protease/Amylase 3 cap 02/23/20 17:00 02/23/20 17:[address] [id number] PO 3 cap TID-WM ARMANDO Administration Enoxaparin Sodium 40 mg 02/19/20 09:00 02/23/20 09:05 Lovenox SC 40 mg 0900 ARMANDO Administration Fentanyl 25 mcg 02/19/20 15:02 02/20/20 06:23 Sublimaze SLOW IVP 25 mcg Q2H PRN Administration Mild Pain (1-3) Glipizide 2.5 mg 02/23/20 07:30 02/23/20 09:06 Glucotrol Xl PO 2.5 mg DAILY-AC ARMANDO Administration Sodium Chloride 1,000 mls @ 75 mls/hr 02/19/20 00:45 02/23/20 09:59 Normal Saline 0.9% IV Not Given .[id number] ARMANDO Piperacillin Sod/Tazobactam 100 mls @ 200 mls/hr 02/19/20 02:00 02/23/20 13: 15 Sod 3.375 gm/ Sodium Chloride IVPB 100 mls 0200,0800,1400,2000 ARMANDO Administration Insulin Glargine 10 units/ 0.1 mls @ 0 mls/hr 02/23/20 09:00 02/23/20 09:05 Miscellaneous Medication SC 0.1 mls QAM ARMANDO Administration Insulin Human Lispro 0 units 02/19/20 00:52 02/23/20 17:07 Humalog SC 2 unit .MILD SLIDING SCALE PRN Administration Mild Correctional Scale Lisinopril 20 mg 02/23/20 09:00 02/23/20 09:05 Zestril PO 20 mg DAILY ARMANDO Administration Melatonin 3 mg 02/22/20 18:10 02/22/20 20:50 Melatonin PO 3 mg HS PRN Administration Insomnia Metformin HCl 500 mg 02/23/20 08:00 02/23/20 17:06 Glucophage PO 500 mg BID-WM ARMANDO Administration Simethicone 80 mg 02/22/20 06:12 02/22/20 08:16 Mylicon Chewable PO 80 mg Q6H PRN Administration Gas Pain Simethicone 160 mg 02/22/20 06:13 02/23/20 10:48 Mylicon Chewable PO 160 mg Q6H PRN Administration Gas Pain Sodium Chloride 10 ml 02/22/20 09:00 02/23/20 09:06 Flush - Normal Saline IVF 10 ml Q12HR ARMANDO Administration - Exam General Appearance: awake alert Eye: anicteric sclera ENT: moist mucosa Neck: supple Heart: RRR, no rubs Respiratory: CTAB Gastrointestinal: soft, non-tender, normal bowel sounds Musculoskeletal: no muscle wasting Psychiatric: normal affect, normal behavior Hosp A/P (1) Necrotizing pancreatitis Code(s): K85.91 - ACUTE PANCREATITIS WITH UNINFECTED NECROSIS, UNSPECIFIED Status: Acute (2) Splenic vein thrombosis Code(s): I82.890 - ACUTE EMBOLISM AND THROMBOSIS OF OTHER SPECIFIED VEINS Status: Acute (3) HTN (hypertension) Code(s): I10 - ESSENTIAL (PRIMARY) HYPERTENSION Status: Chronic Qualifiers: (4) H/O malignant neoplasm of colon Code(s): Z85.038 - PERSONAL HISTORY OF MALIGNANT NEOPLASM OF LARGE INTESTINE Status: Chronic - Plan continue antibiotics Clinically improving. DVT prophylaxis with LMWH. Continue pain medications. Continue IV Zosyn. Switch to moderate insulin sliding scale. Preliminary blood cultures negative, follow cultures
[2020-02-23] MEDS: Melatonin 3 MG TAB PO PRN (21:13)
[2020-02-24] MEDS: Piperacillin/Tazobactam 3.375 GM in Sodium Chloride 0.9% 100 ML IVPB SCH ×4 (02:07→20:20)
[2020-02-24] MEDS: Sodium Chloride 0.9% 1,000 ML IV SCH ×3 (02:07→22:04)
[2020-02-24] MEDS: HYDROcodone/Acetaminophen 5/325 mg Tablet PO PRN ×5 (02:11→22:02)
[2020-02-24] MEDS ORDERED: diphenhydrAMINE 25 MG CAP PO SCH (02:30)
[2020-02-24] MEDS: HumaLOG 300 UNITS/3 ML VIAL SC PRN ×2 (05:48→12:18)
[2020-02-24] MEDS: Pancrelipase DR 12000 1 CAP PO SCH ×3 (08:04→16:11)
[2020-02-24] MEDS: metFORMIN 500 MG TAB PO SCH ×2 (08:04→16:11)
[2020-02-24] MEDS: Enoxaparin Sodium 40 MG/0.4 ML SYRINGE SC SCH (08:05)
[2020-02-24] MEDS: Lisinopril 20 MG TAB PO SCH (08:05)
[2020-02-24] MEDS: Insulin Glargine 10 UNITS in Pre-Filled Syringe SC SCH (08:06)
[2020-02-24] MEDS: Simethicone Chewable 80 MG TAB PO PRN (08:15)
[2020-02-24 08:41] LABS: #Basophils 0.1 thou/uL (0.0-0.2); #Eosinphils 0.2 thou/uL (0.0-0.7); #Lymphocytes 0.9 thou/uL (1.20-3.40); #Monocytes 0.9 thou/uL (0.11-0.59); #Neutrophils 9.5 thou/uL (1.40-6.50); %Basophils 0.7 % (0.0-1.0); %Eosinophils 1.5 % (0.0-10.0); %Lymphocytes 7.9 % (21.0-51.0); %Monocytes 7.5 % (0.0-10.0); %Neutrophils 82.5 % (42.0-75.0); Mean Corpuscular HGB CONC 31.6 g/dL (32.0-36.0); Mean Corpuscular Hemoglobin 32.7 pg (27.0-31.0); Mean Platelet Volume 7.2 fL (7.4-10.4); Platelet Count 455 thou/uL (130-400); RBC Distribution Width 13.1 % (11.5-14.5); Red Blood Cell (RBC) Count 3.36 mill/uL (4.70-6.10); White Blood Cell (WBC) Count 11.5 thou/uL (4.8-10.8)
[2020-02-24 09:03] LABS: ALT (SGPT) 81 U/L (8-55); AST (SGOT) 100 U/L (5-34); Albumin 2.9 g/dL (3.5-5.0); Alkaline Phosphatase 388 U/L (40-110); Anion Gap 13 mmol/L (10-20); BUN (Urea Nitrogen) 5 mg/dL (8.9-20.6); Bilirubin, Total 3.3 mg/dL (0.2-1.2); Calc. Creatinine Clearance 125 mL/min (70-130); Calcium 9.3 mg/dL (7.8-10.44); Carbon Dioxide 30 mmol/L (22-29); Chloride 95 mmol/L (98-107); Estimated GFR-MDRD Greater than 90; Globulin 3.8 g/dL (2.4-3.5); Glucose 202 mg/dL (70-105); Protein, Total 6.7 g/dL (6.0-8.3); Sodium 134 mmol/L (136-145)
[2020-02-24] MEDS: Fentanyl 100 MCG/2 ML VIAL SLOW IVP PRN ×3 (10:47→20:24)
--- NOTE | 2020-02-24 16:53 | PDOC.HOSPP ---
- Subjective Encounter Date: 02/24/20 Encounter Time: 09:20 Subjective: Pt seen for followup re: necrotizing pancreatitis. Abdo pain better, still has bloating. - Objective Vital Signs & Weight: Vital Signs (12 hours) Temp Pulse Resp BP BP Pulse Ox 02/24/20 08:25 95 02/24/20 08:05 146/95 H 02/24/20 07:55 98.2 F 96 16 146/95 H 95 Weight Admit Weight 182 lb Weight 182 lb 9.6 oz I&O: 02/23/20 02/24/20 02/25/20 06:59 06:59 06:59 Intake Total 3555 1550 Output Total 600 Balance 2955 1550 Result Diagrams: 02/24/20 08:30 02/24/20 08:30 Additional Labs: Accuchecks 02/24/20 02/24/20 02/24/20 16:36 16:18 12:03 POC Glucose 152 H 168 H 216 H 02/24/20 02/23/20 02/23/20 03:56 20:06 17:10 POC Glucose 183 H 170 H 198 H Labs and MARs reviewed by dc Hospitalist ROS - Review of Systems Cardiovascular: denies: chest pain, palpitations, orthopnea, paroxysmal noc. dyspnea, edema, light headedness Gastrointestinal: reports: abdominal pain. denies: nausea, vomiting, diarrhea, constipation, melena, hematochezia - Medication Medications: Active Medications Generic Name Dose Route Start Last Admin Trade Name Freq PRN Reason Stop Dose Admin Acetaminophen 650 mg 02/19/20 00:35 02/20/20 08:31 Tylenol PO 650 mg Q4H PRN Administration Headache/Fever/Mild Pain (1-3) Hydrocodone Bitart/Acetaminophen 1 tab 02/20/20 08:55 02/24/20 11:23 Iselin 5/325 PO 1 tab Q4H PRN Administration Moderate Pain (4-6) Lipase/Protease/Amylase 3 cap 02/23/20 17:00 02/24/20 16:[address] [place] [address] PO 3 cap TID-WM ARMANDO Administration Enoxaparin Sodium 40 mg 02/19/20 09:00 02/24/20 08:05 Lovenox SC 40 mg 0900 ARMANDO Administration Fentanyl 25 mcg 02/19/20 15:02 05/31/20 16:05 Sublimaze SLOW IVP 25 mcg Q2H PRN Administration Mild Pain (1-3) Glipizide 2.5 mg 02/23/20 07:30 02/24/20 08:04 Glucotrol Xl PO 2.5 mg DAILY-AC ARMANDO Administration Sodium Chloride 1,000 mls @ 75 mls/hr 02/19/20 00:45 02/24/20 14:36 Normal Saline 0.9% IV Not Given .[id number] ARMANDO Piperacillin Sod/Tazobactam 100 mls @ 200 mls/hr 02/19/20 02:00 02/24/20 14: 35 Sod 3.375 gm/ Sodium Chloride IVPB 100 mls 0200,0800,1400,2000 ARMANDO Administration Insulin Glargine 10 units/ 0.1 mls @ 0 mls/hr 02/23/20 09:00 02/24/20 08:06 Miscellaneous Medication SC 0.1 mls QAM ARMANDO Administration Insulin Human Lispro 0 units 02/23/20 18:56 02/24/20 12:18 Humalog SC 4 unit .MODERATE SLIDING SC PRN Administration Moderate Correctional Scale Lisinopril 20 mg 02/23/20 09:00 02/24/20 08:05 Zestril PO 20 mg DAILY ARMANDO Administration Melatonin 3 mg 02/22/20 18:10 02/23/20 21:13 Melatonin PO 3 mg HS PRN Administration Insomnia Metformin HCl 500 mg 02/23/20 08:00 02/24/20 16:11 Glucophage PO 500 mg BID-WM ARMANDO Administration Simethicone 80 mg 02/22/20 06:12 02/22/20 08:16 Mylicon Chewable PO 80 mg Q6H PRN Administration Gas Pain Simethicone 160 mg 02/22/20 06:13 02/24/20 08:15 Mylicon Chewable PO 160 mg Q6H PRN Administration Gas Pain Sodium Chloride 10 ml 02/22/20 09:00 02/24/20 09:00 Flush - Normal Saline IVF Not Given Q12HR ARMANDO - Exam General Appearance: awake alert Eye: anicteric sclera ENT: moist mucosa Neck: supple Heart: RRR Respiratory: CTAB Gastrointestinal: soft, normal bowel sounds, no guarding, no rigidity, distended Psychiatric: normal affect, normal behavior Hosp A/P (1) Necrotizing pancreatitis Code(s): K85.91 - ACUTE PANCREATITIS WITH UNINFECTED NECROSIS, UNSPECIFIED Status: Acute (2) Splenic vein thrombosis Code(s): I82.890 - ACUTE EMBOLISM AND THROMBOSIS OF OTHER SPECIFIED VEINS Status: Acute (3) HTN (hypertension) Code(s): I10 - ESSENTIAL (PRIMARY) HYPERTENSION Status: Chronic Qualifiers: (4) H/O malignant neoplasm of colon Code(s): Z85.038 - PERSONAL HISTORY OF MALIGNANT NEOPLASM OF LARGE INTESTINE Status: Chronic - Plan continue antibiotics, out of bed/ambulate Clinically improving. DVT prophylaxis with LMWH, no therapeutic dose due to risk Continue IV Zosyn. Continue pain medications. Continue moderate insulin sliding scale.
--- NOTE | 2020-02-24 17:39 | PRG ---
DATE OF SERVICE: 02/24/2020 REASON FOR CONSULTATION: Necrotizing pancreatitis, generalized abdominal pain, and possible pancreatic exocrine insufficiency. SUBJECTIVE: The patient had difficulty sleeping overnight, but it was unclear if this was due to increased activity of the hospital versus increased abdominal pain; however, this morning, he did attempt to eat all of his solid diet and 20 to 30 minutes afterwards experienced increased periumbilical abdominal pain characterized as a cramping/bloating type sensation. The pain increased to the point where he required pain medication in order to alleviate the symptoms. He has been having slightly increased consistency in terms of his ostomy output, but his bloating has been remained relatively unchanged. Otherwise, he denies any nausea, vomiting, fevers, chills, or GI bleeding. OBJECTIVE: VITAL SIGNS: Temperature 98.2, pulse 96, blood pressure 146/95, respiratory rate 16, saturating 95% on room air. GENERAL: The patient was lying in bed, in no acute distress. Alert and oriented x4. CARDIOVASCULAR: Regular rate and rhythm. RESPIRATORY: Clear to auscultation bilaterally. ABDOMEN: Normoactive bowel sounds. Soft. Mild abdominal distention. Mild tenderness to palpation in the midepigastric and periumbilical regions. Ileostomy noted in the right lower quadrant with green colored stool with semi-solid consistency. EXTREMITIES: No cyanosis, clubbing, or edema. LABORATORY DATA: CBC with a white blood cell count of 11.5, hemoglobin 11, hematocrit 34.8, platelets 455. Chemistry with a sodium of 134, potassium 4, chloride 95, CO2 of 30, BUN 5, creatinine 0.83, glucose 202, AST 100, ALT 81, alkaline phosphatase 388, total bilirubin 3.3. IMAGING DATA: No current GI imaging is available for review. ASSESSMENT AND PLAN: The patient is a 49-year-old male with past medical history of hypertension, alcohol abuse, adenocarcinoma of the sigmoid colon status post resection as well as a right-sided dysplastic polyp also status post resection with ileostomy formation, now presenting with alcoholic necrotizing pancreatitis with fluid collections and possible pancreatic insufficiency secondary to his pancreatic necrosis. Acute necrotizing pancreatitis: The patient was initially admitted to the hospital in January 2020 due to increased abdominal pain after acute alcohol ingestion and diagnosed with necrotizing pancreatitis. Over the course of the admission, he did have evidence of infection of this necrosis and ultimately was placed on antibiotics. The patient was ultimately discharged to home with increased abdominal pain and ultimately readmitted. During the course of this admission, he had been doing well and tolerating more of a solid diet with pancreatic enzyme supplementation until today when he experienced increased generalized abdominal pain in addition to an elevation in his LFTs when compared to what was downtrending already. At this point, he has an elevated white blood cell count and increased LFTs, which is concerning for recurrence of his pancreatitis causing inflammation of the surrounding structures, which could potentially be to residual infection. However, he has not had any fevers at this time, but he has been receiving Zosyn since admission, which could be potentially masking or preventing infection. If this truly is a recurrence of infected pancreatic necrosis, the patient would be better served changing the medication to meropenem; however, he also has increased symptoms of abdominal discomfort and bloating and it is unclear if this is due to advancing his diet and bloating associated with increased solid food intake or if it is related to enlargement of the peripancreatic fluid collection that could potentially cause compression of the GI tract and therefore cause abdominal bloating with the ingestion of any food stuffs. Recommendations: 1. We would continue pancreatic enzyme supplementation. 2. Continue insulin regimen. 3. Pain control per primary team, but would attempt to minimize any narcotics. 4. We would discontinue the low-fat diet in favor of a full liquid diet given the possibility of pancreatic fluid collection causing compression of the GI tract. 5. If the patient has continued to have significant pain and/or fevers, I would recommend a repeat CT scan of the abdomen and transferring the patient from Zosyn to meropenem. Splenic vein thrombosis: The patient is presenting with imaging consistent with a splenic vein thrombosis, likely due to the severe acute pancreatitis. Anticoagulation is not indicated at this time. Recommendations: Hold any anticoagulation other than prophylactic doses for DVT. We will continue to follow. Please call with any questions. Job ID: [id number]
[2020-02-24] MEDS: Melatonin 3 MG TAB PO PRN (20:32)
[2020-02-25] MEDS: Piperacillin/Tazobactam 3.375 GM in Sodium Chloride 0.9% 100 ML IVPB SCH ×4 (02:11→20:39)
[2020-02-25] MEDS: Fentanyl 100 MCG/2 ML VIAL SLOW IVP PRN ×6 (02:18→22:18)
[2020-02-25] MEDS: HYDROcodone/Acetaminophen 5/325 mg Tablet PO PRN ×3 (03:17→20:38)
[2020-02-25 05:45] LABS: #Basophils 0.1 thou/uL (0.0-0.2); #Eosinphils 0.3 thou/uL (0.0-0.7); #Neutrophils 7.7 thou/uL (1.40-6.50); %Basophils 0.8 % (0.0-1.0); %Eosinophils 2.6 % (0.0-10.0); %Lymphocytes 9.9 % (21.0-51.0); %Monocytes 9.9 % (0.0-10.0); %Neutrophils 76.8 % (42.0-75.0); Hemoglobin 10.3 g/dL (14.0-18.0); Mean Corpuscular HGB CONC 31.1 g/dL (32.0-36.0); Mean Corpuscular Hemoglobin 32.1 pg (27.0-31.0); Mean Platelet Volume 7.2 fL (7.4-10.4); Platelet Count 388 thou/uL (130-400); RBC Distribution Width 13.2 % (11.5-14.5); Red Blood Cell (RBC) Count 3.22 mill/uL (4.70-6.10)
[2020-02-25 06:10] LABS: ALT (SGPT) 113 U/L (8-55); AST (SGOT) 134 U/L (5-34); Albumin 2.7 g/dL (3.5-5.0); Alkaline Phosphatase 460 U/L (40-110); Anion Gap 12 mmol/L (10-20); BUN (Urea Nitrogen) 4 mg/dL (8.9-20.6); Bilirubin, Total 4.6 mg/dL (0.2-1.2); Calc. Creatinine Clearance 128 mL/min (70-130); Carbon Dioxide 28 mmol/L (22-29); Chloride 96 mmol/L (98-107); Estimated GFR-MDRD Greater than 90; Globulin 3.5 g/dL (2.4-3.5); Glucose 199 mg/dL (70-105); Protein, Total 6.2 g/dL (6.0-8.3); Sodium 132 mmol/L (136-145)
[2020-02-25] MEDS: HumaLOG 300 UNITS/3 ML VIAL SC PRN ×3 (06:10→17:53)
[2020-02-25] MEDS: metFORMIN 500 MG TAB PO SCH ×2 (07:41→17:52)
[2020-02-25] MEDS: Lisinopril 20 MG TAB PO SCH (07:41)
[2020-02-25] MEDS: Pancrelipase DR 12000 1 CAP PO SCH ×3 (07:42→17:52)
[2020-02-25] MEDS: Enoxaparin Sodium 40 MG/0.4 ML SYRINGE SC SCH (07:44)
[2020-02-25] MEDS: Insulin Glargine 10 UNITS in Pre-Filled Syringe SC SCH (09:17)
[2020-02-25] MEDS ORDERED: Iopamidol-370 76% 500 ML 1 ML ONE (09:43)
--- NOTE | 2020-02-25 10:49 | PRG ---
DATE OF SERVICE: 02/25/2020 REASON FOR CONSULTATION: Necrotizing pancreatitis, generalized abdominal pain, possible pancreatic exocrine insufficiency. SUBJECTIVE: The patient continues to have generalized abdominal pain, but especially within the left lower quadrant that continued throughout the night and into this morning. He also states that he has significant abdominal discomfort and bloating with the ingestion of either solid or liquid food stuffs. Otherwise, he states that his ostomy output has remained relatively stable with no evidence of bleeding from the ostomy. Currently, he denies any nausea, vomiting, fevers, chills, or GI bleeding. OBJECTIVE: VITAL SIGNS: Temperature 98.3, pulse 95, blood pressure 148/95, respiratory rate 18, saturating 96% on room air. GENERAL: The patient was lying in bed, in no acute distress. Alert and oriented x4. CARDIOVASCULAR: Regular rate and rhythm. RESPIRATORY: Clear to auscultation bilaterally. ABDOMEN: Hypoactive bowel sounds. Soft. [id number] abdominal distention. Mild tenderness to palpation in the midepigastric region. Ileostomy noted in the right lower quadrant with green colored semi-solid stool. EXTREMITIES: No cyanosis, clubbing, or edema. LABORATORY DATA: CBC with a white blood cell count of 10, hemoglobin 10.3, hematocrit 33.2, platelets 388. Chemistry with a sodium of 132, potassium 4, chloride 96, CO2 of 28, BUN 4, creatinine 0.81, glucose 199, AST 134, ALT 113, alkaline phosphatase 460, total bilirubin 4.6. IMAGING DATA: No current GI imaging is available for review. ASSESSMENT AND PLAN: The patient is a 49-year-old male with past medical history of hypertension, alcohol abuse, adenocarcinoma of the sigmoid colon, status post resection as well as a right-sided dysplastic polyp, also status post resection with ileostomy formation, presenting with alcoholic necrotizing pancreatitis, significant fluid collections, and possible pancreatic exocrine insufficiency. 1. Acute necrotizing pancreatitis. The patient is presenting with a history of acute necrotizing pancreatitis and was noted to have significant fluid collections on this admission with the CT scan on admission showing an 18 x 20 cm peripancreatic fluid collection without a rind or encasement of the fluid indicative of walled-off necrosis. Initially, the patient responded well to more conservative management, but with the institution of a more solid, low-fat diet, he began having increasing abdominal bloating and abdominal pain. However over the last 24 to 48 hours in addition to the acute onset of his abdominal pain, he has been having slowly up trending LFTs with a bilirubin today of 4.6. At this point, it is unclear what may be causing his increased pain in these elevated LFTs, but differential could include compression of the biliary system due to these fluid collections, recurrence of acute pancreatitis/residual inflammation, stone or obstructive-type process within the biliary tree (less likely). Recommendations: a. Would proceed with CT of the abdomen and pelvis today for further evaluation of these fluid collections as well as the biliary tree to establish possible causative mechanism for increasing LFTs. b. Continue with pancreatic enzyme supplementation. c. Continue insulin regimen. d. Pain control per primary team, but would attempt to minimize any narcotics given possible ileus formation. e. Continue liquid diet. f. Based on CT scan findings, we will consider transferring the patient from Zosyn to meropenem for broaden coverage. 2. Splenic vein thrombosis. The patient is presenting with imaging consistent with a splenic vein thrombosis, likely due to his severe acute pancreatitis. Based on current literature, anticoagulation is not indicated at this time. Recommendations: a. We will continue to hold any anticoagulation other than prophylactic doses for DVT management. We will continue to follow. Please call with any questions. Job ID: [id number]
--- NOTE | 2020-02-25 11:21 | CT ---
CT ABDOMEN AND PELVIS WITH IV CONTRAST 02/25/2020 CLINICAL INFORMATION: Worsening abdominal pain. Recent necrotizing pancreatitis. COMPARISON: 02/18/2020 Technique: Multiple contiguous axial CT images are obtained through the abdomen and pelvis with IV contrast. Cor onal reformatted images are provided. FINDINGS: Lower Chest: Small left pleural effusion is present slightly larger in size compared to prior study w ith adjacent consolidation probably related to atelectasis; although, pneumonia cannot be entirely excluded. The right pleural effusion and volume loss has resolved. Vessels: Vascular calcifications are seen in the abdominal aorta and iliac arteries. Abdomen: Portal vein:Patent Gallbladder: Gallbladder is mildly distended. There is mild intrahepatic biliary ductal dilatation ce ntrally. Common duct at the level of the pancreatic head measures approximately 13 mm. This finding was also present on prior exam. Liver: within normal limits. Spleen: within normal limits. Pancreas: Again noted is the very large peripherally enhancing fluid collection in a peripancreatic a nd pancreatic location. This collection previously measured 14.9 cm craniocaudal x17 cm transverse x9.9 cm AP on today's examination. Measurements obtained at similar location on prior study were 15.7 cm craniocaudal x19.2 cm transverse x and 11 cm AP. Extensive pancreatic necrosis is present with only minimal pancreatic parenchyma remaining. Again, the splenic artery is patent without definite an eurysm seen involving the splenic artery. Splenic vein is not visualized and probably occluded. The nodular area of enhancement seen in the region of the gastroduodenal artery is again present but does appear smaller in size. Again, this may represent blush of contrast or possibly minimal amount of retained parenchyma within the region of the pancreatic head/uncinate process. Again this cannot be d efinitively determined to represent a pseudoaneurysm or residual pancreatic parenchyma. Adrenals: within normal limits. Kidneys: Again noted is severe left hydronephrosis and left renal cortical thinning and atrophy of th e left kidney. Stable circumscribed cystic collection is seen anterior to the left psoas muscle which results in mass effect on the proximal left ureter. This is a stable finding dating back to a p rior study in 2018. Bowel: The bowel wall thickening involving loops of small bowel has improved from prior exam. No dila felisha loops of small bowel are seen. Peritoneum: Small amount of free fluid and edema is seen within the mesentery of the abdomen and pelv is. Mesentery and Retroperitoneum: Mild edema is seen within the mesentery. No enlarged lymph nodes are a ppreciated. Abdominal Wall: Right lower quadrant ileostomy is present with stomal hernia with loops of bowel seen within the defect as well as small amount of fluid. A left anterolateral abdominal wall hernia is present containing loops of small bowel, but again there is no bowel obstruction appreciated. Pelvis: Reproductive Organs: No pelvic masses. Pelvis within normal limits. Bladder: within normal limits. Bones: No suspicious lytic or sclerotic osseous lesions are seen. IMPRESSION: 1. Pancreatic necrosis with necrosis of the majority of the body and tail of the pancreas. There has been interval enlargement of a peripherally enhancing pancreatic/peripancreatic fluid collection. Splenic vein is likely occluded and not visualized. 2. Blush of contrast seen in the region of the gastroduodenal artery. This was present on the prior e xamination but more prominent on the prior study. This does not appear to represent a defined pseudoaneurysm although this cannot be entirely excluded. Small amount of hemorrhage is a possibility , but again this is smaller in size. This may represent blush of enhancement secondary to very minimal amount of residual pancreatic tissue. 3. Mild intra and extrahepatic biliary duct dilatation likely related to compressive symptoms view to the large pancreatic/peripancreatic fluid collection. 4. Small left pleural effusion and associated consolidation probably attributable to atelectasis; alt raphael, associated pneumonia cannot be excluded. 5. Improvement and resolution of right pleural effusion. 6. Improvement in small bowel wall thickening. 7. Additional findings as described above.
[2020-02-25] MEDS: Sodium Chloride 0.9% 1,000 ML IV SCH (13:52)
--- NOTE | 2020-02-25 16:40 | PDOC.HOSPP ---
- Subjective Encounter Date: 02/25/20 Encounter Time: 11:00 Subjective: Pt seen for followup for necrotizing pancreatitis. c/o upper abdo pain. - Objective Vital Signs & Weight: Vital Signs (12 hours) Temp Pulse Resp BP BP BP Pulse Ox 02/25/20 16:28 98.7 F 70 18 133/87 96 02/25/20 10:59 99.0 F 93 18 151/90 H 96 02/25/20 08:00 98.3 F 95 18 148/95 H 96 02/25/20 07:41 152/94 H Weight Admit Weight 182 lb Weight 182 lb 9.6 oz I&O: 02/24/20 02/25/20 02/26/20 06:59 06:59 06:59 Intake Total 1550 3370 1740 Output Total 3000 950 Balance 1550 370 790 Result Diagrams: 02/25/20 05:16 02/25/20 05:16 Additional Labs: Accuchecks 02/25/20 02/25/20 02/24/20 11:15 05:54 20:35 POC Glucose 224 H 206 H 228 H 02/24/20 16:36 POC Glucose 152 H Labs and MARs reviewed by nm Hospitalist ROS - Review of Systems Cardiovascular: denies: chest pain, palpitations, orthopnea, paroxysmal noc. dyspnea, edema, light headedness Gastrointestinal: reports: abdominal pain. denies: nausea, vomiting, diarrhea, constipation, melena, hematochezia - Medication Medications: Active Medications Generic Name Dose Route Start Last Admin Trade Name Freq PRN Reason Stop Dose Admin Acetaminophen 650 mg 02/19/20 00:35 02/20/20 08:31 Tylenol PO 650 mg Q4H PRN Administration Headache/Fever/Mild Pain (1-3) Hydrocodone Bitart/Acetaminophen 1 tab 02/20/20 08:55 02/25/20 13:54 Ensign 5/325 PO 1 tab Q4H PRN Administration Moderate Pain (4-6) Lipase/Protease/Amylase 3 cap 02/23/20 17:00 02/25/20 12:[address] [place] [address] PO 3 cap TID-WM ARMANDO Administration Enoxaparin Sodium 40 mg 02/19/20 09:00 02/25/20 07:44 Lovenox SC 40 mg 0900 ARMANDO Administration Fentanyl 25 mcg 02/19/20 15:02 02/25/20 12:22 Sublimaze SLOW IVP 25 mcg Q2H PRN Administration Mild Pain (1-3) Glipizide 2.5 mg 02/23/20 07:30 02/25/20 07:41 Glucotrol Xl PO 2.5 mg DAILY-AC ARMANDO Administration Sodium Chloride 1,000 mls @ 75 mls/hr 02/19/20 00:45 02/25/20 13:52 Normal Saline 0.9% IV 1,000 mls .[id number] ARMANDO Administration Piperacillin Sod/Tazobactam 100 mls @ 200 mls/hr 02/19/20 02:00 02/25/20 13: 51 Sod 3.375 gm/ Sodium Chloride IVPB 100 mls 0200,0800,1400,2000 ARMANDO Administration Insulin Glargine 10 units/ 0.1 mls @ 0 mls/hr 02/23/20 09:00 02/25/20 09:17 Miscellaneous Medication SC 0.1 mls QAM ARMANDO Administration Insulin Human Lispro 0 units 02/23/20 18:56 02/25/20 12:18 Humalog SC 4 unit .MODERATE SLIDING SC PRN Administration Moderate Correctional Scale Lisinopril 20 mg 02/23/20 09:00 02/25/20 07:41 Zestril PO 20 mg DAILY ARMANDO Administration Melatonin 3 mg 02/22/20 18:10 02/24/20 20:32 Melatonin PO 3 mg HS PRN Administration Insomnia Metformin HCl 500 mg 02/23/20 08:00 02/25/20 07:41 Glucophage PO 500 mg BID-WM ARMANDO Administration Simethicone 80 mg 02/22/20 06:12 02/22/20 08:16 Mylicon Chewable PO 80 mg Q6H PRN Administration Gas Pain Simethicone 160 mg 02/22/20 06:13 02/24/20 08:15 Mylicon Chewable PO 160 mg Q6H PRN Administration Gas Pain Sodium Chloride 10 ml 02/22/20 09:00 02/25/20 07:45 Flush - Normal Saline IVF 10 ml Q12HR ARMANDO Administration Sodium Chloride 10 ml 02/22/20 06:12 02/25/20 12:26 Flush - Normal Saline IVF 10 ml PRN PRN Administration Saline Flush - Exam General Appearance: awake alert Eye: anicteric sclera ENT: no oropharyngeal lesions Neck: supple Heart: RRR Respiratory: CTAB Gastrointestinal: soft, normal bowel sounds, tender to palpation Skin: no rashes Psychiatric: normal affect, normal behavior Hosp A/P (1) Necrotizing pancreatitis Code(s): K85.91 - ACUTE PANCREATITIS WITH UNINFECTED NECROSIS, UNSPECIFIED Status: Acute (2) Splenic vein thrombosis Code(s): I82.890 - ACUTE EMBOLISM AND THROMBOSIS OF OTHER SPECIFIED VEINS Status: Acute (3) HTN (hypertension) Code(s): I10 - ESSENTIAL (PRIMARY) HYPERTENSION Status: Chronic Qualifiers: (4) H/O malignant neoplasm of colon Code(s): Z85.038 - PERSONAL HISTORY OF MALIGNANT NEOPLASM OF LARGE INTESTINE Status: Chronic - Plan Clinically improving. CT result noted Continue IV Zosyn. Continue pain medications. Continue insulin sliding scale.
[2020-02-25] MEDS: Simethicone Chewable 80 MG TAB PO PRN (22:18)
[2020-02-26] MEDS: Fentanyl 100 MCG/2 ML VIAL SLOW IVP PRN (02:27)
[2020-02-26] MEDS: Piperacillin/Tazobactam 3.375 GM in Sodium Chloride 0.9% 100 ML IVPB SCH ×4 (02:28→21:57)
[2020-02-26] MEDS: Melatonin 3 MG TAB PO PRN ×2 (02:32→23:09)
[2020-02-26 05:33] LABS: #Basophils 0.1 thou/uL (0.0-0.2); #Eosinphils 0.2 thou/uL (0.0-0.7); #Lymphocytes 0.8 thou/uL (1.20-3.40); #Monocytes 0.8 thou/uL (0.11-0.59); #Neutrophils 8.5 thou/uL (1.40-6.50); %Basophils 0.8 % (0.0-1.0); %Eosinophils 1.9 % (0.0-10.0); %Lymphocytes 8.1 % (21.0-51.0); %Monocytes 7.9 % (0.0-10.0); %Neutrophils 81.4 % (42.0-75.0); Hemoglobin 10.4 g/dL (14.0-18.0); Mean Corpuscular HGB CONC 31.4 g/dL (32.0-36.0); Mean Corpuscular Hemoglobin 31.6 pg (27.0-31.0); Mean Platelet Volume 7.2 fL (7.4-10.4); Platelet Count 395 thou/uL (130-400); RBC Distribution Width 13.3 % (11.5-14.5); Red Blood Cell (RBC) Count 3.28 mill/uL (4.70-6.10); White Blood Cell (WBC) Count 10.4 thou/uL (4.8-10.8)
[2020-02-26 05:57] LABS: ALT (SGPT) 132 U/L (8-55); AST (SGOT) 133 U/L (5-34); Albumin 2.8 g/dL (3.5-5.0); Alkaline Phosphatase 510 U/L (40-110); Anion Gap 12 mmol/L (10-20); BUN (Urea Nitrogen) 5 mg/dL (8.9-20.6); Bilirubin, Total 5.7 mg/dL (0.2-1.2); Calc. Creatinine Clearance 120 mL/min (70-130); Calcium 9.3 mg/dL (7.8-10.44); Carbon Dioxide 30 mmol/L (22-29); Chloride 94 mmol/L (98-107); Estimated GFR-MDRD Greater than 90; Globulin 3.7 g/dL (2.4-3.5); Glucose 195 mg/dL (70-105); Potassium 4.4 mmol/L (3.5-5.1); Protein, Total 6.5 g/dL (6.0-8.3); Sodium 132 mmol/L (136-145)
[2020-02-26] MEDS: HumaLOG 300 UNITS/3 ML VIAL SC PRN (06:27)
[2020-02-26] MEDS: HYDROcodone/Acetaminophen 5/325 mg Tablet PO PRN ×5 (06:27→23:09)
[2020-02-26] MEDS: Lisinopril 20 MG TAB PO SCH (08:08)
[2020-02-26] MEDS: Insulin Glargine 10 UNITS in Pre-Filled Syringe SC SCH (08:08)
[2020-02-26] MEDS: metFORMIN 500 MG TAB PO SCH ×2 (08:08→17:27)
[2020-02-26] MEDS: Pancrelipase DR 12000 1 CAP PO SCH ×3 (08:08→17:27)
[2020-02-26] MEDS: Sodium Chloride 0.9% 1,000 ML IV SCH ×2 (08:15→20:13)
[2020-02-26] MEDS: Enoxaparin Sodium 40 MG/0.4 ML SYRINGE SC SCH (10:25)
[2020-02-26] MEDS ORDERED: Ketorolac Tromethamine 30 MG/ML VIAL IVP SCH (11:00)
[2020-02-26] MEDS: Lidocaine 5% Patch TD SCH (11:17)
[2020-02-26] MEDS: Ketorolac Tromethamine 30 MG/ML VIAL IVP PRN ×2 (11:17→17:26)
--- NOTE | 2020-02-26 15:09 | PDOC.HOSPP ---
- Subjective Encounter Date: 02/26/20 Encounter Time: 08:20 Subjective: Pt seen for followup re: necrotizing pancreatitis. c/o abdo pain. had bowel movement today AM. - Objective Vital Signs & Weight: Vital Signs (12 hours) Temp Pulse Resp BP BP BP Pulse Ox 02/26/20 08:08 152/94 H 02/26/20 07:13 98.9 F 97 16 153/97 H 97 02/26/20 05:37 98.7 F 93 20 153/94 H 96 Weight Admit Weight 182 lb Weight 182 lb 9.6 oz I&O: 02/25/20 02/26/20 02/27/20 06:59 06:59 06:59 Intake Total 3370 3550 Output Total 3000 2700 Balance 370 850 Result Diagrams: 02/26/20 05:13 02/26/20 05:13 Additional Labs: Accuchecks 02/26/20 02/26/20 02/25/20 12:50 05:48 16:39 POC Glucose 176 H 204 H 185 H Labs and MARs reviewed by md Hospitalist ROS - Review of Systems Constitutional: denies: fever, chills, sweats, weakness, malaise Gastrointestinal: reports: abdominal pain. denies: nausea, vomiting, diarrhea, constipation, melena, hematochezia - Medication Medications: Active Medications Generic Name Dose Route Start Last Admin Trade Name Freq PRN Reason Stop Dose Admin Acetaminophen 650 mg 02/19/20 00:35 02/20/20 08:31 Tylenol PO 650 mg Q4H PRN Administration Headache/Fever/Mild Pain (1-3) Hydrocodone Bitart/Acetaminophen 1 tab 02/20/20 08:55 02/26/20 14:51 [place] 5/325 PO 1 tab Q4H PRN Administration Moderate Pain (4-6) Lipase/Protease/Amylase 3 cap 02/23/20 17:00 02/26/20 11:[address] [place] [address] PO 3 cap TID-WM ARMANDO Administration Enoxaparin Sodium 40 mg 02/19/20 09:00 02/26/20 10:25 Lovenox SC Not Given 0900 ARMANDO Fentanyl 25 mcg 02/19/20 15:02 02/26/20 02:27 Sublimaze SLOW IVP 25 mcg Q2H PRN Administration Mild Pain (1-3) Glipizide 2.5 mg 02/23/20 07:30 02/26/20 08:07 Glucotrol Xl PO 2.5 mg DAILY-AC ARMANDO Administration Sodium Chloride 1,000 mls @ 75 mls/hr 02/19/20 00:45 02/26/20 08:15 Normal Saline 0.9% IV 1,000 mls .[id number] ARMANDO Administration Piperacillin Sod/Tazobactam 100 mls @ 200 mls/hr 02/19/20 02:00 02/26/20 14: 56 Sod 3.375 gm/ Sodium Chloride IVPB 100 mls 0200,0800,1400,2000 ARMANDO Administration Insulin Glargine 10 units/ 0.1 mls @ 0 mls/hr 02/23/20 09:00 02/26/20 08:08 Miscellaneous Medication SC 0.1 mls QAM ARMANDO Administration Insulin Human Lispro 0 units 02/23/20 18:56 02/26/20 06:27 Humalog SC 4 unit .MODERATE SLIDING SC PRN Administration Moderate Correctional Scale Ketorolac Tromethamine 15 mg 02/26/20 10:57 02/26/20 11:17 Toradol IVP 03/02/20 10:58 15 mg Q6H PRN Administration Pain Lidocaine 1 patch 02/26/20 11:00 02/26/20 11:17 Lidoderm 5% Patch TD 1 patch 1100 ARMANDO Administration Lisinopril 20 mg 02/23/20 09:00 02/26/20 08:08 Zestril PO 20 mg DAILY ARMANDO Administration Melatonin 3 mg 02/22/20 18:10 02/26/20 02:32 Melatonin PO 3 mg HS PRN Administration Insomnia Metformin HCl 500 mg 02/23/20 08:00 02/26/20 08:08 Glucophage PO 500 mg BID-WM ARMANDO Administration Simethicone 80 mg 02/22/20 06:12 02/25/20 22:18 Mylicon Chewable PO 80 mg Q6H PRN Administration Gas Pain Simethicone 160 mg 02/22/20 06:13 02/24/20 08:15 Mylicon Chewable PO 160 mg Q6H PRN Administration Gas Pain Sodium Chloride 10 ml 02/22/20 09:00 02/26/20 08:15 Flush - Normal Saline IVF 10 ml Q12HR ARMANDO Administration Sodium Chloride 10 ml 05/29/20 06:12 02/25/20 12:26 Flush - Normal Saline IVF 10 ml PRN PRN Administration Saline Flush - Exam General Appearance: awake alert ENT: normocephalic atraumatic Neck: supple Heart: RRR Respiratory: CTAB Gastrointestinal: soft, normal bowel sounds, tender to palpation Skin: no rashes Psychiatric: normal affect, normal behavior Hosp A/P (1) Necrotizing pancreatitis Code(s): K85.91 - ACUTE PANCREATITIS WITH UNINFECTED NECROSIS, UNSPECIFIED Status: Acute (2) Splenic vein thrombosis Code(s): I82.890 - ACUTE EMBOLISM AND THROMBOSIS OF OTHER SPECIFIED VEINS Status: Acute (3) H/O malignant neoplasm of colon Code(s): Z85.038 - PERSONAL HISTORY OF MALIGNANT NEOPLASM OF LARGE INTESTINE Status: Chronic (4) HTN (hypertension) Code(s): I10 - ESSENTIAL (PRIMARY) HYPERTENSION Status: Chronic Qualifiers: - Plan continue antibiotics, out of bed/ambulate Clinically improving. Add toradol for pain control Continue IV Zosyn. Continue insulin sliding scale.
--- NOTE | 2020-02-26 17:04 | PRG ---
DATE OF SERVICE: 02/26/2020 SUBJECTIVE: Mr. Goel is having some better control of his back pain with current pain medications. He has no nausea or vomiting. He is tolerating a full liquid diet well. OBJECTIVE: VITAL SIGNS: Temperature 98.9, pulse 97, blood pressure 152/94. GENERAL: He is in no acute distress, alert and oriented x3. LUNGS: Clear to auscultation bilaterally. HEART: Regular rate and rhythm without murmur. ABDOMEN: Soft, minimal tenderness in the upper abdomen without guarding. Bowel sounds are present. EXTREMITIES: No lower extremity edema. LABORATORY DATA: White blood cell count 10.4, hemoglobin 10.4, platelets 395. Creatinine 0.86, bilirubin 5.7, AST 133, ALT 132, alkaline phosphatase 510, albumin 2.8. IMPRESSION: 1. Necrotizing pancreatitis. Repeat CT scan yesterday shows slight decrease in the size of fluid collection possibly. There is some dilation of the common bile duct, and this could be due to external compression from the fluid collection. 2. Elevated liver tests. He is having increasing liver tests with cholestasis. I think we will need to make sure there is no evidence of biliary stone, however, and more likely this is external compression of his bile duct from the fluid collection. It is also possible he has an intrinsic liver issue with either alcoholic hepatitis or ischemic hepatitis rather than an obstructing process. I will recommend an MRCP, and if his liver tests continue to increase with evidence of focal biliary impingement, then stent could be considered to help that drain. 3. History of colon cancer, status post colon resection. RECOMMENDATIONS: 1. MRCP tomorrow morning. 2. Follow the trend of his liver tests. 3. He remains on a full liquid diet and is receiving pancreatic enzyme supplementation. We do have room to increase the dose of the pancreatic enzymes if needed. Dr. Castorena should be rounding tomorrow for our group. Job ID: [id number]
[2020-02-26] MEDS ORDERED: Lidocaine Patch Removal 1 EACH TOP SCH (23:00)
[2020-02-27] MEDS: Sodium Chloride 0.9% 1,000 ML IV SCH ×2 (00:28→17:22)
[2020-02-27] MEDS: Ketorolac Tromethamine 30 MG/ML VIAL IVP PRN ×2 (02:57→10:28)
[2020-02-27] MEDS: Piperacillin/Tazobactam 3.375 GM in Sodium Chloride 0.9% 100 ML IVPB SCH ×4 (02:59→19:45)
[2020-02-27] MEDS: HYDROcodone/Acetaminophen 5/325 mg Tablet PO PRN ×3 (04:07→12:50)
[2020-02-27 05:30] LABS: #Eosinphils 0.2 thou/uL (0.0-0.7); #Lymphocytes 0.8 thou/uL (1.20-3.40); #Monocytes 0.7 thou/uL (0.11-0.59); #Neutrophils 7.1 thou/uL (1.40-6.50); %Basophils 0.5 % (0.0-1.0); %Eosinophils 2.4 % (0.0-10.0); %Lymphocytes 9.3 % (21.0-51.0); %Monocytes 8.1 % (0.0-10.0); %Neutrophils 79.8 % (42.0-75.0); Hemoglobin 10.2 g/dL (14.0-18.0); Mean Corpuscular HGB CONC 31.7 g/dL (32.0-36.0); Mean Corpuscular Hemoglobin 32.1 pg (27.0-31.0); Mean Platelet Volume 7.2 fL (7.4-10.4); Platelet Count 358 thou/uL (130-400); RBC Distribution Width 13.5 % (11.5-14.5); Red Blood Cell (RBC) Count 3.17 mill/uL (4.70-6.10); White Blood Cell (WBC) Count 8.9 thou/uL (4.8-10.8)
[2020-02-27 05:52] LABS: ALT (SGPT) 130 U/L (8-55); AST (SGOT) 131 U/L (5-34); Albumin 2.7 g/dL (3.5-5.0); Alkaline Phosphatase 536 U/L (40-110); Anion Gap 12 mmol/L (10-20); BUN (Urea Nitrogen) 6 mg/dL (8.9-20.6); Bilirubin, Total 4.6 mg/dL (0.2-1.2); Calc. Creatinine Clearance 122 mL/min (70-130); Calcium 9.3 mg/dL (7.8-10.44); Carbon Dioxide 28 mmol/L (22-29); Chloride 96 mmol/L (98-107); Estimated GFR-MDRD Greater than 90; Globulin 3.6 g/dL (2.4-3.5); Glucose 156 mg/dL (70-105); Potassium 3.9 mmol/L (3.5-5.1); Protein, Total 6.3 g/dL (6.0-8.3); Sodium 132 mmol/L (136-145)
[2020-02-27] MEDS: metFORMIN 500 MG TAB PO SCH ×2 (08:55→17:21)
[2020-02-27] MEDS: Pancrelipase DR 12000 1 CAP PO SCH ×3 (08:56→17:21)
[2020-02-27] MEDS: Lisinopril 20 MG TAB PO SCH (08:57)
[2020-02-27] MEDS: Insulin Glargine 10 UNITS in Pre-Filled Syringe SC SCH (08:57)
[2020-02-27] MEDS: Enoxaparin Sodium 40 MG/0.4 ML SYRINGE SC SCH (09:00)
--- NOTE | 2020-02-27 09:31 | MRI ---
MRI OF THE ABDOMEN WITHOUT CONTRAST: INDICATION: History of cholestasis. COMPARISON: CT of the abdomen and pelvis dated 02/25/2020. FINDINGS: As seen on the comparison CT is a large region of pancreatic necrosis with extensive peripancreatic f luid collections. The collections are largely stable when accounting for differences in modality zurdo suring 20.3 x 8.6 x 16 cm in its greatest dimension. The prominence of the collection does cause ext rinsic mass effect on the distal common bile duct just proximal to the ampulla inducing prominent int rahepatic and extrahepatic biliary ductal dilatation. There is layered sludge in the gallbladder. T he marked, likely chronic, left-sided UPD obstruction is stable with thinning of the left renal agnieszka x. Visualized right kidney appears within normal limits. Adrenal glands appear within normal limits . There is stable splenomegaly of 15.1 cm. There is mild scattered free fluid within the upper abdo men. There is left basilar atelectasis. No bone marrow signal abnormality is evident. IMPRESSION: 1. Extensive pancreatic necrosis with large peripancreatic fluid collection inducing extrinsic compr ession on the distal common bile duct with prominent intrahepatic and extrahepatic biliary dilatation . There is some layered gallbladder sludge within the gallbladder itself. 2. Chronic left-sided ureteropelvic junction obstruction with cortical renal pinning of the left kid jessica. 3. Stable mild splenomegaly. 4. Mild ascites. POS: BH
[2020-02-27] MEDS: Lidocaine 5% Patch TD SCH (10:28)
[2020-02-27] MEDS ORDERED: Fentanyl 20 mcg/ml (100 ml CADD) IV PRN (13:21)
--- NOTE | 2020-02-27 14:50 | PDOC.HOSPP ---
- Subjective Encounter Date: 02/27/20 Encounter Time: 09:00 Subjective: Pt seen for followup re: acute pancreatitis. Has ongoing abdo pain. - Objective Vital Signs & Weight: Vital Signs (12 hours) Temp Pulse Resp BP BP Pulse Ox 02/27/20 09:00 97 02/27/20 08:57 160/97 H 02/27/20 07:27 97.8 F 90 16 160/97 H 97 Weight Admit Weight 182 lb Weight 182 lb 9.6 oz I&O: 02/26/20 02/27/20 02/28/20 06:59 06:59 06:59 Intake Total 3550 Output Total 2700 Balance 850 Result Diagrams: 02/27/20 05:06 02/27/20 05:06 Additional Labs: Accuchecks 02/27/20 02/27/20 02/26/20 12:06 04:25 20:00 POC Glucose 125 H 149 H 152 H 02/26/20 15:54 POC Glucose 152 H Labs and MARs reviewed by va Hospitalist ROS - Review of Systems Cardiovascular: denies: chest pain, palpitations, orthopnea, paroxysmal noc. dyspnea, edema, light headedness Gastrointestinal: reports: abdominal pain Genitourinary: denies: dysuria, frequency, incontinence, hematuria, retention - Medication Medications: Active Medications Generic Name Dose Route Start Last Admin Trade Name Freq PRN Reason Stop Dose Admin Acetaminophen 650 mg 02/19/20 00:35 02/20/20 08:31 Tylenol PO 650 mg Q4H PRN Administration Headache/Fever/Mild Pain (1-3) Lipase/Protease/Amylase 3 cap 02/23/20 17:00 02/27/20 12:22 [place] [id number] PO 3 cap TID-WM ARMANDO Administration Enoxaparin Sodium 40 mg 02/19/20 09:00 02/27/20 09:00 Lovenox SC 40 mg 0900 ARMANDO Administration Glipizide 2.5 mg 02/23/20 07:30 02/27/20 08:55 Glucotrol Xl PO 2.5 mg DAILY-AC ARMANDO Administration Sodium Chloride 1,000 mls @ 75 mls/hr 02/19/20 00:45 02/27/20 00:28 Normal Saline 0.9% IV 1,000 mls .[id number] ARMANDO Administration Piperacillin Sod/Tazobactam 100 mls @ 200 mls/hr 02/19/20 02:00 02/27/20 13: 57 Sod 3.375 gm/ Sodium Chloride IVPB 100 mls 0200,0800,1400,2000 ARMANDO Administration Insulin Glargine 10 units/ 0.1 mls @ 0 mls/hr 02/23/20 09:00 02/27/20 08:57 Miscellaneous Medication SC 0.1 mls QAM ARMANDO Administration Fentanyl Citrate 2,000 mcg/ 100 mls @ 0 mls/hr 02/27/20 13:21 02/27/20 13:54 Sodium Chloride IV 100 mls INF PRN Administration Pain As Directed Insulin Human Lispro 0 units 02/23/20 18:56 02/26/20 06:27 Humalog SC 4 unit .MODERATE SLIDING SC PRN Administration Moderate Correctional Scale Lisinopril 20 mg 02/23/20 09:00 02/27/20 08:57 Zestril PO 20 mg DAILY ARMANDO Administration Melatonin 3 mg 02/22/20 18:10 02/26/20 23:09 Melatonin PO 3 mg HS PRN Administration Insomnia Metformin HCl 500 mg 02/23/20 08:00 02/27/20 08:55 Glucophage PO 500 mg BID-WM ARMANDO Administration Simethicone 160 mg 02/22/20 06:13 02/24/20 08:15 Mylicon Chewable PO 160 mg Q6H PRN Administration Gas Pain Sodium Chloride 10 ml 02/22/20 09:00 02/27/20 08:57 Flush - Normal Saline IVF 10 ml Q12HR ARMANDO Administration Sodium Chloride 10 ml 02/22/20 06:12 02/25/20 12:26 Flush - Normal Saline IVF 10 ml PRN PRN Administration Saline Flush - Exam General Appearance: awake alert Eye: anicteric sclera ENT: moist mucosa Neck: supple Heart: RRR, no gallops Respiratory: CTAB Gastrointestinal: soft, no guarding, no rigidity, tender to palpation Psychiatric: normal affect, normal behavior Hosp A/P (1) Necrotizing pancreatitis Code(s): K85.91 - ACUTE PANCREATITIS WITH UNINFECTED NECROSIS, UNSPECIFIED Status: Acute (2) Splenic vein thrombosis Code(s): I82.890 - ACUTE EMBOLISM AND THROMBOSIS OF OTHER SPECIFIED VEINS Status: Acute (3) H/O malignant neoplasm of colon Code(s): Z85.038 - PERSONAL HISTORY OF MALIGNANT NEOPLASM OF LARGE INTESTINE Status: Chronic (4) HTN (hypertension) Code(s): I10 - ESSENTIAL (PRIMARY) HYPERTENSION Status: Chronic Qualifiers: - Plan Clinically improving. MRCPO today Continue IV Zosyn. Continue insulin sliding scale. Consult pain service
--- NOTE | 2020-02-27 14:51 | PRG ---
DATE OF SERVICE: 02/27/2020 SUBJECTIVE: Mr. Goel is feeling about the same. He has a lot of bloating and belching. He is passing some flatulence, tolerating liquid diet, abdominal bloating and distention, remains uncomfortable. OBJECTIVE: VITAL SIGNS: Temperature 97.8, pulse 90, blood pressure 160/97, 97% oxygen saturation on room air. GENERAL: No acute distress. HEART: Regular rate and rhythm. LUNGS: Clear to auscultation bilaterally. ABDOMEN: Bowel sounds are present, distended, tympanitic to percussion, diffuse tenderness to palpation. Ostomy bag in the right lower quadrant with some prolapse. Normal-appearing stool in the bag. EXTREMITIES: No peripheral edema. LABORATORY STUDIES: WBC 8.9, hemoglobin 10.2, platelets are 358. Sodium 132, potassium 3.9, BUN 6, creatinine 0.85. Total bilirubin is 4.6, alkaline phosphatase up to 536, AST 131, ALT up to 130, albumin 2.7, glucose 125. IMAGING STUDIES: MRCP was performed earlier today. This demonstrates extensive pancreatic necrosis with large peripancreatic fluid collection inducing extrinsic compression on the distal common bile duct with prominent intra and extrahepatic biliary dilation and layered gallbladder sludge within the gallbladder. The fluid collections are largely stable, measuring 20.3 x 8.6 x 16 cm in greatest dimension. ASSESSMENT AND PLAN: 1. Necrotizing pancreatitis, with large associated fluid collections. 2. Biliary obstruction, secondary to extrinsic compression on the distal common bile duct by pancreatic fluid collection. 3. Elevated LFTs, likely represents obstructive type jaundice given the significant increase over the past week. He may also have some underlying alcoholic liver disease. I had a long discussion with the patient about the MRI findings. His peripancreatic fluid collections are quite large and actually causing extrinsic compression of the distal common bile duct, contributing to his jaundice. ERCP is therefore indicated, to attempt stent placement within the common bile duct and relieve the relative biliary obstruction. Would expect LFTs and jaundice to improve afterward, though it is unclear how much relief this will give him symptomatically. The peripancreatic fluid collection itself will eventually require evaluation at a tertiary center for consideration of cyst gastrostomy, but that would be in the future when the collection has had more time to mature. We will schedule the patient for ERCP with Dr. Meneses tomorrow. Job ID: [id number]
[2020-02-27] MEDS ORDERED: Lidocaine 5% Patch TD SCH (15:00)
[2020-02-27] MEDS: Simethicone Chewable 80 MG TAB PO PRN (21:25)
[2020-02-27] MEDS ORDERED: Lidocaine 2% Viscous Solution 10 ML, Aluminum & Magnesium Hydroxide 30 ML SSW SCH (21:45)
[2020-02-27] MEDS ORDERED: Famotidine/PF 20 mg/2ml Vial SLOW IVP SCH (22:00)
[2020-02-28] MEDS: Piperacillin/Tazobactam 3.375 GM in Sodium Chloride 0.9% 100 ML IVPB SCH ×4 (01:44→20:36)
[2020-02-28] MEDS ORDERED: Lidocaine Patch Removal 1 EACH TOP SCH (03:00)
[2020-02-28] MEDS: Sodium Chloride 0.9% 1,000 ML IV SCH ×2 (07:00→16:40)
[2020-02-28] MEDS ORDERED: Piperacillin/Tazobactam 3.375 GM VIAL ONE (07:25)
[2020-02-28] MEDS ORDERED: Sodium Chloride 0.9% 100 ML ONE (07:26)
[2020-02-28] MEDS ORDERED: Fentanyl 100 MCG/2 ML VIAL ONE ×2 (07:49→07:54)
[2020-02-28] MEDS ORDERED: Indomethacin 50 MG SUPP ONE (08:54)
[2020-02-28] MEDS ORDERED: Iopamidol 50 ML FS ONE (08:54)
[2020-02-28] MEDS ORDERED: Famotidine/PF 20 mg/2ml Vial SLOW IVP SCH (09:00)
[2020-02-28] MEDS: Pancrelipase DR 12000 1 CAP PO SCH ×3 (09:05→17:43)
[2020-02-28] MEDS: Enoxaparin Sodium 40 MG/0.4 ML SYRINGE SC SCH (09:05)
[2020-02-28] MEDS: Insulin Glargine 10 UNITS in Pre-Filled Syringe SC SCH (09:05)
[2020-02-28] MEDS: metFORMIN 500 MG TAB PO SCH ×2 (09:05→17:43)
[2020-02-28] MEDS ORDERED: Meperidine HCl/PF 25 MG/ML VIAL SLOW IVP PRN (10:13)
[2020-02-28] MEDS ORDERED: Ondansetron HCl/PF 4 MG/2 ML Vial IVP PRN (10:13)
[2020-02-28] MEDS ORDERED: Promethazine HCl 25 MG/ML VIAL SLOW IVP PRN (10:13)
[2020-02-28] MEDS ORDERED: HYDROmorphone 2 MG/ML VIAL SLOW IVP PRN (10:13)
--- NOTE | 2020-02-28 11:55 | RAD ---
ERCP: Date: 02/28/2020 HISTORY: Pancreatitis. FINDINGS: Two images are provided. Images demonstrate a scope overlying the right upper quadrant. There is no c ontrast media present within the biliary tree on this exam. IMPRESSION: Biliary tree is not assessed on this examination as no contrast media is present on the two provided images. POS: BEL
[2020-02-28] MEDS: Lisinopril 20 MG TAB PO SCH (11:56)
[2020-02-28] MEDS: Lidocaine 5% Patch TD SCH (11:56)
[2020-02-28] MEDS ORDERED: Lidocaine 1% PF 5 ML VIAL ONE (12:39)
[2020-02-28] MEDS ORDERED: PROPOFOL 200 MG/20 ML VIAL ONE (12:39)
[2020-02-28] MEDS ORDERED: Rocuronium Bromide 10 MG/ML (10ML VIAL) ONE (12:39)
[2020-02-28] MEDS ORDERED: Dexamethasone 20 MG/5 ML VIAL ONE (12:39)
[2020-02-28] MEDS ORDERED: Glycopyrrolate 0.2 MG/ML 5 ML SYRINGE ONE (12:39)
[2020-02-28] MEDS ORDERED: Ondansetron PF 4 MG/2 ML Vial ONE (12:39)
[2020-02-28] MEDS ORDERED: PHENYLEPHRINE-NS 100 MCG/ML 10 ML SYRINGE ONE (12:39)
[2020-02-28] MEDS: Simethicone Chewable 80 MG TAB PO PRN ×2 (13:22→18:08)
--- NOTE | 2020-02-28 13:58 | OP ---
DATE OF PROCEDURE: 02/28/2020 PREPROCEDURE DIAGNOSES: 1. Mildly elevated LFTs. 2. Pancreatic necrosis with necrosis of majority of the body and tail of the pancreas with evolving pseudocyst cyst. 3. Splenic vein likely occlusion, mild intra and extrahepatic ductal dilatation, likely related to compression of the pancreatic fluid collection on the common bile duct. PROCEDURE PERFORMED: Attempted stenting of the bile duct for possible impending biliary occlusion from the extrinsic compression. POSTPROCEDURE DIAGNOSES: 1. Bile noted to be draining from the ampulla. 2. Inability to cannulate the common bile duct secondary to distorted anatomy from the extrinsic compression of the duodenum. ANESTHESIA: General endotracheal anesthesia. RECOMMENDATIONS: 1. We will consult with [facility] regarding feasibility of transfer, possible consideration of cystogastrostomy. 2. We will add some ursodiol to help prevent biliary stasis. DESCRIPTION OF PROCEDURE: The patient was informed of the risk, benefits, and possible complications of endoscopy including perforation, reaction to medication, aspiration, infection, and pancreatitis. Informed consent was obtained. The patient was brought to endoscopy suite, was intubated and sedated, placed in a prone position. The side-viewing duodenoscope was able to be easily advanced to the stomach, duodenum, second portion. There was very small amount of residual fluid in the stomach. There was no evidence of obstruction of the duodenum. However, in the second portion of duodenum, there was extreme compression of the duodenal wall and deformity of normal anatomy secondary to edema and compression. Bile was noted to be emanating from the ampulla. Multiple attempts to cannulate the common bile duct were unsuccessful as we could not get into inferior position to the ampulla secondary to the amount of edema and extrinsic compression in this area. After multiple attempts with just passing a guidewire cannulation which was unsuccessful, decision was made to discontinue this to decrease the patient's risk of infection or complication. The scope was removed. The patient tolerated the procedure well. There were no complications. Job ID: [id number]
[2020-02-28] MEDS: Ursodiol 300 MG CAP PO SCH (17:53)
--- NOTE | 2020-02-28 19:25 | PDOC.HOSPP ---
- Subjective Encounter Date: 02/28/20 Encounter Time: 12:00 Subjective: Pt seen for followup re: necrotizing pancreatitis. Abdo pain still + - Objective Vital Signs & Weight: Vital Signs (12 hours) Temp Pulse Resp BP BP BP BP 02/28/20 19:19 97.8 F 89 16 146/96 H 02/28/20 15:20 98.4 F 89 16 159/98 H 02/28/20 12:01 92 18 153/92 H 02/28/20 11:56 153/92 H 02/28/20 11:10 98.3 F 91 18 165/82 H Pulse Ox 02/28/20 19:19 95 02/28/20 15:20 98 02/28/20 12:01 96 02/28/20 11:56 02/28/20 11:10 95 Weight Admit Weight 182 lb Weight 182 lb 9.6 oz I&O: 02/27/20 02/28/20 02/29/20 06:59 06:59 06:59 Intake Total 1700 1300 Output Total 340 Balance 1360 1300 Result Diagrams: 02/27/20 05:06 02/27/20 05:06 Additional Labs: Accuchecks 02/28/20 02/28/20 02/28/20 15:22 11:29 10:18 POC Glucose 203 H 142 H 153 H 02/28/20 02/27/20 05:44 19:31 POC Glucose 156 H 151 H Labs and MARs reviewed by ut Hospitalist ROS - Review of Systems Cardiovascular: denies: chest pain, palpitations, orthopnea, paroxysmal noc. dyspnea, edema, light headedness Gastrointestinal: reports: nausea, abdominal pain. denies: vomiting, diarrhea, constipation, melena, hematochezia Genitourinary: denies: dysuria, frequency, incontinence, hematuria, retention - Medication Medications: Active Medications Generic Name Dose Route Start Last Admin Trade Name Freq PRN Reason Stop Dose Admin Acetaminophen 650 mg 02/19/20 00:35 02/20/20 08:31 Tylenol PO 650 mg Q4H PRN Administration Headache/Fever/Mild Pain (1-3) Lipase/Protease/Amylase 3 cap 02/23/20 17:00 02/28/20 17:[address] [place] [id number] PO 3 cap TID-WM ARMANDO Administration Enoxaparin Sodium 40 mg 02/19/20 09:00 02/28/20 09:05 Lovenox SC Not Given 0900 ARMANDO Glipizide 2.5 mg 02/23/20 07:30 02/28/20 09:04 Glucotrol Xl PO Not Given DAILY-AC ARMANDO Sodium Chloride 1,000 mls @ 75 mls/hr 02/19/20 00:45 02/28/20 16:40 Normal Saline 0.9% IV 1,000 mls .[id number] ARMANDO Administration Piperacillin Sod/Tazobactam 100 mls @ 200 mls/hr 02/19/20 02:00 02/28/20 13: 22 Sod 3.375 gm/ Sodium Chloride IVPB 100 mls 0200,0800,1400,2000 ARMANDO Administration Insulin Glargine 10 units/ 0.1 mls @ 0 mls/hr 02/23/20 09:00 02/28/20 09:05 Miscellaneous Medication SC Not Given QAM [facility] Fentanyl Citrate 2,000 mcg/ 100 mls @ 0 mls/hr 02/27/20 13:21 02/27/20 13:54 Sodium Chloride IV 100 mls INF PRN Administration Pain As Directed Insulin Human Lispro 0 units 02/23/20 18:56 02/26/20 06:27 Humalog SC 4 unit .MODERATE SLIDING SC PRN Administration Moderate Correctional Scale Lidocaine 2 patch 02/28/20 11:00 02/28/20 11:56 Lidoderm 5% Patch TD 2 patch 1100 ARMANDO Administration Lisinopril 20 mg 02/23/20 09:00 02/28/20 11:56 Zestril PO 20 mg DAILY ARMANDO Administration Melatonin 3 mg 02/22/20 18:10 02/26/20 23:09 Melatonin PO 3 mg HS PRN Administration Insomnia Metformin HCl 500 mg 02/23/20 08:00 02/28/20 17:43 Glucophage PO 500 mg BID-WM ARMANDO Administration Simethicone 160 mg 02/22/20 06:13 02/28/20 18:08 Mylicon Chewable PO 160 mg Q6H PRN Administration Gas Pain Sodium Chloride 10 ml 02/22/20 09:00 02/28/20 09:06 Flush - Normal Saline IVF Not Given Q12HR ARMANDO Sodium Chloride 10 ml 02/22/20 06:12 02/25/20 12:26 Flush - Normal Saline IVF 10 ml PRN PRN Administration Saline Flush Ursodiol 300 mg 02/28/20 17:00 02/28/20 17:53 Actigal PO 300 mg BID-WM ARMANDO Administration - Exam General Appearance: NAD Eye: scleral icterus ENT: no oropharyngeal lesions Neck: supple Heart: RRR Respiratory: CTAB Gastrointestinal: soft, normal bowel sounds, no rigidity, tender to palpation Psychiatric: normal affect, normal behavior Hosp A/P (1) Necrotizing pancreatitis Code(s): K85.91 - ACUTE PANCREATITIS WITH UNINFECTED NECROSIS, UNSPECIFIED Status: Acute (2) Splenic vein thrombosis Code(s): I82.890 - ACUTE EMBOLISM AND THROMBOSIS OF OTHER SPECIFIED VEINS Status: Acute (3) H/O malignant neoplasm of colon Code(s): Z85.038 - PERSONAL HISTORY OF MALIGNANT NEOPLASM OF LARGE INTESTINE Status: Chronic (4) HTN (hypertension) Code(s): I10 - ESSENTIAL (PRIMARY) HYPERTENSION Status: Chronic Qualifiers: - Plan Had ERCP today Pt is on IV Zosyn. Pt is on insulin sliding scale. Appreciate pain service input
[2020-02-29] MEDS: Lidocaine Patch Removal 1 EACH TOP SCH ×2 (00:45→19:42)
[2020-02-29] MEDS: Piperacillin/Tazobactam 3.375 GM in Sodium Chloride 0.9% 100 ML IVPB SCH ×2 (02:25→08:19)
[2020-02-29] MEDS: Simethicone Chewable 80 MG TAB PO PRN (05:08)
[2020-02-29] MEDS: Sodium Chloride 0.9% 1,000 ML IV SCH ×2 (05:59→19:56)
[2020-02-29] MEDS: HumaLOG 300 UNITS/3 ML VIAL SC PRN ×2 (06:01→17:48)
[2020-02-29 06:24] LABS: #Basophils 0.1 thou/uL (0.0-0.2); #Eosinphils 0.1 thou/uL (0.0-0.7); #Lymphocytes 1.3 thou/uL (1.20-3.40); #Monocytes 1.1 thou/uL (0.11-0.59); #Neutrophils 12.8 thou/uL (1.40-6.50); %Basophils 0.5 % (0.0-1.0); %Eosinophils 0.6 % (0.0-10.0); %Lymphocytes 8.8 % (21.0-51.0); %Monocytes 6.9 % (0.0-10.0); %Neutrophils 83.3 % (42.0-75.0); Mean Corpuscular HGB CONC 32.9 g/dL (32.0-36.0); Mean Platelet Volume 7.6 fL (7.4-10.4); Platelet Count 441 thou/uL (130-400); Red Blood Cell (RBC) Count 3.62 mill/uL (4.70-6.10); White Blood Cell (WBC) Count 15.4 thou/uL (4.8-10.8)
[2020-02-29 06:43] LABS: ALT (SGPT) 97 U/L (8-55); AST (SGOT) 65 U/L (5-34); Alkaline Phosphatase 555 U/L (40-110); Anion Gap 14 mmol/L (10-20); BUN (Urea Nitrogen) 9 mg/dL (8.9-20.6); Bilirubin, Total 5.4 mg/dL (0.2-1.2); Calc. Creatinine Clearance 131 mL/min (70-130); Calcium 9.5 mg/dL (7.8-10.44); Carbon Dioxide 27 mmol/L (22-29); Chloride 96 mmol/L (98-107); Estimated GFR-MDRD Greater than 90; Globulin 4.2 g/dL (2.4-3.5); Glucose 251 mg/dL (70-105); Lipase 95 U/L (8-78); Potassium 4.4 mmol/L (3.5-5.1); Protein, Total 7.2 g/dL (6.0-8.3); Sodium 133 mmol/L (136-145)
[2020-02-29] MEDS: Pancrelipase DR 12000 1 CAP PO SCH ×3 (08:17→16:47)
[2020-02-29] MEDS: Lisinopril 20 MG TAB PO SCH (08:18)
[2020-02-29] MEDS: metFORMIN 500 MG TAB PO SCH ×2 (08:18→16:48)
[2020-02-29] MEDS: Ursodiol 300 MG CAP PO SCH ×2 (08:18→16:50)
[2020-02-29] MEDS: Enoxaparin Sodium 40 MG/0.4 ML SYRINGE SC SCH (08:19)
[2020-02-29] MEDS: Insulin Glargine 10 UNITS in Pre-Filled Syringe SC SCH (08:28)
[2020-02-29] MEDS: Lidocaine 5% Patch TD SCH (12:11)
[2020-02-29] MEDS ORDERED: Mag-Al 1200 mg/1200 mg/30 ML UDCUP PO PRN (12:20)
[2020-02-29] MEDS ORDERED: Ketorolac Tromethamine 30 MG/ML VIAL IVP SCH (17:00)
--- NOTE | 2020-02-29 17:09 | PRG ---
DATE OF SERVICE: 02/29/2020 SUBJECTIVE: Mr. Goel is still having pain. He is on the fentanyl patch. He is eating a little bit, but when he eats, it hurts. He has had no fever. He is taking the pancreatic enzymes. He gets some relief with Maalox. MEDICATIONS: 1. P.r.n. Tylenol. 2. P.r.n. Maalox. 3. Lovenox subcu. 4. Fentanyl p.r.n. pain. He has a pump. 5. Insulin sliding scale. 6. Lidoderm patch. 7. Creon 12,000 units three capsules with each meal. 8. Lisinopril. 9. Melatonin. 10. Metformin 500 mg p.o. b.i.d. 11. Protonix 40 daily. 12. Simethicone p.r.n. 13. Normal saline 75 mL an hour. 14. Ursodiol 300 mg b.i.d. with food. 15. Zosyn was discontinued today. PHYSICAL EXAMINATION: GENERAL: He is resting in bed. VITAL SIGNS: Temperature 97.8, pulse is 89 to 90, respirations 14, O2 saturation 96%, and blood pressure 151/87. LUNGS: Clear. HEART: Regular rhythm. ABDOMEN: Somewhat protuberant. It is mildly tender. There is no rebound. There is no guarding. EXTREMITIES: No clubbing, cyanosis, or edema. LABORATORY DATA: White count 15.4, hemoglobin 12.0, platelet count 441. Sodium 133, potassium 4.4, BUN and creatinine are 9 and 0.76, glucose 251. Bilirubin is 5.4, AST 65, ALT 97, alkaline phosphatase 555, lipase 95. ASSESSMENT: 1. Severe necrotizing pancreatitis secondary to alcohol, initial onset was 02/03/2020. 2. Large pseudocyst with early tabby. In talking with Interventional [facility]ology in [place], they feel that at [facility] they can probably get a cystogastrostomy endoscopically placed. They did agree that it is probably indicated based on his pain and impending biliary obstruction from the pseudocyst pressure. 3. Post pancreatitis diabetes. 4. Poor p.o. intake. RECOMMENDATIONS: We would attempt tomorrow to transfer the patient to [facility] with a GI consult for endoscopic placement of a cystogastrostomy stent. I have talked with MD Jolly, he will not be national coverage specialist tomorrow, but he will make the GI doctor on-call aware of his willingness to see the patient there and plan for that procedure. They will probably plan for that on a Tuesday, so they have asked the patient be referred down tomorrow. I have talked with the hospitalist that has the patient today and he will make that talk with the hospitalist to help the patient tomorrow to arrange that and transfer. Dr. Arreola will be covering for me over the weekend. Job ID: [id number]
[2020-02-29] MEDS ORDERED: Morphine 2 MG/ML SYRINGE SLOW IVP PRN (18:35)
--- NOTE | 2020-02-29 18:44 | PDOC.HOSPP ---
- Subjective Encounter Date: 02/29/20 Encounter Time: 18:45 Subjective: Pt seen for followup for necrotizing pancreatitis. Pain is better. - Objective Vital Signs & Weight: Vital Signs (12 hours) Temp Pulse Resp BP Pulse Ox 02/29/20 08:15 96 02/29/20 08:00 97.8 F 98 14 132/85 96 Weight Admit Weight 182 lb Weight 182 lb 9.6 oz I&O: 02/28/20 02/29/20 03/01/20 06:59 06:59 06:59 Intake Total 1700 1300 Output Total 340 Balance 1360 1300 Result Diagrams: 02/29/20 06:02 02/29/20 06:02 Additional Labs: Accuchecks 02/29/20 02/29/20 02/29/20 15:11 11:32 06:05 POC Glucose 205 H 208 H 267 H 02/28/20 19:21 POC Glucose 303 H Labs and MARs reviewed by ak Hospitalist ROS - Review of Systems Gastrointestinal: reports: abdominal pain. denies: nausea, vomiting, diarrhea, constipation, melena, hematochezia Genitourinary: denies: dysuria, frequency, incontinence, hematuria, retention Skin: denies: rash, lesions, guido, bruising - Medication Medications: Active Medications Generic Name Dose Route Start Last Admin Trade Name Freq PRN Reason Stop Dose Admin Acetaminophen 650 mg 02/19/20 00:35 02/20/20 08:31 Tylenol PO 650 mg Q4H PRN Administration Headache/Fever/Mild Pain (1-3) Lipase/Protease/Amylase 3 cap 02/23/20 17:00 02/29/20 16:[address] [place] [id number] PO 3 cap TID-WM ARMANDO Administration Enoxaparin Sodium 40 mg 02/19/20 09:00 02/29/20 08:19 Lovenox SC 40 mg 0900 ARMANDO Administration Fentanyl 25 mcg 02/29/20 16:00 02/29/20 17:43 Duragesic TD 25 mcg Q3D ARMANDO Administration Glipizide 2.5 mg 02/23/20 07:30 02/29/20 08:17 Glucotrol Xl PO 2.5 mg DAILY-AC ARMANDO Administration Sodium Chloride 1,000 mls @ 75 mls/hr 02/19/20 00:45 02/29/20 05:59 Normal Saline 0.9% IV 1,000 mls .[id number] ARMANDO Administration Insulin Glargine 10 units/ 0.1 mls @ 0 mls/hr 02/23/20 09:00 02/29/20 08:28 Miscellaneous Medication SC 0.1 mls QAM ARMANDO Administration Insulin Human Lispro 0 units 02/23/20 18:56 02/29/20 17:48 Humalog SC 4 unit .MODERATE SLIDING SC PRN Administration Moderate Correctional Scale Ketorolac Tromethamine 30 mg 02/29/20 17:00 02/29/20 17:30 Toradol IVP 02/29/20 19:00 30 mg NOW ARMANDO Administration Lidocaine 2 patch 02/28/20 11:00 02/29/20 12:11 Lidoderm 5% Patch TD 2 patch 1100 ARMANDO Administration Lisinopril 20 mg 02/23/20 09:00 02/29/20 08:18 Zestril PO 20 mg DAILY ARMANDO Administration Melatonin 3 mg 02/22/20 18:10 02/26/20 23:09 Melatonin PO 3 mg HS PRN Administration Insomnia Metformin HCl 500 mg 02/23/20 08:00 02/29/20 16:48 Glucophage PO 500 mg BID-WM ARMANDO Administration Miscellaneous Medication 1 each 02/28/20 23:00 02/29/20 00:45 Lidocaine Patch Removal TOP 1 each 2300 ARMANDO Administration Pantoprazole Sodium 40 mg 02/29/20 09:00 02/29/20 08:18 Protonix PO 40 mg DAILY ARMANDO Administration Simethicone 160 mg 02/22/20 06:13 02/29/20 05:08 Mylicon Chewable PO 160 mg Q6H PRN Administration Gas Pain Sodium Chloride 10 ml 02/22/20 09:00 02/29/20 09:49 Flush - Normal Saline IVF Not Given Q12HR ARMANDO Sodium Chloride 10 ml 02/22/20 06:12 02/25/20 12:26 Flush - Normal Saline IVF 10 ml PRN PRN Administration Saline Flush Ursodiol 300 mg 02/28/20 17:00 02/29/20 16:50 Actigal PO 300 mg BID-WM ARMANDO Administration - Exam General Appearance: awake alert Eye: scleral icterus ENT: normocephalic atraumatic Neck: symmetric, no lymphadenopathy Heart: RRR Respiratory: CTAB Gastrointestinal: soft, no guarding, no rigidity, tender to palpation Psychiatric: normal affect Hosp A/P (1) Necrotizing pancreatitis Code(s): K85.91 - ACUTE PANCREATITIS WITH UNINFECTED NECROSIS, UNSPECIFIED Status: Acute (2) Splenic vein thrombosis Code(s): I82.890 - ACUTE EMBOLISM AND THROMBOSIS OF OTHER SPECIFIED VEINS Status: Acute (3) H/O malignant neoplasm of colon Code(s): Z85.038 - PERSONAL HISTORY OF MALIGNANT NEOPLASM OF LARGE INTESTINE Status: Chronic (4) HTN (hypertension) Code(s): I10 - ESSENTIAL (PRIMARY) HYPERTENSION Status: Chronic Qualifiers: - Plan MRCP was unsuccessful Pt is on IV Zosyn. Pt is on insulin sliding scale. d/w GI service. Pt to be transferred to [facility] for cystogastrostomy stent. Pt awaiting transfer.
[2020-02-29] MEDS: Morphine 4 MG/ML VIAL SLOW IVP PRN (19:51)
[2020-02-29] MEDS: Ketorolac Tromethamine 30 MG/ML VIAL IVP PRN (21:16)
[2020-03-01] MEDS: Morphine 4 MG/ML VIAL SLOW IVP PRN ×2 (01:17→07:24)
[2020-03-01] MEDS: Ketorolac Tromethamine 30 MG/ML VIAL IVP PRN (05:10)
[2020-03-01 06:24] LABS: #Basophils 0.1 thou/uL (0.0-0.2); #Eosinphils 0.2 thou/uL (0.0-0.7); #Lymphocytes 1.2 thou/uL (1.20-3.40); #Neutrophils 10.3 thou/uL (1.40-6.50); %Basophils 0.6 % (0.0-1.0); %Eosinophils 1.9 % (0.0-10.0); %Lymphocytes 9.4 % (21.0-51.0); %Monocytes 7.9 % (0.0-10.0); %Neutrophils 80.3 % (42.0-75.0); Mean Corpuscular HGB CONC 32.7 g/dL (32.0-36.0); Mean Corpuscular Hemoglobin 32.8 pg (27.0-31.0); Mean Platelet Volume 7.5 fL (7.4-10.4); Platelet Count 369 thou/uL (130-400); Red Blood Cell (RBC) Count 3.35 mill/uL (4.70-6.10); White Blood Cell (WBC) Count 12.8 thou/uL (4.8-10.8)
[2020-03-01 06:51] LABS: ALT (SGPT) 92 U/L (8-55); AST (SGOT) 70 U/L (5-34); Albumin 2.9 g/dL (3.5-5.0); Alkaline Phosphatase 524 U/L (40-110); Anion Gap 13 mmol/L (10-20); BUN (Urea Nitrogen) 11 mg/dL (8.9-20.6); Bilirubin, Direct 2.3 mg/dL (0.1-0.3); Bilirubin, Total 3.1 mg/dL (0.2-1.2); Calc. Creatinine Clearance 128 mL/min (70-130); Calcium 9.3 mg/dL (7.8-10.44); Carbon Dioxide 26 mmol/L (22-29); Chloride 97 mmol/L (98-107); Estimated GFR-MDRD Greater than 90; Globulin 3.7 g/dL (2.4-3.5); Glucose 178 mg/dL (70-105); Lipase 102 U/L (8-78); Potassium 3.6 mmol/L (3.5-5.1); Protein, Total 6.6 g/dL (6.0-8.3); Sodium 132 mmol/L (136-145)
[2020-03-01] MEDS: Pancrelipase DR 12000 1 CAP PO SCH (07:20)
[2020-03-01] MEDS: metFORMIN 500 MG TAB PO SCH (07:20)
[2020-03-01] MEDS: Ursodiol 300 MG CAP PO SCH (07:21)
[2020-03-01] MEDS: Enoxaparin Sodium 40 MG/0.4 ML SYRINGE SC SCH (07:21)
[2020-03-01] MEDS: Insulin Glargine 10 UNITS in Pre-Filled Syringe SC SCH (07:21)
[2020-03-01] MEDS: Lisinopril 20 MG TAB PO SCH (07:21)
[2020-03-01] MEDS: Sodium Chloride 0.9% 1,000 ML IV SCH (07:27)
[2020-03-01 08:09] VITALS: BP 137/87; TEMP 98.3
[2020-03-01] MEDS ORDERED: oxyCODONE 5 MG TAB PO SCH (09:00)
--- NOTE | 2020-03-01 12:06 | EKG ---
Test Reason : Blood Pressure : / mmHG Vent. Rate : 100 BPM Atrial Rate : 100 BPM P-R Int : 116 ms QRS Dur : 086 ms QT Int : 332 ms P-R-T Axes : 022 011 049 degrees QTc Int : 428 ms Normal sinus rhythm Normal ECG Confirmed by TRINA JUAREZ DO ([id number]), script editor IOANA MICHELLE ([id number]) on 03/01/2020 12:06:15 PM Referred By: Confirmed By:TRINA JUAREZ DO
--- NOTE | 2020-03-03 07:07 | DIS ---
DATE OF ADMISSION: 02/19/2020 DATE OF DISCHARGE: 03/01/2020 PRIMARY CARE PROVIDER: Yolanda Mix MD DISCHARGE DIAGNOSES: 1. Necrotizing pancreatitis. 2. Pancreatic pseudocyst. 3. Splenic vein thrombosis. 4. Hyponatremia. 5. Abnormal liver function tests. 6. Hypoalbuminemia. 7. Poorly controlled blood sugars. CONDITION OF PATIENT ON THE DAY OF DISCHARGE: I assessed Mr. Goel on the day of discharge. He has on and off abdominal pain, controlled with pain medications. Vital signs are stable. S1 and S2 are heard, regular. Lungs are clear to auscultation bilaterally. CONSULTATIONS DURING THIS HOSPITALIZATION: 1. Gastroenterology, Kendall Ambriz MD. 2. General Surgery, Neeraj Mcknight MD. HOSPITAL COURSE: Mr. Goel is a pleasant 49-year-old gentleman, who was admitted to [facility] on February 19, 2020, for abdominal pain. He was found to have necrotizing pancreatitis, pancreatic pseudocyst, and splenic vein thrombosis. He was seen by Gastroenterology and General Surgery Services. He continued to have pain with worsening LFTs. CT scan of the abdomen and pelvis on February 25, 2020, showed pancreatic necrosis with necrosis of the majority of the body and tail of the pancreas. Splenic vein was not visualized. He also had a blush of contrast in the region of the gastroduodenal artery, which was present on the prior examination. He had mild intra and extrahepatic biliary duct dilatation likely related to compressive symptoms due to the large pancreatic/peripancreatic fluid collection. MRI of the abdomen on February 27, 2020, showed extensive pancreatic necrosis with a large peripancreatic fluid collection inducing extrinsic compression on the distal common bile duct with prominent intrahepatic and extrahepatic biliary dilatation. There was some layered gallbladder sludge within the gallbladder itself. He had chronic left-sided ureteropelvic junction obstruction with cortical renal thinning of the left kidney. He had stable mild splenomegaly and mild ascites. ERCP was attempted on February 28, 2020, but was unsuccessful. Gastroenterology Service discussed his care with [facility] in [place] and arranged for admission at [facility] with GI consult for endoscopic placement of a cystogastrostomy stent by Dr. Azevedo. At the time of this dictation, patient is awaiting transfer to [facility]. POST-ACUTE CARE FOLLOWUP: With primary care provider following discharge from [facility]. DIET: Low-fat diet. ACTIVITY: As tolerated. Many thanks for allowing me to participate in your patient's care. Please feel free to contact me with any questions or concerns. DISCHARGE DESTINATION: [facility]. TIME SPENT: Total amount of time spent coordinating this discharge: 33 minutes. Job ID: [id number]
== END 2020-03-01 09:20 | disposition short-term general hospital (02) | DRG 438 ==
LOC: ERS 21:45 → OBSVTOIN 02-19 00:01 → T4-A 02-19 00:01
PROVIDERS: ADMIT Internal Medicine; ATTEND Internal Medicine
PROC: 0FJB8ZZ Inspection of Hepatobiliary Duct, Via Natural or Artificial Opening Endoscopic (ICD-10-PCS; principal; 2020-02-28)
DX: K85.21 Alcohol induced acute pancreatitis with uninfected necrosis (principal); K65.0 Generalized (acute) peritonitis; K83.1 Obstruction of bile duct; K86.3 Pseudocyst of pancreas; E87.1 Hypo-osmolality and hyponatremia; I82.890 Acute embolism and thrombosis of other specified veins; R18.8 Other ascites; R94.5 Abnormal results of liver function studies; E88.09 Other disorders of plasma-protein metabolism, not elsewhere classified; E08.65 Diabetes mellitus due to underlying condition with hyperglycemia; K43.5 Parastomal hernia without obstruction or gangrene; F10.10 Alcohol abuse, uncomplicated; I10 Essential (primary) hypertension; Z79.899 Other long term (current) drug therapy; Z88.6 Allergy status to analgesic agent; Z79.84 Long term (current) use of oral hypoglycemic drugs; Z90.49 Acquired absence of other specified parts of digestive tract; Z85.038 Personal history of other malignant neoplasm of large intestine; Z86.010 Personal history of colon polyps; K86.1 Other chronic pancreatitis
CPT/HCPCS: 36415; 36416; 71045; 74177; 74181; 74330; 80048; 80053; 81003; 82248; 83036; 83605; 83690; 84484; 85025; 87040; 93005; 96365; 96367; 96375; 96376; J0692; J1100; J1650; J1815; J1885; J2001; J2270; J2405; J2543; J2704; J3010; J3370; J3490; J7030; Q0163; Q9967; S0028

== ENCOUNTER 2020-03-31 17:19 | Inpatient (IN) | payer SELFPAY ==
[2020-03-31 23:58] VITALS: BMI 24.1
[2020-04-01] MEDS ORDERED: Ondansetron PF 4 MG/2 ML Vial IVP PRN (00:28)
[2020-04-01] MEDS ORDERED: Dextrose 5% in Water 1,000 ML IV PRN (00:32)
[2020-04-01] MEDS ORDERED: Dextrose 50% Abboject 50 ML SYRINGE SLOW IVP PRN (00:32)
[2020-04-01] MEDS ORDERED: Acetaminophen 500 MG TAB PO PRN (01:10)
--- NOTE | 2020-04-01 01:22 | HP ---
REASON FOR ADMISSION: Post drainage of fluid collection in the left subdiaphragmatic area. HISTORY OF PRESENT ILLNESS: The patient was admitted to our hospital on March 25. He is known to have history of alcohol abuse and severe pancreatic necrosis, was hospitalized recently for that and had to be sent to [facility] in [place]. He had an inpatient cyst gastrostomy drainage and stent placement for pseudocyst, then discharged after 4 days he developed nausea, but no vomiting and also diffuse abdominal pain that increasingly weak, so he presented to our hospital with worsening fluid collection in the left subdiaphragmatic area and pleural effusion. There was a concern for infection. Gastroenterology and General Surgery were consulted and it was determined that he needed a higher level of care. He was transferred back to [facility] for drainage of his fluid collection. He did also undergo thoracocentesis. He was stabilized and sent back to us. Currently, he appears to be doing well, in no acute distress. He says that right from [place] was rough, so he does have some aches and pains. His abdomen slightly tender and painful, but otherwise he was able to tolerate a diet at [facility] without any difficulty. He had a lot of questions about what his appropriate diet for him and wanted more dietary guidance. PAST MEDICAL HISTORY: 1. Diabetes, type 2. 2. Necrotizing pancreatitis in the setting of alcohol abuse. 3. Anemia. 4. Hyponatremia. 5. High blood pressure. 6. Chronic hydronephrosis. 7. Status post colostomy. PAST SURGICAL HISTORY: Exploratory laparotomy with colectomy. FAMILY HISTORY: Positive for diabetes and high blood pressure. SOCIAL HISTORY: He does not smoke. He is known to be a heavy drinker. REVIEW OF SYSTEMS: All systems reviewed except the above mentioned, found to be negative. PHYSICAL EXAMINATION: GENERAL: Awake, alert, and oriented, does not appear in distress. VITAL SIGNS: His blood pressure is 121/81, his heart rate is 94, temperature is 98.1, and saturating 95% on room air. HEENT: Head is nontraumatic and normocephalic. Pupils equal, reactive. Extraocular movements are intact. Nonicteric sclerae. Well injected conjunctivae. Oral mucosa normal. Nasal mucosa normal. NECK: Supple. No adenopathy. No murmur. Thyroid is not palpable. Trachea is midline. No supraclavicular adenopathy. HEART: S1 and S2. Regular. No murmur. No gallops. No friction rubs. No displacement of PMI. LUNGS: Clear to auscultation bilaterally. No wheezes. No rhonchi. No crackles. ABDOMEN: Bowel sounds are positive. Abdomen is slightly tender, but overall soft. No lower extremity edema. No cyanosis noted. NEUROLOGIC: Cranial nerves 2 through 12 within normal limits. Normal motor function. Normal sensory function. Normal reflexes. LABORATORY DATA: Blood work shows a WBC of 9, hemoglobin of 7.6, which is around his baseline, platelets of 365. Sodium 129, potassium 3.9, BUN 6, and creatinine 0.68. ASSESSMENT AND PLAN: This is a 49-year-old male patient, who was transferred to [place] for drainage of his pancreatic cyst and placement of stents. He did undergo that procedure. He was sent back to us. He appears to be doing better. GI. The patient will be on a regular diet and we will recheck his labs in the morning. He was started on Levaquin and Flagyl, so I plan to continue these two antibiotics. We will consult dietary to see him for dietary recommendation. For his high blood pressure, resume his medications. Endocrinology for his diabetes. He will be on insulin sliding scale. Continue his metformin. Renal system, electrolytes. The patient has low sodium. We will continue hydrating him with normal saline. Recheck his electrolytes in the morning. For his alcoholism, he will be on thiamine and folic acid. Job ID: [id number]
[2020-04-01] MEDS: HYDROcodone/Acetaminophen 10/325 mg Tablet PO PRN ×3 (01:30→15:17)
[2020-04-01] MEDS: Sodium Chloride 0.9% 1,000 ML IV SCH ×2 (01:31→15:18)
[2020-04-01] MEDS ORDERED: Cyclobenzaprine 10 MG TAB PO PRN (03:36)
[2020-04-01 05:29] LABS: #Basophils 0.1 thou/uL (0.0-0.2); #Eosinphils 0.2 thou/uL (0.0-0.7); #Lymphocytes 1.3 thou/uL (1.20-3.40); #Monocytes 0.8 thou/uL (0.11-0.59); #Neutrophils 4.9 thou/uL (1.40-6.50); %Basophils 1.1 % (0.0-1.0); %Eosinophils 3.1 % (0.0-10.0); %Lymphocytes 17.8 % (21.0-51.0); %Monocytes 10.8 % (0.0-10.0); %Neutrophils 67.2 % (42.0-75.0); Hemoglobin 8.5 g/dL (14.0-18.0); Mean Corpuscular HGB CONC 31.4 g/dL (32.0-36.0); Mean Corpuscular Hemoglobin 28.3 pg (27.0-31.0); Mean Corpuscular Volume 90.2 fL (78.0-98.0); Mean Platelet Volume 7.3 fL (7.4-10.4); Platelet Count 383 thou/uL (130-400); RBC Distribution Width 17.2 % (11.5-14.5); Red Blood Cell (RBC) Count 3.01 mill/uL (4.70-6.10); White Blood Cell (WBC) Count 7.4 thou/uL (4.8-10.8)
[2020-04-01] MEDS: HumaLOG 300 UNITS/3 ML VIAL SC PRN ×2 (05:42→16:56)
[2020-04-01 05:49] LABS: ALT (SGPT) 11 U/L (8-55); AST (SGOT) 22 U/L (5-34); Alkaline Phosphatase 347 U/L (40-110); Anion Gap 9 mmol/L (10-20); BUN (Urea Nitrogen) 4 mg/dL (8.9-20.6); Bilirubin, Total 0.8 mg/dL (0.2-1.2); Calc. Creatinine Clearance 138 mL/min (70-130); Calcium 8.4 mg/dL (7.8-10.44); Carbon Dioxide 29 mmol/L (22-29); Chloride 97 mmol/L (98-107); Estimated GFR-MDRD Greater than 90; Globulin 3.8 g/dL (2.4-3.5); Glucose 201 mg/dL (70-105); Potassium 4.1 mmol/L (3.5-5.1); Protein, Total 5.8 g/dL (6.0-8.3); Sodium 131 mmol/L (136-145)
[2020-04-01] MEDS ORDERED: metFORMIN 500 MG TAB PO SCH (08:00)
[2020-04-01] MEDS: Dicyclomine 10 MG CAP PO SCH ×3 (08:09→20:42)
[2020-04-01] MEDS: Thiamine 100 MG TAB PO SCH (08:09)
[2020-04-01] MEDS: Lisinopril 20 MG TAB PO SCH (08:09)
[2020-04-01] MEDS: Folic Acid 1 MG TAB PO SCH (08:09)
[2020-04-01] MEDS: metFORMIN 500 MG TAB PO SCH ×2 (08:09→16:56)
[2020-04-01] MEDS: metroNIDAZOLE 500 MG TAB PO SCH ×3 (08:09→20:42)
[2020-04-01] MEDS: Lidocaine 5% Patch TD SCH (08:10)
[2020-04-01] MEDS ORDERED: Dicyclomine 10 MG CAP PO SCH (09:00)
[2020-04-01] MEDS ORDERED: Folic Acid 1 MG TAB PO SCH (09:00)
[2020-04-01] MEDS ORDERED: Cyclobenzaprine 10 MG TAB PO SCH (09:00)
[2020-04-01] MEDS ORDERED: Lidocaine 5% Patch TD SCH (09:00)
[2020-04-01] MEDS ORDERED: Lisinopril 20 MG TAB PO SCH (09:00)
[2020-04-01] MEDS ORDERED: metroNIDAZOLE 500 MG TAB PO SCH (09:00)
--- NOTE | 2020-04-01 12:28 | PDOC.HOSPP ---
- Subjective Encounter Date: 04/01/20 Encounter Time: 12:10 Subjective: f/u for chronic pancreatitis with pseudocyst s/p stent placement and transfer back from [facility] Receiving Levaquin/Flagyl. Feels ok overall. - Objective Vital Signs & Weight: Vital Signs (12 hours) Temp Pulse Resp BP BP Pulse Ox 04/01/20 08:09 134/89 04/01/20 08:00 98 04/01/20 07:47 97.6 F 92 20 134/89 98 04/01/20 04:26 97.7 F 81 17 124/85 95 Weight Weight 173 lb 2 oz I&O: 03/31/20 04/01/20 04/02/20 06:59 06:59 06:59 Intake Total 800 Output Total 500 Balance 300 Result Diagrams: 04/01/20 05:13 04/01/20 05:13 Additional Labs: Accuchecks 04/01/20 04/01/20 11:27 04:30 POC Glucose 194 H 217 H Hospitalist ROS - Medication Medications: Active Medications Generic Name Dose Route Start Last Admin Trade Name Freq PRN Reason Stop Dose Admin Hydrocodone Bitart/Acetaminophen 1 tab 04/01/20 01:11 04/01/20 08:09 [place] 10/325 PO 1 tab Q6H PRN Administration Severe Pain (7-10) Dicyclomine HCl 10 mg 04/01/20 09:00 04/01/20 08:09 Bentyl PO 10 mg TID ARMANDO Administration Folic Acid 1 mg 04/01/20 09:00 04/01/20 08:09 Folvite PO 1 mg DAILY ARMANDO Administration Sodium Chloride 1,000 mls @ 75 mls/hr 04/01/20 00:45 04/01/20 01:31 Normal Saline 0.9% IV 1,000 mls .[id number] ARMANDO Administration Insulin Human Lispro 0 units 04/01/20 00:32 04/01/20 05:42 Humalog SC 4 unit .MODERATE SLIDING SC PRN Administration Moderate Correctional Scale Levofloxacin 500 mg 04/01/20 06:00 04/01/20 05:39 Levaquin PO 04/10/20 06:01 500 mg 0600 ARMANDO Administration Lidocaine 1 patch 04/01/20 09:00 04/01/20 08:10 Lidoderm 5% Patch TD 04/30/20 09:01 Not Given DAILY ARMANDO Lisinopril 20 mg 04/01/20 09:00 04/01/20 08:09 Zestril PO 20 mg DAILY ARMANDO Administration Metformin HCl 500 mg 04/01/20 08:00 04/01/20 08:09 Glucophage PO 500 mg BID-WM ARMANDO Administration Metronidazole 500 mg 04/01/20 09:00 04/01/20 08:09 Flagyl PO 04/10/20 21:01 500 mg TID ARMANDO Administration Thiamine HCl 100 mg 04/01/20 09:00 04/01/20 08:09 Thiamine PO 100 mg DAILY ARMANDO Administration - Exam General Appearance: NAD, awake alert Eye: PERRL, anicteric sclera ENT: normocephalic atraumatic, no oropharyngeal lesions Neck: supple, symmetric, no JVD, no thyromegaly, no lymphadenopathy Heart: RRR, no gallops, no rubs, normal peripheral pulses Heart - other findings: S1, S2 Respiratory: CTAB, no wheezes, no rales, no ronchi, normal chest expansion Gastrointestinal: soft, non-distended, normal bowel sounds, no palpable masses Gastrointestinal - other findings: + ostomy, post-surgical changes noted Extremities: no cyanosis, no clubbing, no edema Skin: normal turgor, no lesions Neurological: cranial nerve grossly intact, no new deficit Musculoskeletal: normal tone, normal strength Psychiatric: normal affect, A&O x 3 Hosp A/P (1) Abdominal pain Code(s): R10.9 - UNSPECIFIED ABDOMINAL PAIN Status: Chronic Qualifiers: Abdominal location: generalized Qualified Code(s): R10.84 - Generalized abdominal pain Plan: No evidence of acute abdomen, supportive, ADAT, ambulate (2) Hyponatremia Code(s): E87.1 - HYPO-OSMOLALITY AND HYPONATREMIA Status: Chronic (3) Necrotizing pancreatitis Code(s): K85.91 - ACUTE PANCREATITIS WITH UNINFECTED NECROSIS, UNSPECIFIED Status: Acute Plan: s/p stent placement for pseudocyst, supportive mgmt (4) Pleural effusion associated with pancreatitis Code(s): K85.90 - ACUTE PANCREATITIS WITHOUT NECROSIS OR INFECTION, UNSP; J91.8 - PLEURAL EFFUSION IN OTHER CONDITIONS CLASSIFIED ELSEWHERE Status: Acute Plan: s/p thoracentesis - Plan continue antibiotics, rn social services, out of bed/ambulate, DVT proph w/SCDs Stable overall continue Levaquin/Flagyl another 24h OOB/ambulate Full liquids Dietitian consult apprecicated AM lab: H/H Likely home in 24h
[2020-04-01] MEDS: HYDROcodone/Acetaminophen 5/325 mg Tablet PO PRN (20:42)
[2020-04-01] MEDS: Lidocaine Patch Removal 1 EACH TOP SCH (20:45)
[2020-04-02] MEDS: HYDROcodone/Acetaminophen 5/325 mg Tablet PO PRN ×3 (05:21→20:42)
[2020-04-02] MEDS: HumaLOG 300 UNITS/3 ML VIAL SC PRN ×3 (05:22→20:46)
[2020-04-02] MEDS: Sodium Chloride 0.9% 1,000 ML IV SCH ×2 (05:24→05:26)
[2020-04-02 06:29] LABS: Hemoglobin 8.6 g/dL (14.0-18.0); Platelet Count 418 thou/uL (130-400)
[2020-04-02] MEDS: Folic Acid 1 MG TAB PO SCH (08:15)
[2020-04-02] MEDS: metFORMIN 500 MG TAB PO SCH ×2 (08:15→17:22)
[2020-04-02] MEDS: metroNIDAZOLE 500 MG TAB PO SCH (08:16)
[2020-04-02] MEDS: Dicyclomine 10 MG CAP PO SCH ×3 (08:16→20:41)
[2020-04-02] MEDS: Thiamine 100 MG TAB PO SCH (08:16)
[2020-04-02] MEDS: Lisinopril 20 MG TAB PO SCH (08:17)
[2020-04-02] MEDS: Lidocaine 5% Patch TD SCH (08:20)
--- NOTE | 2020-04-02 10:45 | PDOC.HOSPP ---
- Subjective Encounter Date: 04/02/20 Encounter Time: 10:10 Subjective: f/u pancreatitis with necrosis s/p pancreatic stent placement due to phlegmon. Feels better overall and tolerating po intake. Ambulating the halls without assistance. - Objective Vital Signs & Weight: Vital Signs (12 hours) Temp Pulse Resp BP BP Pulse Ox 04/02/20 08:24 97 04/02/20 08:17 118/79 04/02/20 07:12 97.8 F 86 18 118/79 97 04/02/20 00:19 90 17 110/72 97 Weight Admit Weight 173 lb 2 oz Weight 173 lb 2 oz I&O: 04/01/20 04/02/20 04/03/20 06:59 06:59 06:59 Intake Total 800 1250 Output Total 500 1000 Balance 300 250 Result Diagrams: 04/02/20 05:48 04/01/20 05:13 Additional Labs: Accuchecks 04/02/20 04/01/20 04/01/20 04:29 19:46 16:11 POC Glucose 173 H 145 H 181 H 04/01/20 11:27 POC Glucose 194 H Hospitalist ROS - Medication Medications: Active Medications Generic Name Dose Route Start Last Admin Trade Name Freq PRN Reason Stop Dose Admin Hydrocodone Bitart/Acetaminophen 1 tab 04/01/20 00:28 04/02/20 05:21 [place] 5/325 PO 1 tab Q4H PRN Administration Moderate Pain (4-6) Hydrocodone Bitart/Acetaminophen 1 tab 04/01/20 01:11 04/01/20 15:17 [place] 10/325 PO 1 tab Q6H PRN Administration Severe Pain (7-10) Dicyclomine HCl 10 mg 04/01/20 09:00 04/02/20 08:16 Bentyl PO 10 mg TID ARMANDO Administration Folic Acid 1 mg 04/01/20 09:00 04/02/20 08:15 Folvite PO 1 mg DAILY ARMANDO Administration Insulin Human Lispro 0 units 04/01/20 00:32 04/02/20 05:22 Humalog SC 2 unit .MODERATE SLIDING SC PRN Administration Moderate Correctional Scale Levofloxacin 500 mg 04/01/20 06:00 04/02/20 05:21 Levaquin PO 04/10/20 06:01 500 mg 0600 ARMANDO Administration Lidocaine 1 patch 04/01/20 09:00 04/02/20 08:20 Lidoderm 5% Patch TD 04/30/20 09:01 Not Given DAILY ARMANDO Lisinopril 20 mg 04/01/20 09:00 04/02/20 08:17 Zestril PO 20 mg DAILY ARMANDO Administration Metformin HCl 500 mg 04/01/20 08:00 04/02/20 08:15 Glucophage PO 500 mg BID-WM ARMANDO Administration Metronidazole 500 mg 04/01/20 09:00 04/02/20 08:16 Flagyl PO 04/10/20 21:01 500 mg TID ARMANDO Administration Miscellaneous Medication 1 each 04/01/20 21:00 04/01/20 20:45 Lidocaine Patch Removal TOP Not Given 2100 ARMANDO Thiamine HCl 100 mg 04/01/20 09:00 04/02/20 08:16 Thiamine PO 100 mg DAILY ARMANDO Administration - Exam General Appearance: awake alert General - other findings: tearful Eye: PERRL, anicteric sclera ENT: normocephalic atraumatic, no oropharyngeal lesions Neck: supple, symmetric, no JVD, no thyromegaly, no lymphadenopathy Heart: RRR, no murmur, no gallops, no rubs, normal peripheral pulses Heart - other findings: S1, S2 Respiratory: CTAB, no wheezes, no rales, no ronchi, normal chest expansion Gastrointestinal: soft, non-distended, normal bowel sounds, no palpable masses Gastrointestinal - other findings: + ostomy in place Extremities: no cyanosis, no clubbing, no edema Skin: normal turgor, no lesions Neurological: cranial nerve grossly intact, no new deficit Musculoskeletal: normal tone, normal strength Psychiatric: normal affect, A&O x 3 Hosp A/P (1) Abdominal pain Code(s): R10.9 - UNSPECIFIED ABDOMINAL PAIN Status: Chronic Qualifiers: Abdominal location: generalized Qualified Code(s): R10.84 - Generalized abdominal pain Plan: Improved, supportive mgmt, tolerating po currently (2) Hyponatremia Code(s): E87.1 - HYPO-OSMOLALITY AND HYPONATREMIA Status: Chronic Plan: Mild, supportive (3) Necrotizing pancreatitis Code(s): K85.91 - ACUTE PANCREATITIS WITH UNINFECTED NECROSIS, UNSPECIFIED Status: Chronic Plan: s/p stent placement, supportive mgmt, Pancrelipase with meals (4) Pleural effusion associated with pancreatitis Code(s): K85.90 - ACUTE PANCREATITIS WITHOUT NECROSIS OR INFECTION, UNSP; J91.8 - PLEURAL EFFUSION IN OTHER CONDITIONS CLASSIFIED ELSEWHERE Status: Acute Plan: s/p thoracentesis, pathology negative - Plan plan discussed w/ family, sr. social media & mobile manager, out of bed/ambulate Stable overall D/C Levaquin/Flagyl OOB/ambulate Full liquids as tolerated Pancrealipase TID with meals Dietitian consult apprecicated CM consult for assistance transitioning home DM teaching Likely home in 24h
[2020-04-02] MEDS ORDERED: ALPRAZolam 0.25 MG TAB PO SCH ×2 (11:00→12:00)
[2020-04-02] MEDS: Pancrelipase DR 12,000 1 CAP PO SCH ×2 (12:36→17:22)
[2020-04-02] MEDS: ALPRAZolam 0.25 MG TAB PO SCH (20:41)
[2020-04-02] MEDS: Lidocaine Patch Removal 1 EACH TOP SCH (20:48)
[2020-04-03] MEDS: HYDROcodone/Acetaminophen 5/325 mg Tablet PO PRN ×2 (05:34→13:52)
[2020-04-03] MEDS: HumaLOG 300 UNITS/3 ML VIAL SC PRN ×2 (05:35→13:50)
[2020-04-03] MEDS: Thiamine 100 MG TAB PO SCH (08:48)
[2020-04-03] MEDS: Dicyclomine 10 MG CAP PO SCH (08:48)
[2020-04-03] MEDS: metFORMIN 500 MG TAB PO SCH (08:48)
[2020-04-03] MEDS: Pancrelipase DR 12,000 1 CAP PO SCH ×2 (08:48→13:49)
[2020-04-03] MEDS: Folic Acid 1 MG TAB PO SCH (08:49)
[2020-04-03] MEDS: Lisinopril 20 MG TAB PO SCH (08:49)
[2020-04-03] MEDS: ALPRAZolam 0.25 MG TAB PO SCH (08:49)
[2020-04-03] MEDS: Lidocaine 5% Patch TD SCH (08:50)
[2020-04-03 15:23] VITALS: BP 123/72; TEMP 98
--- NOTE | 2020-04-03 18:43 | DIS ---
DATE OF ADMISSION: 04/01/2020 DATE OF DISCHARGE: 04/03/2020 DISCHARGE DIAGNOSES: 1. Abdominal pain, chronic, improved. 2. Hyponatremia chronic, mild. 3. Necrotizing pancreatitis with phlegmon, improved. 4. Pleural effusions associated with pancreatitis status post thoracentesis, stable. CONSULTATIONS: Telephonic consultation with Dr. Meneses, Dietary Services. PERTINENT LABORATORY AND X-RAY FINDINGS: Sodium ranged between 131 to 133, albumin 2.0. CBC showed a white blood cell count of 7.4, hemoglobin 8.6, hematocrit 27, platelet count 418. COVID-19 PCR not detected, 03/28/2020. HOSPITAL COURSE: The patient was admitted after presenting in transfer from [facility] status post stent placement and endoscopy for pancreatic necrosis and phlegmon. The patient was given general supportive management during the hospital course including IV fluids and a brief course of IV antibiotic therapy with Levaquin and Flagyl. No specific evidence of acute infectious process was identified. The patient was telephonically consulted with GI Service, who recommended general supportive care and outpatient followup in the clinic. The patient did receive a dietitian services including education on diabetes management in addition to dietary strategy for increasing nutritional capability of his diet at home. The patient was noted ambulatory without assistance or difficulty and overall voiding appropriately. I have examined the patient at the time of discharge and discussed followup instructions. The patient verbalized understanding and agreement ready for discharge on 04/03/2020. DISCHARGE MEDICATIONS: 1. Cyclobenzaprine 5 mg p.o. t.i.d. p.r.n. 2. Bentyl 10 mg p.o. t.i.d. 3. Folic acid 1 mg p.o. daily. 4. [place] p.o. q.6 hours p.r.n. pain. 5. Lidocaine patch 5% one patch transdermally daily p.r.n. 6. Zestril 20 mg p.o. daily. 7. Metformin 500 mg p.o. b.i.d. 8. Pancrelipase 53917 units one capsule p.o. t.i.d. with meals. FOLLOWUP: The patient may follow up with Dr. Yolanda Mix within 7 days of discharge. The patient may follow up with Dr. Meneses with GI Service in 2 to 3 weeks after discharge. CONDITION ON DISCHARGE: Stable. ACTIVITY: Ad-lulu. DIET: ADA with supplementing Ensure high-protein. CODE STATUS: Full. DISPOSITION: Home, 04/03/2020. TIME SPENT: Total time preparing and coordinating discharge, 31 minutes. Job ID: [id number]
--- NOTE | 2020-04-13 17:18 | EKG ---
Test Reason : Blood Pressure : / mmHG Vent. Rate : 156 BPM Atrial Rate : 156 BPM P-R Int : 128 ms QRS Dur : 066 ms QT Int : 252 ms P-R-T Axes : 041 017 113 degrees QTc Int : 406 ms Sinus tachycardia Nonspecific ST and T wave abnormality Abnormal ECG Confirmed by GLADIS HERRON M.D. ([id number]), associate entertainment editor IOANA MICHELLE ([id number]) on 04/13/2020 5:18:11 PM Referred By: Confirmed By:GLADIS HERRON M.D.
== END 2020-04-03 15:26 | disposition home or self-care (01) | DRG 439 ==
LOC: T4-B 17:19 → OBSVTOIN 04-01 00:32
PROVIDERS: ADMIT Internal Medicine; ATTEND Internal Medicine
DX: K85.90 Acute pancreatitis without necrosis or infection, unspecified (principal); E87.1 Hypo-osmolality and hyponatremia; J90 Pleural effusion, not elsewhere classified; N13.30 Unspecified hydronephrosis; K86.1 Other chronic pancreatitis; F10.10 Alcohol abuse, uncomplicated; R10.9 Unspecified abdominal pain; E11.9 Type 2 diabetes mellitus without complications; D64.9 Anemia, unspecified; Z93.3 Colostomy status; Z79.4 Long term (current) use of insulin
CPT/HCPCS: 36415; 36416; 80053; 85014; 85018; 85025; 85049

== ENCOUNTER 2020-04-06 17:51 | Emergency (ER) | payer SELFPAY ==
[2020-04-06] MEDS ORDERED: Cefepime 2 GM VIAL ONE (18:18)
[2020-04-06] MEDS ORDERED: Morphine 4 MG/ML VIAL ONE ×2 (18:18→19:19)
[2020-04-06] MEDS ORDERED: Ondansetron PF 4 MG/2 ML Vial ONE (18:18)
[2020-04-06 18:45] LABS: #Lymphocytes 0.5 thou/uL (1.20-3.40); #Monocytes 0.1 thou/uL (0.11-0.59); #Neutrophils 5.9 thou/uL (1.40-6.50); %Basophils 0.2 % (0.0-1.0); %Eosinophils 0.6 % (0.0-10.0); %Lymphocytes 8.2 % (21.0-51.0); %Monocytes 0.7 % (0.0-10.0); %Neutrophils 90.3 % (42.0-75.0); Hemoglobin 9.7 g/dL (14.0-18.0); Mean Corpuscular HGB CONC 32.3 g/dL (32.0-36.0); Mean Corpuscular Hemoglobin 28.7 pg (27.0-31.0); Mean Corpuscular Volume 88.8 fL (78.0-98.0); Mean Platelet Volume 7.2 fL (7.4-10.4); Platelet Count 425 thou/uL (130-400); RBC Distribution Width 17.6 % (11.5-14.5); Red Blood Cell (RBC) Count 3.37 mill/uL (4.70-6.10); White Blood Cell (WBC) Count 6.5 thou/uL (4.8-10.8)
[2020-04-06] MEDS ORDERED: Vancomycin 1 GM/200 ML BAG ONE (18:52)
[2020-04-06 19:05] LABS: ALT (SGPT) 11 U/L (8-55); AST (SGOT) 28 U/L (5-34); Alkaline Phosphatase 234 U/L (40-110); Anion Gap 17 mmol/L (10-20); BUN (Urea Nitrogen) 9 mg/dL (8.9-20.6); CK (CPK) 10 U/L (30-200); Calc. Creatinine Clearance 0 mL/min (70-130); Calcium 9.3 mg/dL (7.8-10.44); Carbon Dioxide 25 mmol/L (22-29); Chloride 92 mmol/L (98-107); Estimated GFR-MDRD Greater than 90; Globulin 4.8 g/dL (2.4-3.5); Glucose 280 mg/dL (70-105); Lipase 613 U/L (8-78); Magnesium 1.2 mg/dL (1.6-2.6); Potassium 4.7 mmol/L (3.5-5.1); Protein, Total 7.8 g/dL (6.0-8.3); Sodium 129 mmol/L (136-145)
--- NOTE | 2020-04-06 20:07 | RAD ---
PORTABLE UPRIGHT FRONTAL CHEST RADIOGRAPH: Date: 04-06-2020 Comparison: 03-28-2020 History: Nausea, vomiting, and epigastric pain. FINDINGS: There is a moderate sized left pleural effusion obscuring the lingula and left lower lobe. The left p leural effusion appears to have decreased in size when compared to the prior examination. Catheter tu ai overlies the left upper quadrant, incompletely imaged. Right lung appears clear. IMPRESSION: Dense pleural and parenchymal opacity in the left base, a nonspecific finding, as seen on prior imagi ng. POS: [facility]
--- NOTE | 2020-04-06 20:42 | CT ---
CT ABDOMEN AND PELVIS: Date: 04-06-2020 Comparison: 03-25-2020 History: Nausea and vomiting, history of colostomy, colon resection and pancreatitis. Technique: Axial CT imaging at 5 mm intervals from the lung bases through the pubic symphysis with IV contrast. Coronal and sagittal reformatted imaging obtained. FINDINGS: There is a moderate sized left pleural effusion with consolidation/collapse of the left lower lobe. C oronary arterial calcifications are noted. Evaluation of the bowel is limited without oral contrast media. There is intrahepatic biliary dilatation within the right and left lobe of the liver which is a stabl e finding. There is also stable dilation of the common bile duct which measures at least 1.5 cm in tr ansverse dimension. No focal liver lesion is seen. There is mild stable distention of the gallbladder . The spleen appears unremarkable. There is severe inflammatory change within the upper abdomen centered in the region of the pancreas. There is numerous segments of catheter tubing which are associated with the pancreatic bed and the st omach. On the prior examination there was a drainage catheter which was within the gastric antrum and duodenum. There was a second drainage catheter which extended from the stomach into a complex peripa ncreatic fluid collection containing numerous foci of gas. On this examination the catheter tubing wh ich was previously within the gastric antrum and duodenum is no longer in this region and may have be en removed. However, there appear to be three drainage catheter which are associated with the stomach and extend into a large complex fluid and gas containing collection within the mid upper abdomen and left upper quadrant. These drainage catheters suggest treatment of necrotizing pancreatitis and gas containing pseudo cysts with decompression into the stomach. The majority of the pancreas is replaced by a large gas containing irregular fluid collection consistent with extensive necrotizing pancreati tis. The dominant gas containing fluid collection posterior to the stomach measures at least 12.6 cm in transverse dimension, which appears similar when compared to the prior exam. In addition, there is a complex ill-defined fluid collection containing gas and debris anterior to the spleen within the l eft upper quadrant measuring up to 6.9 cm, suggesting abscess. There is new small volume free fluid a nterior to the left lobe of the liver which could be related to a recent interventional procedure or less likely, bowel perforation. Clinical correlation is required. Severe inflammatory change is seen involving the fat adjacent to the distal esophagus. The adrenal glands and the right kidney appear unremarkable. The left kidney demonstrates severe hydr onephrosis and marked cortical thinning, as before. There is a cystic structure inferior to the dilat ed left renal pelvis which could represent an additional stable fluid collection measuring 4.4 cm. There is a left lower quadrant and a right lower quadrant ostomy. There appears to be a Polanco's yasmeen ch with post-operative clips in the presacral space. There is nonspecific soft tissue density in the presacral space, stable. No evidence for small bowel obstruction is seen. Review of the vascular structures demonstrates severe attenuation of the main portal vein which is ne nelson completely collapsed at its origin. The splenic vein appears thrombosed. The superior mesenteric vein appears patent. The arterial structures appear patent. Review of the osseous structures demonstrates no worrisome lytic or blastic bone lesion. There is a left paracentral fat containing hernia on axial image 41, stable. Stable bilateral lower q uadrant parastermal hernias are present. There is scattered inflammatory change within the mesenteric fat throughout the abdomen/pelvis. IMPRESSION: Findings suggesting extensive necrotizing pancreatitis with extensive gas containing abscess formatio n posterior to the stomach and within the left upper quadrant anterior to the spleen. Since the prior examination there has been interval placement of additional drainage catheters extending from the st omach to the peripancreatic fluid collection. New small volume free intraperitoneal air anterior to t he left lobe of the liver could be related to prior interventional procedure. Bowel perforation canno t be completely excluded but is felt less likely. There is continued intra and extrahepatic biliary d ilation and there is marked attenuation of the superior mesenteric vein and portal vein near their co nfluence. Results called to Dr. Kaiser at 8:00 p.m. 04-06-2020. Code CR
[2020-04-06] MEDS ORDERED: HYDROmorphone 0.5 MG/0.5 ML SYRINGE ONE (20:46)
[2020-04-06] MEDS ORDERED: Magnesium 2 GM/50 ML BAG (IN WATER) ONE (21:39)
[2020-04-06 21:42] LABS: Lactic Acid 2.3 mmol/L (0.5-2.2)
[2020-04-07] MEDS ORDERED: HYDROmorphone 0.5 MG/0.5 ML SYRINGE ONE ×2 (00:41→02:51)
[2020-04-07] MEDS ORDERED: Norepinephrine 8 MG/0.9% NS 250 ML ONE (01:27)
[2020-04-07] MEDS ORDERED: Fluconazole In NaCl,Iso-Osm 200 MG in Premix Bag 1 BAG IVPB SCH (02:00)
[2020-04-07] MEDS ORDERED: Lactated Ringer's 1,000 ML IV SCH (02:15)
[2020-04-07] MEDS ORDERED: Meropenem 2 GM in Sodium Chloride 0.9% 100 ML IVPB SCH (02:15)
[2020-04-07] MEDS ORDERED: metroNIDAZOLE 500 MG/100 ML BAG ONE (02:18)
== END 2020-04-07 03:17 | disposition short-term general hospital (02) ==
LOC: ERS 17:51
DX: A41.9 Sepsis, unspecified organism (principal); R65.21 Severe sepsis with septic shock; K85.91 Acute pancreatitis with uninfected necrosis, unspecified; E11.9 Type 2 diabetes mellitus without complications; I10 Essential (primary) hypertension; F17.220 Nicotine dependence, chewing tobacco, uncomplicated; Z79.899 Other long term (current) drug therapy
CPT/HCPCS: 36415; 36556; 71045; 74177; 80053; 82550; 83605; 83690; 83735; 84443; 84484; 85025; 87040; 87076; 93005; 94760; 96361; 96365; 96366; 96367; 96368; 96375; 96376; J0692; J1170; J1450; J2185; J2270; J2405; J3370; J3475; J3490; J7120; U0002

== ENCOUNTER 2020-05-21 09:11 | Observation (INO) | payer OTHER, SELFPAY ==
[2020-05-21 10:09] LABS: #Basophils 0.1 thou/uL (0.0-0.2); #Eosinphils 0.2 thou/uL (0.0-0.7); #Lymphocytes 1.4 thou/uL (1.20-3.40); #Monocytes 0.6 thou/uL (0.11-0.59); #Neutrophils 3.4 thou/uL (1.40-6.50); %Basophils 1.5 % (0.0-1.0); %Eosinophils 3.2 % (0.0-10.0); %Lymphocytes 24.3 % (21.0-51.0); %Monocytes 10.3 % (0.0-10.0); %Neutrophils 60.7 % (42.0-75.0); Hemoglobin 13.5 g/dL (14.0-18.0); Mean Corpuscular HGB CONC 32.9 g/dL (32.0-36.0); Mean Corpuscular Hemoglobin 29.9 pg (27.0-31.0); Mean Corpuscular Volume 90.9 fL (78.0-98.0); Mean Platelet Volume 7.7 fL (7.4-10.4); Platelet Count 302 thou/uL (130-400); RBC Distribution Width 16.3 % (11.5-14.5); Red Blood Cell (RBC) Count 4.51 mill/uL (4.70-6.10); White Blood Cell (WBC) Count 5.6 thou/uL (4.8-10.8)
[2020-05-21] MEDS ORDERED: Ondansetron PF 4 MG/2 ML Vial ONE (10:09)
[2020-05-21] MEDS ORDERED: Fentanyl 100 MCG/2 ML VIAL ONE ×2 (10:09→12:29)
--- NOTE | 2020-05-21 10:11 | RAD ---
Exam: Chest one view HISTORY:Hyperglycemia. Emesis. Comparison: 04/06/2020 FINDINGS: Cardiac silhouette: Normal Aorta: Unremarkable Pulmonary vessels: Normal Costophrenic angles: Scarring in the left costophrenic angle. LUNGS: No masses or consolidation. Pneumothorax: None Osseous abnormalities: None Incidentals: Tubing material project over the left upper quadrant, unchanged. IMPRESSION: No acute cardiopulmonary process.
[2020-05-21 10:21] LABS: PTT 24.9 sec (22.9-36.1); Prothrombin Time 13.2 sec (12.0-14.7)
[2020-05-21 10:32] LABS: ALT (SGPT) 29 U/L (8-55); AST (SGOT) 34 U/L (5-34); Albumin 3.5 g/dL (3.5-5.0); Alkaline Phosphatase 444 U/L (40-110); Anion Gap 17 mmol/L (10-20); BUN (Urea Nitrogen) 15 mg/dL (8.9-20.6); Bilirubin, Total 0.5 mg/dL (0.2-1.2); Calc. Creatinine Clearance 0 mL/min (70-130); Calcium 10.3 mg/dL (7.8-10.44); Carbon Dioxide 24 mmol/L (22-29); Chloride 96 mmol/L (98-107); Estimated GFR-MDRD Greater than 90; Globulin 4.7 g/dL (2.4-3.5); Glucose 288 mg/dL (70-105); Lipase 55 U/L (8-78); Magnesium 1.6 mg/dL (1.6-2.6); Potassium 5.1 mmol/L (3.5-5.1); Protein, Total 8.2 g/dL (6.0-8.3); Sodium 132 mmol/L (136-145)
--- NOTE | 2020-05-21 11:13 | CT ---
CT Abdomen Pelvis W Con History: Weakness. Comparison: CT abdomen and pelvis March 2020 Findings: Incompletely evaluated nodule within the lingula measuring at least 8 mm. No pleural effusi on. Peripancreatic necrosis is decreased size with indwelling drainage catheters in good position within the anterior pararenal space as well as catheters between the greater curvature stomach and the collection. Minimal normal pancreatic head parenchyma remains. Remainder the pancreatic tail and body is necrosis. Left lower right lower quadrant ostomies. No evidence for bowel obstruction. Small volume free fluid in the pelvis. Embolization coils along the gastroduodenal artery. Splenic artery is patent. No pseudoaneurysm. Severe left-sided hydroureteronephrosis with dilated patulous proximal ureter and mid ureter is simil ar. The distal left ureter is not well evaluated. Impression: 1. Interval size decrease of the walled off necrosis anterior pararenal space with minimal normal enh ancing pancreatic tissue of the head and uncinate process. No new fluid collection. 2. Slight interval improved biliary dilatation from the comparison exam. 3. Unchanged severe left hydroureteronephrosis with nonvisualization of the mid and distal left urete r. 4. No evidence for bowel obstruction. 5. Attenuated although patent SMV and portal vein.
[2020-05-21 13:09] LABS: Lactic Acid 2.4 mmol/L (0.5-2.2)
[2020-05-21] MEDS ORDERED: Iopamidol-370 76% 500 ML 1 ML ONE (14:11)
[2020-05-21] MEDS ORDERED: Ondansetron ODT 4 MG TAB SL PRN (16:35)
[2020-05-21] MEDS ORDERED: Ondansetron PF 4 MG/2 ML Vial IVP PRN (16:35)
[2020-05-21] MEDS ORDERED: Acetaminophen 325 MG TAB PO PRN (16:46)
[2020-05-21] MEDS ORDERED: Ondansetron ODT 4 MG TAB PO PRN (16:46)
[2020-05-21] MEDS ORDERED: HumaLOG 300 UNITS/3 ML VIAL SC PRN (16:46)
[2020-05-21] MEDS ORDERED: Dextrose 5% in Water 1,000 ML IV PRN (16:46)
[2020-05-21] MEDS ORDERED: Dextrose 50% Abboject 50 ML SYRINGE SLOW IVP PRN (16:46)
--- NOTE | 2020-05-21 16:46 | PDOC.FPRHP ---
- History of Present Illness Chief Complaint: Abd Pain History of Present Illness: Pt is a 49yo M with PMH of alcohol abuse, reported splenic rupture s/p drain, chronic necrotizing pancreatitis s/p pseudocyst stent placement and drain placement, and hx of colon cancer s/p diverting colostomy presenting to ED for abd pain around drain site that is actually L side pain, intercostal area. He reports f/u with physician in [place] and was told 2 weeksago that it was not time to remove drain yet. He apparently called Dr. Mcknight's office today and was told to come to ED to be evaluated. He denies any infectious sx and completed an outpatient Abx regimen, cannot remember when he stopped Abx though. He also reports poor appetite and some n/v- about 1x/day d/t pain in drain site. He denies any changes in output from colostomy. He denies epigastric abd pain. He is not taking anything for pain from home. ED Course: He received 50mcg of Fentanyl x2, 500ml of NS, and Zofran - Allergies/Adverse Reactions Allergies Allergy/AdvReac Type Severity Reaction Status Date / Time tramadol Allergy no pain Verified 04/01/20 01:59 relief/ "feels funny" - Home Medications Medication Instructions Recorded Confirmed Type Acetaminophen 500 mg PO Q6HR PRN 04/01/20 05/21/20 History Cyclobenzaprine HCl 5 mg PO TID PRN 04/01/20 05/21/20 History Dicyclomine [Bentyl] 10 mg PO TID 04/01/20 05/21/20 History Folic Acid 1 mg PO DAILY 04/01/20 05/21/20 History HYDROcodone/Acetaminophen 10 mg PO Q6HR PRN 04/01/20 05/21/20 History [Hydrocodone-Acetamin 10-325 mg] Lidocaine 5% Patch [Lidoderm 5% 1 patch TD DAILY 04/01/20 05/21/20 History Patch] Lisinopril [Zestril] 20 mg PO DAILY 04/01/20 05/21/20 History metFORMIN [Glucophage] 500 mg PO BID-WM 04/01/20 05/21/20 History ALPRAZolam [Xanax] 0.25 mg PO BID #30 tab 04/03/20 05/21/20 Rx Lipase/Protease/Amylase [Honey MANCILLA 1 cap PO TID- #90 cap 04/03/20 05/21/20 Rx 12,000 Units] - History PMHx: Hx of splenic rupture s/p drain placement, Chronic Necrotic Pancreatitis, Normocytic Anemia, Hx of Colon Cancer s/p colostomy, Alcohol Abuse, HTN, IDDM PSHx: Lap sigmoid/upper rectal resection with diverting colostomy 07/2016, Extensive circumcision [place] malignancy FHx: Uncle colon cancer at age 65yo Social: , former smoker, Drinks >5drinks/day previously, quit in november - Review of Systems General: reports: weight/appetite/sleep changes. denies: fever/chills, night sweats, fatigue Eyes: denies: eye pain, vision changes ENT: denies: nasal congestion, rhinorrhea Respiratory: denies: cough, congestion, shortness of breath Cardiovascular: denies: chest pain, palpitation, edema Gastrointestinal: reports: nausea, vomiting, abdominal pain. denies: diarrhea, constipation Genitourinary: denies: incontinence, dysuria, polyuria Skin: denies: rashes, lesions Musculoskeletal: denies: pain, tenderness, swelling Neurological: denies: numbness, syncope, seizure Psychological: reports: depression. denies: anxiety - Vital signs VS: BP 118/81, P76,R15, T97.8, O2 98% RA, Wt 63kg - Physical Exam Constitutional: NAD, awake, alert and oriented HEENT: normocephalic and atraumatic, EOMI, no scleral icterus, grossly normal vision, MMM Neck: supple, FROM, no LAD Chest: no-tender to palpation, no lesions Heart: RRR, normal S1/S2, no murmurs/rubs/gallops, pulses present, no edema Lungs: CTAB, no respiratory distress, good air movement Abdomen: soft, bowel sounds present, no masses/distention -Abdomen: L 7-8 intercostal space with drain in place draining cloudy white fluid, site is nonerythematous without drainage, abd has L vent for colostomy and RLQ colostomy bag in place, epigastrum with mild tenderness, no rebound or guarding Musculoskeletal: normal structure, normal tone Neurological: no focal deficit Skin: no rash/lesions, good turgor Heme/Lymphatic: no unusual bruising or bleeding, no purpura Psychiatric: normal mood and affect FMR H&P: Results - Labs Result Diagrams: 05/21/20 10:01 05/21/20 10:01 Lab results: WBC 5.6 thou/uL (4.8-10.8) 05/21/20 10:01 Hgb 13.5 g/dL (14.0-18.0) L 05/21/20 10:01 Hct 41.0 % (42.0-52.0) L 05/21/20 10:01 MCV 90.9 fL (78.0-98.0) 05/21/20 10:01 Plt Count 302 thou/uL (130-400) 05/21/20 10:01 Neutrophils % 60.7 % (42.0-75.0) 05/21/20 10:01 Sodium 132 mmol/L (136-145) L 05/21/20 10:01 Potassium 5.1 mmol/L (3.5-5.1) 05/21/20 10:01 Chloride 96 mmol/L (98-107) L 05/21/20 10:01 Carbon Dioxide 24 mmol/L (22-29) 05/21/20 10:01 BUN 15 mg/dL (8.9-20.6) 05/21/20 10:01 Creatinine 0.76 mg/dL (0.7-1.3) 05/21/20 10:01 Glucose 288 mg/dL (70-105) H 05/21/20 10:01 Lactic Acid 2.4 mmol/L (0.5-2.2) H 05/21/20 12:42 Calcium 10.3 mg/dL (7.8-10.44) 05/21/20 10:01 Total Bilirubin 0.5 mg/dL (0.2-1.2) 05/21/20 10:01 AST 34 U/L (5-34) 05/21/20 10:01 ALT 29 U/L (8-55) 05/21/20 10:01 Alkaline Phosphatase 444 U/L (40-110) H 05/21/20 10:01 Serum Total Protein 8.2 g/dL (6.0-8.3) 05/21/20 10:01 Albumin 3.5 g/dL (3.5-5.0) 05/21/20 10:01 Lipase 55 U/L (8-78) 05/21/20 10:01 - Radiology Interpretation CT scan - abdomen Status: image reviewed by me, report reviewed by me (Decrease in walled off necrosis compared to prior imaging, improved biliary dilatation, unchanged severe L hydroureteronephrosis, patent SMV and portal vein) FMR H&P: A/P - Problem List (1) Necrotizing pancreatitis Current Visit: No Status: Chronic Code(s): K85.91 - ACUTE PANCREATITIS WITH UNINFECTED NECROSIS, UNSPECIFIED (2) Lactic acidosis Current Visit: No Status: Acute Code(s): E87.2 - ACIDOSIS (3) H/O malignant neoplasm of colon Current Visit: No Status: Chronic Code(s): Z85.038 - PERSONAL HISTORY OF MALIGNANT NEOPLASM OF LARGE INTESTINE (4) Hydronephrosis Current Visit: No Status: Chronic Code(s): N13.30 - UNSPECIFIED HYDRONEPHROSIS (5) HTN (hypertension) Current Visit: No Status: Chronic Code(s): I10 - ESSENTIAL (PRIMARY) HYPERTENSION Qualifiers: (6) Diabetes Current Visit: No Status: Chronic Code(s): E11.9 - TYPE 2 DIABETES MELLITUS WITHOUT COMPLICATIONS Qualifiers: Diabetes mellitus type: due to underlying condition Diabetes mellitus terminal worker insulin use: without [facility] use Diabetes mellitus complication status : with hyperglycemia Qualified Code(s): E08.65 - Diabetes mellitus due to underlying condition with hyperglycemia - Plan Necrotizing Pancreatitis and Splenic Rupture s/p drain and stent placement: -Pain associated with drain placmement. Dr. Mcknight consulted and plans to see patient tomorrow. -All findings on CT improved or stable as well as LFT's from prior admission -No s/sx of acute infection, WBC wnl, LA elevated but appears to be 2/2 dehydration, IVF running, will hold off on Abx and await Gen Surg recs. -IV Morphine for pain control -trend labs Lactic Acidosis 2/2 Dehydration: -s/p 500ml in ED -pt with poor PO intake and n/v, will start mIVF -trend LA Hydronephrosis: -stable per CT, but unsure if this has been worked up -UA pending -renal US pending -consider Urology consult in the AM T2DM: -continue home meds -SSI HTN: -apparently off meds per pt, will continue to monitor Hx of Alcohol Abuse: -reports last drink in 11/2019 -daily MV and folic acid DVT PPx: Lovenox Code: Full GI PPx: none PCP: DEVIKA FMR H&P: Upper Level - Plan Date/Time: 05/21/20 [id number] I, [], have evaluated this patient and agree with findings/plan as outlined by pharmacy grad intern resident. Pertinent changes/additions are listed here.
[2020-05-21] MEDS: Sodium Chloride 0.9% 1,000 ML IV SCH (17:05)
[2020-05-21 17:07] VITALS: BMI 19.5
[2020-05-21] MEDS: Morphine 2 MG/ML VIAL SLOW IVP PRN ×2 (17:58→23:56)
[2020-05-21 18:29] LABS: Lactic Acid 1.8 mmol/L (0.5-2.2)
--- NOTE | 2020-05-21 21:01 | ULT ---
US Renal Bilateral STANDARD: 05/21/2020 5:30 PM CLINICAL HISTORY: Hydronephrosis. STUDY: Renal ultrasound COMPARISON: 05/21/2020 FINDINGS: Right kidney: Echogenicity: Normal. Masses/cysts: None. Hydronephrosis: None. Calcifications: None. Length: 13.8 cm Left kidney: Echogenicity: Increased. Masses/cysts: None. There is an anechoic cystic structure adjacent to the left kidney which represen ts a fluid collection adjacent to the psoas muscle on CT. This measures 3.4 cm in width. Hydronephrosis: Severe left hydronephrosis with severe cortical thinning. Calcifications: None. Length: 10.2 cm Limited visualization of the urinary bladder shows floating debris without focal mass. IMPRESSION: 1. Severe left hydronephrosis with cortical thinning of the left kidney 2. Small fluid collection adjacent to the left kidney represents a fluid collection associated with t he psoas muscle on CT
[2020-05-21] MEDS: HYDROcodone/Acetaminophen 5/325 mg Tablet PO PRN (21:15)
[2020-05-22] MEDS: HYDROcodone/Acetaminophen 5/325 mg Tablet PO PRN ×4 (02:22→14:30)
[2020-05-22] MEDS: Sodium Chloride 0.9% 1,000 ML IV SCH ×3 (02:28→20:18)
[2020-05-22 03:16] LABS: Bacteria/HPF None Seen HPF (None Seen); Bilirubin Negative (Negative); Blood, Urine Negative (Negative); Calcium Oxalate Crystals Rare HPF (None Seen); Clarity Clear (Clear); Glucose, Urine (Dipstick) 500 mg/dL (Negative); Ketone, Urine Negative (Negative); Leukocyte Negative Leu/uL (Negative); Nitrite Negative (Negative); Protein, Urine (Dipstick) 30 mg/dL (Neg-Trace); RBC/HPF 0-3 HPF (0-3); Squamous Epithelial 0-3 HPF (0-3); Urobilinogen Normal mg/dL (Less than 2); WBC/HPF 0-3 HPF (0-3)
[2020-05-22 03:28] LABS: Specific Gravity, Urine 1.054 (1.002-1.036); Urine Culture Reflex No No
[2020-05-22 05:36] LABS: #Basophils 0.1 thou/uL (0.0-0.2); #Eosinphils 0.2 thou/uL (0.0-0.7); #Lymphocytes 1.5 thou/uL (1.20-3.40); #Monocytes 0.6 thou/uL (0.11-0.59); #Neutrophils 2.5 thou/uL (1.40-6.50); %Basophils 1.1 % (0.0-1.0); %Eosinophils 4.9 % (0.0-10.0); %Lymphocytes 31.1 % (21.0-51.0); %Monocytes 12.2 % (0.0-10.0); %Neutrophils 50.7 % (42.0-75.0); Hemoglobin 12.2 g/dL (14.0-18.0); Mean Corpuscular HGB CONC 31.1 g/dL (32.0-36.0); Mean Corpuscular Hemoglobin 29.1 pg (27.0-31.0); Mean Corpuscular Volume 93.5 fL (78.0-98.0); Platelet Count 262 thou/uL (130-400); Red Blood Cell (RBC) Count 4.19 mill/uL (4.70-6.10); White Blood Cell (WBC) Count 4.9 thou/uL (4.8-10.8)
[2020-05-22 06:00] LABS: ALT (SGPT) 21 U/L (8-55); AST (SGOT) 23 U/L (5-34); Albumin 3.2 g/dL (3.5-5.0); Alkaline Phosphatase 335 U/L (40-110); Anion Gap 12 mmol/L (10-20); BUN (Urea Nitrogen) 11 mg/dL (8.9-20.6); Bilirubin, Total 0.5 mg/dL (0.2-1.2); Calc. Creatinine Clearance 113 mL/min (70-130); Calcium 9.4 mg/dL (7.8-10.44); Carbon Dioxide 25 mmol/L (22-29); Chloride 100 mmol/L (98-107); Estimated GFR-MDRD Greater than 90; Globulin 3.5 g/dL (2.4-3.5); Glucose 118 mg/dL (70-105); Potassium 4.7 mmol/L (3.5-5.1); Protein, Total 6.7 g/dL (6.0-8.3); Sodium 132 mmol/L (136-145)
--- NOTE | 2020-05-22 06:27 | PDOC.FM ---
- Subjective Subjective: Patient reports persistent 7/10 pain. The pain is located near the entry site on the L abdomen near his post surgical tube. The pain is nonradiating. - Objective MAR Reviewed: Yes Vital Signs & Weight: Vital Signs (12 hours) Temp Pulse Resp BP Pulse Ox 05/22/20 04:00 97.5 F L 57 L 18 123/84 99 05/22/20 00:00 97.8 F 70 18 125/88 99 05/21/20 19:22 98.2 F 85 18 113/75 98 Weight Weight 63.503 kg I&O: 05/20/20 05/21/20 05/22/20 06:59 06:59 06:59 Intake Total 400 Output Total 0 Balance 400 Result Diagrams: 05/22/20 05:27 05/22/20 05:27 Phys Exam - Physical Examination Constitutional: NAD HEENT: moist MMs, sclera anicteric Neck: no nodes, no JVD Respiratory: no wheezing, no rales, no rhonchi, clear to auscultation bilateral Cardiovascular: RRR, no significant murmur, no rub Gastrointestinal: soft, no distention Post surgical changes, ostomy, drainage tube on L abdomen Musculoskeletal: no edema, pulses present Neurological: non-focal, moves all 4 limbs Psychiatric: normal affect, A&O x 3 Skin: no rash, normal turgor Dx/Plan - Plan Plan: Necrotizing Pancreatitis and Splenic Rupture s/p drain and stent placement: -Pain associated with drain placmement. Dr. Mcknight consulted and plans to see patient tomorrow. -All findings on CT improved or stable as well as LFT's from prior admission -No s/sx of acute infection, WBC wnl, LA elevated but appears to be 2/2 dehydration, IVF running, will hold off on Abx and await Gen Surg recs. -IV Morphine for pain control, norco -trend labs Lactic Acidosis 2/2 Dehydration: -pt with poor PO intake and n/v, will start mIVF -trend LA Hydronephrosis: - stable per CT, but unsure if this has been worked up - UA, CT, renal US stable - Given no sx and changes, outpatient workup recommended by urology T2DM: -continue home meds -SSI HTN: -apparently off meds per pt, will continue to monitor Hx of Alcohol Abuse: - reports last drink in 11/2019 - daily MV and folic acid DVT PPx: Lovenox Code: Full GI PPx: none PCP: TANVI Wright
[2020-05-22] MEDS: Pancrelipase DR 12,000 1 CAP PO SCH ×3 (08:15→17:00)
[2020-05-22] MEDS: Enoxaparin Sodium 40 MG/0.4 ML SYRINGE SC SCH (08:16)
[2020-05-22] MEDS: metFORMIN 500 MG TAB PO SCH ×2 (08:16→17:00)
[2020-05-22] MEDS: Folic Acid 1 MG TAB PO SCH (08:16)
[2020-05-22] MEDS: Morphine 2 MG/ML VIAL SLOW IVP PRN ×2 (08:16→12:11)
[2020-05-22] MEDS ORDERED: Lisinopril 20 MG TAB PO SCH (09:00)
--- NOTE | 2020-05-22 12:17 | CON ---
DATE OF CONSULTATION: 05/22/2020 CHIEF COMPLAINT: Pancreatic fistula, chronic pain. HISTORY OF PRESENT ILLNESS: This is a 49-year-old male with a history of alcohol-associated [id number]-zl-[id number] pancreatitis, has been being [facility] [place] for endoscopically placed drain tubes from the stomach lumen into a pseudocyst. He also had a chronic fluid collection near the splenic hilum and he now has a large bore drain. This large bore drain is causing significant daily pain, and due to its location near the rib cages, limiting his activity and it also hurts when he eats. He denies fever or chills. His midabdominal pain has improved slightly. He has a permanent colostomy and he is having normal stool in there. PAST MEDICAL HISTORY: Includes: 1. Pancreatitis, necrotizing. 2. Anemia. 3. Colon cancer, T3 N2. 4. Alcohol abuse. 5. Insulin-dependent diabetes mellitus. 6. Hypertension. SURGICAL HISTORY: 1. Sigmoid resection. 2. Now has colostomy, has had colostomy revision. FAMILY HISTORY: Uncle with colon cancer. SOCIAL HISTORY: Former greater than 5 alcoholic drinks a day, quit in November. Former smoker. REVIEW OF SYSTEMS: Otherwise negative unless described above. PHYSICAL EXAMINATION: VITAL SIGNS: Pulse 55, respirations 16, temperature is afebrile, and blood pressure 120/83. CHEST: Clear. HEART: Regular rate. ABDOMEN: Soft. Well-healed abdominal incisions without hernia. There is a large bore drain in the left upper quadrant, draining to a bag. There is some greenish-appearing output in the drain. LABORATORY DATA: White blood cell count is 4 and hemoglobin 12. Creatinine is normal. Liver function tests normal except alkaline phosphatase is elevated at 335. Lipase normal. CT scan of the abdomen and pelvis again reveals severe left-sided hydronephrosis, but also improvement in fluid collections around the spleen and pancreas. ASSESSMENT: 1. Acute necrotizing pancreatitis, likely some component of chronic pancreatitis secondary to chronic EtOH abuse. 2. Chronic left-sided hydronephrosis, seen by Dr. Huntley in March, who recommends followup ultrasound in 3 months. 3. 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 PLAN: I would hesitate to remove this drain, I think that he would likely reaccumulate fluid in the area. He probably needs to be on some sort of pain management plan with daily mild narcotic like hydrocodone to manage the pain associated with this drain until it can be removed. I would defer to the family practice service for this, especially they are going to continue to see him regularly in the outpatient setting. However, that is the problem I can arrange for that under my office as well, but no plans to remove the tube as of yet. Job ID: [id number]
[2020-05-22] MEDS ORDERED: Simethicone Chewable 80 MG TAB PO PRN (12:53)
[2020-05-22 13:25] LABS: SARS-CoV-2 MS2 Positive; SARS-CoV-2 N Gene Negative; SARS-CoV-2 S Gene Negative; SARS-CoV-2 by NAA Not Detected (NotDetected); SARS-CoV-2 orf1ab Negative
--- NOTE | 2020-05-22 14:09 | HP ---
CHIEF COMPLAINT: Abdominal pain. HISTORY OF PRESENT ILLNESS: Mr. Goel is a 49-year-old male with a very long complicated past medical history, which is covered in the resident's H and P. He was admitted, necessitating a drain removal and we have consulted Dr. Mcknight for this. He is also noted to have a left-sided severe hydronephrosis, which has been present since 2018. PHYSICAL EXAMINATION: VITAL SIGNS: Stable. He is afebrile. GENERAL: He is awake, alert, anxious to see Dr. Mcknight. EARS, NOSE, AND THROAT: No erythema or exudate. NECK: Supple. CARDIAC: Heart rhythm regular, S4 gallop. No murmur or rub. LUNGS: Clear, but diminished. ABDOMEN: Numerous surgical scars. No evidence of acute abdomen. No distention, rebound, or rigidity are noted. ASSESSMENT: 1. History of necrotizing pancreatitis. 2. Multiple other surgeries. 3. Severe hydronephrosis. PLAN: Admit. Consult Dr. Mcknight and Urology. Job ID: [id number]
[2020-05-22] MEDS ORDERED: HYDROcodone/Acetaminophen 10/325 mg Tablet PO PRN ×2 (15:11→16:23)
[2020-05-22] MEDS ORDERED: HYDROcodone/Acetaminophen 10/325 mg Tablet PO SCH ×2 (16:00→20:00)
[2020-05-22] MEDS: HumaLOG 300 UNITS/3 ML VIAL SC PRN (17:00)
[2020-05-22] MEDS: HYDROcodone/Acetaminophen 10/325 mg Tablet PO PRN (20:17)
[2020-05-23] MEDS: HYDROcodone/Acetaminophen 10/325 mg Tablet PO PRN ×4 (02:38→16:47)
--- NOTE | 2020-05-23 06:26 | PDOC.FM ---
- Subjective Subjective: Patient says the pain medicine lasts for 4 hours. Had a long discussion about pain control, diabetic diet, and anxiety. Patient became tearful during interview. Patient says he is ready to give up and is in constant pain. - Objective MAR Reviewed: Yes Vital Signs & Weight: Vital Signs (12 hours) Temp Pulse Resp BP Pulse Ox 05/23/20 02:39 97.6 F 61 16 128/86 99 05/22/20 20:06 98.0 F 68 18 119/84 98 Weight Admit Weight 63.503 kg Weight 63.503 kg I&O: 05/21/20 05/22/20 05/23/20 06:59 06:59 06:59 Intake Total 2100 1200 Output Total 1025 1420 Balance 1075 -220 Result Diagrams: 05/23/20 07:55 05/23/20 07:55 Phys Exam - Physical Examination Constitutional: NAD HEENT: moist MMs, sclera anicteric Neck: no nodes, no JVD Respiratory: no wheezing, no rales, no rhonchi, clear to auscultation bilateral Cardiovascular: RRR, no significant murmur, no rub Gastrointestinal: soft, positive bowel sounds post surgical changes, R sided ostomy, L sided drain Musculoskeletal: no edema, pulses present Psychiatric: normal affect, A&O x 3 Dx/Plan - Plan Plan: Necrotizing Pancreatitis and Splenic Rupture s/p drain and stent placement: -Pain associated with drain placmement. Dr. Mcknight consulted and plans to see patient tomorrow. -All findings on CT improved or stable as well as LFT's from prior admission -No s/sx of acute infection, WBC wnl, LA elevated but appears to be 2/2 dehydration, IVF running, will hold off on Abx and await Gen Surg recs. -PO norco q4h, start bowel regimen -trend labs Lactic Acidosis 2/2 Dehydration: -pt with poor PO intake and n/v, will start mIVF -trend LA Hydronephrosis: - stable per CT, but unsure if this has been worked up - UA, CT, renal US stable - Given no sx and changes, outpatient workup recommended by urology T2DM: -continue home meds -SSI HTN: -apparently off meds per pt, will continue to monitor Hx of Alcohol Abuse: - reports last drink in 11/2019 - daily MV and folic acid Anxiety and depression Sertraline 50 mg po QD DVT PPx: Lovenox Code: Full GI PPx: none PCP: TANVI Wright
[2020-05-23] MEDS ORDERED: Senokot S 8.6-50 MG TAB PO PRN (06:55)
[2020-05-23 08:40] LABS: #Eosinphils 0.1 thou/uL (0.0-0.7); #Lymphocytes 1.1 thou/uL (1.20-3.40); #Monocytes 0.4 thou/uL (0.11-0.59); #Neutrophils 2.6 thou/uL (1.40-6.50); %Basophils 0.5 % (0.0-1.0); %Eosinophils 3.1 % (0.0-10.0); %Neutrophils 60.5 % (42.0-75.0); Hemoglobin 13.2 g/dL (14.0-18.0); Mean Corpuscular HGB CONC 32.4 g/dL (32.0-36.0); Mean Corpuscular Hemoglobin 29.8 pg (27.0-31.0); Mean Corpuscular Volume 91.9 fL (78.0-98.0); Mean Platelet Volume 7.4 fL (7.4-10.4); Platelet Count 180 thou/uL (130-400); RBC Distribution Width 15.9 % (11.5-14.5); Red Blood Cell (RBC) Count 4.44 mill/uL (4.70-6.10); White Blood Cell (WBC) Count 4.4 thou/uL (4.8-10.8)
[2020-05-23] MEDS: Pancrelipase DR 12,000 1 CAP PO SCH ×3 (08:56→16:49)
[2020-05-23] MEDS: metFORMIN 500 MG TAB PO SCH (08:57)
[2020-05-23] MEDS: Folic Acid 1 MG TAB PO SCH (08:57)
[2020-05-23] MEDS: Sodium Chloride 0.9% 1,000 ML IV SCH (09:00)
[2020-05-23] MEDS: Enoxaparin Sodium 40 MG/0.4 ML SYRINGE SC SCH (09:07)
[2020-05-23 09:10] LABS: ALT (SGPT) 19 U/L (8-55); AST (SGOT) 31 U/L (5-34); Albumin 2.9 g/dL (3.5-5.0); Alkaline Phosphatase 271 U/L (40-110); Anion Gap 17 mmol/L (10-20); BUN (Urea Nitrogen) 6 mg/dL (8.9-20.6); Bilirubin, Total 0.5 mg/dL (0.2-1.2); Calc. Creatinine Clearance 106 mL/min (70-130); Calcium 9.3 mg/dL (7.8-10.44); Carbon Dioxide 16 mmol/L (22-29); Chloride 108 mmol/L (98-107); Estimated GFR-MDRD Greater than 90; Globulin 3.9 g/dL (2.4-3.5); Glucose 144 mg/dL (70-105); Potassium 5.6 mmol/L (3.5-5.1); Protein, Total 6.8 g/dL (6.0-8.3); Sodium 135 mmol/L (136-145)
[2020-05-23] MEDS: HumaLOG 300 UNITS/3 ML VIAL SC PRN (12:55)
[2020-05-23 13:44] LABS: Anion Gap 12 mmol/L (10-20); BUN (Urea Nitrogen) 5 mg/dL (8.9-20.6); Calc. Creatinine Clearance 128 mL/min (70-130); Calcium 9.1 mg/dL (7.8-10.44); Carbon Dioxide 22 mmol/L (22-29); Chloride 103 mmol/L (98-107); Estimated GFR-MDRD Greater than 90; Glucose 135 mg/dL (70-105); Potassium 4.2 mmol/L (3.5-5.1); Sodium 133 mmol/L (136-145)
[2020-05-23] MEDS ORDERED: metFORMIN 500 MG TAB PO SCH (17:00)
--- NOTE | 2020-05-23 17:05 | PRG ---
DATE OF SERVICE: 05/23/2020 Mr. Goel still in some degree of discomfort. However, he has a good appetite and is eating a near normal diet. He was seen by Dr. Mcknight, who felt it was too early to remove his drainage to as it is still draining. We will transition him to oral pain medications in hopes of a discharge later today or early tomorrow. Job ID: [id number]
[2020-05-23 21:38] VITALS: BP 133/89; TEMP 97.7
--- NOTE | 2020-05-26 11:21 | DIS ---
DATE OF ADMISSION: 05/21/2020 DATE OF DISCHARGE: 05/23/2020 RESIDENT: Leland Kendall MD ADMITTING ATTENDING: Flip Grady MD DISCHARGE ATTENDING: Flip Grady MD CONSULTS: GI, Gastroenterology, Dr. Mcknight. PROCEDURES: CT of abdomen and pelvis showing mildly resolving necrotizing pancreatitis with a fluid cyst on the left psoas muscle and severe left-sided hydronephrosis that was unchanged. The patient also received renal ultrasound showing severe left-sided hydronephrosis with cortical thinning. PRIMARY DIAGNOSES: Necrotizing pancreatitis and splenic rupture, status post drain and stent placement. SECONDARY DIAGNOSES: Lactic acidosis due to dehydration, hydronephrosis, type 2 diabetes, hypertension, history of alcohol abuse, anxiety, and depression. DISCHARGE MEDICATIONS: 1. Hydrocodone 10/325 mg q.6 hours p.o. p.r.n. 2. Tylenol 500 mg p.o. q.6 hours p.r.n. 3. Metformin 1000 mg p.o. b.i.d. 4. Senokot 8.6 mg/50 mg one tablet p.o. b.i.d. p.r.n. 5. Simethicone 80 mg p.o. after meals and at bedtime p.r.n. 6. Duloxetine 20 mg p.o. daily. 7. Alprazolam 0.25 mg p.o. b.i.d. 8. Cyclobenzaprine 5 mg p.o. t.i.d. 9. Dicyclomine 10 mg p.o. t.i.d. 10. Folic acid 1 mg p.o. daily. 11. Lidocaine 5% patch one patch transdermally daily. 12. Creon one capsule p.o. t.i.d. with meals. DISCONTINUED MEDICATION: Hydrocodone 5/325. Did not refill alprazolam or lidocaine patch. HPI/HOSPITAL COURSE: The patient is a 49-year-old male with a past medical history of acute necrotizing pancreatitis and splenic rupture, status post drain placement. The patient still has drain placed in the left abdomen, which is persistently draining. The patient receives medical care here with Dr. Mcknight as well as in [place]. The patient presented to the hospital due to significant pain in his abdomen. He was told that he would be getting his drain removed and it has not been removed yet. He denies any changes in output from the drain. Of note, he has a history of colon cancer, status post diverting colostomy and denies any changes in output from the colostomy. Dr. Mcknight was consulted from the ED and saw the patient the day after admission. He recommended leaving the drainage tube in for now and to follow up with him for further directions. He recommended pain control at this time. The patient's pain regimen was titrated up to 10 mg hydrocodone q.6 hours p.r.n. The patient reported that he had good pain relief for 4 hours; however, the last 2 hours, he did have more pain, especially when moving. I had a long discussion with the patient about pain control, depression/anxiety, and diabetes. I explained to the patient in detail that the goal of pain control is to limit symptoms enough for the patient to be able to get out of the house and go do daily acts of living. We discussed his depression and anxiety. The patient has been going through a lot with all these recent surgeries and pain associated with the drainage tube. He told me that he feels like he is going to "give up", he denied suicidal or homicidal ideation at that time. We also discussed diabetes management. As an outpatient, the patient was on 16 units of long-acting insulin daily. However, in the hospital, the patient was only on 500 mg of metformin b.i.d. Blood sugars were typically 200 and below. I explained to the patient that it would be important for him to keep a consistent diet. I explained in detail options such as lean meats, vegetables, moderate amount of fruits, and minimal amount of carbs such as bread, sweets, and potatoes. The patient was discharged and appeared to be understanding of this information. DISPOSITION: Stable. DISCHARGE INSTRUCTIONS: 1. Location: Home. 2. Diet: Consistent carb. 3. Activity: As tolerated. 4. Followup: The patient is to follow up with PCP, [facility], Dr. Lubna Wright within 1 week to reassess pain. The patient should follow up with Dr. Mcknight within 2 to 3 weeks or as needed for re-evaluation of drain removal. Job ID: [id number] [facility]
== END 2020-05-23 19:00 | disposition home or self-care (01) ==
LOC: ERS 09:11 → INTOOBSV 16:44 → T4-B 16:44
PROVIDERS: ADMIT Family Medicine; ATTEND Family Medicine
DX: K85.21 Alcohol induced acute pancreatitis with uninfected necrosis (principal); K86.0 Alcohol-induced chronic pancreatitis; N13.30 Unspecified hydronephrosis; E86.0 Dehydration; E11.10 Type 2 diabetes mellitus with ketoacidosis without coma; F10.11 Alcohol abuse, in remission; I10 Essential (primary) hypertension; E11.65 Type 2 diabetes mellitus with hyperglycemia; F41.9 Anxiety disorder, unspecified; F32.9 Major depressive disorder, single episode, unspecified; T85.848A Pain due to other internal prosthetic devices, implants and grafts, initial encounter; Z85.038 Personal history of other malignant neoplasm of large intestine; Z87.891 Personal history of nicotine dependence; Z79.899 Other long term (current) drug therapy; Z88.5 Allergy status to narcotic agent; Z93.3 Colostomy status; Z20.828 Contact with and (suspected) exposure to other viral communicable diseases
CPT/HCPCS: 36415; 36416; 71045; 74177; 76770; 80053; 81001; 83605; 83690; 83735; 85025; 85610; 85730; 87635; 96361; 96372; 96374; 96375; 96376; G0378; J1650; J2270; J2405; J3010; Q0162; Q9967; U0003

== ENCOUNTER 2021-05-19 12:51 | Inpatient (IN) | payer MEDICAID ==
[2021-05-19] MEDS ORDERED: Iopamidol-370 76% 500 ML 1 ML ONE (13:35)
[2021-05-19] MEDS ORDERED: Morphine 4 MG/ML VIAL ONE ×2 (14:03→17:49)
[2021-05-19 14:30] LABS: #Eosinphils 0.3 thou/uL (0.0-0.7); #Lymphocytes 1.4 thou/uL (1.20-3.40); #Monocytes 0.8 thou/uL (0.11-0.59); %Basophils 0.4 % (0.0-1.0); %Eosinophils 2.5 % (0.0-10.0); %Lymphocytes 13.3 % (21.0-51.0); %Monocytes 7.1 % (0.0-10.0); %Neutrophils 76.6 % (42.0-75.0); Hemoglobin 15.5 g/dL (14.0-18.0); Mean Corpuscular HGB CONC 34.9 g/dL (32.0-36.0); Mean Corpuscular Volume 91.8 fL (78.0-98.0); Mean Platelet Volume 7.3 fL (7.4-10.4); Platelet Count 192 thou/uL (130-400); RBC Distribution Width 14.3 % (11.5-14.5); Red Blood Cell (RBC) Count 4.84 mill/uL (4.70-6.10); White Blood Cell (WBC) Count 10.5 thou/uL (4.8-10.8)
[2021-05-19 15:01] LABS: ALT (SGPT) 56 U/L (8-55); AST (SGOT) 29 U/L (5-34); Albumin 3.5 g/dL (3.5-5.0); Alkaline Phosphatase 381 U/L (40-110); Anion Gap 13 mmol/L (10-20); BUN (Urea Nitrogen) 16 mg/dL (8.4-25.7); Bilirubin, Total 0.8 mg/dL (0.2-1.2); Calc. Creatinine Clearance 0 mL/min (70-130); Calcium 9.8 mg/dL (7.8-10.44); Carbon Dioxide 27 mmol/L (22-29); Chloride 99 mmol/L (98-107); Globulin 3.9 g/dL (2.4-3.5); Glucose 170 mg/dL (70-105); Lipase 137 U/L (8-78); Potassium 4.3 mmol/L (3.5-5.1); Protein, Total 7.4 g/dL (6.0-8.3); Sodium 135 mmol/L (136-145)
[2021-05-19] MEDS ORDERED: Ondansetron PF 4 MG/2 ML Vial ONE (17:49)
[2021-05-19 19:26] LABS: SARS-CoV-2 NAA Rapid Test Not Detected (NotDetected)
[2021-05-19] MEDS ORDERED: hydrALAZINE 20 MG/ML VIAL SLOW IVP PRN (20:32)
[2021-05-19] MEDS ORDERED: Dextrose 50% Abboject 50 ML SYRINGE SLOW IVP PRN (20:32)
[2021-05-19] MEDS ORDERED: Fentanyl 100 MCG/2 ML VIAL SLOW IVP PRN (20:32)
[2021-05-19] MEDS ORDERED: Promethazine HCl 25 MG/ML VIAL IM PRN (20:32)
[2021-05-19] MEDS ORDERED: Ondansetron PF 4 MG/2 ML Vial IVP PRN (20:32)
[2021-05-19] MEDS ORDERED: Dextrose 5% in Water 1,000 ML IV PRN (20:32)
[2021-05-19] MEDS ORDERED: ALPRAZolam 0.25 MG TAB PO PRN (20:32)
[2021-05-19] MEDS ORDERED: Ketorolac Tromethamine 30 MG/ML VIAL ONE (20:34)
[2021-05-19] MEDS: Fentanyl 100 MCG/2 ML VIAL SLOW IVP PRN ×2 (20:50→23:52)
[2021-05-19] MEDS: Enoxaparin Sodium 40 MG/0.4 ML SYRINGE SC SCH (21:38)
[2021-05-19] MEDS: Famotidine/PF 20 mg/2ml Vial SLOW IVP SCH (21:38)
[2021-05-19] MEDS: Sodium Chloride 0.9% 1,000 ML IV SCH (21:39)
[2021-05-19] MEDS: Famotidine 20 MG TAB PO SCH (22:02)
[2021-05-19 23:17] VITALS: BMI 18.6
[2021-05-20] MEDS: Ketorolac Tromethamine 30 MG/ML VIAL IVP PRN (01:15)
[2021-05-20] MEDS: Fentanyl 100 MCG/2 ML VIAL SLOW IVP PRN ×4 (01:21→10:45)
[2021-05-20] MEDS: Sodium Chloride 0.9% 1,000 ML IV SCH ×3 (05:53→21:12)
[2021-05-20 06:09] LABS: #Eosinphils 0.2 thou/uL (0.0-0.7); #Lymphocytes 1.4 thou/uL (1.20-3.40); #Monocytes 0.4 thou/uL (0.11-0.59); #Neutrophils 7.4 thou/uL (1.40-6.50); %Basophils 0.2 % (0.0-1.0); %Eosinophils 2.4 % (0.0-10.0); %Lymphocytes 14.7 % (21.0-51.0); %Monocytes 3.7 % (0.0-10.0); %Neutrophils 78.9 % (42.0-75.0); Hemoglobin 16.9 g/dL (14.0-18.0); Mean Corpuscular HGB CONC 32.4 g/dL (32.0-36.0); Mean Corpuscular Hemoglobin 30.4 pg (27.0-31.0); Mean Corpuscular Volume 93.9 fL (78.0-98.0); Mean Platelet Volume 7.4 fL (7.4-10.4); Platelet Count 206 thou/uL (130-400); RBC Distribution Width 14.7 % (11.5-14.5); Red Blood Cell (RBC) Count 5.58 mill/uL (4.70-6.10); White Blood Cell (WBC) Count 9.4 thou/uL (4.8-10.8)
[2021-05-20 06:30] LABS: Anion Gap 16 mmol/L (10-20); BUN (Urea Nitrogen) 21 mg/dL (8.4-25.7); Calc. Creatinine Clearance 76 mL/min (70-130); Calcium 9.5 mg/dL (7.8-10.44); Carbon Dioxide 25 mmol/L (22-29); Chloride 100 mmol/L (98-107); Glucose 90 mg/dL (70-105); Potassium 4.8 mmol/L (3.5-5.1); Sodium 136 mmol/L (136-145)
[2021-05-20] MEDS: Famotidine/PF 20 mg/2ml Vial SLOW IVP SCH (08:08)
[2021-05-20] MEDS: Famotidine 20 MG TAB PO SCH ×2 (08:10→21:05)
[2021-05-20] MEDS: Folic Acid 1 MG TAB PO SCH (08:33)
[2021-05-20] MEDS ORDERED: Fentanyl 100 MCG/2 ML VIAL ONE ×4 (12:48→17:12)
[2021-05-20] MEDS ORDERED: cefOXitin Sodium/Dextrose 2 GM/50 ML BAG ONE (13:51)
[2021-05-20] MEDS ORDERED: Midazolam HCl 2 mg/2 ml Vial ONE (14:14)
[2021-05-20] MEDS ORDERED: Ketamine 50 MG/ML (10ML VIAL) ONE (14:14)
[2021-05-20] MEDS ORDERED: PROPOFOL 200 MG/20 ML VIAL ONE (14:44)
[2021-05-20] MEDS ORDERED: Rocuronium Bromide 10 MG/ML (10ML VIAL) ONE (14:44)
[2021-05-20] MEDS ORDERED: Ketorolac Tromethamine 30 MG/ML VIAL ONE (14:44)
[2021-05-20] MEDS ORDERED: Ondansetron PF 4 MG/2 ML Vial ONE (14:44)
[2021-05-20] MEDS ORDERED: Glycopyrrolate 0.2 MG/ML 5 ML SYRINGE ONE (14:44)
[2021-05-20] MEDS ORDERED: PHENYLEPHRINE-NS 100 MCG/ML 10 ML SYRINGE ONE (14:44)
[2021-05-20] MEDS ORDERED: Lidocaine 1% PF 5 ML VIAL ONE (14:44)
[2021-05-20] MEDS ORDERED: ePHEDrine 50 MG/ML VIAL ONE (14:44)
[2021-05-20] MEDS ORDERED: Dexamethasone 20 MG/5 ML VIAL ONE (14:44)
[2021-05-20] MEDS ORDERED: Promethazine HCl 25 MG/ML VIAL IM PRN ×2 (15:59→17:13)
[2021-05-20] MEDS ORDERED: Promethazine HCl 25 MG/ML VIAL IVPB PRN (15:59)
[2021-05-20] MEDS ORDERED: Ondansetron HCl/PF 4 MG/2 ML Vial IVP PRN (15:59)
[2021-05-20] MEDS ORDERED: HYDROmorphone 2 MG/ML VIAL SLOW IVP PRN (15:59)
[2021-05-20] MEDS ORDERED: diphenhydrAMINE 50 MG/ML VIAL IVP PRN (17:13)
[2021-05-20] MEDS ORDERED: Zolpidem Tartrate 5 MG TAB PO PRN (17:13)
[2021-05-20] MEDS ORDERED: diphenhydrAMINE 50 MG/ML VIAL IM PRN (17:13)
[2021-05-20] MEDS ORDERED: diphenhydrAMINE 25 MG CAP PO PRN (17:13)
[2021-05-20] MEDS ORDERED: Ondansetron PF 4 MG/2 ML Vial IVP PRN (17:13)
[2021-05-20] MEDS ORDERED: Naloxone HCl 0.4 mg/ml Vial IV PRN (17:13)
[2021-05-20] MEDS ORDERED: fentaNYL Citrate/PF 2,000 MCG in Sodium Chloride 0.9% 60 ML IV PRN (17:13)
[2021-05-20] MEDS ORDERED: Communication Order-Pharmacy FS SCH (17:15)
[2021-05-20] MEDS ORDERED: HYDROmorphone 0.5 MG/0.5 ML SYRINGE ONE (17:27)
[2021-05-20] MEDS ORDERED: Simethicone Chewable 80 MG TAB PO PRN (21:00)
[2021-05-20] MEDS: Enoxaparin Sodium 40 MG/0.4 ML SYRINGE SC SCH (21:05)
[2021-05-21] MEDS: HumaLOG 300 UNITS/3 ML VIAL SC PRN ×4 (00:27→17:16)
[2021-05-21] MEDS: Sodium Chloride 0.9% 1,000 ML IV SCH (05:35)
[2021-05-21] MEDS: Ketorolac Tromethamine 30 MG/ML VIAL IVP PRN (08:42)
[2021-05-21] MEDS: Folic Acid 1 MG TAB PO SCH (08:42)
[2021-05-21] MEDS: Famotidine 20 MG TAB PO SCH ×2 (08:42→20:03)
[2021-05-21] MEDS ORDERED: HYDROcodone/Acetaminophen 7.5/325 mg Tablet PO PRN (10:19)
[2021-05-21] MEDS: HYDROcodone/Acetaminophen 7.5/325 mg Tablet PO PRN ×3 (11:11→22:43)
[2021-05-21] MEDS: Fentanyl 100 MCG/2 ML VIAL SLOW IVP PRN ×3 (14:53→20:03)
[2021-05-21] MEDS: Enoxaparin Sodium 40 MG/0.4 ML SYRINGE SC SCH (20:02)
[2021-05-22] MEDS: HumaLOG 300 UNITS/3 ML VIAL SC PRN ×2 (00:30→05:54)
[2021-05-22] MEDS: Fentanyl 100 MCG/2 ML VIAL SLOW IVP PRN ×2 (00:35→05:58)
[2021-05-22] MEDS: HYDROcodone/Acetaminophen 7.5/325 mg Tablet PO PRN ×2 (04:26→10:38)
[2021-05-22] MEDS: Famotidine 20 MG TAB PO SCH (08:59)
[2021-05-22] MEDS: Ketorolac Tromethamine 30 MG/ML VIAL IVP PRN (09:00)
[2021-05-22] MEDS: Folic Acid 1 MG TAB PO SCH (09:00)
[2021-05-22 12:19] VITALS: BP 111/74; TEMP 97.5
== END 2021-05-22 14:30 | disposition home or self-care (01) | DRG 355 ==
LOC: ERS 12:51 → SJJU 17:44
PROVIDERS: ADMIT Surgery; ATTEND Surgery
PROC: 0WUF0JZ Supplement Abdominal Wall with Synthetic Substitute, Open Approach (ICD-10-PCS; principal; 2021-05-20)
DX: K43.3 Parastomal hernia with obstruction, without gangrene (principal); Z20.822 Contact with and (suspected) exposure to COVID-19; F10.10 Alcohol abuse, uncomplicated; I10 Essential (primary) hypertension; E78.5 Hyperlipidemia, unspecified; Z93.3 Colostomy status; Z85.038 Personal history of other malignant neoplasm of large intestine; Z88.5 Allergy status to narcotic agent; Z93.2 Ileostomy status; Z87.891 Personal history of nicotine dependence; Z79.84 Long term (current) use of oral hypoglycemic drugs; Z79.899 Other long term (current) drug therapy
CPT/HCPCS: 36415; 36416; 74177; 80048; 80053; 82378; 83690; 85025; 96374; 96375; 96376; J0694; J1100; J1170; J1650; J1815; J1885; J2250; J2270; J2405; J2550; J2704; J3010; J3411; J3490; J7050; Q9967; S0028; U0002; U0005

== ENCOUNTER 2021-11-25 10:06 | Outpatient (CLI) | payer MEDICAID | END 2021-11-25 10:07 | disposition home or self-care (01) | LOC: BICCT 10:06 | PROVIDERS: ATTEND Internal Medicine Hematology & Oncology | DX: C18.7 Malignant neoplasm of sigmoid colon (principal); K85.90 Acute pancreatitis without necrosis or infection, unspecified; R91.8 Other nonspecific abnormal finding of lung field; R19.00 Intra-abdominal and pelvic swelling, mass and lump, unspecified site; K86.2 Cyst of pancreas; K83.8 Other specified diseases of biliary tract; N13.30 Unspecified hydronephrosis; K86.89 Other specified diseases of pancreas; N26.1 Atrophy of kidney (terminal); K94.19 Other complications of enterostomy | CPT/HCPCS: 71260; 74177; Q9967 ==

== ENCOUNTER 2021-12-11 10:40 | Outpatient (CLI) | payer MEDICAID | END 2021-12-11 10:41 | disposition home or self-care (01) | LOC: PET 10:40 | PROVIDERS: ATTEND Internal Medicine Hematology & Oncology | DX: R91.1 Solitary pulmonary nodule (principal); R97.0 Elevated carcinoembryonic antigen [CEA]; R93.7 Abnormal findings on diagnostic imaging of other parts of musculoskeletal system; C18.7 Malignant neoplasm of sigmoid colon; C78.02 Secondary malignant neoplasm of left lung; Z96.89 Presence of other specified functional implants | CPT/HCPCS: 78815; A9552 ==

== ENCOUNTER 2021-12-25 10:05 | Day surgery (SDC) | payer MEDICAID ==
[2021-12-23 15:44] VITALS: BMI 21.7
[2021-12-25] MEDS ORDERED: Fentanyl 100 MCG/2 ML VIAL ONE ×2 (11:05→11:54)
[2021-12-25] MEDS ORDERED: Bupivacaine 0.25% 10 ML VIAL ONE (11:44)
[2021-12-25] MEDS ORDERED: Lidocaine 1% w/Epinephrine 1:100K 20 ML VIAL ONE (11:44)
[2021-12-25] MEDS ORDERED: ceFAZolin (BATCH) 2 GM/100 ML BAG ONE (11:47)
[2021-12-25] MEDS ORDERED: PROPOFOL 20 ML ONE (11:54)
[2021-12-25] MEDS ORDERED: diphenhydrAMINE 50 MG/ML VIAL ONE (12:27)
[2021-12-25] MEDS ORDERED: Ondansetron PF 4 MG/2 ML Vial ONE (12:27)
== END 2021-12-25 14:05 | disposition home or self-care (01) ==
LOC: SDC 10:05
PROVIDERS: ATTEND Surgery
PROC: 0JH60WZ Insertion of Totally Implantable Vascular Access Device into Chest Subcutaneous Tissue and Fascia, Open Approach (ICD-10-PCS; principal; 2021-12-25)
PROC: 02HV33Z Insertion of Infusion Device into Superior Vena Cava, Percutaneous Approach (ICD-10-PCS; principal; 2021-12-25)
DX: C34.90 Malignant neoplasm of unspecified part of unspecified bronchus or lung (principal); R91.1 Solitary pulmonary nodule; Z85.038 Personal history of other malignant neoplasm of large intestine; Z79.4 Long term (current) use of insulin; Z79.84 Long term (current) use of oral hypoglycemic drugs; Z88.5 Allergy status to narcotic agent; Z90.49 Acquired absence of other specified parts of digestive tract
CPT/HCPCS: 36416; 71045; C1788; J0690; J1200; J1642; J2405; J2704; J3010; S0020

== ENCOUNTER 2022-03-18 15:49 | Emergency (ER) | payer MEDICAID ==
[2022-03-18 16:46] LABS: Hemoglobin 10.6 g/dL (14.0-18.0); Mean Corpuscular HGB CONC 32.8 g/dL (32.0-36.0); Mean Corpuscular Hemoglobin 32.9 pg (27.0-31.0); Mean Platelet Volume 9.1 fL (7.4-10.4); Platelet Count 99 thou/uL (130-400); RBC Distribution Width 23.1 % (11.5-14.5); Red Blood Cell (RBC) Count 3.22 mill/uL (4.70-6.10); White Blood Cell (WBC) Count 14.9 thou/uL (4.8-10.8)
[2022-03-18 16:48] LABS: Actual Bicarbonate (HCO3v) 21 mEq/L (22-28); Analyzer IN Cardio ER; Base Excess -3.6 mEq/L (-2.0 to +3.0); Calcium, Ionized (venous) 1.08 mmol/L (1.16-1.32); Chloride (VBG) 100 mmol/L (98-106); Hemoglobin (Hb) 10.9 g/dL (13.1-17.2); Potassium (VBG) 3.63 mmol/L (3.70-5.30); pH (venous) 7.37 (7.32-7.43)
[2022-03-18 17:04] LABS: ALT (SGPT) 169 U/L (8-55); AST (SGOT) 152 U/L (5-34); Albumin 3.2 g/dL (3.5-5.0); Alkaline Phosphatase 358 U/L (40-110); Anion Gap 14 mmol/L (10-20); BUN (Urea Nitrogen) 10 mg/dL (8.4-25.7); Bilirubin, Total 1.8 mg/dL (0.2-1.2); Calc. Creatinine Clearance 0 mL/min (70-130); Calcium 9.1 mg/dL (7.8-10.44); Carbon Dioxide 25 mmol/L (22-29); Chloride 98 mmol/L (98-107); Globulin 4.2 g/dL (2.4-3.5); Glucose 382 mg/dL (70-105); Lipase 30 U/L (8-78); Potassium 3.9 mmol/L (3.5-5.1); Protein, Total 7.4 g/dL (6.0-8.3); Sodium 133 mmol/L (136-145)
[2022-03-18 17:25] LABS: Anisocytosis MODERATE=16-30 cells (100X) (0-5/hpf); Band 27 % (5-11); Lymphocytes 15 % (21-51); MDiff Complete? YES; Macrocytosis SLIGHT = 6-15 cells (100X) (0-5/hpf); Monocytes 4 % (0-10); Neutrophil 52 % (42-75); Nucleated RBC 1 % (0); Ovalocytes SLIGHT = 2-5 cells (100X) (0-1/hpf); Platelet Morphology Comment Appears Decreased; Polychromasia MODERATE = 3-4 cells (100X) (0-2/hpf); Spherocytes SLIGHT = 1-5 cells (100X) (None Seen)
[2022-03-18] MEDS ORDERED: Acetaminophen 500 MG TAB ONE (17:47)
[2022-03-18 18:18] LABS: Bilirubin Negative (Negative); Blood, Urine Negative (Negative); Clarity Clear (Clear); Glucose, Urine (Dipstick) Greater than 1000 mg/dL (Negative); Ketone, Urine Negative (Negative); Leukocyte Negative Leu/uL (Negative); Nitrite Negative (Negative); Protein, Urine (Dipstick) Negative (Neg-Trace); Specific Gravity, Urine 1.042 (1.002-1.036); Urobilinogen Normal mg/dL (Less than 2)
[2022-03-18] MEDS ORDERED: Mag-Al 1200 mg/1200 mg/30 ML UDCUP ONE (19:39)
[2022-03-18 19:57] LABS: Lactic Acid 1.7 mmol/L (0.5-2.2)
== END 2022-03-18 20:20 | disposition home or self-care (01) ==
LOC: ERS 15:49
DX: E11.65 Type 2 diabetes mellitus with hyperglycemia (principal); I10 Essential (primary) hypertension; C18.9 Malignant neoplasm of colon, unspecified; C78.02 Secondary malignant neoplasm of left lung; Z79.4 Long term (current) use of insulin; Z43.2 Encounter for attention to ileostomy; K85.90 Acute pancreatitis without necrosis or infection, unspecified; R91.1 Solitary pulmonary nodule
CPT/HCPCS: 36416; 71045; 80053; 81003; 82010; 82805; 83036; 83605; 83690; 84153; 84443; 84484; 85025; 93005

== ENCOUNTER 2022-04-05 13:02 | Outpatient (CLI) | payer MEDICAID | END 2022-04-05 13:03 | disposition home or self-care (01) | LOC: BICCT 13:02 | PROVIDERS: ATTEND Internal Medicine Hematology & Oncology | DX: C18.7 Malignant neoplasm of sigmoid colon (principal); C78.02 Secondary malignant neoplasm of left lung; R91.8 Other nonspecific abnormal finding of lung field; K43.5 Parastomal hernia without obstruction or gangrene; N13.30 Unspecified hydronephrosis | CPT/HCPCS: 71260; 74177; 82565 ==

== ENCOUNTER 2022-07-20 08:37 | Outpatient (CLI) | payer MEDICAID | END 2022-07-20 08:38 | disposition home or self-care (01) | LOC: BICCT 08:37 | PROVIDERS: ATTEND Internal Medicine Hematology & Oncology | DX: C18.7 Malignant neoplasm of sigmoid colon (principal); C78.02 Secondary malignant neoplasm of left lung; R19.00 Intra-abdominal and pelvic swelling, mass and lump, unspecified site; R91.8 Other nonspecific abnormal finding of lung field; K83.8 Other specified diseases of biliary tract; I86.8 Varicose veins of other specified sites; N26.1 Atrophy of kidney (terminal); N13.30 Unspecified hydronephrosis; K46.9 Unspecified abdominal hernia without obstruction or gangrene; K86.89 Other specified diseases of pancreas; Z98.890 Other specified postprocedural states | CPT/HCPCS: 71260; 74177 ==

== ENCOUNTER 2022-10-28 10:04 | Outpatient (CLI) | payer MEDICARE, MEDICAID | END 2022-10-28 10:05 | disposition home or self-care (01) | LOC: BICCT 10:04 | PROVIDERS: ATTEND Internal Medicine Hematology & Oncology | DX: C18.7 Malignant neoplasm of sigmoid colon (principal); C78.02 Secondary malignant neoplasm of left lung; R91.8 Other nonspecific abnormal finding of lung field; K86.89 Other specified diseases of pancreas; I86.4 Gastric varices; N13.30 Unspecified hydronephrosis; N26.1 Atrophy of kidney (terminal); N32.89 Other specified disorders of bladder | CPT/HCPCS: 71260; 74177; 82565 ==

== ENCOUNTER 2023-06-03 11:17 | Outpatient (CLI) | payer OTHER, MEDICAID ==
[2023-06-03] MEDS ORDERED: Iopamidol-370 76% 500 ML MDV (1 ML CHARGE) ONE (12:47)
== END 2023-06-03 11:18 | disposition home or self-care (01) ==
LOC: BICCT 11:17
PROVIDERS: ATTEND Internal Medicine Hematology & Oncology
DX: C18.7 Malignant neoplasm of sigmoid colon (principal); C78.02 Secondary malignant neoplasm of left lung
CPT/HCPCS: 71260; 74177; Q9967

== ENCOUNTER 2023-08-16 07:58 | Emergency (ER) | payer OTHER, MEDICAID ==
[2023-08-16 09:01] LABS: Hematocrit 41.5 % (42.0-52.0); Hemoglobin 13.9 g/dL (14.0-18.0); Mean Corpuscular HGB CONC 33.5 g/dL (32.0-36.0); Mean Corpuscular Volume 89.4 fl (78.0-98.0); Mean Platelet Volume 9.7 fL (7.4-10.4); Platelet Count 114 10x3/uL (130-400); RBC Distribution Width 17.5 % (11.5-14.5); Red Blood Cell (RBC) Count 4.64 mill/uL (4.70-6.10); White Blood Cell (WBC) Count 22.6 10x3/uL (4.8-10.8)
[2023-08-16] MEDS ORDERED: Morphine 4 MG/ML VIAL ONE ×2 (09:02→10:59)
[2023-08-16] MEDS ORDERED: Piperacillin/Tazobactam 3.375 GM VIAL ONE (09:03)
[2023-08-16] MEDS ORDERED: Sodium Chloride 0.9% 100 ML ONE (09:03)
[2023-08-16 09:14] LABS: PTT 31.2 sec (22.9-36.1); Prothrombin Time 13.4 sec (12.0-14.7)
[2023-08-16 09:20] LABS: Delete Auto Diff?? YES; Manual Diff?? YES
[2023-08-16 09:21] LABS: ALT (SGPT) 10 U/L (8-55); AST (SGOT) 16 U/L (5-34); Albumin 3.6 g/dL (3.5-5.0); Alkaline Phosphatase 214 U/L (40-110); Anion Gap 13 mmol/L (10-20); BUN (Urea Nitrogen) 14 mg/dL (8.4-25.7); Bilirubin, Total 0.6 mg/dL (0.2-1.2); Calc. Creatinine Clearance 0 mL/min (70-130); Calcium 8.8 mg/dL (7.8-10.44); Carbon Dioxide 27 mmol/L (22-29); Chloride 95 mmol/L (98-107); Estimated GFR 80; Globulin 4.5 g/dL (2.4-3.5); Potassium 4.6 mmol/L (3.5-5.1); Protein, Total 8.1 g/dL (6.0-8.3); Sodium 130 mmol/L (136-145)
[2023-08-16 09:26] LABS: Glucose 401 mg/dL (70-105)
[2023-08-16 09:39] LABS: Actual Bicarbonate (HCO3v) 22.9 mEq/L (22-28); Calcium, Ionized (venous) 1.02 mmol/L (1.16-1.32); Chloride (VBG) 98 mmol/L (98-106); Hematocrit-VBG 41 % (42.0-52.0); Hemoglobin (Hb) 13.9 g/dL (13.1-17.2); Potassium (VBG) 4.38 mmol/L (3.70-5.30); Sodium 130 mmol/L (133-146); pH (venous) 7.467 (7.32-7.43)
[2023-08-16 10:04] LABS: Band 12 % (5-11); Eosinophils 2 % (0-10); Lymphocytes 9 % (21-51); Neutrophil 77 % (42-75); Platelet Adequacy Comment Platelets Normal; Polychromasia SLIGHT = 2-3 cells HPF (0-2); Total Cell Count 100
[2023-08-16] MEDS ORDERED: Vancomycin 1 GM/200 ML (FROZEN) BAG ONE (10:51)
[2023-08-16] MEDS ORDERED: HYDROmorphone 0.5 MG/0.5 ML SYRINGE ONE (13:04)
== END 2023-08-16 13:23 | disposition short-term general hospital (02) ==
LOC: ERS 07:58
DX: M65.841 Other synovitis and tenosynovitis, right hand (principal); I10 Essential (primary) hypertension; E11.9 Type 2 diabetes mellitus without complications; Z79.84 Long term (current) use of oral hypoglycemic drugs; Z79.01 Long term (current) use of anticoagulants
CPT/HCPCS: 73130; 80053; 82010; 82805; 83605; 83930; 85025; 85610; 85730; 86140; 87040; 96365; 96366; 96367; 96375; 96376; 99284; J3370; 36415; J1170; J2270; J2543; J3490

== ENCOUNTER 2023-09-05 10:40 | Outpatient (CLI) | payer OTHER, MEDICAID | END 2023-09-05 10:41 | disposition home or self-care (01) | LOC: BICRAD 10:40 | PROVIDERS: ATTEND Nurse Practitioner Family | DX: Z09 Encounter for follow-up examination after completed treatment for conditions other than malignant neoplasm (principal); M51.36 Other intervertebral disc degeneration, lumbar region | CPT/HCPCS: 72100 ==

== ENCOUNTER 2023-09-08 08:50 | Emergency (ER) | payer OTHER, MEDICAID ==
[2023-09-08] MEDS ORDERED: Ketorolac Tromethamine 30 MG/ML VIAL ONE (09:44)
[2023-09-08] MEDS ORDERED: Morphine 4 MG/ML VIAL ONE ×2 (09:44→13:44)
[2023-09-08] MEDS ORDERED: Acetaminophen 500 MG TAB ONE (09:44)
[2023-09-08 10:08] LABS: #Basophils 0.1 thou/uL (0.0-0.2); #Eosinphils 0.5 thou/uL (0.0-0.7); #Monocytes 0.4 thou/uL (0.11-0.59); #Neutrophils 3.9 thou/uL (1.40-6.50); %Basophils 1.5 % (0.0-1.0); %Eosinophils 7.8 % (0.0-10.0); %Lymphocytes 16.8 % (21.0-51.0); %Neutrophils 66.7 % (42.0-75.0); Hematocrit 40.5 % (42.0-52.0); Mean Corpuscular HGB CONC 32.1 g/dL (32.0-36.0); Mean Corpuscular Hemoglobin 29.7 pg (27.0-31.0); Mean Corpuscular Volume 92.7 fl (78.0-98.0); Mean Platelet Volume 10.7 fL (7.4-10.4); RBC Distribution Width 16.6 % (11.5-14.5); Red Blood Cell (RBC) Count 4.37 mill/uL (4.70-6.10); White Blood Cell (WBC) Count 5.9 10x3/uL (4.8-10.8)
[2023-09-08 10:10] LABS: Platelet Count 87 10x3/uL (130-400)
[2023-09-08 10:39] LABS: ALT (SGPT) 7 U/L (8-55); AST (SGOT) 12 U/L (5-34); Albumin 3.6 g/dL (3.5-5.0); Alkaline Phosphatase 85 U/L (40-110); Anion Gap 13 mmol/L (10-20); BUN (Urea Nitrogen) 18 mg/dL (8.4-25.7); Calc. Creatinine Clearance 0 mL/min (70-130); Calcium 9.6 mg/dL (7.8-10.44); Carbon Dioxide 27 mmol/L (22-29); Chloride 97 mmol/L (98-107); Estimated GFR 88; Globulin 4.4 g/dL (2.4-3.5); Glucose 335 mg/dL (70-105); Potassium 4.3 mmol/L (3.5-5.1); Sodium 133 mmol/L (136-145)
[2023-09-08 12:32] LABS: Bacteria/HPF None Seen HPF (None Seen); Bilirubin Negative (Negative); Blood, Urine Negative (Negative); CAUTI Indications for Culture < 2yrs of age; Clarity Clear (Clear); Glucose, Urine (Dipstick) Greater than 1000 mg/dL (Negative); Ketone, Urine Negative (Negative); Leukocyte Negative Leu/uL (Negative); Nitrite Negative (Negative); Protein, Urine (Dipstick) 70 mg/dL (Neg-Trace); RBC/HPF 0-3 HPF (0-3); Specific Gravity, Urine 1.027 (1.002-1.036); Squamous Epithelial None Seen HPF (0-3); Urobilinogen Normal mg/dL (Less than 2); WBC/HPF 0-3 HPF (0-3)
[2023-09-08 12:38] LABS: Urine Culture Reflex Yes Yes
== END 2023-09-08 13:58 | disposition home or self-care (01) ==
LOC: ERS 08:50
DX: M54.42 Lumbago with sciatica, left side (principal); M51.36 Other intervertebral disc degeneration, lumbar region; R33.9 Retention of urine, unspecified; I10 Essential (primary) hypertension; E11.9 Type 2 diabetes mellitus without complications; F17.220 Nicotine dependence, chewing tobacco, uncomplicated; Z79.84 Long term (current) use of oral hypoglycemic drugs; Z79.4 Long term (current) use of insulin
CPT/HCPCS: 51702; 72131; 72148; 80053; 81001; 85025; 86140; 87086; 96374; 96375; 96376; J1885; J2270

== ENCOUNTER 2024-03-20 08:13 | Outpatient (CLI) | payer OTHER, MEDICAID ==
[2024-03-20] MEDS ORDERED: Iopamidol 370 76% 100 ML VIAL ONE (12:24)
== END 2024-03-20 08:14 | disposition home or self-care (01) ==
LOC: BICCT 08:13
PROVIDERS: ATTEND Internal Medicine Hematology & Oncology
DX: C18.7 Malignant neoplasm of sigmoid colon (principal); C78.02 Secondary malignant neoplasm of left lung; R91.8 Other nonspecific abnormal finding of lung field
CPT/HCPCS: 71260; 74177; Q9967

== ENCOUNTER 2024-07-10 08:18 | Outpatient (CLI) | payer OTHER, MEDICAID ==
[2024-07-10] MEDS ORDERED: Iopamidol 370 76% 100 ML VIAL ONE (10:24)
== END 2024-07-10 08:19 | disposition home or self-care (01) ==
LOC: BICCT 08:18
PROVIDERS: ATTEND Internal Medicine Hematology & Oncology
DX: C18.7 Malignant neoplasm of sigmoid colon (principal); C78.02 Secondary malignant neoplasm of left lung; R91.8 Other nonspecific abnormal finding of lung field; K76.89 Other specified diseases of liver; I85.00 Esophageal varices without bleeding
CPT/HCPCS: 71260; 74177; Q9967

== ENCOUNTER 2024-10-24 07:37 | Outpatient (CLI) | payer OTHER, MEDICAID ==
[2024-10-24] MEDS ORDERED: Iopamidol 370 76% 100 ML VIAL ONE (10:48)
== END 2024-10-24 07:38 | disposition home or self-care (01) ==
LOC: BICCT 07:37
PROVIDERS: ATTEND Internal Medicine Hematology & Oncology
DX: C18.7 Malignant neoplasm of sigmoid colon (principal); C78.02 Secondary malignant neoplasm of left lung; L03.90 Cellulitis, unspecified; D50.0 Iron deficiency anemia secondary to blood loss (chronic); R91.8 Other nonspecific abnormal finding of lung field; K83.8 Other specified diseases of biliary tract
CPT/HCPCS: 71260; 74177

== ENCOUNTER 2025-09-09 08:44 | Outpatient (CLI) | payer OTHER, MEDICAID ==
[2025-09-09] MEDS ORDERED: Iopamidol 370 76% 100 ML VIAL ONE (09:22)
== END 2025-09-09 08:45 | disposition home or self-care (01) ==
LOC: CT 08:44
PROVIDERS: ATTEND Internal Medicine Hematology & Oncology
DX: D50.0 Iron deficiency anemia secondary to blood loss (chronic) (principal); C18.7 Malignant neoplasm of sigmoid colon; C78.02 Secondary malignant neoplasm of left lung; L03.90 Cellulitis, unspecified; R91.8 Other nonspecific abnormal finding of lung field; E27.8 Other specified disorders of adrenal gland; K83.9 Disease of biliary tract, unspecified; I85.00 Esophageal varices without bleeding; I25.10 Atherosclerotic heart disease of native coronary artery without angina pectoris; K76.9 Liver disease, unspecified; K86.89 Other specified diseases of pancreas; N13.30 Unspecified hydronephrosis; N28.82 Megaloureter; N32.89 Other specified disorders of bladder; I70.0 Atherosclerosis of aorta; Z95.828 Presence of other vascular implants and grafts; Z90.49 Acquired absence of other specified parts of digestive tract; Z98.890 Other specified postprocedural states
CPT/HCPCS: 71260; 74177; Q9967